=== PATIENT | male | born 2000 | race Caucasian/White ===

== ENCOUNTER 2019-10-27 13:05 | Outpatient (RCR) | payer BC | END 2019-11-08 14:13 | disposition home or self-care (01) | PROVIDERS: ATTEND Psychiatry & Neurology Neurology | DX: M54.2 Cervicalgia (principal); R29.898 Other symptoms and signs involving the musculoskeletal system ==

== ENCOUNTER → 2019-12-05 | Outpatient (CLI) | payer BC ==
[~2019-12-05] MED LIST: GADOBUTROL 7.5 MMOL/7.5 ML (GADAVIST) VIAL IV ONE
--- NOTE | 2019-12-05 11:05 | Diagnostic Imaging Report ---
PROCEDURE: MRI lumbar spine. TECHNIQUE: Multiplanar, multisequence MRI of the lumbar spine was performed without contrast. INDICATION: Back pain. FINDINGS: The alignment of the lumbar spine is normal. The vertebral body heights are well maintained. There is no spondylolysis or spondylolisthesis. No fractures are identified. Conus medullaris is seen at L1 and is normal in appearance. All of the lumbar discs are normal in height, signal intensity, and morphology. There is no focal disc extrusion or high-grade spinal stenosis. Aorta is nonaneurysmal. Kidneys are normal in appearance. IMPRESSION: Unremarkable MRI of the lumbar spine. Dictated by: Dictated on workstation # [id number]
--- NOTE | 2019-12-05 11:21 | Diagnostic Imaging Report ---
PROCEDURE: MR imaging cervical spine with and without contrast. TECHNIQUE: Multiplanar and multisequence MRI of the cervical spine was performed with and without contrast. INDICATION: Neck and back pain. FINDINGS: There is a well-circumscribed mass at the level of T1. This is predominantly cystic, however does demonstrate some heterogeneous contrast enhancement. It measures 2.2 cm craniocaudal x approximately 1.3 cm transverse and 1.1 cm AP. 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 Additionally, there is a 1 cm component extending into the right neuroforamina. There is marked mass effect on the cord, although no significant abnormal signal is seen within the cord itself. The alignment of the cervical spine is otherwise normal. The vertebral body heights are well maintained. There is no other focal disc extrusion or spinal stenosis. Prevertebral soft tissues are within normal limits. Posterior fossa is unremarkable. There are no other abnormal areas of contrast enhancement. IMPRESSION: Well-circumscribed predominantly cystic mass demonstrating heterogeneous contrast enhancement at the level of T1. An additional component of this mass appears to extend into the right neuroforamina at this level. 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 Additional considerations would include meningioma, neurofibroma, or less likely drop metastasis. These findings were conveyed directly to Dr. Shilo Antoine on December 05, 2019, at approximately 11:15 a.m. Dictated by: Dictated on workstation # [id number]
== END ==
LOC: RAD 09:36
PROVIDERS: ATTEND Orthopaedic Surgery
DX: G54.3 Thoracic root disorders, not elsewhere classified (principal); M54.2 Cervicalgia; M54.5 Low back pain
CPT/HCPCS: 72148; 72156

== ENCOUNTER 2020-02-28 11:15 | Outpatient (RCR) | payer BC | END 2020-05-10 14:59 | disposition home or self-care (01) | PROVIDERS: ATTEND Neurological Surgery | DX: D36.10 Benign neoplasm of peripheral nerves and autonomic nervous system, unspecified (principal); Z98.890 Other specified postprocedural states ==

== ENCOUNTER 2020-03-24 02:23 | Emergency (ER) | payer BC ==
[~2020-03-24] VITALS: Ht 170 cm; Wt 59.0 kg
[~2020-03-24 02:23] MED LIST changes: -GADOBUTROL 7.5 MMOL/7.5 ML (GADAVIST) VIAL IV ONE; +LACTATED RINGERS 1,000 ML IV ONE
[2020-03-24] MEDS ORDERED: PANTOPRAZOLE 40 MG (PROTONIX) VIAL ONE (02:26)
--- OUTSIDE RECORDS SUMMARY | 2020-03-24 02:30 | XMS REPORT | Clinical Summary ---
Author Author Ovidio, Yves Jackson Organization [facility] Address Unknown Phone Unavailable Allergies, Adverse Reactions, Alerts Allergy Name Reaction Description Start Date Severity Status Pr ovider NKDA Critical Active Vaughn POPE Conditions or Problems Problem Name Problem Code Onset Date Status Entry Date Provider Comment Standard Description Annotate CERVICAL LYMPHADENOPATHY, LEFT 785.6 Resolved 03/23 Todd Rodriguez MD Enlargement of lymph nodes OTITIS EXTERNA 380.10 Resolved Todd Rodriguez MD Infective otitis externa, unspecified LONG-TERM (CURRENT) USE OF OTHER MEDICATIONS V58.69 2 Resolved Gaston Ewing MD Long-term (current) use of ot her medications HEALTH SCREENING V70.0 Active Vaughn Robbins A Routine general medical examination at a health care facility Pharyngitis, acute 074.0 Inactive Todd duval MD Herpangina Acute pharyngitis 462 Resolved Todd Rodriguez MD Acute pharyngitis Malaise and fatigue 780.79 Resolved Gaston abrams MD Other malaise and fatigue Pharyngitis 462 Resolved Gaston Ewing MD Acute pharyngitis Sebaceous cyst, infected 706.2 Active Kylah Ewing MD Sebaceous cyst AFTERCARE FOLLOW SURGERY SKIN&SUBCUT TISSUE NEC V58.77 05/30 Active Ricardo Wilson MD Aftercare following surgery of the skin and subcutaneous tissue, NEC Sports physical V70.3 Active Evens ARITA RN Other general medical examination for administrative purposes URI 465.9 Inactive Alon Doyle DO Ac cristal upper respiratory infections of unspecified site Pharyngitis 462 Active Jillina Frazell FLIGHT ENGINEER INSPECTOR Acute pharyngitis Cough 786.2 Active Jillina Yasirzell FLIGHT ENGINEER INSPECTOR Cough Febrile illness 780.60 Active Marelyrosa Botello ribe Fever, unspecified URI 465.9 Active Arsalan Carmichael MD Acute upper respiratory infections of unspecified site BMI 22-22.9 Active Arsalan Carmichael MD Body Mass Index between 19-24, adult Neck pain, chronic 723.1 Active Arsalan garcias MD Cervicalgia 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 Logan malcolm Carmichael MD Lesion of ulnar nerve Bloody stools 578.1 Active Marcos Tomas QUIROZN Blood in stool Hemorrhoids, internal, with bleeding 455.2 Active Marcos Marin APRN Internal hemorrhoids with other complica tion CERVICAL LYMPHADENOPATHY, LEFT ICD-785.6 Inact bennett Todd Rodriguez MD OTITIS EXTERNA ICD-380.10 Inactive Todd Cotto MD LONG-TERM (CURRENT) USE OF OTHER MEDICATIONS ICD-V58.69 2 Inactive Gaston Ewing MD Acute pharyngitis ICD-462 Inactive Todd ferreira MD Malaise and fatigue ICD-780.79 Inactive Chelsey Ewing MD Pharyngitis ICD-462 Inactive Gaston Ewing MD URI ICD-465.9 Inactive Alon Blu Vivek LUCIO Medication List Medication Instructions Start Date Stop Date Generic Name NDC Status Provider Patient Instruction GABAPENTIN 300 MG ORAL CAPSULE Take 1 capsule by mouth in the morning, 1 by mouth at noon, and 2 at bedtime. GABAPENTIN [id number] Jose Ambrosio Active EFFEXOR XR 75 MG ORAL CAPSULE EXTENDED RELEASE 24 HOUR Take one by mouth daily VENLAFAXINE HCL 02044489996 Active Marcos Marin FLIGHT ENGINEER INSPECTOR Active PREDNISONE 20 MG ORAL TABLET two tabs by mouth today, then one tab by mouth days two and three PREDNISONE 59155045812 No Longer Active Arsalan Carmichael MD Active AZITHROMYCIN 250 MG ORAL TABLET 2 po qd x 1 day, then 1 po q d x 4 days AZITHROMYCIN 97906593775 No Longer Active Jillina Yasir arcadio FLIGHT ENGINEER INSPECTOR Active HYDROCODONE-ACETAMINOPHEN 5-325 MG ORAL TABLET 1 TAB PO Q 6 HRS PRN HYDROCODONE-ACETAMINOPHEN 50276379521 No Longer Active Jilli na Sharonl FLIGHT ENGINEER INSPECTOR Active TYLENOL COLD/FLU SEVERE 5-22-163-325 MG ORAL TABLET 2 tabs daily prn [id number] 87644432834 No Longer Active Jillin a Andrea FLIGHT ENGINEER INSPECTOR Active BACTRIM DS 800-160 MG ORAL TABLET 1 tab by mouth twice daily 201 01/30/22 TRIMETHOPRIM-SULFAMETHOXAZOLE 41055507451 No Longer Active Manuel Mendez FLIGHT ENGINEER INSPECTOR Active BACTRIM DS 800-160 MG ORAL TABLET 1 po BID x 10 days 2 SULFAMETHOXAZOLE-TRIMETHOPRIM 60154049655 No Longer Active Gaston Ewing MD Active AMOXICILLIN 500 MG ORAL CAPSULE 1 cap by mouth three times a day AMOXICILLIN 56862522696 No Longer Active Todd Rodriguez MD Active EQ IBUPROFEN 200 MG ORAL TABLET 2 tabs every 4 to 6 hours prn 03/23 IBUPROFEN 42876108808 Active Todd Rodriguez MD Active ANTIPYRINE-BENZOCAINE 5.4-1.4 % OTIC SOLUTION 1-2 drop s in affected ear q 3 hours prn ear pain. BENZOCAINE-ANTIPYRINE 85527567991 No Longer Active Vaughn POPE Active CORTISPORIN 3.5-59781-8 OTIC SOLUTION 4gtts in affected ear QID x 7 days [id number] 18251853858 No Longer Active lexi POPE Active AMOXICILLIN 500 MG ORAL TABLET 2 tabs PO bid x 14 days AMOXICILLIN 48468746226 No Longer Active Vaughn POPE Activ e CORTISPORIN 3.5-41672-8 OTIC SOLUTION 4gtts in affected ear QID x 7 days CORTISPORIN 3.5-96715-4 OTIC SOLUTION [id number] Inactive ANTIPYRINE-BENZOCAINE 5.4-1.4 % OTIC SOLUTION 1-2 drop s in affected ear q 3 hours prn ear pain. ANTIPYRINE-BENZOCAIN E 5.4-1.4 % OTIC SOLUTION BENZOCAINE-ANTIPYRINE Inactive TYLENOL COLD/FLU SEVERE 5-08-005-325 MG ORAL TABLET 2 tabs daily prn TYLENOL COLD/FLU SEVERE 7-65-850-325 MG ORAL TABLET [id number] Inactive HYDROCODONE-ACETAMINOPHEN 5-325 MG ORAL TABLET 1 TAB PO Q 6 HRS PRN HYDROCODONE-ACETAMINOPHEN 5-325 MG ORAL TABLET 165567 HYDROCODONE-ACETAMINOPHEN Inactive PREDNISONE 20 MG ORAL TABLET two tabs by mouth today, then one tab by mouth days two and three PREDNISONE 20 MG ORAL TABLET 674402 PREDNISONE Inactive AMOXICILLIN 500 MG ORAL TABLET 2 tabs PO bid x 14 days AMOXICILLIN 500 MG ORAL TABLET 992637 AMOXICILLIN Inactive AMOXICILLIN 500 MG ORAL CAPSULE 1 cap by mouth three times a day AMOXICILLIN 500 MG ORAL CAPSULE 953032 AMOXICILLIN Inactive BACTRIM DS 800-160 MG ORAL TABLET 1 po BID x 10 days 2 BACTRIM DS 800-160 MG ORAL TABLET 19821228 SULFAMETHOXAZOLE-TRIMETHOP RIM Inactive BACTRIM DS 800-160 MG ORAL TABLET 1 tab by mouth twice daily 201 01/30/22 BACTRIM DS 800-160 MG ORAL TABLET 19821228 TRIMETHOPRIM-SULFAMETHOXAZOLE Inactive AZITHROMYCIN 250 MG ORAL TABLET 2 po qd x 1 day, then 1 po q d x 4 days AZITHROMYCIN 250 MG ORAL TABLET 363385 AZITHROMY PORSHA Inactive Immunizations Vaccine Administration Date Value Standard Kristopher cription influenza immunization (Flu Vax) has been administered 08/17 Flulaval Quadrivalent (Flu) 10Pk Syringe IM influenza virus vaccine, unspecified formulation Vital Signs Date Name Value Unit Range Description blood pressure, diastolic, repeated by physician 73 BP matos blood pressure, diastolic 73 mm[Hg] BP matos blood pressure, systolic, repeated by physician 104 BP sys blood pressure, systolic 104 mm[Hg] BP sys pulse rate E&M 86 /min Heart rate temperature E&M 98.5 [degF] Body temp erature weight E&M 146 [lb_av] Weight Measure d blood pressure, diastolic, repeated by physician 80 BP matos blood pressure, diastolic 80 mm[Hg] BP matos blood pressure, systolic, repeated by physician 122 BP sys blood pressure, systolic 122 mm[Hg] BP sys height E&M 68 [in_us] Bdy height pulse rate E&M 79 /min Heart rate temperature E&M 98.1 [degF] Body temp erature weight E&M 148 [lb_av] Weight Measure d Diagnostic Results Date Name Value Unit Range Description Lab Report: CBC W/DIFF - Hematology leukocyte count, blood 5.7 10^3/MM^3 10*3/mm3 4.6-10.2 neutrophils as percent of blood leukocytes 46.8 % 42.2-75.2 monocytes as percent of blood leukocytes 8.7 % 1.7-9.3 lymphocytes as percent of blood leukocytes 40.6 % 20.5-51.1 erythrocyte (RBC) count 5.16 10^6/MM^3 10*6/mm3 4.50-6.5 0 hemoglobin, blood 14.2 g/dL 14.0-18.0 hematocrit, blood 43.7 % 40.0-54.0 mean corpuscular volume, RBC 85 fL 80-97 mean corpuscular hemoglobin, RBC 27.4 pg 27. 0-31.2 mean corpuscular hemoglobin concentration, RBC 32.4 G/DL % 31.8-35.4 red blood cell distribution width 11.3 % 13 .0-18.0 platelet count 244 10^3/MM^3 10*3/mm3 142-424 Lab Report: Comp. Metabolic Panel - Chem istry sodium, serum 140 mmol/L 470-284 2494/02/28 carbon dioxide, venous blood 30.5 mmol/L 21.0-32 .0 potassium, serum 4.3 mmol/L 3.5-5.2 chloride, serum 102 mmol/L 98-107 blood glucose 96 mg/dL 65-95 urea nitrogen, blood 18 mg/dL 7-18 creatinine, serum 0.92 mg/dL 0.60-1.30 Estimated Glomerular Filtration Rate (calc) 109 (?) mL/min/1.73m2 = OR > 60 mL/min alanine aminotransferase (SGPT), serum 15 U/L 12-78 aspartate aminotransferase (SGOT), serum 26 U/L 19-43 calcium, serum 9.2 mg/dL 8.5-10.1 bilirubin, serum, total 0.70 mg/dL 0.00-1.00 Lab Report: Comp. Metabolic Panel - Lab Alkaline phosphatase 65 50-136 Office Visit: Back/ Arm pain - Basic LDL target level 160 mg/dL Office Visit: Back/ Arm pain - Chemistry HDL cholesterol, serum, target level 40 mg/dL cholesterol, target level 200 mg/dL triglyceride, target level 150 mg/dL Encounters Code Encounter Date Provider Facility CPT-61829 Level 3 Est. Patient 18:54:53 BUDGET AND POLICY ANALYST Marcos vega [facility] CPT-92401 Level 3 Est. Patient 18:52:23 BUDGET AND POLICY ANALYST Marcos vega [facility] CPT-93856 Level 4 Est. Patient 15:27:54 CDT Arsalan gustafson MD [facility] CPT-30641 Level 3 Est. Patient 15:04:20 BUDGET AND POLICY ANALYST Arsalan gustafson MD [facility] CPT-42421 Level 3 Est. Patient 15:11:28 BUDGET AND POLICY ANALYST Alon doherty [facility] CPT-92379 Level 3 Est. Patient 14:21:45 CDT Evens majano [facility] CPT-95717 Level 3 Est. Patient 14:17:31 CDT Evens majano [facility] CPT-19573 Level 3 Est. Patient 16:26:47 BUDGET AND POLICY ANALYST lAon doherty [facility] CPT-61492 Level 3 Est. Patient 11:42:21 CDT Gaston Ewing MD [facility] CPT-87214 Level 3 Est. Patient 13:52:22 CDT Todd Rodriguez MD [facility] CPT-90262 Level 3 Est. Patient 12:06:02 BUDGET AND POLICY ANALYST Arsalan gustafson MD [facility] CPT-79785 Level 3 Est. Patient 12:39:55 BUDGET AND POLICY ANALYST Todd Rodriguez MD [facility] CPT-67173 Level 3 Est. Patient 14:18:20 CDT Vaughn Parker [facility] CPT-98794 Level 3 Est. Patient 17:31:27 BUDGET AND POLICY ANALYST Arsalan gustafson MD [facility] CPT-22222 Level 3 Est. Patient 14:37:36 CDT Vaughn Parker [facility] Procedures Code Procedure Name Date Entry Date Standard Desc ription CPT-14732 Venipuncture Draw Fee 14:46:33 BUDGET AND POLICY ANALYST CPT-[id number] (4274F) Influenza immunization administe red or previously received 18:07:10 BUDGET AND POLICY ANALYST CPT-78678 38251 - Immun Admin 1 vac 16:44:36 CDT 2018 CPT-81258 Flulaval Quadrivalent (Flu) 10Pk Syringe IM 2018 16:44:36 CDT CPT-69572 T spine AP/ Lat - XRAY USE ONLY 15:36:46 CD T CPT-27551 Cervical Min 4V - XRAY USE ONLY 15:36:46 CD T CPT-08947 Chest 2V Frontal and Lat - XRAY USE ONLY 14:37:29 CDT CPT-70465 Postop F/U Visit 13:38:44 CDT CPT-OV Office Visit 14:33:00 CDT CPT-21565 Venipuncture Draw Fee 16:03:08 BUDGET AND POLICY ANALYST CPT-12015 Venipuncture Draw Fee 14:25:48 BUDGET AND POLICY ANALYST CPT-23199 Venipuncture Draw Fee 09:58:28 CDT CPT-90450 Venipuncture Draw Fee 13:38:25 CDT CPT-29461 Venipuncture Draw Fee 14:30:31 CDT CPT-89569 Venipuncture Draw Fee 16:51:54 CDT [facility]-93841 Venipuncture Draw Fee 15:30:43 CDT
--- OUTSIDE RECORDS SUMMARY | 2020-03-24 02:30 | XMS REPORT | Clinical Summary ---
Author Author Admin, vYes Jackson Organization [facility] Address Unknown Phone Unavailable Allergies, Adverse Reactions, [...] of unspecified site Pharyngitis 462 Active Jillina Sharonl AZURE ARCHITECT Acute pharyngitis Cough 786.2 Active Jillina Yasirzell AZURE ARCHITECT Cough Febrile illness 780.60 Active Marely Botello ribe Fever, unspecified URI 465.9 Active [...] Gaston Ewing MD URI ICD-465.9 Inactive Alon Doyle DO Medication List Medication Instructions Start Date Stop Date Generic Name NDC Status Provider Patient Instruction EFFEXOR XR 75 MG ORAL CAPSULE EXTENDED RELEASE 24 HOUR Take one by mouth daily VENLAFAXINE HCL 61780725486 Active Marcos Marin AZURE ARCHITECT Active PREDNISONE 20 MG ORAL TABLET two tabs by mouth today, then one tab by mouth days two and three PREDNISONE 42895098214 No Longer Active Arsalan Carmichael MD Active AZITHROMYCIN 250 MG ORAL TABLET 2 po qd x 1 day, then 1 po q d x 4 days AZITHROMYCIN 69552181216 No Longer Active Jillina Yasir arcadio AZURE ARCHITECT Active HYDROCODONE-ACETAMINOPHEN 5-325 MG ORAL TABLET 1 TAB PO Q 6 HRS PRN HYDROCODONE-ACETAMINOPHEN 69204434457 No Longer Active Jielly Herreral AZURE ARCHITECT Active TYLENOL COLD/FLU SEVERE 0-47-139-325 MG ORAL TABLET 2 tabs daily prn [id number] 65238847215 No Longer Active Genesisin conrad Herreral AZURE ARCHITECT Active BACTRIM DS 800-160 MG ORAL TABLET 1 tab by mouth twice daily 201 01/30/22 TRIMETHOPRIM-SULFAMETHOXAZOLE 32913942021 No Longer Active Manuel Mendez AZURE ARCHITECT Active BACTRIM DS 800-160 MG ORAL TABLET 1 po BID x 10 days 2 SULFAMETHOXAZOLE-TRIMETHOPRIM 55843532950 No Longer Active Gaston Ewing MD Active AMOXICILLIN 500 MG ORAL CAPSULE 1 cap by mouth three times a day AMOXICILLIN 59322583300 No Longer Active Todd Rodriguez MD Active EQ IBUPROFEN 200 MG ORAL TABLET 2 tabs every 4 to 6 hours prn 03/23 IBUPROFEN 09924487690 Active Todd Rodriguez MD Active ANTIPYRINE-BENZOCAINE 5.4-1.4 % OTIC SOLUTION 1-2 drop s in affected ear q 3 hours prn ear pain. BENZOCAINE-ANTIPYRINE 62684235367 No Longer Active Vaughn POPE Active CORTISPORIN 3.5-76637-3 OTIC SOLUTION 4gtts in affected ear QID x 7 days [id number] 04424836426 No Longer Active lexi POPE Active AMOXICILLIN 500 MG ORAL TABLET 2 tabs PO bid x 14 days AMOXICILLIN 37921863897 No Longer Active Vaughn POPE Activ e CORTISPORIN 3.5-64691-4 OTIC SOLUTION 4gtts in affected ear QID x 7 days CORTISPORIN 3.5-21437-3 OTIC SOLUTION [id number] Inactive ANTIPYRINE-BENZOCAINE 5.4-1.4 % OTIC SOLUTION 1-2 drop s in affected ear q 3 hours prn ear pain. ANTIPYRINE-BENZOCAIN E 5.4-1.4 % OTIC SOLUTION BENZOCAINE-ANTIPYRINE Inactive TYLENOL COLD/FLU SEVERE 3-90-508-325 MG ORAL TABLET 2 tabs daily prn TYLENOL COLD/FLU SEVERE 9-23-740-325 MG ORAL TABLET [id number]-WJ-[id number]-APAP Inactive HYDROCODONE-ACETAMINOPHEN 5-325 MG ORAL TABLET 1 TAB PO Q 6 HRS PRN HYDROCODONE-ACETAMINOPHEN 5-325 MG ORAL TABLET 645509 HYDROCODONE-ACETAMINOPHEN Inactive PREDNISONE 20 MG ORAL TABLET two tabs by mouth today, then one tab by mouth days two and three PREDNISONE 20 MG ORAL TABLET 157869 PREDNISONE Inactive AMOXICILLIN 500 MG ORAL TABLET 2 tabs PO bid x 14 days AMOXICILLIN 500 MG ORAL TABLET 705852 AMOXICILLIN Inactive AMOXICILLIN 500 MG ORAL CAPSULE 1 cap by mouth three times a day AMOXICILLIN 500 MG ORAL CAPSULE 053672 AMOXICILLIN Inactive BACTRIM DS 800-160 MG ORAL TABLET 1 po BID x 10 days 2 BACTRIM DS 800-160 MG ORAL TABLET 434020 SULFAMETHOXAZOLE-TRIMETHOP RIM Inactive BACTRIM DS 800-160 MG ORAL TABLET 1 tab by mouth twice daily 201 01/30/22 BACTRIM DS 800-160 MG ORAL TABLET 945603 TRIMETHOPRIM-SULFAMETHOXAZOLE Inactive AZITHROMYCIN 250 MG ORAL TABLET 2 po qd x 1 day, then 1 po q d x 4 days AZITHROMYCIN 250 MG ORAL TABLET 330866 AZITHROMY PORSHA Inactive Immunizations Vaccine Administration Date [...] - Chem istry sodium, serum 140 mmol/L 379-393 2327/02/28 carbon dioxide, venous blood 30.5 mmol/L 21.0-32 [...] mg/dL Encounters Code Encounter Date Provider Facility CPT-17422 Level 3 Est. Patient 18:54:53 DRILL RUNNER Marcos vega [facility] CPT-26844 Level 3 Est. Patient 18:52:23 DRILL RUNNER Marcos vega [facility] CPT-24907 Level 4 Est. Patient 15:27:54 CDT Arsalan gustafson MD [facility] CPT-45747 Level 3 Est. Patient 15:04:20 DRILL RUNNER Arsalan gustafson MD [facility] CPT-20212 Level 3 Est. Patient 15:11:28 DRILL RUNNER Alon doherty [facility] CPT-64767 Level 3 Est. Patient 14:21:45 CDT Evens majano [facility] CPT-72960 Level 3 Est. Patient 14:17:31 CDT Evens majano [facility] CPT-25052 Level 3 Est. Patient 16:26:47 DRILL RUNNER Alon doherty [facility] CPT-82732 Level 3 Est. Patient 11:42:21 CDT Gaston Ewing MD [facility] CPT-14804 Level 3 Est. Patient 13:52:22 CDT Todd Rodriguez MD [facility] CPT-23533 Level 3 Est. Patient 12:06:02 DRILL RUNNER Arsalan gustafson MD [facility] CPT-15405 Level 3 Est. Patient 12:39:55 DRILL RUNNER Todd Rodriguez MD [facility] CPT-01815 Level 3 Est. Patient 14:18:20 CDT Vaughn POPE [facility] CPT-64409 Level 3 Est. Patient 17:31:27 DRILL RUNNER Arsalan gustafson MD [facility] CPT-40724 Level 3 Est. Patient 14:37:36 CDT Vaughn POPE [facility] Procedures Code Procedure Name Date Entry Date Standard Desc ription CPT-33993 Venipuncture Draw Fee 14:46:33 DRILL RUNNER CPT-[id number] (4274F) Influenza immunization administe red or previously received 18:07:10 DRILL RUNNER CPT-84163 70791 - Immun Admin 1 vac 16:44:36 CDT 2018 CPT-05786 Flulaval Quadrivalent (Flu) 10Pk Syringe IM 2018 16:44:36 CDT CPT-04200 T spine AP/ Lat - XRAY USE ONLY 15:36:46 CD T CPT-31558 Cervical Min 4V - XRAY USE ONLY 15:36:46 CD T CPT-29162 Chest 2V Frontal and Lat - XRAY USE ONLY 14:37:29 CDT CPT-25924 Postop F/U Visit 13:38:44 CDT CPT-OV Office Visit 14:33:00 CDT CPT-93023 Venipuncture Draw Fee 16:03:08 DRILL RUNNER CPT-07712 Venipuncture Draw Fee 14:25:48 DRILL RUNNER CPT-10442 Venipuncture Draw Fee 09:58:28 CDT CPT-57611 Venipuncture Draw Fee 13:38:25 CDT CPT-88047 Venipuncture Draw Fee 14:30:31 CDT CPT-60599 Venipuncture Draw Fee 16:51:54 CDT CPT-65913 Venipuncture Draw Fee 15:30:43 CDT
--- OUTSIDE RECORDS SUMMARY | 2020-03-24 02:30 | XMS REPORT | Clinical Summary ---
Author Author Ovidio, Yves Jackson Organization [facility] Address Unknown Phone Unavailable Allergies, Adverse [...] unspecified site Pharyngitis 462 Active Jillina Frazell AGRICULTURAL EQUIPMENT MECHANIC Acute pharyngitis Cough 786.2 Active Jillina Yasirzell AGRICULTURAL EQUIPMENT MECHANIC Cough Febrile illness 780.60 Active Marelyrosa Botello [...] at noon, and 2 at bedtime. GABAPENTIN [id number] Jose Ambrosio Active EFFEXOR XR 75 MG ORAL CAPSULE EXTENDED RELEASE 24 HOUR Take one by mouth daily VENLAFAXINE HCL 42632004090 Active Marcos Marin AGRICULTURAL EQUIPMENT MECHANIC Active PREDNISONE 20 MG ORAL TABLET two tabs by mouth today, then one tab by mouth days two and three PREDNISONE 88397710196 No Longer Active Arsalan Carmichael MD Active AZITHROMYCIN 250 MG ORAL TABLET 2 po qd x 1 day, then 1 po q d x 4 days AZITHROMYCIN 63361985791 No Longer Active Jillina Yasir arcadio AGRICULTURAL EQUIPMENT MECHANIC Active HYDROCODONE-ACETAMINOPHEN 5-325 MG ORAL TABLET 1 TAB PO Q 6 HRS PRN HYDROCODONE-ACETAMINOPHEN 57869308407 No Longer Active Jilli na Sharonl AGRICULTURAL EQUIPMENT MECHANIC Active TYLENOL COLD/FLU SEVERE 1-21-468-325 MG ORAL TABLET 2 tabs daily prn UCKVSISBONMQY-GG-ZM-APAP 67013360989 No Longer Active Jillin a Andrea AGRICULTURAL EQUIPMENT MECHANIC Active BACTRIM DS 800-160 MG ORAL TABLET 1 tab by mouth twice daily 201 01/30/22 TRIMETHOPRIM-SULFAMETHOXAZOLE 81165073708 No Longer Active Manuel Mendez AGRICULTURAL EQUIPMENT MECHANIC Active BACTRIM DS 800-160 MG ORAL TABLET 1 po BID x 10 days 2 SULFAMETHOXAZOLE-TRIMETHOPRIM 99056950484 No Longer Active Gaston Ewing MD Active AMOXICILLIN 500 MG ORAL CAPSULE 1 cap by mouth three times a day AMOXICILLIN 84379092404 No Longer Active Todd Rodriguez MD Active EQ IBUPROFEN 200 MG ORAL TABLET 2 tabs every 4 to 6 hours prn 03/23 IBUPROFEN 99612127631 Active Todd Rodriguez MD Active ANTIPYRINE-BENZOCAINE 5.4-1.4 % OTIC SOLUTION 1-2 drop s in affected ear q 3 hours prn ear pain. BENZOCAINE-ANTIPYRINE 02085335445 No Longer Active Vaughn POPE Active CORTISPORIN 3.5-03812-4 OTIC SOLUTION 4gtts in affected ear QID x 7 days [id number]-[id number]-PM 09868349455 No Longer Active lexi POPE Active AMOXICILLIN 500 MG ORAL TABLET 2 tabs PO bid x 14 days AMOXICILLIN 25008624430 No Longer Active Vaughn POPE Activ e CORTISPORIN 3.5-32570-3 OTIC SOLUTION 4gtts in affected ear QID x 7 days CORTISPORIN 3.5-37565-4 OTIC SOLUTION [id number]-YP Inactive ANTIPYRINE-BENZOCAINE 5.4-1.4 % OTIC SOLUTION 1-2 drop s in affected ear q 3 hours prn ear pain. ANTIPYRINE-BENZOCAIN E 5.4-1.4 % OTIC SOLUTION BENZOCAINE-ANTIPYRINE Inactive TYLENOL COLD/FLU SEVERE 2-71-576-325 MG ORAL TABLET 2 tabs daily prn TYLENOL COLD/FLU SEVERE 9-01-631-325 MG ORAL TABLET [id number]-GR-APAP Inactive HYDROCODONE-ACETAMINOPHEN 5-325 MG ORAL TABLET 1 TAB PO Q 6 HRS PRN HYDROCODONE-ACETAMINOPHEN 5-325 MG ORAL TABLET 188834 HYDROCODONE-ACETAMINOPHEN Inactive PREDNISONE 20 MG ORAL TABLET two tabs by mouth today, then one tab by mouth days two and three PREDNISONE 20 MG ORAL TABLET 758432 PREDNISONE Inactive AMOXICILLIN 500 MG ORAL TABLET 2 tabs PO bid x 14 days AMOXICILLIN 500 MG ORAL TABLET 299801 AMOXICILLIN Inactive AMOXICILLIN 500 MG ORAL CAPSULE 1 cap by mouth three times a day AMOXICILLIN 500 MG ORAL CAPSULE 194464 AMOXICILLIN Inactive BACTRIM DS 800-160 MG ORAL [...] 4 days AZITHROMYCIN 250 MG ORAL TABLET 631979 AZITHROMY PORSHA Inactive Immunizations Vaccine Administration Date [...] systolic 104 mm[Hg] BP sys pulse rate 86 /min Heart rate temperature E&M 98.5 [degF] Body temp erature weight E&M 146 [lb_av] Weight Measure d blood pressure, diastolic, repeated by physician 80 BP matos blood pressure, diastolic 80 mm[Hg] BP matos blood pressure, systolic, repeated by physician 122 BP sys blood pressure, systolic 122 mm[Hg] BP sys height E&M 68 [in_us] Bdy height pulse rate 79 /min Heart rate temperature E&M 98.1 [...] - Chem istry sodium, serum 140 mmol/L 427-818 2296/02/28 carbon dioxide, venous blood 30.5 mmol/L 21.0-32 [...] mg/dL Encounters Code Encounter Date Provider Facility CPT-05594 Level 3 Est. Patient 18:54:53 DRIVER MATERIAL HANDLER Marcos vega [facility] CPT-91512 Level 3 Est. Patient 18:52:23 DRIVER MATERIAL HANDLER Marcos vega [facility] CPT-11711 Level 4 Est. Patient 15:27:54 CDT Arsalan gustafson MD [facility]-67674 Level 3 Est. Patient 15:04:20 DRIVER MATERIAL HANDLER Arsalan gustafson MD [facility] CPT-87985 Level 3 Est. Patient 15:11:28 DRIVER MATERIAL HANDLER Alon doherty [facility] CPT-33893 Level 3 Est. Patient 14:21:45 CDT Evens majano [facility] CPT-26433 Level 3 Est. Patient 14:17:31 CDT Evens majano [facility] CPT-94993 Level 3 Est. Patient 16:26:47 DRIVER MATERIAL HANDLER Alon doherty [facility] CPT-63079 Level 3 Est. Patient 11:42:21 CDT Gaston Ewing MD [facility] CPT-23008 Level 3 Est. Patient 13:52:22 CDT Todd Rodriguez MD [facility] CPT-36226 Level 3 Est. Patient 12:06:02 DRIVER MATERIAL HANDLER Arsalan gustafson MD [facility] CPT-18887 Level 3 Est. Patient 12:39:55 DRIVER MATERIAL HANDLER Todd Rodriguez MD [facility] CPT-68545 Level 3 Est. Patient 14:18:20 CDT Vaughn W Cloven [facility] CPT-04230 Level 3 Est. Patient 17:31:27 DRIVER MATERIAL HANDLER Arsalan gustafson MD [facility] CPT-26337 Level 3 Est. Patient 14:37:36 CDT Vaughn Parker [facility] Procedures Code Procedure Name Date Entry Date Standard Desc ription CPT-32047 Venipuncture Draw Fee 14:46:33 DRIVER MATERIAL HANDLER CPT-VA2646I (4274F) Influenza immunization administe red or previously received 18:07:10 DRIVER MATERIAL HANDLER CPT-73543 75501 - Immun Admin 1 vac 16:44:36 CDT 2018 CPT-46022 Flulaval Quadrivalent (Flu) 10Pk Syringe IM 2018 16:44:36 CDT CPT-72264 T spine AP/ Lat - XRAY USE ONLY 15:36:46 CD T CPT-93005 Cervical Min 4V - XRAY USE ONLY 15:36:46 CD T CPT-89604 Chest 2V Frontal and Lat - XRAY USE ONLY 14:37:29 CDT CPT-17161 Postop F/U Visit 13:38:44 CDT CPT-OV Office Visit 14:33:00 CDT CPT-42176 Venipuncture Draw Fee 16:03:08 DRIVER MATERIAL HANDLER CPT-35452 Venipuncture Draw Fee 14:25:48 DRIVER MATERIAL HANDLER CPT-12277 Venipuncture Draw Fee 09:58:28 CDT CPT-93970 Venipuncture Draw Fee 13:38:25 CDT CPT-97616 Venipuncture Draw Fee 14:30:31 CDT CPT-04359 Venipuncture Draw Fee 16:51:54 CDT CPT-42524 Venipuncture Draw Fee 15:30:43 CDT
[2020-03-24] MEDS ORDERED: LACTATED RINGERS 1,000 ML IV ONE (02:31)
--- OUTSIDE RECORDS SUMMARY | 2020-03-24 02:31 | XMS REPORT | Clinical Summary ---
Author Author Ovidio, Yves Jackson Organization [facility] Address Unknown Phone Unavailable Allergies, Adverse Reactions, [...] unspecified site Pharyngitis 462 Active Jillina Frazell GRAIN ELEVATOR AGENT Acute pharyngitis Cough 786.2 Active Jillina Yasirzell GRAIN ELEVATOR AGENT Cough Febrile illness 780.60 Active Marelyrosa Botello [...] Instructions Start Date Stop Date Generic Name ND Status Provider Patient Instruction EFFEXOR XR 75 MG ORAL CAPSULE EXTENDED RELEASE 24 HOUR Take one by mouth daily VENLAFAXINE HCL 51455992504 Active Marcos Marin GRAIN ELEVATOR AGENT Active PREDNISONE 20 MG ORAL TABLET two tabs by mouth today, then one tab by mouth days two and three PREDNISONE 95492067262 No Longer Active Arsalan Carmichael MD Active AZITHROMYCIN 250 MG ORAL TABLET 2 po qd x 1 day, then 1 po q d x 4 days AZITHROMYCIN 76589307099 No Longer Active Jillina Yasir arcadio GRAIN ELEVATOR AGENT Active HYDROCODONE-ACETAMINOPHEN 5-325 MG ORAL TABLET 1 TAB PO Q 6 HRS PRN HYDROCODONE-ACETAMINOPHEN 00605415526 No Longer Active Jijoshi na Sharonl GRAIN ELEVATOR AGENT Active TYLENOL COLD/FLU SEVERE 6-76-042-325 MG ORAL TABLET 2 tabs daily prn [id number]-[id number]-APAP 09127289107 No Longer Active Genesisin a Sharonl GRAIN ELEVATOR AGENT Active BACTRIM DS 800-160 MG ORAL TABLET 1 tab by mouth twice daily 201 01/30/22 TRIMETHOPRIM-SULFAMETHOXAZOLE 06390515477 No Longer Active Manuel Mendez GRAIN ELEVATOR AGENT Active BACTRIM DS 800-160 MG ORAL TABLET 1 po BID x 10 days 2 SULFAMETHOXAZOLE-TRIMETHOPRIM 11278230723 No Longer Active Gaston Ewing MD Active AMOXICILLIN 500 MG ORAL CAPSULE 1 cap by mouth three times a day AMOXICILLIN 44674078381 No Longer Active Todd Rodriguez MD Active EQ IBUPROFEN 200 MG ORAL TABLET 2 tabs every 4 to 6 hours prn 03/23 IBUPROFEN 36530973919 Active Todd Rodriguez MD Active ANTIPYRINE-BENZOCAINE 5.4-1.4 % OTIC SOLUTION 1-2 drop s in affected ear q 3 hours prn ear pain. BENZOCAINE-ANTIPYRINE 04146088876 No Longer Active Vaughn POPE Active CORTISPORIN 3.5-38982-9 OTIC SOLUTION 4gtts in affected ear QID x 7 days [id number]-OKOBSDZRR-CW 06959909482 No Longer Active lexi POPE Active AMOXICILLIN 500 MG ORAL TABLET 2 tabs PO bid x 14 days AMOXICILLIN 02492757412 No Longer Active Vaughn POPE Activ e CORTISPORIN 3.5-86985-9 OTIC SOLUTION 4gtts in affected ear QID x 7 days CORTISPORIN 3.5-69536-7 OTIC SOLUTION [id number]-XQ Inactive ANTIPYRINE-BENZOCAINE 5.4-1.4 % OTIC SOLUTION 1-2 drop s in affected ear q 3 hours prn ear pain. ANTIPYRINE-BENZOCAIN E 5.4-1.4 % OTIC SOLUTION BENZOCAINE-ANTIPYRINE Inactive TYLENOL COLD/FLU SEVERE 6-41-242-325 MG ORAL TABLET 2 tabs daily prn TYLENOL COLD/FLU SEVERE 0-83-864-325 MG ORAL TABLET [id number]-[id number]-APAP Inactive HYDROCODONE-ACETAMINOPHEN 5-325 MG ORAL TABLET 1 TAB PO Q 6 HRS PRN HYDROCODONE-ACETAMINOPHEN 5-325 MG ORAL TABLET 006490 HYDROCODONE-ACETAMINOPHEN Inactive PREDNISONE 20 MG ORAL TABLET two tabs by mouth today, then one tab by mouth days two and three PREDNISONE 20 MG ORAL TABLET 273173 PREDNISONE Inactive AMOXICILLIN 500 MG ORAL TABLET 2 tabs PO bid x 14 days AMOXICILLIN 500 MG ORAL TABLET 912743 AMOXICILLIN Inactive AMOXICILLIN 500 MG ORAL CAPSULE 1 cap by mouth three times a day AMOXICILLIN 500 MG ORAL CAPSULE 339121 AMOXICILLIN Inactive BACTRIM DS 800-160 MG ORAL TABLET 1 po BID x 10 days 2 BACTRIM DS 800-160 MG ORAL TABLET 082781 SULFAMETHOXAZOLE-TRIMETHOP RIM Inactive BACTRIM DS 800-160 MG ORAL TABLET 1 tab by mouth twice daily 201 01/30/22 BACTRIM DS 800-160 MG ORAL TABLET 436496 TRIMETHOPRIM-SULFAMETHOXAZOLE Inactive AZITHROMYCIN 250 MG ORAL TABLET 2 po qd x 1 day, then 1 po q d x 4 days AZITHROMYCIN 250 MG ORAL TABLET 265361 AZITHROMY PORSHA Inactive Immunizations Vaccine Administration Date [...] Results Date Name Value Unit Range Description Office Visit: Back/ Arm pain - Basic LDL target level 160 mg/dL Office Visit: Back/ Arm pain - Chemistry HDL cholesterol, serum, target level 40 mg/dL cholesterol, target level 200 mg/dL triglyceride, target level 150 mg/dL Encounters Code Encounter Date Provider Facility CPT-81367 Level 3 Est. Patient 18:54:53 TRIM SETTER HELPER Marcos Tin dle [facility] CPT-88634 Level 3 Est. Patient 18:52:23 TRIM SETTER HELPER Marcos vega [facility] CPT-12938 Level 4 Est. Patient 15:27:54 CDT Arsalan gustafson MD [facility] [place]-99432 Level 3 Est. Patient 15:04:20 TRIM SETTER HELPER Arsalan gustafson MD [facility] CPT-48562 Level 3 Est. Patient 15:11:28 TRIM SETTER HELPER Alon doherty [facility] CPT-12496 Level 3 Est. Patient 14:21:45 CDT Evens majano [facility] CPT-97990 Level 3 Est. Patient 14:17:31 CDT Evens majano [facility] CPT-51004 Level 3 Est. Patient 16:26:47 TRIM SETTER HELPER Alon doherty [facility] CPT-97702 Level 3 Est. Patient 11:42:21 CDT Gaston Ewing MD [facility] CPT-60474 Level 3 Est. Patient 13:52:22 CDT Todd Rodriguez MD [facility] CPT-25935 Level 3 Est. Patient 12:06:02 TRIM SETTER HELPER Arsalan gustafson MD [facility] CPT-47894 Level 3 Est. Patient 12:39:55 TRIM SETTER HELPER Todd Rodriguez MD [facility] CPT-73561 Level 3 Est. Patient 14:18:20 CDT Vaughn Parker [facility] CPT-01370 Level 3 Est. Patient 17:31:27 TRIM SETTER HELPER Arsalan gustafson MD [facility] CPT-05308 Level 3 Est. Patient 14:37:36 CDT Vaughn Parker [facility] Procedures Code Procedure Name Date Entry Date Standard Desc ription CPT-60962 Venipuncture Draw Fee 14:46:33 TRIM SETTER HELPER CPT-EL8651J (4274F) Influenza immunization administe red or previously received 18:07:10 TRIM SETTER HELPER CPT-10817 84934 - Immun Admin 1 vac 16:44:36 CDT 2018 CPT-05478 Flulaval Quadrivalent (Flu) 10Pk Syringe IM 2018 16:44:36 CDT CPT-59837 T spine AP/ Lat - XRAY USE ONLY 15:36:46 CD T CPT-40204 Cervical Min 4V - XRAY USE ONLY 15:36:46 CD T CPT-72866 Chest 2V Frontal and Lat - XRAY USE ONLY 14:37:29 CDT CPT-65865 Postop F/U Visit 13:38:44 CDT CPT-OV Office Visit 14:33:00 CDT CPT-93128 Venipuncture Draw Fee 16:03:08 TRIM SETTER HELPER CPT-19666 Venipuncture Draw Fee 14:25:48 TRIM SETTER HELPER CPT-45388 Venipuncture Draw Fee 09:58:28 CDT CPT-74474 Venipuncture Draw Fee 13:38:25 CDT CPT-91089 Venipuncture Draw Fee 14:30:31 CDT CPT-97110 Venipuncture Draw Fee 16:51:54 CDT CPT-23394 Venipuncture Draw Fee 15:30:43 CDT
--- OUTSIDE RECORDS SUMMARY | 2020-03-24 02:31 | XMS REPORT | Clinical Summary ---
Author Author Admin, Yves Jackson Organization [facility] Address Unknown Phone Unavailable Allergies, Adverse Reactions, [...] URI 465.9 Inactive Alon Doyle DO [place] upper respiratory infections of unspecified site Pharyngitis 462 Active Jillina Sharonl ARTISTIC ASSOCIATE Acute pharyngitis Cough 786.2 Active Docllina Sharonl ARTISTIC ASSOCIATE Cough Febrile illness 780.60 Active Marelyrosa Botello ribe Fever, unspecified URI 465.9 Active Arsalan Carmichael MD Acute upper respiratory infections of unspecified site BMI 22-22.9 Active Arsalan Carmichael MD Body Mass Index between 19-24, adult Neck pain, chronic 723.1 Active Arsalan garcias MD Cervicalgia 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 Logan malcolm Carmichael MD Lesion of ulnar nerve CERVICAL LYMPHADENOPATHY, LEFT ICD-785.6 Inact bennett Todd [...] Take one by mouth daily VENLAFAXINE HCL 78450333535 Active Arsalan Carmichael MD Active PREDNISONE 20 MG ORAL TABLET two tabs by mouth today, then one tab by mouth days two and three PREDNISONE 09077987828 No Longer Active Arsalan Carmichael MD Active AZITHROMYCIN 250 MG ORAL TABLET 2 po qd x 1 day, then 1 po q d x 4 days AZITHROMYCIN 20355296261 No Longer Active Jillina Fra arcadio ARTISTIC ASSOCIATE Active HYDROCODONE-ACETAMINOPHEN 5-325 MG ORAL TABLET 1 TAB PO Q 6 HRS PRN HYDROCODONE-ACETAMINOPHEN 36794889605 No Longer Active Jilli na Frazell ARTISTIC ASSOCIATE Active TYLENOL COLD/FLU SEVERE 6-86-058-325 MG ORAL TABLET 2 tabs daily prn SYGCGFLOWXUVC-IQ-JW-APAP 81249673585 No Longer Active Jillin a Sharonl ARTISTIC ASSOCIATE Active BACTRIM DS 800-160 MG ORAL TABLET 1 tab by mouth twice daily 201 01/30/22 TRIMETHOPRIM-SULFAMETHOXAZOLE 47832772169 No Longer Active Manuel Mendez ARTISTIC ASSOCIATE Active BACTRIM DS 800-160 MG ORAL TABLET 1 po BID x 10 days 2 SULFAMETHOXAZOLE-TRIMETHOPRIM 68231956479 No Longer Active Gaston Ewing MD Active AMOXICILLIN 500 MG ORAL CAPSULE 1 cap by mouth three times a day AMOXICILLIN 81555083112 No Longer Active Todd Rodriguez MD Active EQ IBUPROFEN 200 MG ORAL TABLET 2 tabs every 4 to 6 hours prn 03/23 IBUPROFEN 77056986832 Active Todd Rodriguez MD Active ANTIPYRINE-BENZOCAINE 5.4-1.4 % OTIC SOLUTION 1-2 drop s in affected ear q 3 hours prn ear pain. BENZOCAINE-ANTIPYRINE 17314098828 No Longer Active Vaughn POPE Active CORTISPORIN 3.5-51131-6 OTIC SOLUTION 4gtts in affected ear QID x 7 days [id number]-HF 42367884783 No Longer Active Waldemar POPE Active AMOXICILLIN 500 MG ORAL TABLET 2 tabs PO bid x 14 days AMOXICILLIN 29660779435 No Longer Active Vaughn POPE Activ e CORTISPORIN 3.5-26931-1 OTIC SOLUTION 4gtts in affected ear QID x 7 days CORTISPORIN 3.5-68971-8 OTIC SOLUTION [id number]-[id number]-LW Inactive ANTIPYRINE-BENZOCAINE 5.4-1.4 % OTIC SOLUTION 1-2 drop s in affected ear q 3 hours prn ear pain. ANTIPYRINE-BENZOCAIN E 5.4-1.4 % OTIC SOLUTION BENZOCAINE-ANTIPYRINE Inactive TYLENOL COLD/FLU SEVERE 9-31-904-325 MG ORAL TABLET 2 tabs daily prn TYLENOL COLD/FLU SEVERE 0-09-756-325 MG ORAL TABLET [id number]-FG-APAP Inactive HYDROCODONE-ACETAMINOPHEN 5-325 MG ORAL TABLET 1 TAB PO Q 6 HRS PRN HYDROCODONE-ACETAMINOPHEN 5-325 MG ORAL TABLET 800947 HYDROCODONE-ACETAMINOPHEN Inactive PREDNISONE 20 MG ORAL TABLET two tabs by mouth today, then one tab by mouth days two and three PREDNISONE 20 MG ORAL TABLET 562235 PREDNISONE Inactive AMOXICILLIN 500 MG ORAL TABLET 2 tabs PO bid x 14 days AMOXICILLIN 500 MG ORAL TABLET 926120 AMOXICILLIN Inactive AMOXICILLIN 500 MG ORAL CAPSULE 1 cap by mouth three times a day AMOXICILLIN 500 MG ORAL CAPSULE 967472 AMOXICILLIN Inactive BACTRIM DS 800-160 MG ORAL TABLET 1 po BID x 10 days 2 BACTRIM DS 800-160 MG ORAL TABLET 528461 SULFAMETHOXAZOLE-TRIMETHOP RIM Inactive BACTRIM DS 800-160 MG ORAL TABLET 1 tab by mouth twice daily 201 01/30/22 BACTRIM DS 800-160 MG ORAL TABLET 591052 TRIMETHOPRIM-SULFAMETHOXAZOLE Inactive AZITHROMYCIN 250 MG ORAL TABLET 2 po qd x 1 day, then 1 po q d x 4 days AZITHROMYCIN 250 MG ORAL TABLET 353701 AZITHROMY PORSHA Inactive Immunizations Vaccine Administration Date Value Standard Kristopher cription influenza immunization (Flu Vax) has been administered 08/17 Flulaval Quadrivalent (Flu) 10Pk Syringe IM influenza virus vaccine, unspecified formulation Vital Signs Date Name Value Unit Range Description blood pressure, diastolic, repeated by physician 80 [...] mg/dL Encounters Code Encounter Date Provider Facility CPT-06098 Level 4 Est. Patient 15:27:54 CDT Arsalan gustafson MD [facility] CPT-74827 Level 3 Est. Patient 15:04:20 VOTING MACHINE MECHANIC Arsalan gustafson MD [facility] CPT-69310 Level 3 Est. Patient 15:11:28 VOTING MACHINE MECHANIC Alon doherty [facility] CPT-20567 Level 3 Est. Patient 14:21:45 CDT Evens majano [facility] CPT-94630 Level 3 Est. Patient 14:17:31 CDT Evens majano [facility] CPT-02856 Level 3 Est. Patient 16:26:47 VOTING MACHINE MECHANIC Alon doherty [facility] CPT-87019 Level 3 Est. Patient 11:42:21 CDT Gaston Ewing MD [facility] CPT-69056 Level 3 Est. Patient 13:52:22 CDT Todd Rodriguez MD [facility] CPT-64153 Level 3 Est. Patient 12:06:02 VOTING MACHINE MECHANIC Arsalan gustafson MD [facility] CPT-62589 Level 3 Est. Patient 12:39:55 VOTING MACHINE MECHANIC Todd Rodriguez MD [facility] CPT-28408 Level 3 Est. Patient 14:18:20 CDT Vaughn Parker [facility] CPT-91776 Level 3 Est. Patient 17:31:27 VOTING MACHINE MECHANIC Arsalan gustafson MD [facility] CPT-01188 Level 3 Est. Patient 14:37:36 CDT Vaughn Parker [facility] Procedures Code Procedure Name Date Entry Date Standard Desc ription CPT-90152 16989 - Immun Admin 1 vac 16:44:36 CDT 2018 CPT-65971 Flulaval Quadrivalent (Flu) 10Pk Syringe IM 2018 16:44:36 CDT CPT-74749 T spine AP/ Lat - XRAY USE ONLY 15:36:46 CD T CPT-28248 Cervical Min 4V - XRAY USE ONLY 15:36:46 CD T CPT-32119 Chest 2V Frontal and Lat - XRAY USE ONLY 14:37:29 CDT CPT-67720 Postop F/U Visit 13:38:44 CDT CPT-OV Office Visit 14:33:00 CDT CPT-31826 Venipuncture Draw Fee 16:03:08 VOTING MACHINE MECHANIC CPT-80194 Venipuncture Draw Fee 14:25:48 VOTING MACHINE MECHANIC CPT-87387 Venipuncture Draw Fee 09:58:28 CDT CPT-36270 Venipuncture Draw Fee 13:38:25 CDT CPT-11840 Venipuncture Draw Fee 14:30:31 CDT CPT-90952 Venipuncture Draw Fee 16:51:54 CDT CPT-47672 Venipuncture Draw Fee 15:30:43 CDT
--- OUTSIDE RECORDS SUMMARY | 2020-03-24 02:31 | XMS REPORT | Clinical Summary ---
Author Author Ovidio, Yves Jackson Organization [facility] Address Unknown Phone Unavailable Allergies, Adverse Reactions, [...] unspecified site Pharyngitis 462 Active Jillina Frazell TICKET CHOPPER ASSEMBLER Acute pharyngitis Cough 786.2 Active Jillina Yasirzell TICKET CHOPPER ASSEMBLER Cough Febrile illness 780.60 Active Marelyrosa Botello [...] Take one by mouth daily VENLAFAXINE HCL 16056719667 Active Marcos Marin TICKET CHOPPER ASSEMBLER Active PREDNISONE 20 MG ORAL TABLET two tabs by mouth today, then one tab by mouth days two and three PREDNISONE 31578598480 No Longer Active Arsalan Carmichael MD Active AZITHROMYCIN 250 MG ORAL TABLET 2 po qd x 1 day, then 1 po q d x 4 days AZITHROMYCIN 27540203530 No Longer Active Jillina Yasir arcadio TICKET CHOPPER ASSEMBLER Active HYDROCODONE-ACETAMINOPHEN 5-325 MG ORAL TABLET 1 TAB PO Q 6 HRS PRN HYDROCODONE-ACETAMINOPHEN 52417236751 No Longer Active Jijoshi na Sharonl TICKET CHOPPER ASSEMBLER Active TYLENOL COLD/FLU SEVERE 7-79-174-325 MG ORAL TABLET 2 tabs daily prn ABQUISZTIBJLB-XT-QR-APAP 35048986928 No Longer Active Genesisin a Sharonl TICKET CHOPPER ASSEMBLER Active BACTRIM DS 800-160 MG ORAL TABLET 1 tab by mouth twice daily 201 01/30/22 TRIMETHOPRIM-SULFAMETHOXAZOLE 88846796021 No Longer Active Manuel Mendez TICKET CHOPPER ASSEMBLER Active BACTRIM DS 800-160 MG ORAL TABLET 1 po BID x 10 days 2 SULFAMETHOXAZOLE-TRIMETHOPRIM 61021401409 No Longer Active Gaston Ewing MD Active AMOXICILLIN 500 MG ORAL CAPSULE 1 cap by mouth three times a day AMOXICILLIN 09642603972 No Longer Active Todd Rodriguez MD Active EQ IBUPROFEN 200 MG ORAL TABLET 2 tabs every 4 to 6 hours prn 03/23 IBUPROFEN 61417546818 Active Todd Rodriguez MD Active ANTIPYRINE-BENZOCAINE 5.4-1.4 % OTIC SOLUTION 1-2 drop s in affected ear q 3 hours prn ear pain. BENZOCAINE-ANTIPYRINE 20275613632 No Longer Active Vaughn POPE Active CORTISPORIN 3.5-08325-1 OTIC SOLUTION 4gtts in affected ear QID x 7 days DLYFAQFQ-OJXTLPIJJ-QR 80132014482 No Longer Active lexi POPE Active AMOXICILLIN 500 MG ORAL TABLET 2 tabs PO bid x 14 days AMOXICILLIN 15538566956 No Longer Active Vaughn POPE Activ e CORTISPORIN 3.5-06582-8 OTIC SOLUTION 4gtts in affected ear QID x 7 days CORTISPORIN 3.5-13174-3 OTIC SOLUTION [id number]-YLTUZQXCC-SR Inactive ANTIPYRINE-BENZOCAINE 5.4-1.4 % OTIC SOLUTION 1-2 drop s in affected ear q 3 hours prn ear pain. ANTIPYRINE-BENZOCAIN E 5.4-1.4 % OTIC SOLUTION BENZOCAINE-ANTIPYRINE Inactive TYLENOL COLD/FLU SEVERE 3-59-286-325 MG ORAL TABLET 2 tabs daily prn TYLENOL COLD/FLU SEVERE 3-27-802-325 MG ORAL TABLET MIEIDXDEWLKEC-XV-YX-APAP Inactive HYDROCODONE-ACETAMINOPHEN 5-325 MG ORAL TABLET 1 TAB PO Q 6 HRS PRN HYDROCODONE-ACETAMINOPHEN 5-325 MG ORAL TABLET 388777 HYDROCODONE-ACETAMINOPHEN Inactive PREDNISONE 20 MG ORAL TABLET two tabs by mouth today, then one tab by mouth days two and three PREDNISONE 20 MG ORAL TABLET 772457 PREDNISONE Inactive AMOXICILLIN 500 MG ORAL TABLET 2 tabs PO bid x 14 days AMOXICILLIN 500 MG ORAL TABLET 019839 AMOXICILLIN Inactive AMOXICILLIN 500 MG ORAL CAPSULE 1 cap by mouth three times a day AMOXICILLIN 500 MG ORAL CAPSULE 427208 AMOXICILLIN Inactive BACTRIM DS 800-160 MG ORAL TABLET 1 po BID x 10 days 2 BACTRIM DS 800-160 MG ORAL TABLET 304913 SULFAMETHOXAZOLE-TRIMETHOP RIM Inactive BACTRIM DS 800-160 MG ORAL TABLET 1 tab by mouth twice daily 201 01/30/22 BACTRIM DS 800-160 MG ORAL TABLET 035689 TRIMETHOPRIM-SULFAMETHOXAZOLE Inactive AZITHROMYCIN 250 MG ORAL TABLET 2 po qd x 1 day, then 1 po q d x 4 days AZITHROMYCIN 250 MG ORAL TABLET 741372 AZITHROMY PORSHA Inactive Immunizations Vaccine Administration Date [...] mg/dL Encounters Code Encounter Date Provider Facility CPT-22676 Level 3 Est. Patient 18:54:53 INSULATION AND FLOORING ASSEMBLER Marcos Tin dle [facility] CPT-60449 Level 3 Est. Patient 18:52:23 INSULATION AND FLOORING ASSEMBLER Marcos vega [facility] CPT-68194 Level 4 Est. Patient 15:27:54 CDT Arsalan gustafson MD [facility] CPT-78781 Level 3 Est. Patient 15:04:20 INSULATION AND FLOORING ASSEMBLER Arsalan gustafson MD [facility] CPT-34729 Level 3 Est. Patient 15:11:28 INSULATION AND FLOORING ASSEMBLER Alon doherty [facility] CPT-69484 Level 3 Est. Patient 14:21:45 CDT Evens majano [facility] CPT-30277 Level 3 Est. Patient 14:17:31 CDT Evens majano [facility] CPT-49664 Level 3 Est. Patient 16:26:47 INSULATION AND FLOORING ASSEMBLER Alon doherty [facility] CPT-77689 Level 3 Est. Patient 11:42:21 CDT Gaston Ewing MD [facility] CPT-46730 Level 3 Est. Patient 13:52:22 CDT Todd Rodriguez MD [facility] CPT-76506 Level 3 Est. Patient 12:06:02 INSULATION AND FLOORING ASSEMBLER Arsalan gustafson MD [facility] CPT-70147 Level 3 Est. Patient 12:39:55 INSULATION AND FLOORING ASSEMBLER Todd Rodriguez MD [facility] CPT-90274 Level 3 Est. Patient 14:18:20 CDT Vaughn Parker [facility] CPT-28616 Level 3 Est. Patient 17:31:27 INSULATION AND FLOORING ASSEMBLER Arsalan gustafson MD [facility] CPT-68896 Level 3 Est. Patient 14:37:36 CDT Vaughn Parker [facility] Procedures Code Procedure Name Date Entry Date Standard Desc ription CPT-UM4687S (4274F) Influenza immunization administe red or previously received 18:07:10 INSULATION AND FLOORING ASSEMBLER CPT-69980 97199 - Immun Admin 1 vac 16:44:36 CDT 2018 CPT-69960 Flulaval Quadrivalent (Flu) 10Pk Syringe IM 2018 16:44:36 CDT CPT-79270 T spine AP/ Lat - XRAY USE ONLY 15:36:46 CD T CPT-87356 Cervical Min 4V - XRAY USE ONLY 15:36:46 CD T CPT-55748 Chest 2V Frontal and Lat - XRAY USE ONLY 14:37:29 CDT CPT-53617 Postop F/U Visit 13:38:44 CDT CPT-OV Office Visit 14:33:00 CDT CPT-75446 Venipuncture Draw Fee 16:03:08 INSULATION AND FLOORING ASSEMBLER CPT-93657 Venipuncture Draw Fee 14:25:48 INSULATION AND FLOORING ASSEMBLER CPT-20748 Venipuncture Draw Fee 09:58:28 CDT CPT-46907 Venipuncture Draw Fee 13:38:25 CDT CPT-44226 Venipuncture Draw Fee 14:30:31 CDT CPT-74070 Venipuncture Draw Fee 16:51:54 CDT CPT-32030 Venipuncture Draw Fee 15:30:43 CDT
--- OUTSIDE RECORDS SUMMARY | 2020-03-24 02:31 | XMS REPORT | Clinical Summary ---
Author Author Ovidio, Yves Jackson Organization [facility] Address Unknown Phone Unavailable Allergies, Adverse Reactions, [...] unspecified site Pharyngitis 462 Active Jillina Frazell FISH EGG PACKER Acute pharyngitis Cough 786.2 Active Jillina Yasirzell FISH EGG PACKER Cough Febrile illness 780.60 Active Marelyrosa Botello [...] Ewing MD Acute pharyngitis ICD-462 Inactive Todd frereira MD Malaise and fatigue ICD-780.79 Inactive Chelsey Ewing MD Pharyngitis ICD-462 Inactive Gaston Ewing MD URI ICD-465.9 Inactive Alon Doyle DO Medication List Medication Instructions Start Date Stop Date Generic Name ND Status Provider Patient Instruction EFFEXOR XR 75 MG ORAL CAPSULE EXTENDED RELEASE 24 HOUR Take one by mouth daily VENLAFAXINE HCL 61029759094 Active Marcos Marin FISH EGG PACKER Active PREDNISONE 20 MG ORAL TABLET two tabs by mouth today, then one tab by mouth days two and three PREDNISONE 01790522852 No Longer Active Arsalan Carmichael MD Active AZITHROMYCIN 250 MG ORAL TABLET 2 po qd x 1 day, then 1 po q d x 4 days AZITHROMYCIN 84543182757 No Longer Active Jillina Yasir arcadio FISH EGG PACKER Active HYDROCODONE-ACETAMINOPHEN 5-325 MG ORAL TABLET 1 TAB PO Q 6 HRS PRN HYDROCODONE-ACETAMINOPHEN 81378144580 No Longer Active Jijoshi na Sharonl FISH EGG PACKER Active TYLENOL COLD/FLU SEVERE 7-75-441-325 MG ORAL TABLET 2 tabs daily prn KEXLABBNBAWHT-HY-PO-APAP 59637623632 No Longer Active Genesisin a Sharonl FISH EGG PACKER Active BACTRIM DS 800-160 MG ORAL TABLET 1 tab by mouth twice daily 201 01/30/22 TRIMETHOPRIM-SULFAMETHOXAZOLE 47174007928 No Longer Active Manuel Mendez FISH EGG PACKER Active BACTRIM DS 800-160 MG ORAL TABLET 1 po BID x 10 days 2 SULFAMETHOXAZOLE-TRIMETHOPRIM 96198340975 No Longer Active Gaston Ewing MD Active AMOXICILLIN 500 MG ORAL CAPSULE 1 cap by mouth three times a day AMOXICILLIN 62295901018 No Longer Active Todd Rodriugez MD Active EQ IBUPROFEN 200 MG ORAL TABLET 2 tabs every 4 to 6 hours prn 03/23 IBUPROFEN 69231702574 Active Todd Rodriguez MD Active ANTIPYRINE-BENZOCAINE 5.4-1.4 % OTIC SOLUTION 1-2 drop s in affected ear q 3 hours prn ear pain. BENZOCAINE-ANTIPYRINE 10402022566 No Longer Active Vaughn POPE Active CORTISPORIN 3.5-94017-9 OTIC SOLUTION 4gtts in affected ear QID x 7 days AGBZIRJL-BOWYFDUJB-KK 08640628770 No Longer Active lexi POPE Active AMOXICILLIN 500 MG ORAL TABLET 2 tabs PO bid x 14 days AMOXICILLIN 01408927267 No Longer Active Vaughn POPE Activ e CORTISPORIN 3.5-79738-8 OTIC SOLUTION 4gtts in affected ear QID x 7 days CORTISPORIN 3.5-88505-2 OTIC SOLUTION OERALMQN-APLXRCOPX-XM Inactive ANTIPYRINE-BENZOCAINE 5.4-1.4 % OTIC SOLUTION 1-2 drop s in affected ear q 3 hours prn ear pain. ANTIPYRINE-BENZOCAIN E 5.4-1.4 % OTIC SOLUTION BENZOCAINE-ANTIPYRINE Inactive TYLENOL COLD/FLU SEVERE 6-18-285-325 MG ORAL TABLET 2 tabs daily prn TYLENOL COLD/FLU SEVERE 8-11-694-325 MG ORAL TABLET GITGBBNLVVWZT-FD-HH-APAP Inactive HYDROCODONE-ACETAMINOPHEN 5-325 MG ORAL TABLET 1 TAB PO Q 6 HRS PRN HYDROCODONE-ACETAMINOPHEN 5-325 MG ORAL TABLET 190156 HYDROCODONE-ACETAMINOPHEN Inactive PREDNISONE 20 MG ORAL TABLET two tabs by mouth today, then one tab by mouth days two and three PREDNISONE 20 MG ORAL TABLET 036630 PREDNISONE Inactive AMOXICILLIN 500 MG ORAL TABLET 2 tabs PO bid x 14 days AMOXICILLIN 500 MG ORAL TABLET 264084 AMOXICILLIN Inactive AMOXICILLIN 500 MG ORAL CAPSULE 1 cap by mouth three times a day AMOXICILLIN 500 MG ORAL CAPSULE 466990 AMOXICILLIN Inactive BACTRIM DS 800-160 MG ORAL TABLET 1 po BID x 10 days 2 BACTRIM DS 800-160 MG ORAL TABLET 729736 SULFAMETHOXAZOLE-TRIMETHOP RIM Inactive BACTRIM DS 800-160 MG ORAL TABLET 1 tab by mouth twice daily 201 01/30/22 BACTRIM DS 800-160 MG ORAL TABLET 736521 TRIMETHOPRIM-SULFAMETHOXAZOLE Inactive AZITHROMYCIN 250 MG ORAL TABLET 2 po qd x 1 day, then 1 po q d x 4 days AZITHROMYCIN 250 MG ORAL TABLET 715651 AZITHROMY PORSHA Inactive Immunizations Vaccine Administration Date [...] - Chem istry sodium, serum 140 mmol/L 772-936 9973/02/28 carbon dioxide, venous blood 30.5 mmol/L 21.0-32 [...] mg/dL Encounters Code Encounter Date Provider Facility CPT-24994 Level 3 Est. Patient 18:54:53 FILTERING MACHINE TENDER HELPER Marcos vega [facility] CPT-37119 Level 3 Est. Patient 18:52:23 FILTERING MACHINE TENDER HELPER Marcos vega [facility] CPT-20582 Level 4 Est. Patient 15:27:54 CDT Arsalan gustafson MD [facility] CPT-43770 Level 3 Est. Patient 15:04:20 FILTERING MACHINE TENDER HELPER Arsalan gustafson MD [facility] CPT-54312 Level 3 Est. Patient 15:11:28 FILTERING MACHINE TENDER HELPER Alon doherty [facility] CPT-75481 Level 3 Est. Patient 14:21:45 CDT Evens majano [facility] CPT-74223 Level 3 Est. Patient 14:17:31 CDT Evens majano [facility] CPT-11232 Level 3 Est. Patient 16:26:47 FILTERING MACHINE TENDER HELPER Alon doherty [facility] CPT-36082 Level 3 Est. Patient 11:42:21 CDT Gaston Ewing MD [facility] CPT-48237 Level 3 Est. Patient 13:52:22 CDT Todd Rodriguez MD [facility] CPT-63720 Level 3 Est. Patient 12:06:02 FILTERING MACHINE TENDER HELPER Araslan gustafson MD [facility] CPT-67621 Level 3 Est. Patient 12:39:55 FILTERING MACHINE TENDER HELPER Todd Rodriguez MD [facility] CPT-28763 Level 3 Est. Patient 14:18:20 CDT Vaughn POPE [facility] CPT-17670 Level 3 Est. Patient 17:31:27 FILTERING MACHINE TENDER HELPER Arsalan gustafson MD [facility] CPT-32041 Level 3 Est. Patient 14:37:36 CDT Vaughn POPE [facility] Procedures Code Procedure Name Date Entry Date Standard Desc ription CPT-34749 Venipuncture Draw Fee 14:46:33 FILTERING MACHINE TENDER HELPER CPT-YD6533C (4274F) Influenza immunization administe red or previously received 18:07:10 FILTERING MACHINE TENDER HELPER CPT-88589 99724 - Immun Admin 1 vac 16:44:36 CDT 2018 CPT-38987 Flulaval Quadrivalent (Flu) 10Pk Syringe IM 2018 16:44:36 CDT CPT-19926 T spine AP/ Lat - XRAY USE ONLY 15:36:46 CD T CPT-67689 Cervical Min 4V - XRAY USE ONLY 15:36:46 CD T CPT-28216 Chest 2V Frontal and Lat - XRAY USE ONLY 14:37:29 CDT CPT-56761 Postop F/U Visit 13:38:44 CDT CPT-OV Office Visit 14:33:00 CDT CPT-86101 Venipuncture Draw Fee 16:03:08 FILTERING MACHINE TENDER HELPER CPT-59876 Venipuncture Draw Fee 14:25:48 FILTERING MACHINE TENDER HELPER CPT-71310 Venipuncture Draw Fee 09:58:28 CDT CPT-36330 Venipuncture Draw Fee 13:38:25 CDT CPT-13634 Venipuncture Draw Fee 14:30:31 CDT CPT-85961 Venipuncture Draw Fee 16:51:54 CDT CPT-68808 Venipuncture Draw Fee 15:30:43 CDT
--- OUTSIDE RECORDS SUMMARY | 2020-03-24 02:31 | XMS REPORT | Clinical Summary ---
Author Author Ovidio, Yves Jackson Organization [facility] Address Unknown Phone Unavailable Allergies, Adverse [...] unspecified site Pharyngitis 462 Active Jillina Frazell SECURITY SOLUTIONS ENGINEER Acute pharyngitis Cough 786.2 Active Jillina Yasirzell SECURITY SOLUTIONS ENGINEER Cough Febrile illness 780.60 Active Marelyrosa Botello [...] Take one by mouth daily VENLAFAXINE HCL 94637784882 Active Marcos Marin SECURITY SOLUTIONS ENGINEER Active PREDNISONE 20 MG ORAL TABLET two tabs by mouth today, then one tab by mouth days two and three PREDNISONE 17355884905 No Longer Active Arsalan Carmichael MD Active AZITHROMYCIN 250 MG ORAL TABLET 2 po qd x 1 day, then 1 po q d x 4 days AZITHROMYCIN 81615329056 No Longer Active Jillina Yasir arcadio SECURITY SOLUTIONS ENGINEER Active HYDROCODONE-ACETAMINOPHEN 5-325 MG ORAL TABLET 1 TAB PO Q 6 HRS PRN HYDROCODONE-ACETAMINOPHEN 50126642712 No Longer Active Jijoshi na Sharonl SECURITY SOLUTIONS ENGINEER Active TYLENOL COLD/FLU SEVERE 7-85-965-325 MG ORAL TABLET 2 tabs daily prn IGTPPCUOZIGDF-EO-SN-APAP 07231925855 No Longer Active Genesisin a Sharonl SECURITY SOLUTIONS ENGINEER Active BACTRIM DS 800-160 MG ORAL TABLET 1 tab by mouth twice daily 201 01/30/22 TRIMETHOPRIM-SULFAMETHOXAZOLE 85290968850 No Longer Active Manuel Mendez SECURITY SOLUTIONS ENGINEER Active BACTRIM DS 800-160 MG ORAL TABLET 1 po BID x 10 days 2 SULFAMETHOXAZOLE-TRIMETHOPRIM 67498290852 No Longer Active Gaston Ewing MD Active AMOXICILLIN 500 MG ORAL CAPSULE 1 cap by mouth three times a day AMOXICILLIN 25885615551 No Longer Active Todd Rodriguez MD Active EQ IBUPROFEN 200 MG ORAL TABLET 2 tabs every 4 to 6 hours prn 03/23 IBUPROFEN 74899937511 Active Todd Rodriguez MD Active ANTIPYRINE-BENZOCAINE 5.4-1.4 % OTIC SOLUTION 1-2 drop s in affected ear q 3 hours prn ear pain. BENZOCAINE-ANTIPYRINE 91977039408 No Longer Active Vaughn POPE Active CORTISPORIN 3.5-59947-3 OTIC SOLUTION 4gtts in affected ear QID x 7 days ZIZXCNFI-MGUJGAJEX-SJ 86194226832 No Longer Active lexi POPE Active AMOXICILLIN 500 MG ORAL TABLET 2 tabs PO bid x 14 days AMOXICILLIN 77312375209 No Longer Active Vaughn POPE Activ e CORTISPORIN 3.5-53328-4 OTIC SOLUTION 4gtts in affected ear QID x 7 days CORTISPORIN 3.5-74948-2 OTIC SOLUTION PRWCAUPW-IHFQSRBEJ-XS Inactive ANTIPYRINE-BENZOCAINE 5.4-1.4 % OTIC SOLUTION 1-2 drop s in affected ear q 3 hours prn ear pain. ANTIPYRINE-BENZOCAIN E 5.4-1.4 % OTIC SOLUTION BENZOCAINE-ANTIPYRINE Inactive TYLENOL COLD/FLU SEVERE 0-53-839-325 MG ORAL TABLET 2 tabs daily prn TYLENOL COLD/FLU SEVERE 8-47-897-325 MG ORAL TABLET ZOGGIJPPIXIBH-AD-RQ-APAP Inactive HYDROCODONE-ACETAMINOPHEN 5-325 MG ORAL TABLET 1 TAB PO Q 6 HRS PRN HYDROCODONE-ACETAMINOPHEN 5-325 MG ORAL TABLET 685789 HYDROCODONE-ACETAMINOPHEN Inactive PREDNISONE 20 MG ORAL TABLET two tabs by mouth today, then one tab by mouth days two and three PREDNISONE 20 MG ORAL TABLET 596261 PREDNISONE Inactive AMOXICILLIN 500 MG ORAL TABLET 2 tabs PO bid x 14 days AMOXICILLIN 500 MG ORAL TABLET 538220 AMOXICILLIN Inactive AMOXICILLIN 500 MG ORAL CAPSULE 1 cap by mouth three times a day AMOXICILLIN 500 MG ORAL CAPSULE 169710 AMOXICILLIN Inactive BACTRIM DS 800-160 MG ORAL TABLET 1 po BID x 10 days 2 BACTRIM DS 800-160 MG ORAL TABLET 823192 SULFAMETHOXAZOLE-TRIMETHOP RIM Inactive BACTRIM DS 800-160 MG ORAL TABLET 1 tab by mouth twice daily 201 01/30/22 BACTRIM DS 800-160 MG ORAL TABLET 636766 TRIMETHOPRIM-SULFAMETHOXAZOLE Inactive AZITHROMYCIN 250 MG ORAL TABLET 2 po qd x 1 day, then 1 po q d x 4 days AZITHROMYCIN 250 MG ORAL TABLET 141035 AZITHROMY PORSHA Inactive Immunizations Vaccine Administration Date [...] - Chem istry sodium, serum 140 mmol/L 610-091 1820/02/28 carbon dioxide, venous blood 30.5 mmol/L 21.0-32 [...] mg/dL Encounters Code Encounter Date Provider Facility CPT-82245 Level 3 Est. Patient 18:54:53 [employer] Marcos vega [facility] CPT-73533 Level 3 Est. Patient 18:52:23 [employer] Marcos vega [facility] CPT-47331 Level 4 Est. Patient 15:27:54 CDT Arsalan gustafson MD [facility] CPT-34620 Level 3 Est. Patient 15:04:20 [employer] Arsalan gustafson MD [facility] CPT-13828 Level 3 Est. Patient 15:11:28 [employer] Alon doherty [facility] CPT-91371 Level 3 Est. Patient 14:21:45 CDT Evens majano [facility] CPT-55637 Level 3 Est. Patient 14:17:31 CDT Evens majano [facility] CPT-81616 Level 3 Est. Patient 16:26:47 [employer] Alon doherty [facility] CPT-65001 Level 3 Est. Patient 11:42:21 CDT Gaston Ewing MD [facility] CPT-57562 Level 3 Est. Patient 13:52:22 CDT Todd Rodriguez MD [facility] CPT-55777 Level 3 Est. Patient 12:06:02 [employer] Arsalan gustafson MD [facility] CPT-60118 Level 3 Est. Patient 12:39:55 [employer] Todd Rodriguez MD [facility] CPT-81435 Level 3 Est. Patient 14:18:20 CDT Vaughn POPE [facility] CPT-07742 Level 3 Est. Patient 17:31:27 [employer] Arsalan gustafson MD [facility] CPT-25295 Level 3 Est. Patient 14:37:[address] [facility] Procedures Code Procedure Name Date Entry Date Standard Desc ription CPT-46888 Venipuncture Draw Fee 14:46:33 [employer] CPT-KL7203W (4274F) Influenza immunization administe red or previously received 18:07:10 [employer] CPT-85971 69033 - Immun Admin 1 vac 16:44:36 CDT 2018 CPT-43128 Flulaval Quadrivalent (Flu) 10Pk Syringe IM 2018 16:44:36 CDT CPT-19726 T spine AP/ Lat - XRAY USE ONLY 15:36:46 CD T CPT-61114 Cervical Min 4V - XRAY USE ONLY 15:36:46 CD T CPT-41364 Chest 2V Frontal and Lat - XRAY USE ONLY 14:37:29 CDT CPT-00002 Postop F/U Visit 13:38:44 CDT CPT-OV Office Visit 14:33:00 CDT CPT-95315 Venipuncture Draw Fee 16:03:08 [employer] CPT-43592 Venipuncture Draw Fee 14:25:48 [employer] CPT-48617 Venipuncture Draw Fee 09:58:28 CDT CPT-64006 Venipuncture Draw Fee 13:38:25 CDT CPT-14966 Venipuncture Draw Fee 14:30:31 CDT CPT-47051 Venipuncture Draw Fee 16:51:54 CDT CPT-24735 Venipuncture Draw Fee 15:30:43 CDT
--- OUTSIDE RECORDS SUMMARY | 2020-03-24 02:31 | XMS REPORT | Clinical Summary ---
Author Author Admin, Yves Jackson Organization [facility] Address Unknown Phone Unavailable Allergies, Adverse [...] unspecified site Pharyngitis 462 Active Jillina Sharonl METAL SMELTER Acute pharyngitis Cough 786.2 Active Jillina Yasirzell METAL SMELTER Cough Febrile illness 780.60 Active Marely Botello ribe Fever, unspecified URI 465.9 Active Arsalan Carmichael MD Acute upper respiratory infections of unspecified site BMI 22-22.9 Active Arsalan Carmichael MD Body Mass Index between 19-24, adult Neck pain, chronic 723.1 Active Arsalan garcias MD Cervicalgia 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 Olgan malcolm Carmichael MD Lesion of ulnar nerve [...] Take one by mouth daily VENLAFAXINE HCL 95306169805 Active Marcos Marin METAL SMELTER Active PREDNISONE 20 MG ORAL TABLET two tabs by mouth today, then one tab by mouth days two and three PREDNISONE 62587337339 No Longer Active Arsalan Carmichael MD Active AZITHROMYCIN 250 MG ORAL TABLET 2 po qd x 1 day, then 1 po q d x 4 days AZITHROMYCIN 12079682213 No Longer Active Jillina Yasir arcadio METAL SMELTER Active HYDROCODONE-ACETAMINOPHEN 5-325 MG ORAL TABLET 1 TAB PO Q 6 HRS PRN HYDROCODONE-ACETAMINOPHEN 95878758438 No Longer Active Jielly Herreral METAL SMELTER Active TYLENOL COLD/FLU SEVERE 7-85-388-325 MG ORAL TABLET 2 tabs daily prn [id number]-DO-TV-APAP 91247831181 No Longer Active Genesisin conrad Herreral METAL SMELTER Active BACTRIM DS 800-160 MG ORAL TABLET 1 tab by mouth twice daily 201 01/30/22 TRIMETHOPRIM-SULFAMETHOXAZOLE 64290975797 No Longer Active Manuel Mendez METAL SMELTER Active BACTRIM DS 800-160 MG ORAL TABLET 1 po BID x 10 days 2 SULFAMETHOXAZOLE-TRIMETHOPRIM 48811790128 No Longer Active Gaston Ewing MD Active AMOXICILLIN 500 MG ORAL CAPSULE 1 cap by mouth three times a day AMOXICILLIN 87799700727 No Longer Active Todd Rodriguez MD Active EQ IBUPROFEN 200 MG ORAL TABLET 2 tabs every 4 to 6 hours prn 03/23 IBUPROFEN 98050706499 Active Todd Rodriguez MD Active ANTIPYRINE-BENZOCAINE 5.4-1.4 % OTIC SOLUTION 1-2 drop s in affected ear q 3 hours prn ear pain. BENZOCAINE-ANTIPYRINE 37066987978 No Longer Active Vaughn POPE Active CORTISPORIN 3.5-11570-6 OTIC SOLUTION 4gtts in affected ear QID x 7 days [id number]-JE 57326180925 No Longer Active lexi POPE Active AMOXICILLIN 500 MG ORAL TABLET 2 tabs PO bid x 14 days AMOXICILLIN 93259376180 No Longer Active Vaughn POPE Activ e CORTISPORIN 3.5-81055-3 OTIC SOLUTION 4gtts in affected ear QID x 7 days CORTISPORIN 3.5-56606-0 OTIC SOLUTION [id number]-[id number]-LP Inactive ANTIPYRINE-BENZOCAINE 5.4-1.4 % OTIC SOLUTION 1-2 drop s in affected ear q 3 hours prn ear pain. ANTIPYRINE-BENZOCAIN E 5.4-1.4 % OTIC SOLUTION BENZOCAINE-ANTIPYRINE Inactive TYLENOL COLD/FLU SEVERE 6-46-797-325 MG ORAL TABLET 2 tabs daily prn TYLENOL COLD/FLU SEVERE 0-53-583-325 MG ORAL TABLET EIDTHUBSVUDXG-[id number]-OG-APAP Inactive HYDROCODONE-ACETAMINOPHEN 5-325 MG ORAL TABLET 1 TAB PO Q 6 HRS PRN HYDROCODONE-ACETAMINOPHEN 5-325 MG ORAL TABLET 332744 HYDROCODONE-ACETAMINOPHEN Inactive PREDNISONE 20 MG ORAL TABLET two tabs by mouth today, then one tab by mouth days two and three PREDNISONE 20 MG ORAL TABLET 988968 PREDNISONE Inactive AMOXICILLIN 500 MG ORAL TABLET 2 tabs PO bid x 14 days AMOXICILLIN 500 MG ORAL TABLET 818915 AMOXICILLIN Inactive AMOXICILLIN 500 MG ORAL CAPSULE 1 cap by mouth three times a day AMOXICILLIN 500 MG ORAL CAPSULE 675353 AMOXICILLIN Inactive BACTRIM DS 800-160 MG ORAL TABLET 1 po BID x 10 days 2 BACTRIM DS 800-160 MG ORAL TABLET 292094 SULFAMETHOXAZOLE-TRIMETHOP RIM Inactive BACTRIM DS 800-160 MG ORAL TABLET 1 tab by mouth twice daily 201 01/30/22 BACTRIM DS 800-160 MG ORAL TABLET 777377 TRIMETHOPRIM-SULFAMETHOXAZOLE Inactive AZITHROMYCIN 250 MG ORAL TABLET 2 po qd x 1 day, then 1 po q d x 4 days AZITHROMYCIN 250 MG ORAL TABLET 087849 AZITHROMY PORSHA Inactive Immunizations Vaccine Administration Date [...] mg/dL Encounters Code Encounter Date Provider Facility CPT-21919 Level 3 Est. Patient 18:54:53 CHILD HEALTH ASSOCIATE Marcos vega [facility] CPT-20124 Level 3 Est. Patient 18:52:23 CHILD HEALTH ASSOCIATE Marcos vega [facility] CPT-09851 Level 4 Est. Patient 15:27:54 CDT Arsalan gustafson MD [facility] CPT-21860 Level 3 Est. Patient 15:04:20 CHILD HEALTH ASSOCIATE Arsalan gustafson MD [facility] CPT-01890 Level 3 Est. Patient 15:11:28 CHILD HEALTH ASSOCIATE Alon doherty [facility] CPT-03196 Level 3 Est. Patient 14:21:45 CDT Evens majano [facility] CPT-50615 Level 3 Est. Patient 14:17:31 CDT Evens majano [facility] CPT-34737 Level 3 Est. Patient 16:26:47 CHILD HEALTH ASSOCIATE Alon doherty [facility] CPT-18047 Level 3 Est. Patient 11:42:21 CDT Gaston Ewing MD [facility] CPT-48926 Level 3 Est. Patient 13:52:22 CDT Todd Rodriguez MD [facility] CPT-74389 Level 3 Est. Patient 12:06:02 CHILD HEALTH ASSOCIATE Arsalan gustafson MD [facility] CPT-88490 Level 3 Est. Patient 12:39:55 CHILD HEALTH ASSOCIATE Todd Rodriguez MD [facility] CPT-07515 Level 3 Est. Patient 14:18:20 CDT Vaughn Parker [facility] CPT-71841 Level 3 Est. Patient 17:31:27 CHILD HEALTH ASSOCIATE Arsalan gustafson MD [facility] CPT-22411 Level 3 Est. Patient 14:37:36 CDT Vaughn Parker [facility] Procedures Code Procedure Name Date Entry Date Standard Desc ription CPT-IB0467S (4274F) Influenza immunization administe red or previously received 18:07:10 CHILD HEALTH ASSOCIATE CPT-66028 76470 - Immun Admin 1 vac 16:44:36 CDT 2018 CPT-18008 Flulaval Quadrivalent (Flu) 10Pk Syringe IM 2018 16:44:36 CDT CPT-57684 T spine AP/ Lat - XRAY USE ONLY 15:36:46 CD T CPT-83449 Cervical Min 4V - XRAY USE ONLY 15:36:46 CD T CPT-71146 Chest 2V Frontal and Lat - XRAY USE ONLY 14:37:29 CDT CPT-01265 Postop F/U Visit 13:38:44 CDT CPT-OV Office Visit 14:33:00 CDT CPT-38806 Venipuncture Draw Fee 16:03:08 CHILD HEALTH ASSOCIATE CPT-67551 Venipuncture Draw Fee 14:25:48 CHILD HEALTH ASSOCIATE CPT-52040 Venipuncture Draw Fee 09:58:28 CDT CPT-23673 Venipuncture Draw Fee 13:38:25 CDT CPT-62205 Venipuncture Draw Fee 14:30:31 CDT CPT-85322 Venipuncture Draw Fee 16:51:54 CDT CPT-22130 Venipuncture Draw Fee 15:30:43 CDT
--- OUTSIDE RECORDS SUMMARY | 2020-03-24 02:31 | XMS REPORT | Clinical Summary ---
Author Author Ovidio, Yves Jackson Organization [facility] Address Unknown Phone Unavailable Allergies, Adverse [...] unspecified site Pharyngitis 462 Active Jillina Frazell ROSTER CLERK Acute pharyngitis Cough 786.2 Active Jillina Yasirzell ROSTER CLERK Cough Febrile illness 780.60 Active Marelyrosa Botello [...] Take one by mouth daily VENLAFAXINE HCL 80725791585 Active Marcos Marin ROSTER CLERK Active PREDNISONE 20 MG ORAL TABLET two tabs by mouth today, then one tab by mouth days two and three PREDNISONE 66532819201 No Longer Active Arsalan Carmichael MD Active AZITHROMYCIN 250 MG ORAL TABLET 2 po qd x 1 day, then 1 po q d x 4 days AZITHROMYCIN 51032227261 No Longer Active Jillina Yasir arcadio ROSTER CLERK Active HYDROCODONE-ACETAMINOPHEN 5-325 MG ORAL TABLET 1 TAB PO Q 6 HRS PRN HYDROCODONE-ACETAMINOPHEN 59148612095 No Longer Active Jijoshi na Sharonl ROSTER CLERK Active TYLENOL COLD/FLU SEVERE 4-27-004-325 MG ORAL TABLET 2 tabs daily prn YDBAXFFMLKPPC-OV-AO-APAP 49367388493 No Longer Active Genesisin a Sharonl ROSTER CLERK Active BACTRIM DS 800-160 MG ORAL TABLET 1 tab by mouth twice daily 201 01/30/22 TRIMETHOPRIM-SULFAMETHOXAZOLE 06234871601 No Longer Active Manuel Mendez ROSTER CLERK Active BACTRIM DS 800-160 MG ORAL TABLET 1 po BID x 10 days 2 SULFAMETHOXAZOLE-TRIMETHOPRIM 50108326127 No Longer Active Gaston Ewing MD Active AMOXICILLIN 500 MG ORAL CAPSULE 1 cap by mouth three times a day AMOXICILLIN 19234809924 No Longer Active Todd Rodriguez MD Active EQ IBUPROFEN 200 MG ORAL TABLET 2 tabs every 4 to 6 hours prn 03/23 IBUPROFEN 06550619547 Active Todd Rodriguez MD Active ANTIPYRINE-BENZOCAINE 5.4-1.4 % OTIC SOLUTION 1-2 drop s in affected ear q 3 hours prn ear pain. BENZOCAINE-ANTIPYRINE 52109589528 No Longer Active Vaughn POPE Active CORTISPORIN 3.5-85863-9 OTIC SOLUTION 4gtts in affected ear QID x 7 days [id number]-ZZXYVGYYQ-IA 58008493322 No Longer Active lexi POPE Active AMOXICILLIN 500 MG ORAL TABLET 2 tabs PO bid x 14 days AMOXICILLIN 73278920463 No Longer Active Vaughn POPE Activ e CORTISPORIN 3.5-57358-6 OTIC SOLUTION 4gtts in affected ear QID x 7 days CORTISPORIN 3.5-64178-1 OTIC SOLUTION SZORWHLE-EITHYXLQJ-SD Inactive ANTIPYRINE-BENZOCAINE 5.4-1.4 % OTIC SOLUTION 1-2 drop s in affected ear q 3 hours prn ear pain. ANTIPYRINE-BENZOCAIN E 5.4-1.4 % OTIC SOLUTION BENZOCAINE-ANTIPYRINE Inactive TYLENOL COLD/FLU SEVERE 6-45-337-325 MG ORAL TABLET 2 tabs daily prn TYLENOL COLD/FLU SEVERE 8-67-095-325 MG ORAL TABLET IDIOQGMHMYMLB-NT-LI-APAP Inactive HYDROCODONE-ACETAMINOPHEN 5-325 MG ORAL TABLET 1 TAB PO Q 6 HRS PRN HYDROCODONE-ACETAMINOPHEN 5-325 MG ORAL TABLET 103342 HYDROCODONE-ACETAMINOPHEN Inactive PREDNISONE 20 MG ORAL TABLET two tabs by mouth today, then one tab by mouth days two and three PREDNISONE 20 MG ORAL TABLET 447009 PREDNISONE Inactive AMOXICILLIN 500 MG ORAL TABLET 2 tabs PO bid x 14 days AMOXICILLIN 500 MG ORAL TABLET 894225 AMOXICILLIN Inactive AMOXICILLIN 500 MG ORAL CAPSULE 1 cap by mouth three times a day AMOXICILLIN 500 MG ORAL CAPSULE 666944 AMOXICILLIN Inactive BACTRIM DS 800-160 MG ORAL TABLET 1 po BID x 10 days 2 BACTRIM DS 800-160 MG ORAL TABLET 793709 SULFAMETHOXAZOLE-TRIMETHOP RIM Inactive BACTRIM DS 800-160 MG ORAL TABLET 1 tab by mouth twice daily 201 01/30/22 BACTRIM DS 800-160 MG ORAL TABLET 234189 TRIMETHOPRIM-SULFAMETHOXAZOLE Inactive AZITHROMYCIN 250 MG ORAL TABLET 2 po qd x 1 day, then 1 po q d x 4 days AZITHROMYCIN 250 MG ORAL TABLET 170645 AZITHROMY PORSHA Inactive Immunizations Vaccine Administration Date [...] - Chem istry sodium, serum 140 mmol/L 593-618 2233/02/28 carbon dioxide, venous blood 30.5 mmol/L 21.0-32 [...] mg/dL Encounters Code Encounter Date Provider Facility CPT-32364 Level 3 Est. Patient 18:54:53 FIELD SUPERVISOR SEED PRODUCTION Marcos vega [facility] CPT-74125 Level 3 Est. Patient 18:52:23 FIELD SUPERVISOR SEED PRODUCTION Marcos vega [facility] CPT-71781 Level 4 Est. Patient 15:27:54 CDT Arsalan gustafson MD [facility] CPT-88930 Level 3 Est. Patient 15:04:20 FIELD SUPERVISOR SEED PRODUCTION Arsalan gustafson MD [facility] CPT-27730 Level 3 Est. Patient 15:11:28 FIELD SUPERVISOR SEED PRODUCTION Alon doherty [facility] CPT-50962 Level 3 Est. Patient 14:21:45 CDT Evens majano [facility] CPT-89047 Level 3 Est. Patient 14:17:31 CDT Eevns majano [facility] CPT-96663 Level 3 Est. Patient 16:26:47 FIELD SUPERVISOR SEED PRODUCTION Alon doherty [facility] CPT-80985 Level 3 Est. Patient 11:42:21 CDT Gaston Ewing MD [facility] CPT-88788 Level 3 Est. Patient 13:52:22 CDT Todd Rodriguez MD [facility] CPT-12502 Level 3 Est. Patient 12:06:02 FIELD SUPERVISOR SEED PRODUCTION Arsalan gustafson MD [facility] CPT-68531 Level 3 Est. Patient 12:39:55 FIELD SUPERVISOR SEED PRODUCTION Todd Rodriguez MD [facility] CPT-69176 Level 3 Est. Patient 14:18:20 CDT Vaughn POPE [facility] CPT-67032 Level 3 Est. Patient 17:31:27 FIELD SUPERVISOR SEED PRODUCTION Arsalan gustafson MD [facility] CPT-49625 Level 3 Est. Patient 14:37:36 CDT Vaughn POPE [facility] Procedures Code Procedure Name Date Entry Date Standard Desc ription CPT-10670 Venipuncture Draw Fee 14:46:33 FIELD SUPERVISOR SEED PRODUCTION CPT-GO8740W (4274F) Influenza immunization administe red or previously received 18:07:10 FIELD SUPERVISOR SEED PRODUCTION CPT-06954 79160 - Immun Admin 1 vac 16:44:36 CDT 2018 CPT-15960 Flulaval Quadrivalent (Flu) 10Pk Syringe IM 2018 16:44:36 CDT CPT-14867 T spine AP/ Lat - XRAY USE ONLY 15:36:46 CD T CPT-11783 Cervical Min 4V - XRAY USE ONLY 15:36:46 CD T CPT-37166 Chest 2V Frontal and Lat - XRAY USE ONLY 14:37:29 CDT CPT-75340 Postop F/U Visit 13:38:44 CDT CPT-OV Office Visit 14:33:00 CDT CPT-27736 Venipuncture Draw Fee 16:03:08 FIELD SUPERVISOR SEED PRODUCTION CPT-99451 Venipuncture Draw Fee 14:25:48 FIELD SUPERVISOR SEED PRODUCTION CPT-92755 Venipuncture Draw Fee 09:58:28 CDT CPT-27509 Venipuncture Draw Fee 13:38:25 CDT CPT-32127 Venipuncture Draw Fee 14:30:31 CDT CPT-29803 Venipuncture Draw Fee 16:51:54 CDT CPT-28149 Venipuncture Draw Fee 15:30:43 CDT
--- OUTSIDE RECORDS SUMMARY | 2020-03-24 02:32 | XMS REPORT | Clinical Summary ---
Author Author Admin, Yves Jackson Organization [facility] Address Unknown Phone Unavailable Allergies, Adverse Reactions, [...] URI 465.9 Inactive Alon Doyle DO [place] upper respiratory infections of unspecified site Pharyngitis 462 Active Jillina Sharonl WEATHERCASTER Acute pharyngitis Cough 786.2 Active Docllina Sharonl WEATHERCASTER Cough Febrile illness 780.60 Active Marelyrosa Botello [...] Chelsey Ewing MD Pharyngitis ICD-462 Inactive Gaston Ewign MD URI ICD-465.9 Inactive Alon Doyle DO Medication List Medication Instructions Start Date Stop Date Generic Name NDC Status Provider Patient Instruction EFFEXOR XR 75 MG ORAL CAPSULE EXTENDED RELEASE 24 HOUR Take one by mouth daily VENLAFAXINE HCL 90705160688 Active Arsalan Carmichael MD Active PREDNISONE 20 MG ORAL TABLET two tabs by mouth today, then one tab by mouth days two and three PREDNISONE 86432434172 No Longer Active Arsalan Carmichael MD Active AZITHROMYCIN 250 MG ORAL TABLET 2 po qd x 1 day, then 1 po q d x 4 days AZITHROMYCIN 46602275011 No Longer Active Jillina Fra arcadio WEATHERCASTER Active HYDROCODONE-ACETAMINOPHEN 5-325 MG ORAL TABLET 1 TAB PO Q 6 HRS PRN HYDROCODONE-ACETAMINOPHEN 20249775879 No Longer Active Jilli na Frazell WEATHERCASTER Active TYLENOL COLD/FLU SEVERE 1-02-247-325 MG ORAL TABLET 2 tabs daily prn TIHSNHZKJVSJX-MO-IF-APAP 38991613187 No Longer Active Jillin a Sharonl WEATHERCASTER Active BACTRIM DS 800-160 MG ORAL TABLET 1 tab by mouth twice daily 201 01/30/22 TRIMETHOPRIM-SULFAMETHOXAZOLE 56305594456 No Longer Active Manuel Mendez WEATHERCASTER Active BACTRIM DS 800-160 MG ORAL TABLET 1 po BID x 10 days 2 SULFAMETHOXAZOLE-TRIMETHOPRIM 93955255263 No Longer Active Gaston Ewing MD Active AMOXICILLIN 500 MG ORAL CAPSULE 1 cap by mouth three times a day AMOXICILLIN 37564056951 No Longer Active Todd Rodriguez MD Active EQ IBUPROFEN 200 MG ORAL TABLET 2 tabs every 4 to 6 hours prn 03/23 IBUPROFEN 21911191081 Active Todd Rodriguez MD Active ANTIPYRINE-BENZOCAINE 5.4-1.4 % OTIC SOLUTION 1-2 drop s in affected ear q 3 hours prn ear pain. BENZOCAINE-ANTIPYRINE 97222878603 No Longer Active Vaughn POPE Active CORTISPORIN 3.5-29017-3 OTIC SOLUTION 4gtts in affected ear QID x 7 days MEUSGKLY-AQTIYATZR-MH 91036688027 No Longer Active Waldemar POPE Active AMOXICILLIN 500 MG ORAL TABLET 2 tabs PO bid x 14 days AMOXICILLIN 33691637531 No Longer Active Vaughn POPE Activ e CORTISPORIN 3.5-96238-0 OTIC SOLUTION 4gtts in affected ear QID x 7 days CORTISPORIN 3.5-56590-2 OTIC SOLUTION [id number]-UE Inactive ANTIPYRINE-BENZOCAINE 5.4-1.4 % OTIC SOLUTION 1-2 drop s in affected ear q 3 hours prn ear pain. ANTIPYRINE-BENZOCAIN E 5.4-1.4 % OTIC SOLUTION BENZOCAINE-ANTIPYRINE Inactive TYLENOL COLD/FLU SEVERE 4-11-960-325 MG ORAL TABLET 2 tabs daily prn TYLENOL COLD/FLU SEVERE 2-89-411-325 MG ORAL TABLET JYIGELRDYBHLN-WG-DP-APAP Inactive HYDROCODONE-ACETAMINOPHEN 5-325 MG ORAL TABLET 1 TAB PO Q 6 HRS PRN HYDROCODONE-ACETAMINOPHEN 5-325 MG ORAL TABLET 088659 HYDROCODONE-ACETAMINOPHEN Inactive PREDNISONE 20 MG ORAL TABLET two tabs by mouth today, then one tab by mouth days two and three PREDNISONE 20 MG ORAL TABLET 804428 PREDNISONE Inactive AMOXICILLIN 500 MG ORAL TABLET 2 tabs PO bid x 14 days AMOXICILLIN 500 MG ORAL TABLET 298366 AMOXICILLIN Inactive AMOXICILLIN 500 MG ORAL CAPSULE 1 cap by mouth three times a day AMOXICILLIN 500 MG ORAL CAPSULE 492219 AMOXICILLIN Inactive BACTRIM DS 800-160 MG ORAL TABLET 1 po BID x 10 days 2 BACTRIM DS 800-160 MG ORAL TABLET 250393 SULFAMETHOXAZOLE-TRIMETHOP RIM Inactive BACTRIM DS 800-160 MG ORAL TABLET 1 tab by mouth twice daily 201 01/30/22 BACTRIM DS 800-160 MG ORAL TABLET 797904 TRIMETHOPRIM-SULFAMETHOXAZOLE Inactive AZITHROMYCIN 250 MG ORAL TABLET 2 po qd x 1 day, then 1 po q d x 4 days AZITHROMYCIN 250 MG ORAL TABLET 027900 AZITHROMY PORSHA Inactive Immunizations Vaccine Administration Date [...] mg/dL Encounters Code Encounter Date Provider Facility CPT-57312 Level 4 Est. Patient 15:27:54 CDT Arsalan gustafson MD [facility] CPT-09705 Level 3 Est. Patient 15:04:20 CLOUD SYSTEMS ADMINISTRATOR Arsalan gustafson MD [facility] CPT-52247 Level 3 Est. Patient 15:11:28 CLOUD SYSTEMS ADMINISTRATOR Alon doherty [facility] CPT-92058 Level 3 Est. Patient 14:21:45 CDT Evens majano [facility] CPT-70889 Level 3 Est. Patient 14:17:31 CDT Evens majano [facility] CPT-62105 Level 3 Est. Patient 16:26:47 CLOUD SYSTEMS ADMINISTRATOR Alon doherty [facility] CPT-22759 Level 3 Est. Patient 11:42:21 CDT Gaston Ewing MD [facility] CPT-41694 Level 3 Est. Patient 13:52:22 CDT Todd Rodriguez MD [facility] CPT-69483 Level 3 Est. Patient 12:06:02 CLOUD SYSTEMS ADMINISTRATOR Arsalan gustafson MD [facility] CPT-50223 Level 3 Est. Patient 12:39:55 CLOUD SYSTEMS ADMINISTRATOR Todd Rodriguez MD [facility] CPT-55562 Level 3 Est. Patient 14:18:20 CDT Vaughn Parker [facility] CPT-98847 Level 3 Est. Patient 17:31:27 CLOUD SYSTEMS ADMINISTRATOR Arsalan gustafson MD [facility] CPT-96174 Level 3 Est. Patient 14:37:36 CDT Vaughn Parker [facility] Procedures Code Procedure Name Date Entry Date Standard Desc ription CPT-72592 31978 - Immun Admin 1 vac 16:44:36 CDT 2018 CPT-48012 Flulaval Quadrivalent (Flu) 10Pk Syringe IM 2018 16:44:36 CDT CPT-46531 T spine AP/ Lat - XRAY USE ONLY 15:36:46 CD T CPT-37709 Cervical Min 4V - XRAY USE ONLY 15:36:46 CD T CPT-80650 Chest 2V Frontal and Lat - XRAY USE ONLY 14:37:29 CDT CPT-73413 Postop F/U Visit 13:38:44 CDT CPT-OV Office Visit 14:33:00 CDT CPT-24953 Venipuncture Draw Fee 16:03:08 CLOUD SYSTEMS ADMINISTRATOR CPT-02108 Venipuncture Draw Fee 14:25:48 CLOUD SYSTEMS ADMINISTRATOR CPT-16572 Venipuncture Draw Fee 09:58:28 CDT CPT-55643 Venipuncture Draw Fee 13:38:25 CDT CPT-43810 Venipuncture Draw Fee 14:30:31 CDT CPT-72741 Venipuncture Draw Fee 16:51:54 CDT CPT-48778 Venipuncture Draw Fee 15:30:43 CDT
--- OUTSIDE RECORDS SUMMARY | 2020-03-24 02:32 | XMS REPORT | Clinical Summary ---
Author Author Admin, Yves Jackson Organization [facility] Address Unknown Phone Unavailable Allergies, Adverse Reactions, [...] URI 465.9 Inactive Alon Doyle DO Ac [place] upper respiratory infections of unspecified site Pharyngitis 462 Active Jillina Sharonl HEARING AIDE TECHNICIAN Acute pharyngitis Cough 786.2 Active Docllina Sharonl HEARING AIDE TECHNICIAN Cough Febrile illness 780.60 Active Marelyrosa Botello [...] Take one by mouth daily VENLAFAXINE HCL 41805511318 Active Arsalan Carmichael MD Active PREDNISONE 20 MG ORAL TABLET two tabs by mouth today, then one tab by mouth days two and three PREDNISONE 13804288711 No Longer Active Arsalan Carmichael MD Active AZITHROMYCIN 250 MG ORAL TABLET 2 po qd x 1 day, then 1 po q d x 4 days AZITHROMYCIN 05876167887 No Longer Active Jillina Fra arcadio HEARING AIDE TECHNICIAN Active HYDROCODONE-ACETAMINOPHEN 5-325 MG ORAL TABLET 1 TAB PO Q 6 HRS PRN HYDROCODONE-ACETAMINOPHEN 01916847133 No Longer Active Jilli na Frazell HEARING AIDE TECHNICIAN Active TYLENOL COLD/FLU SEVERE 5-36-190-325 MG ORAL TABLET 2 tabs daily prn PBAPGGILASGAC-LO-NE-APAP 94872471879 No Longer Active Jillin a Sharonl HEARING AIDE TECHNICIAN Active BACTRIM DS 800-160 MG ORAL TABLET 1 tab by mouth twice daily 201 01/30/22 TRIMETHOPRIM-SULFAMETHOXAZOLE 32377963590 No Longer Active Manuel Mendez HEARING AIDE TECHNICIAN Active BACTRIM DS 800-160 MG ORAL TABLET 1 po BID x 10 days 2 SULFAMETHOXAZOLE-TRIMETHOPRIM 91775859511 No Longer Active Gaston Ewing MD Active AMOXICILLIN 500 MG ORAL CAPSULE 1 cap by mouth three times a day AMOXICILLIN 29425682804 No Longer Active Todd Rodriguez MD Active EQ IBUPROFEN 200 MG ORAL TABLET 2 tabs every 4 to 6 hours prn 03/23 IBUPROFEN 44756105007 Active Todd Rodriguez MD Active ANTIPYRINE-BENZOCAINE 5.4-1.4 % OTIC SOLUTION 1-2 drop s in affected ear q 3 hours prn ear pain. BENZOCAINE-ANTIPYRINE 33413083547 No Longer Active Vaughn POPE Active CORTISPORIN 3.5-06955-2 OTIC SOLUTION 4gtts in affected ear QID x 7 days [id number]-FMZWNTIEC-NN 02044630201 No Longer Active Waldemar POPE Active AMOXICILLIN 500 MG ORAL TABLET 2 tabs PO bid x 14 days AMOXICILLIN 89013082183 No Longer Active Vaughn POPE Activ e CORTISPORIN 3.5-96509-5 OTIC SOLUTION 4gtts in affected ear QID x 7 days CORTISPORIN 3.5-46940-1 OTIC SOLUTION [id number]-RUNVGPSUC-XM Inactive ANTIPYRINE-BENZOCAINE 5.4-1.4 % OTIC SOLUTION 1-2 drop s in affected ear q 3 hours prn ear pain. ANTIPYRINE-BENZOCAIN E 5.4-1.4 % OTIC SOLUTION BENZOCAINE-ANTIPYRINE Inactive TYLENOL COLD/FLU SEVERE 2-44-496-325 MG ORAL TABLET 2 tabs daily prn TYLENOL COLD/FLU SEVERE 0-88-516-325 MG ORAL TABLET TDSPHZHYNESFV-VP-NX-APAP Inactive HYDROCODONE-ACETAMINOPHEN 5-325 MG ORAL TABLET 1 TAB PO Q 6 HRS PRN HYDROCODONE-ACETAMINOPHEN 5-325 MG ORAL TABLET 689525 HYDROCODONE-ACETAMINOPHEN Inactive PREDNISONE 20 MG ORAL TABLET two tabs by mouth today, then one tab by mouth days two and three PREDNISONE 20 MG ORAL TABLET 045940 PREDNISONE Inactive AMOXICILLIN 500 MG ORAL TABLET 2 tabs PO bid x 14 days AMOXICILLIN 500 MG ORAL TABLET 603126 AMOXICILLIN Inactive AMOXICILLIN 500 MG ORAL CAPSULE 1 cap by mouth three times a day AMOXICILLIN 500 MG ORAL CAPSULE 542856 AMOXICILLIN Inactive BACTRIM DS 800-160 MG ORAL TABLET 1 po BID x 10 days 2 BACTRIM DS 800-160 MG ORAL TABLET 388981 SULFAMETHOXAZOLE-TRIMETHOP RIM Inactive BACTRIM DS 800-160 MG ORAL TABLET 1 tab by mouth twice daily 201 01/30/22 BACTRIM DS 800-160 MG ORAL TABLET 687689 TRIMETHOPRIM-SULFAMETHOXAZOLE Inactive AZITHROMYCIN 250 MG ORAL TABLET 2 po qd x 1 day, then 1 po q d x 4 days AZITHROMYCIN 250 MG ORAL TABLET 031670 AZITHROMY PORSHA Inactive Immunizations Vaccine Administration Date [...] mg/dL Encounters Code Encounter Date Provider Facility CPT-17746 Level 4 Est. Patient 15:27:54 CDT Arsalan gustafson MD [facility] CPT-64264 Level 3 Est. Patient 15:04:20 CRANE HOIST OR LIFT OPERATOR Arsalan gustafson MD [facility] CPT-54044 Level 3 Est. Patient 15:11:28 CRANE HOIST OR LIFT OPERATOR Alon doherty [facility] CPT-47402 Level 3 Est. Patient 14:21:45 CDT Evens majano [facility] CPT-87135 Level 3 Est. Patient 14:17:31 CDT Evens majano [facility] CPT-08773 Level 3 Est. Patient 16:26:47 CRANE HOIST OR LIFT OPERATOR Alon doherty [facility] CPT-01034 Level 3 Est. Patient 11:42:21 CDT Gaston Ewing MD [facility] CPT-18834 Level 3 Est. Patient 13:52:22 CDT Todd Rodriguez MD [facility] CPT-16191 Level 3 Est. Patient 12:06:02 CRANE HOIST OR LIFT OPERATOR Arsalan gustafson MD [facility] CPT-14073 Level 3 Est. Patient 12:39:55 CRANE HOIST OR LIFT OPERATOR Todd Rodriguez MD [facility] CPT-23689 Level 3 Est. Patient 14:18:20 CDT Vaughn Parker [facility] CPT-26259 Level 3 Est. 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 CPT-82474 Level 3 Est. Patient 14:37:36 CDT Vaughn Parker [facility] Procedures Code Procedure Name Date Entry Date Standard Desc ription CPT-03962 50358 - Immun Admin 1 vac 16:44:36 CDT 2018 CPT-53552 Flulaval Quadrivalent (Flu) 10Pk Syringe IM 2018 16:44:36 CDT CPT-08545 T spine AP/ Lat - XRAY USE ONLY 15:36:46 CD T CPT-38577 Cervical Min 4V - XRAY USE ONLY 15:36:46 CD T CPT-31819 Chest 2V Frontal and Lat - XRAY USE ONLY 14:37:29 CDT CPT-87478 Postop F/U Visit 13:38:44 CDT CPT-OV Office Visit 14:33:00 CDT CPT-98058 Venipuncture Draw Fee 16:03:08 CRANE HOIST OR LIFT OPERATOR CPT-70797 Venipuncture Draw Fee 14:25:48 CRANE HOIST OR LIFT OPERATOR CPT-29716 Venipuncture Draw Fee 09:58:28 CDT CPT-05754 Venipuncture Draw Fee 13:38:25 CDT CPT-55990 Venipuncture Draw Fee 14:30:31 CDT CPT-72866 Venipuncture Draw Fee 16:51:54 CDT CPT-25965 Venipuncture Draw Fee 15:30:43 CDT
--- OUTSIDE RECORDS SUMMARY | 2020-03-24 02:32 | XMS REPORT | Clinical Summary ---
Author Author Admin, Yves Jackson Organization [facility] Address Unknown Phone Unavailable Allergies, Adverse Reactions, Alerts Allergy Name Reaction Description Start Date Severity Status Pr ovider No Known Allergies Rosa Kim DENSITY CONTROL PUNCHER NKDA Critical Active Vaughn POPE Conditions or [...] URI 465.9 Inactive Alon Doyle DO Ac [place] upper respiratory infections of unspecified site Pharyngitis 462 Active Evens Mendez CAR USHER Acute pharyngitis Cough 786.2 Active Evens Mendez CAR USHER Cough Febrile illness 780.60 Active Marely Botello [...] Take one by mouth daily VENLAFAXINE HCL 64438922249 Active Arsalan Carmichael MD Active PREDNISONE 20 MG ORAL TABLET two tabs by mouth today, then one tab by mouth days two and three PREDNISONE 62738140432 No Longer Active Arsalan Carmichael MD Active AZITHROMYCIN 250 MG ORAL TABLET 2 po qd x 1 day, then 1 po q d x 4 days AZITHROMYCIN 36550774242 No Longer Active Evesn ervin CAR USHER Active HYDROCODONE-ACETAMINOPHEN 5-325 MG ORAL TABLET 1 TAB PO Q 6 HRS PRN HYDROCODONE-ACETAMINOPHEN 48655734851 No Longer Active Alonso Mendez CAR USHER Active TYLENOL COLD/FLU SEVERE 0-58-233-325 MG ORAL TABLET 2 tabs daily prn TKKKJETGSDKKB-AS-HY-APAP 33835175341 No Longer Active Genesisin a Andrea CAR USHER Active BACTRIM DS 800-160 MG ORAL TABLET 1 tab by mouth twice daily 201 01/30/22 TRIMETHOPRIM-SULFAMETHOXAZOLE 45743047949 No Longer Active J valente Mendez CAR USHER Active BACTRIM DS 800-160 MG ORAL TABLET 1 po BID x 10 days 2 SULFAMETHOXAZOLE-TRIMETHOPRIM 95588636285 No Longer Active Gaston Ewing MD Active AMOXICILLIN 500 MG ORAL CAPSULE 1 cap by mouth three times a day AMOXICILLIN 71720366724 No Longer Active Todd Rodriguez MD Active EQ IBUPROFEN 200 MG ORAL TABLET 2 tabs every 4 to 6 hours prn 03/23 IBUPROFEN 32542115943 Active Todd Rodriguez MD Active ANTIPYRINE-BENZOCAINE 5.4-1.4 % OTIC SOLUTION 1-2 drop s in affected ear q 3 hours prn ear pain. BENZOCAINE-ANTIPYRINE 18575890550 No Longer Active Vaughn POPE Active CORTISPORIN 3.5-71717-8 OTIC SOLUTION 4gtts in affected ear QID x 7 days CDKNRUWI-BFFNQAUNF-PR 08308933390 No Longer Active lexi POPE Active AMOXICILLIN 500 MG ORAL TABLET 2 tabs PO bid x 14 days AMOXICILLIN 77601943095 No Longer Active Vaughn POPE Activ e CORTISPORIN 3.5-95192-1 OTIC SOLUTION 4gtts in affected ear QID x 7 days CORTISPORIN 3.5-18310-3 OTIC SOLUTION [id number]-XOYLJXMOM-AH Inactive ANTIPYRINE-BENZOCAINE 5.4-1.4 % OTIC SOLUTION 1-2 drop s in affected ear q 3 hours prn ear pain. ANTIPYRINE-BENZOCAIN E 5.4-1.4 % OTIC SOLUTION BENZOCAINE-ANTIPYRINE Inactive TYLENOL COLD/FLU SEVERE 8-89-766-325 MG ORAL TABLET 2 tabs daily prn TYLENOL COLD/FLU SEVERE 0-99-972-325 MG ORAL TABLET AWGYCPOIWVTTD-RB-DC-APAP Inactive HYDROCODONE-ACETAMINOPHEN 5-325 MG ORAL TABLET 1 TAB PO Q 6 HRS PRN HYDROCODONE-ACETAMINOPHEN 5-325 MG ORAL TABLET 107861 HYDROCODONE-ACETAMINOPHEN Inactive PREDNISONE 20 MG ORAL TABLET two tabs by mouth today, then one tab by mouth days two and three PREDNISONE 20 MG ORAL TABLET 056094 PREDNISONE Inactive AMOXICILLIN 500 MG ORAL TABLET 2 tabs PO bid x 14 days AMOXICILLIN 500 MG ORAL TABLET 903184 AMOXICILLIN Inactive AMOXICILLIN 500 MG ORAL CAPSULE 1 cap by mouth three times a day AMOXICILLIN 500 MG ORAL CAPSULE 260952 AMOXICILLIN Inactive BACTRIM DS 800-160 MG ORAL [...] 4 days AZITHROMYCIN 250 MG ORAL TABLET 359078 AZITHROMY PORSHA Inactive Immunizations Vaccine Administration Date Value Standard Kristopher cription influenza immunization (Flu Vax) has been administered 08/17 Flulaval Quadrivalent (Flu) 10Pk Syringe IM influenza virus vaccine, unspecified formulation Encounters Code Encounter Date Provider Facility [facility]-60227 Level 4 Est. Patient 15:27:54 CDT Arsalan gustafson MD [facility]16155 Level 3 Est. Patient 15:04:20 MANAGER ANALYTICAL Arsalan gustafson MD [facility]-86344 Level 3 Est. Patient 15:11:28 MANAGER ANALYTICAL Alon doherty [facility]-54817 Level 3 Est. Patient 14:21:45 CDT Evens majano [facility]-67606 Level 3 Est. Patient 14:17:31 CDT Evens majano [facility]-32385 Level 3 Est. Patient 16:26:47 MANAGER ANALYTICAL Alon doherty [facility]-14157 Level 3 Est. Patient 11:42:21 CDT Gaston Ewing MD [facility]-36418 Level 3 Est. Patient 13:52:22 CDT Todd Rodriguez MD [facility]-85093 Level 3 Est. Patient 12:06:02 MANAGER ANALYTICAL Arsalan gustafson MD [facility]-39073 Level 3 Est. Patient 12:39:55 MANAGER ANALYTICAL Todd Rodriguez MD [facility]-69811 Level 3 Est. Patient 14:18:20 CDT Vaughn POPE [facility]-16978 Level 3 Est. Patient 17:31:27 MANAGER ANALYTICAL Arsalan gustafson MD [facility]-99141 Level 3 Est. Patient 14:37:36 CDT Vaughn W Cloven [facility] Procedures Code Procedure Name Date Entry Date Standard Desc ription CPT-63278 35467 - Immun Admin 1 vac 16:44:36 CDT 2018 CPT-41865 Flulaval Quadrivalent (Flu) 10Pk Syringe IM 2018 16:44:36 CDT CPT-89721 T spine AP/ Lat - XRAY USE ONLY 15:36:46 CD T CPT-58840 Cervical Min 4V - XRAY USE ONLY 15:36:46 CD T CPT-96800 Chest 2V Frontal and Lat - XRAY USE ONLY 14:37:29 CDT CPT-04140 Postop F/U Visit 13:38:44 CDT CPT-OV Office Visit 14:33:00 CDT CPT-73944 Venipuncture Draw Fee 16:03:08 MANAGER ANALYTICAL CPT-62567 Venipuncture Draw Fee 14:25:48 MANAGER ANALYTICAL CPT-20691 Venipuncture Draw Fee 09:58:28 CDT CPT-80819 Venipuncture Draw Fee 13:38:25 CDT CPT-58281 Venipuncture Draw Fee 14:30:31 CDT CPT-48218 Venipuncture Draw Fee 16:51:54 CDT CPT-12546 Venipuncture Draw Fee 15:30:43 CDT
--- OUTSIDE RECORDS SUMMARY | 2020-03-24 02:32 | XMS REPORT | Clinical Summary ---
Author Author Admin, Yves Jackson Organization [facility] Address Unknown Phone Unavailable Allergies, Adverse Reactions, [...] URI 465.9 Inactive Alon Doyle DO Ac [place] upper respiratory infections of unspecified site Pharyngitis 462 Active Jillina Sharonl TESTER WASTE DISPOSAL LEAKAGE Acute pharyngitis Cough 786.2 Active Docllina Sharonl TESTER WASTE DISPOSAL LEAKAGE Cough Febrile illness 780.60 Active Marelyrosa Botello [...] Take one by mouth daily VENLAFAXINE HCL 27110096329 Active Araslan Carmichael MD Active PREDNISONE 20 MG ORAL TABLET two tabs by mouth today, then one tab by mouth days two and three PREDNISONE 11759007675 No Longer Active Arsalan Carmichael MD Active AZITHROMYCIN 250 MG ORAL TABLET 2 po qd x 1 day, then 1 po q d x 4 days AZITHROMYCIN 99218145091 No Longer Active Jillina Fra arcadio TESTER WASTE DISPOSAL LEAKAGE Active HYDROCODONE-ACETAMINOPHEN 5-325 MG ORAL TABLET 1 TAB PO Q 6 HRS PRN HYDROCODONE-ACETAMINOPHEN 32911404794 No Longer Active Jilli na Frazell TESTER WASTE DISPOSAL LEAKAGE Active TYLENOL COLD/FLU SEVERE 6-77-654-325 MG ORAL TABLET 2 tabs daily prn EQVXFHSIHPXZY-XI-DF-APAP 45357182022 No Longer Active Jillin a Sharonl TESTER WASTE DISPOSAL LEAKAGE Active BACTRIM DS 800-160 MG ORAL TABLET 1 tab by mouth twice daily 201 01/30/22 TRIMETHOPRIM-SULFAMETHOXAZOLE 64117304011 No Longer Active Manuel Mendez TESTER WASTE DISPOSAL LEAKAGE Active BACTRIM DS 800-160 MG ORAL TABLET 1 po BID x 10 days 2 SULFAMETHOXAZOLE-TRIMETHOPRIM 75212404173 No Longer Active Gaston Ewing MD Active AMOXICILLIN 500 MG ORAL CAPSULE 1 cap by mouth three times a day AMOXICILLIN 09382683337 No Longer Active Todd Rodriguez MD Active EQ IBUPROFEN 200 MG ORAL TABLET 2 tabs every 4 to 6 hours prn 03/23 IBUPROFEN 95801338791 Active Todd Rodriguez MD Active ANTIPYRINE-BENZOCAINE 5.4-1.4 % OTIC SOLUTION 1-2 drop s in affected ear q 3 hours prn ear pain. BENZOCAINE-ANTIPYRINE 08879756893 No Longer Active Vaughn POPE Active CORTISPORIN 3.5-72999-7 OTIC SOLUTION 4gtts in affected ear QID x 7 days [id number]-MVMYHWVMR-JE 81005812067 No Longer Active Waldemar POPE Active AMOXICILLIN 500 MG ORAL TABLET 2 tabs PO bid x 14 days AMOXICILLIN 48828096273 No Longer Active Vaughn POPE Activ e CORTISPORIN 3.5-49524-7 OTIC SOLUTION 4gtts in affected ear QID x 7 days CORTISPORIN 3.5-42938-5 OTIC SOLUTION [id number]-[id number]-BT Inactive ANTIPYRINE-BENZOCAINE 5.4-1.4 % OTIC SOLUTION 1-2 drop s in affected ear q 3 hours prn ear pain. ANTIPYRINE-BENZOCAIN E 5.4-1.4 % OTIC SOLUTION BENZOCAINE-ANTIPYRINE Inactive TYLENOL COLD/FLU SEVERE 9-15-914-325 MG ORAL TABLET 2 tabs daily prn TYLENOL COLD/FLU SEVERE 2-34-756-325 MG ORAL TABLET ZFCASNKIOANXK-UP-HB-APAP Inactive HYDROCODONE-ACETAMINOPHEN 5-325 MG ORAL TABLET 1 TAB PO Q 6 HRS PRN HYDROCODONE-ACETAMINOPHEN 5-325 MG ORAL TABLET 008794 HYDROCODONE-ACETAMINOPHEN Inactive PREDNISONE 20 MG ORAL TABLET two tabs by mouth today, then one tab by mouth days two and three PREDNISONE 20 MG ORAL TABLET 005420 PREDNISONE Inactive AMOXICILLIN 500 MG ORAL TABLET 2 tabs PO bid x 14 days AMOXICILLIN 500 MG ORAL TABLET 810701 AMOXICILLIN Inactive AMOXICILLIN 500 MG ORAL CAPSULE 1 cap by mouth three times a day AMOXICILLIN 500 MG ORAL CAPSULE 624813 AMOXICILLIN Inactive BACTRIM DS 800-160 MG ORAL TABLET 1 po BID x 10 days 2 BACTRIM DS 800-160 MG ORAL TABLET 060548 SULFAMETHOXAZOLE-TRIMETHOP RIM Inactive BACTRIM DS 800-160 MG ORAL TABLET 1 tab by mouth twice daily 201 01/30/22 BACTRIM DS 800-160 MG ORAL TABLET 925636 TRIMETHOPRIM-SULFAMETHOXAZOLE Inactive AZITHROMYCIN 250 MG ORAL TABLET 2 po qd x 1 day, then 1 po q d x 4 days AZITHROMYCIN 250 MG ORAL TABLET 605891 AZITHROMY PORSHA Inactive Immunizations Vaccine Administration Date [...] mg/dL Encounters Code Encounter Date Provider Facility CPT-17605 Level 4 Est. Patient 15:27:54 CDT Arsalan gustafson MD [facility] CPT-79086 Level 3 Est. Patient 15:04:20 FIBER WORKER Arsalan gustafson MD [facility] CPT-70315 Level 3 Est. Patient 15:11:28 FIBER WORKER Alon doherty [facility] CPT-19250 Level 3 Est. Patient 14:21:45 CDT Evens majano [facility] CPT-02053 Level 3 Est. Patient 14:17:31 CDT Evens majano [facility] CPT-42622 Level 3 Est. Patient 16:26:47 FIBER WORKER Alon doherty [facility] CPT-07976 Level 3 Est. Patient 11:42:21 CDT Gaston Ewing MD [facility] CPT-91099 Level 3 Est. Patient 13:52:22 CDT Todd Rodriguez MD [facility] CPT-18625 Level 3 Est. Patient 12:06:02 FIBER WORKER Arsalan gustafson MD [facility] CPT-76017 Level 3 Est. Patient 12:39:55 FIBER WORKER Todd Rodriguez MD [facility] CPT-93472 Level 3 Est. Patient 14:18:20 CDT Vaughn Parker [facility] CPT-81200 Level 3 Est. Patient 17:31:27 FIBER WORKER Arsalan gustafson MD [facility] CPT-75279 Level 3 Est. Patient 14:37:36 CDT Vaughn Parker [facility] Procedures Code Procedure Name Date Entry Date Standard Desc ription CPT-98262 54719 - Immun Admin 1 vac 16:44:36 CDT 2018 CPT-12557 Flulaval Quadrivalent (Flu) 10Pk Syringe IM 2018 16:44:36 CDT CPT-84351 T spine AP/ Lat - XRAY USE ONLY 15:36:46 CD T CPT-32153 Cervical Min 4V - XRAY USE ONLY 15:36:46 CD T CPT-06664 Chest 2V Frontal and Lat - XRAY USE ONLY 14:37:29 CDT CPT-26962 Postop F/U Visit 13:38:44 CDT CPT-OV Office Visit 14:33:00 CDT CPT-53006 Venipuncture Draw Fee 16:03:08 FIBER WORKER CPT-48835 Venipuncture Draw Fee 14:25:48 FIBER WORKER CPT-80379 Venipuncture Draw Fee 09:58:28 CDT CPT-66193 Venipuncture Draw Fee 13:38:25 CDT CPT-37076 Venipuncture Draw Fee 14:30:31 CDT CPT-32181 Venipuncture Draw Fee 16:51:54 CDT CPT-25988 Venipuncture Draw Fee 15:30:43 CDT
--- OUTSIDE RECORDS SUMMARY | 2020-03-24 02:32 | XMS REPORT | Clinical Summary ---
Author Author Ovidio, Yves Jackson Organization [facility] Address Unknown Phone Unavailable Allergies, Adverse [...] unspecified site Pharyngitis 462 Active Jillina Sharonl SOCIAL WELFARE CLERK Acute pharyngitis Cough 786.2 Active Docllina Sharonl SOCIAL WELFARE CLERK Cough Febrile illness 780.60 Active Marelyrosa [...] Take one by mouth daily VENLAFAXINE HCL 98638721299 Active Arsalan Carmichael MD Active PREDNISONE 20 MG ORAL TABLET two tabs by mouth today, then one tab by mouth days two and three PREDNISONE 01950851012 No Longer Active Arsalan Carmichael MD Active AZITHROMYCIN 250 MG ORAL TABLET 2 po qd x 1 day, then 1 po q d x 4 days AZITHROMYCIN 11709838037 No Longer Active Jillina Fra arcadio SOCIAL WELFARE CLERK Active HYDROCODONE-ACETAMINOPHEN 5-325 MG ORAL TABLET 1 TAB PO Q 6 HRS PRN HYDROCODONE-ACETAMINOPHEN 82282443347 No Longer Active Jilli na Frazell SOCIAL WELFARE CLERK Active TYLENOL COLD/FLU SEVERE 6-87-664-325 MG ORAL TABLET 2 tabs daily prn DLGOBKZGMZJQN-SO-CW-APAP 64178318556 No Longer Active Jillin a Sharonl SOCIAL WELFARE CLERK Active BACTRIM DS 800-160 MG ORAL TABLET 1 tab by mouth twice daily 201 01/30/22 TRIMETHOPRIM-SULFAMETHOXAZOLE 69691841018 No Longer Active Manuel Mendez SOCIAL WELFARE CLERK Active BACTRIM DS 800-160 MG ORAL TABLET 1 po BID x 10 days 2 SULFAMETHOXAZOLE-TRIMETHOPRIM 22236084959 No Longer Active Gaston Ewing MD Active AMOXICILLIN 500 MG ORAL CAPSULE 1 cap by mouth three times a day AMOXICILLIN 15833219012 No Longer Active Todd Rodriguez MD Active EQ IBUPROFEN 200 MG ORAL TABLET 2 tabs every 4 to 6 hours prn 03/23 IBUPROFEN 95245750714 Active Todd Rodriguez MD Active ANTIPYRINE-BENZOCAINE 5.4-1.4 % OTIC SOLUTION 1-2 drop s in affected ear q 3 hours prn ear pain. BENZOCAINE-ANTIPYRINE 62463904628 No Longer Active Vaughn POPE Active CORTISPORIN 3.5-43555-4 OTIC SOLUTION 4gtts in affected ear QID x 7 days JUPWKHUF-HQREJWTYV-VY 59065450442 No Longer Active Waldemar POPE Active AMOXICILLIN 500 MG ORAL TABLET 2 tabs PO bid x 14 days AMOXICILLIN 26162810569 No Longer Active Vaughn POPE Activ e CORTISPORIN 3.5-35130-3 OTIC SOLUTION 4gtts in affected ear QID x 7 days CORTISPORIN 3.5-02858-9 OTIC SOLUTION CZKGVSGJ-[id number]-YW Inactive ANTIPYRINE-BENZOCAINE 5.4-1.4 % OTIC SOLUTION 1-2 drop s in affected ear q 3 hours prn ear pain. ANTIPYRINE-BENZOCAIN E 5.4-1.4 % OTIC SOLUTION BENZOCAINE-ANTIPYRINE Inactive TYLENOL COLD/FLU SEVERE 2-10-240-325 MG ORAL TABLET 2 tabs daily prn TYLENOL COLD/FLU SEVERE 6-96-858-325 MG ORAL TABLET ABUCYJONWZXTN-AS-UU-APAP Inactive HYDROCODONE-ACETAMINOPHEN 5-325 MG ORAL TABLET 1 TAB PO Q 6 HRS PRN HYDROCODONE-ACETAMINOPHEN 5-325 MG ORAL TABLET 253945 HYDROCODONE-ACETAMINOPHEN Inactive PREDNISONE 20 MG ORAL TABLET two tabs by mouth today, then one tab by mouth days two and three PREDNISONE 20 MG ORAL TABLET 104908 PREDNISONE Inactive AMOXICILLIN 500 MG ORAL TABLET 2 tabs PO bid x 14 days AMOXICILLIN 500 MG ORAL TABLET 983567 AMOXICILLIN Inactive AMOXICILLIN 500 MG ORAL CAPSULE 1 cap by mouth three times a day AMOXICILLIN 500 MG ORAL CAPSULE 688734 AMOXICILLIN Inactive BACTRIM DS 800-160 MG ORAL TABLET 1 po BID x 10 days 2 BACTRIM DS 800-160 MG ORAL TABLET 323294 SULFAMETHOXAZOLE-TRIMETHOP RIM Inactive BACTRIM DS 800-160 MG ORAL TABLET 1 tab by mouth twice daily 201 01/30/22 BACTRIM DS 800-160 MG ORAL TABLET 702780 TRIMETHOPRIM-SULFAMETHOXAZOLE Inactive AZITHROMYCIN 250 MG ORAL TABLET 2 po qd x 1 day, then 1 po q d x 4 days AZITHROMYCIN 250 MG ORAL TABLET 827118 AZITHROMY PORSHA Inactive Immunizations Vaccine Administration Date [...] mg/dL Encounters Code Encounter Date Provider Facility CPT-53849 Level 4 Est. Patient 15:27:54 CDT Arsalan gustafson MD [facility] CPT-89469 Level 3 Est. Patient 15:04:20 LOOPING MACHINE OPERATOR Arsalan gustafson MD [facility] CPT-41179 Level 3 Est. Patient 15:11:28 LOOPING MACHINE OPERATOR Alon doherty [facility] CPT-71677 Level 3 Est. Patient 14:21:[address] [facility] CPT-41837 Level 3 Est. Patient 14:17:[address] [facility] CPT-81589 Level 3 Est. Patient 16:26:47 LOOPING MACHINE OPERATOR Alon doherty [facility] CPT-04659 Level 3 Est. Patient 11:42:21 CDT Gaston Ewing MD [facility] CPT-73738 Level 3 Est. Patient 13:52:22 CDT Todd Rodriguez MD [facility] CPT-95521 Level 3 Est. Patient 12:06:02 LOOPING MACHINE OPERATOR Arsalan gustafson MD [facility] CPT-98905 Level 3 Est. Patient 12:39:55 LOOPING MACHINE OPERATOR Todd Rodriguez MD [facility] CPT-77782 Level 3 Est. Patient 14:18:20 CDT Vaughn Parker [facility] CPT-83908 Level 3 Est. Patient 17:31:27 LOOPING MACHINE OPERATOR Arsalan gustafson MD [facility] CPT-99717 Level 3 Est. Patient 14:37:36 CDT Vaughn Parker [facility] Procedures Code Procedure Name Date Entry Date Standard Desc ription CPT-78278 35614 - Immun Admin 1 vac 16:44:36 CDT 2018 CPT-34703 Flulaval Quadrivalent (Flu) 10Pk Syringe IM 2018 16:44:36 CDT CPT-24772 T spine AP/ Lat - XRAY USE ONLY 15:36:46 CD T CPT-66447 Cervical Min 4V - XRAY USE ONLY 15:36:46 CD T CPT-90937 Chest 2V Frontal and Lat - XRAY USE ONLY 14:37:29 CDT CPT-38730 Postop F/U Visit 13:38:44 CDT CPT-OV Office Visit 14:33:00 CDT CPT-20086 Venipuncture Draw Fee 16:03:08 LOOPING MACHINE OPERATOR CPT-47780 Venipuncture Draw Fee 14:25:48 LOOPING MACHINE OPERATOR CPT-10284 Venipuncture Draw Fee 09:58:28 CDT CPT-78503 Venipuncture Draw Fee 13:38:25 CDT CPT-16195 Venipuncture Draw Fee 14:30:31 CDT CPT-53705 Venipuncture Draw Fee 16:51:54 CDT CPT-25136 Venipuncture Draw Fee 15:30:43 CDT
--- OUTSIDE RECORDS SUMMARY | 2020-03-24 02:32 | XMS REPORT | Clinical Summary ---
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 NKDA Critical Active Vaughn POPE Conditions or [...] URI 465.9 Inactive Alon Doyle DO Ac [place] upper respiratory infections of unspecified site Pharyngitis 462 Active Evens Mendez CONCRETE PAVING SUPERVISOR Acute pharyngitis Cough 786.2 Active Evens Mendez CONCRETE PAVING SUPERVISOR Cough Febrile illness 780.60 Active Marely Botello [...] Take one by mouth daily VENLAFAXINE HCL 00970532853 Active Arsalan Carmichael MD Active PREDNISONE 20 MG ORAL TABLET two tabs by mouth today, then one tab by mouth days two and three PREDNISONE 23862499456 No Longer Active Arsalan Carmichael MD Active AZITHROMYCIN 250 MG ORAL TABLET 2 po qd x 1 day, then 1 po q d x 4 days AZITHROMYCIN 86308078740 No Longer Active Evens ervin CONCRETE PAVING SUPERVISOR Active HYDROCODONE-ACETAMINOPHEN 5-325 MG ORAL TABLET 1 TAB PO Q 6 HRS PRN HYDROCODONE-ACETAMINOPHEN 18477468763 No Longer Active Alonso Mendez CONCRETE PAVING SUPERVISOR Active TYLENOL COLD/FLU SEVERE 7-77-893-325 MG ORAL TABLET 2 tabs daily prn CNVZGAPXYTFAC-ET-UX-APAP 84602052267 No Longer Active Genesisin a Andrea CONCRETE PAVING SUPERVISOR Active BACTRIM DS 800-160 MG ORAL TABLET 1 tab by mouth twice daily 201 01/30/22 TRIMETHOPRIM-SULFAMETHOXAZOLE 59500395929 No Longer Active J valente Mendez CONCRETE PAVING SUPERVISOR Active BACTRIM DS 800-160 MG ORAL TABLET 1 po BID x 10 days 2 SULFAMETHOXAZOLE-TRIMETHOPRIM 92758365805 No Longer Active Gaston Ewing MD Active AMOXICILLIN 500 MG ORAL CAPSULE 1 cap by mouth three times a day AMOXICILLIN 03856076874 No Longer Active Todd Rodriguez MD Active EQ IBUPROFEN 200 MG ORAL TABLET 2 tabs every 4 to 6 hours prn 03/23 IBUPROFEN 25682003403 Active Todd Rodriguez MD Active ANTIPYRINE-BENZOCAINE 5.4-1.4 % OTIC SOLUTION 1-2 drop s in affected ear q 3 hours prn ear pain. BENZOCAINE-ANTIPYRINE 50940703202 No Longer Active Vaughn POPE Active CORTISPORIN 3.5-40706-2 OTIC SOLUTION 4gtts in affected ear QID x 7 days [id number]-IYHFNLYZF-XU 06654632592 No Longer Active lexi POPE Active AMOXICILLIN 500 MG ORAL TABLET 2 tabs PO bid x 14 days AMOXICILLIN 11240686484 No Longer Active Vaughn POPE Activ e CORTISPORIN 3.5-40105-0 OTIC SOLUTION 4gtts in affected ear QID x 7 days CORTISPORIN 3.5-98531-5 OTIC SOLUTION [id number] Inactive ANTIPYRINE-BENZOCAINE 5.4-1.4 % OTIC SOLUTION 1-2 drop s in affected ear q 3 hours prn ear pain. ANTIPYRINE-BENZOCAIN E 5.4-1.4 % OTIC SOLUTION BENZOCAINE-ANTIPYRINE Inactive TYLENOL COLD/FLU SEVERE 7-25-954-325 MG ORAL TABLET 2 tabs daily prn TYLENOL COLD/FLU SEVERE 7-55-497-325 MG ORAL TABLET [id number] Inactive HYDROCODONE-ACETAMINOPHEN 5-325 MG ORAL TABLET 1 TAB PO Q 6 HRS PRN HYDROCODONE-ACETAMINOPHEN 5-325 MG ORAL TABLET 302377 HYDROCODONE-ACETAMINOPHEN Inactive PREDNISONE 20 MG ORAL TABLET two tabs by mouth today, then one tab by mouth days two and three PREDNISONE 20 MG ORAL TABLET 768138 PREDNISONE Inactive AMOXICILLIN 500 MG ORAL TABLET 2 tabs PO bid x 14 days AMOXICILLIN 500 MG ORAL TABLET 148867 AMOXICILLIN Inactive AMOXICILLIN 500 MG ORAL CAPSULE 1 cap by mouth three times a day AMOXICILLIN 500 MG ORAL CAPSULE 650032 AMOXICILLIN Inactive BACTRIM DS 800-160 MG ORAL [...] 4 days AZITHROMYCIN 250 MG ORAL TABLET 849724 AZITHROMY PORSHA Inactive Immunizations Vaccine Administration Date Value Standard Kristpoher cription influenza immunization (Flu Vax) has been administered 08/17 Flulaval Quadrivalent (Flu) 10Pk Syringe IM influenza virus vaccine, unspecified formulation Encounters Code Encounter Date Provider Facility [facility]-85066 Level 4 Est. Patient 15:27:54 CDT Arsalan gustafson MD [facility] [place] Level 3 Est. Patient 15:04:20 DIAGNOSTICS TECH Arsalan gustafson MD [facility]-32017 Level 3 Est. Patient 15:11:28 DIAGNOSTICS TECH Alon doherty [facility]-17188 Level 3 Est. Patient 14:21:45 CDT Evens majano [facility]-16543 Level 3 Est. Patient 14:17:31 CDT Evens majano [facility]-77554 Level 3 Est. Patient 16:26:47 DIAGNOSTICS TECH Alon doherty [facility]-64211 Level 3 Est. Patient 11:42:21 CDT Gaston Ewing MD [facility]-98451 Level 3 Est. Patient 13:52:22 CDT Todd Rodriguez MD [facility]-80405 Level 3 Est. Patient 12:06:02 DIAGNOSTICS TECH Arsalan gustafson MD [facility]-79037 Level 3 Est. Patient 12:39:55 DIAGNOSTICS TECH Todd Rodriguez MD [facility]-91868 Level 3 Est. Patient 14:18:20 CDT Vaughn POPE [facility]-55759 Level 3 Est. Patient 17:31:27 DIAGNOSTICS TECH Arsalan gustafson MD [facility]-36264 Level 3 Est. Patient 14:37:36 CDT Vaughn W Cloven [facility] Procedures Code Procedure Name Date Entry Date Standard Desc ription CPT-37562 26655 - Immun Admin 1 vac 16:44:36 CDT 2018 CPT-27917 Flulaval Quadrivalent (Flu) 10Pk Syringe IM 2018 16:44:36 CDT CPT-26301 T spine AP/ Lat - XRAY USE ONLY 15:36:46 CD T CPT-19317 Cervical Min 4V - XRAY USE ONLY 15:36:46 CD T CPT-97589 Chest 2V Frontal and Lat - XRAY USE ONLY 14:37:29 CDT CPT-62754 Postop F/U Visit 13:38:44 CDT CPT-OV Office Visit 14:33:00 CDT CPT-47890 Venipuncture Draw Fee 16:03:08 DIAGNOSTICS TECH CPT-98809 Venipuncture Draw Fee 14:25:48 DIAGNOSTICS TECH CPT-05373 Venipuncture Draw Fee 09:58:28 CDT CPT-88315 Venipuncture Draw Fee 13:38:25 CDT CPT-36977 Venipuncture Draw Fee 14:30:31 CDT CPT-53372 Venipuncture Draw Fee 16:51:54 CDT CPT-54127 Venipuncture Draw Fee 15:30:43 CDT
--- OUTSIDE RECORDS SUMMARY | 2020-03-24 02:32 | XMS REPORT | Clinical Summary ---
Author Author Admin, Yves Jackson Organization [facility] Address Unknown Phone Unavailable Allergies, Adverse Reactions, Alerts Allergy Name Reaction Description Start Date Severity Status Pr ovider No Known Allergies Rosa Kim VARNISH MAKER HELPER NKDA Critical Active Vaughn POPE Conditions or [...] URI 465.9 Inactive Alon Doyle DO Ac [place] upper respiratory infections of unspecified site Pharyngitis 462 Active Evens Mendez CENTERLESS GRINDER OPERATOR Acute pharyngitis Cough 786.2 Active Evens Mendez CENTERLESS GRINDER OPERATOR Cough Febrile illness 780.60 Active Marely Botello [...] Take one by mouth daily VENLAFAXINE HCL 10334837865 Active Arsalan Carmichael MD Active PREDNISONE 20 MG ORAL TABLET two tabs by mouth today, then one tab by mouth days two and three PREDNISONE 09092425029 No Longer Active Arsalan Carmichael MD Active AZITHROMYCIN 250 MG ORAL TABLET 2 po qd x 1 day, then 1 po q d x 4 days AZITHROMYCIN 13680775116 No Longer Active Evens ervin CENTERLESS GRINDER OPERATOR Active HYDROCODONE-ACETAMINOPHEN 5-325 MG ORAL TABLET 1 TAB PO Q 6 HRS PRN HYDROCODONE-ACETAMINOPHEN 74428460314 No Longer Active Alonso Mendez CENTERLESS GRINDER OPERATOR Active TYLENOL COLD/FLU SEVERE 5-31-944-325 MG ORAL TABLET 2 tabs daily prn [id number]-[id number]-APAP 98881625534 No Longer Active Genesisin a Andrea CENTERLESS GRINDER OPERATOR Active BACTRIM DS 800-160 MG ORAL TABLET 1 tab by mouth twice daily 201 01/30/22 TRIMETHOPRIM-SULFAMETHOXAZOLE 43635587256 No Longer Active J valente Mendez CENTERLESS GRINDER OPERATOR Active BACTRIM DS 800-160 MG ORAL TABLET 1 po BID x 10 days 2 SULFAMETHOXAZOLE-TRIMETHOPRIM 01061933803 No Longer Active Gaston Ewing MD Active AMOXICILLIN 500 MG ORAL CAPSULE 1 cap by mouth three times a day AMOXICILLIN 65184627051 No Longer Active Todd Rodriguez MD Active EQ IBUPROFEN 200 MG ORAL TABLET 2 tabs every 4 to 6 hours prn 03/23 IBUPROFEN 04092391780 Active Todd Rodriguez MD Active ANTIPYRINE-BENZOCAINE 5.4-1.4 % OTIC SOLUTION 1-2 drop s in affected ear q 3 hours prn ear pain. BENZOCAINE-ANTIPYRINE 34409972689 No Longer Active Vaughn POPE Active CORTISPORIN 3.5-00947-9 OTIC SOLUTION 4gtts in affected ear QID x 7 days PLKMFCBR-OGUWEHMDZ-SH 88660251897 No Longer Active lexi POPE Active AMOXICILLIN 500 MG ORAL TABLET 2 tabs PO bid x 14 days AMOXICILLIN 32413764441 No Longer Active Vaughn POPE Activ e CORTISPORIN 3.5-71362-8 OTIC SOLUTION 4gtts in affected ear QID x 7 days CORTISPORIN 3.5-11629-0 OTIC SOLUTION [id number]-[id number]-PK Inactive ANTIPYRINE-BENZOCAINE 5.4-1.4 % OTIC SOLUTION 1-2 drop s in affected ear q 3 hours prn ear pain. ANTIPYRINE-BENZOCAIN E 5.4-1.4 % OTIC SOLUTION BENZOCAINE-ANTIPYRINE Inactive TYLENOL COLD/FLU SEVERE 9-19-380-325 MG ORAL TABLET 2 tabs daily prn TYLENOL COLD/FLU SEVERE 1-64-478-325 MG ORAL TABLET [id number]-VR-ZC-APAP Inactive HYDROCODONE-ACETAMINOPHEN 5-325 MG ORAL TABLET 1 TAB PO Q 6 HRS PRN HYDROCODONE-ACETAMINOPHEN 5-325 MG ORAL TABLET 697994 HYDROCODONE-ACETAMINOPHEN Inactive PREDNISONE 20 MG ORAL TABLET two tabs by mouth today, then one tab by mouth days two and three PREDNISONE 20 MG ORAL TABLET 348663 PREDNISONE Inactive AMOXICILLIN 500 MG ORAL TABLET 2 tabs PO bid x 14 days AMOXICILLIN 500 MG ORAL TABLET 789816 AMOXICILLIN Inactive AMOXICILLIN 500 MG ORAL CAPSULE 1 cap by mouth three times a day AMOXICILLIN 500 MG ORAL CAPSULE 467986 AMOXICILLIN Inactive BACTRIM DS 800-160 MG ORAL [...] 4 days AZITHROMYCIN 250 MG ORAL TABLET 979643 AZITHROMY PORSHA Inactive Immunizations Vaccine Administration Date Value Standard Kristopher cription influenza immunization (Flu Vax) has been administered 08/17 Flulaval Quadrivalent (Flu) 10Pk Syringe IM influenza virus vaccine, unspecified formulation Encounters Code Encounter Date Provider Facility [facility]-75576 Level 4 Est. Patient 15:27:54 CDT Arsalan gustafson MD [facility]56791 Level 3 Est. Patient 15:04:20 COMPUTER SYSTEMS ADMINISTRATOR Arsalan gustafson MD [facility]-85019 Level 3 Est. Patient 15:11:28 COMPUTER SYSTEMS ADMINISTRATOR Alon doherty [facility]-04263 Level 3 Est. Patient 14:21:45 CDT Evens majano [facility]-40236 Level 3 Est. Patient 14:17:31 CDT Evens majano [facility]-12376 Level 3 Est. Patient 16:26:47 COMPUTER SYSTEMS ADMINISTRATOR Alon doherty [facility]-36668 Level 3 Est. Patient 11:42:21 CDT Gaston Ewing MD [facility] [place]-21372 Level 3 Est. Patient 13:52:22 CDT Todd Rodriguez MD [facility] [place]-21918 Level 3 Est. Patient 12:06:02 COMPUTER SYSTEMS ADMINISTRATOR Arsalan gustafson MD [facility] [place]-44613 Level 3 Est. Patient 12:39:55 COMPUTER SYSTEMS ADMINISTRATOR Todd Rodriguez MD [facility] [place]-51579 Level 3 Est. Patient 14:18:20 CDT Vaughn POPE [facility] [place]-03105 Level 3 Est. Patient 17:31:27 COMPUTER SYSTEMS ADMINISTRATOR Arsalan gustafson MD [facility] [place]-82537 Level 3 Est. Patient 14:37:36 CDT Vaughn W Cloven [facility] Procedures Code Procedure Name Date Entry Date Standard Desc ription CPT-33766 36223 - Immun Admin 1 vac 16:44:36 CDT 2018 CPT-36080 Flulaval Quadrivalent (Flu) 10Pk Syringe IM 2018 16:44:36 CDT CPT-15956 T spine AP/ Lat - XRAY USE ONLY 15:36:46 CD T CPT-45345 Cervical Min 4V - XRAY USE ONLY 15:36:46 CD T CPT-05670 Chest 2V Frontal and Lat - XRAY USE ONLY 14:37:29 CDT CPT-62966 Postop F/U Visit 13:38:44 CDT CPT-OV Office Visit 14:33:00 CDT CPT-41161 Venipuncture Draw Fee 16:03:08 COMPUTER SYSTEMS ADMINISTRATOR CPT-96799 Venipuncture Draw Fee 14:25:48 COMPUTER SYSTEMS ADMINISTRATOR CPT-62256 Venipuncture Draw Fee 09:58:28 CDT CPT-48750 Venipuncture Draw Fee 13:38:25 CDT CPT-82625 Venipuncture Draw Fee 14:30:31 CDT CPT-01549 Venipuncture Draw Fee 16:51:54 CDT CPT-40261 Venipuncture Draw Fee 15:30:43 CDT
--- OUTSIDE RECORDS SUMMARY | 2020-03-24 02:33 | XMS REPORT | Clinical Summary ---
Author Author Admin, Yves Jackson Organization [facility] Address Unknown Phone Unavailable Allergies, Adverse Reactions, Alerts Allergy Name Reaction Description Start Date Severity Status Pr ovider No Known Allergies Rosa Pinedaughan RMA NKDA Critical Active Vaughn POPE Conditions or [...] URI 465.9 Inactive Alon Doyle DO Ac [place] upper respiratory infections of unspecified site Pharyngitis 462 Active Jillina Yasirzell OCEAN EXPORT COORDINATOR Acute pharyngitis Cough 786.2 Active Jillina Yasirzell OCEAN EXPORT COORDINATOR Cough CERVICAL LYMPHADENOPATHY, LEFT ICD-785.6 Inact bennett Todd [...] Generic Name NDC Status Provider Patient Instruction HYDROCODONE-ACETAMINOPHEN 5-325 MG TABS 1 TAB PO Q 6 HRS PRN 201 02/02/10 HYDROCODONE-ACETAMINOPHEN 31399131462 No Longer Active Jilli na Frazell OCEAN EXPORT COORDINATOR Active TYLENOL COLD/FLU SEVERE 2-38-087-325 MG TABS 2 tabs daily prn 20 08/03/29 ROHOEUJTKTBHH-DP-QA-APAP 17400608140 No Longer Active Jillin a Frazell OCEAN EXPORT COORDINATOR Active BACTRIM DS 800-160 MG TAB 1 tab by mouth twice daily 2 TRIMETHOPRIM-SULFAMETHOXAZOLE 52271307674 No Longer Active Jillina Frazell A PRN Active BACTRIM DS 800-160 MG TABS 1 po BID x 10 days SULFAMETHOXAZOLE-TRIMETHOPRIM 77176355656 No Longer Active Gaston Ewing MD Active AMOXICILLIN 500 MG CAPS 1 cap by mouth three times a day AMOXICILLIN 46528947142 No Longer Active Todd Rodriguez MD Activ e EQ IBUPROFEN 200 MG TABS 2 tabs every 4 to 6 hours prn IBUPROFEN 50675261451 Active Todd Rodriguez MD Active ANTIPYRINE-BENZOCAINE 5.4-1.4 % SOLN 1-2 drops in affe cted ear q 3 hours prn ear pain. BENZOCAINE-ANTIPYRINE 19492711022 No Longer Act bennett POPE Active CORTISPORIN 3.5-59321-9 SOLN 4gtts in affected ear QID x 7 days [id number]-[id number]-BB 35384346634 No Longer Active Vaughn POPE Active AMOXICILLIN 500 MG TABS 2 tabs PO bid x 14 days 05/21 AMOXICILLIN 89821257056 No Longer Active Vaughn POPE Activ e CORTISPORIN 3.5-48736-1 SOLN 4gtts in affected ear QID x 7 days CORTISPORIN 3.5-35922-8 SOLN 790047 NEOMYCIN-POLYMYXIN- HC Inactive ANTIPYRINE-BENZOCAINE 5.4-1.4 % SOLN 1-2 drops in affe cted ear q 3 hours prn ear pain. ANTIPYRINE-BENZOCAINE 5.4-1.4 % SOLN BENZOCAINE-ANTIPYRINE Inactive TYLENOL COLD/FLU SEVERE 8-31-314-325 MG TABS 2 tabs daily prn 20 08/03/29 TYLENOL COLD/FLU SEVERE 3-70-132-325 MG TABS ILPIPCDKUJTHZ-HO-KH-APAP Inactive HYDROCODONE-ACETAMINOPHEN 5-325 MG TABS 1 TAB PO Q 6 HRS PRN 201 02/02/10 HYDROCODONE-ACETAMINOPHEN 5-325 MG TABS 971483 HYDROCODONE-ACETAMINOPHEN Inactive AMOXICILLIN 500 MG TABS 2 tabs PO bid x 14 days 05/21 AMOXICILLIN 500 MG TABS 716236 AMOXICILLIN Inactive AMOXICILLIN 500 MG CAPS 1 cap by mouth three times a day AMOXICILLIN 500 MG CAPS 711844 AMOXICILLIN Inactive BACTRIM DS 800-160 MG TABS 1 po BID x 10 days BACTRIM DS 800-160 MG TABS 172837 SULFAMETHOXAZOLE-TRIMETHOPRIM Inactive BACTRIM DS 800-160 MG TAB 1 tab by mouth twice daily 2 BACTRIM DS 800-160 MG TAB 19821228 TRIMETHOPRIM-SULFAMETHOXAZOLE Inac tive Vital Signs Date Name Value Unit Range Description blood pressure, diastolic - 8462-4 65 mm[Hg] BP matos blood pressure, systolic - 8480-6 125 mm[Hg] BP sys height E&M - 8302-2 68 [in_us] Bdy h eight pulse rate E&M - 8867-4 60 /min H eart rate temperature E&M 98.2 [degF] Body temp erature weight E&M - 3141-9 149.5 [lb_av] Weigh t Measured Encounters Code Encounter Date Provider Facility CPT-92898 Level 3 Est. Patient 14:21:45 CDT Evens majano [facility] CPT-75432 Level 3 Est. Patient 14:17:31 CDT Evens majano [facility] CPT-11809 Level 3 Est. Patient 16:26:47 WIND FIELD SERVICE MANAGER Alon doherty DO [facility] CPT-63896 Level 3 Est. Patient 11:42:21 CDT Gaston Ewing MD [facility] CPT-68284 Level 3 Est. Patient 13:52:22 CDT Todd Rodriguez MD [facility] CPT-46090 Level 3 Est. Patient 12:06:02 WIND FIELD SERVICE MANAGER Arsalan gustafson MD [facility] CPT-69177 Level 3 Est. Patient 12:39:55 WIND FIELD SERVICE MANAGER Todd Rodriguez MD [facility] CPT-98603 Level 3 Est. Patient 14:18:20 CDT Vaughn Parker [facility] CPT-91181 Level 3 Est. Patient 17:31:27 WIND FIELD SERVICE MANAGER Arsalan gustafson MD [facility] CPT-92827 Level 3 Est. Patient 14:37:36 CDT Vaughn Parker [facility] Procedures Code Procedure Name Date Entry Date Standard Desc ription CPT-70790 Chest 2V Frontal and Lat - XRAY USE ONLY 14:37:29 CDT CPT-99191 Postop F/U Visit 13:38:44 CDT CPT-OV Office Visit 14:33:00 CDT CPT-32850 Venipuncture Draw Fee 16:03:08 WIND FIELD SERVICE MANAGER CPT-31656 Venipuncture Draw Fee 14:25:48 WIND FIELD SERVICE MANAGER CPT-08474 Venipuncture Draw Fee 09:58:28 CDT CPT-64902 Venipuncture Draw Fee 13:38:25 CDT CPT-19671 Venipuncture Draw Fee 14:30:31 CDT CPT-27058 Venipuncture Draw Fee 16:51:54 CDT CPT-63447 Venipuncture Draw Fee 15:30:43 CDT
--- OUTSIDE RECORDS SUMMARY | 2020-03-24 02:33 | XMS REPORT | Clinical Summary ---
Author Author Admin, Yves Jackson Organization [facility] Address Unknown Phone Unavailable Allergies, Adverse Reactions, [...] URI 465.9 Inactive Alon Doyle DO [place] upper respiratory infections of unspecified site Pharyngitis 462 Active Evens Mendez APRN Acute pharyngitis Cough 786.2 Active Evens Mendez APRN Cough Febrile illness 780.60 Active Marely Botello ribe Fever, unspecified URI 465.9 Active Arsalan Carmichael MD Acute upper respiratory infections of unspecified site CERVICAL LYMPHADENOPATHY, LEFT ICD-785.6 Inact bennett Todd [...] Generic Name NDC Status Provider Patient Instruction PREDNISONE 20 MG ORAL TABLET two tabs by mouth today, then one tab by mouth days two and three PREDNISONE 87088268113 No Longer Active Arsalan Carmichael MD Active AZITHROMYCIN 250 MG ORAL TABLET 2 po qd x 1 day, then 1 po q d x 4 days AZITHROMYCIN 18563896360 No Longer Active Evens ervin APRN Active HYDROCODONE-ACETAMINOPHEN 5-325 MG ORAL TABLET 1 TAB PO Q 6 HRS PRN HYDROCODONE-ACETAMINOPHEN 96604632239 No Longer Active Alonso Mendez PRINT AND PATTERN DESIGNER Active TYLENOL COLD/FLU SEVERE 2-48-490-325 MG ORAL TABLET 2 tabs daily prn QRWHFRUEUKYHU-DF-CJ-APAP 73809330102 No Longer Active Genesisin a Sharonl PRINT AND PATTERN DESIGNER Active BACTRIM DS 800-160 MG ORAL TABLET 1 tab by mouth twice daily 201 01/30/22 TRIMETHOPRIM-SULFAMETHOXAZOLE 56808708384 No Longer Active Manuel Cooleyzell PRINT AND PATTERN DESIGNER Active BACTRIM DS 800-160 MG ORAL TABLET 1 po BID x 10 days 2 SULFAMETHOXAZOLE-TRIMETHOPRIM 53278754463 No Longer Active Gaston Ewing MD Active AMOXICILLIN 500 MG ORAL CAPSULE 1 cap by mouth three times a day AMOXICILLIN 87752529666 No Longer Active Todd Rodriguez MD Active EQ IBUPROFEN 200 MG ORAL TABLET 2 tabs every 4 to 6 hours prn 03/23 IBUPROFEN 09006286543 Active Todd Rodriguez MD Active ANTIPYRINE-BENZOCAINE 5.4-1.4 % OTIC SOLUTION 1-2 drop s in affected ear q 3 hours prn ear pain. BENZOCAINE-ANTIPYRINE 31190187264 No Longer Active Vaughn POPE Active CORTISPORIN 3.5-15115-3 OTIC SOLUTION 4gtts in affected ear QID x 7 days [id number]-OJOWLHEBM-UH 17553291701 No Longer Active lexi POPE Active AMOXICILLIN 500 MG ORAL TABLET 2 tabs PO bid x 14 days AMOXICILLIN 87741396424 No Longer Active Vaughn POPE Activ e CORTISPORIN 3.5-31632-6 OTIC SOLUTION 4gtts in affected ear QID x 7 days CORTISPORIN 3.5-50991-1 OTIC SOLUTION 284025 NZWRISLG-SVYNBSORK-AB Inactive ANTIPYRINE-BENZOCAINE 5.4-1.4 % OTIC SOLUTION 1-2 drop s in affected ear q 3 hours prn ear pain. ANTIPYRINE-BENZOCAIN E 5.4-1.4 % OTIC SOLUTION 957341 BENZOCAINE-ANTIPYRINE Inactive TYLENOL COLD/FLU SEVERE 1-77-847-325 MG ORAL TABLET 2 tabs daily prn TYLENOL COLD/FLU SEVERE 1-71-409-325 MG ORAL TABLET [id number]-AL-ZL-APAP Inactive HYDROCODONE-ACETAMINOPHEN 5-325 MG ORAL TABLET 1 TAB PO Q 6 HRS PRN HYDROCODONE-ACETAMINOPHEN 5-325 MG ORAL TABLET 412255 HYDROCODONE-ACETAMINOPHEN Inactive PREDNISONE 20 MG ORAL TABLET two tabs by mouth today, then one tab by mouth days two and three PREDNISONE 20 MG ORAL TABLET 654261 PREDNISONE Inactive AMOXICILLIN 500 MG ORAL TABLET 2 tabs PO bid x 14 days AMOXICILLIN 500 MG ORAL TABLET 435695 AMOXICILLIN Inactive AMOXICILLIN 500 MG ORAL CAPSULE 1 cap by mouth three times a day AMOXICILLIN 500 MG ORAL CAPSULE 771523 AMOXICILLIN Inactive BACTRIM DS 800-160 MG ORAL TABLET 1 po BID x 10 days 2 BACTRIM DS 800-160 MG ORAL TABLET 557825 SULFAMETHOXAZOLE-TRIMETHOP RIM Inactive BACTRIM DS 800-160 MG ORAL TABLET 1 tab by mouth twice daily 201 01/30/22 BACTRIM DS 800-160 MG ORAL TABLET 801090 TRIMETHOPRIM-SULFAMETHOXAZOLE Inactive AZITHROMYCIN 250 MG ORAL TABLET 2 po qd x 1 day, then 1 po q d x 4 days AZITHROMYCIN 250 MG ORAL TABLET 251733 AZITHROMY PORSHA Inactive Vital Signs Date Name Value Unit Range Description blood pressure, diastolic 86 mm[Hg] BP matos blood pressure, systolic 132 mm[Hg] BP sys pulse rate E&M 89 /min Heart rate temperature E&M 97.5 [degF] Body temp erature weight E&M 138 [lb_av] Weight Measure d blood pressure, diastolic 78 mm[Hg] BP matos blood pressure, systolic 128 mm[Hg] BP sys height E&M 68 [in_us] Bdy height pulse rate E&M 106 /min Heart rate temperature E&M 99.9 [degF] Body temp erature weight E&M 144 [lb_av] Weight Measure d blood pressure, diastolic 65 mm[Hg] BP matos blood pressure, systolic 125 mm[Hg] BP sys height E&M 68 [in_us] Bdy height pulse rate E&M 60 /min Heart rate temperature E&M 98.2 [degF] Body temp erature weight E&M 149.5 [lb_av] Weight Measure d Diagnostic Results Date Name Value Unit Range Description Chart Maintenance: Outside labs entered on flowsheet - Chemistry sodium, serum 142 mmol/L potassium, serum 3.7 mmol/L blood glucose 104 mg/dL creatinine, serum 1.00 mg/dL aspartate aminotransferase (SGOT), serum 17 U/L alanine aminotransferase (SGPT), serum 26 U/L alkaline phosphatase, serum 92 U/L Chart Maintenance: Outside labs entered on [facility] - Hematology leukocyte count, blood 6.7 10*3/mm3 hemoglobin, blood 13.5 g/dL platelet count 248 10*3/mm3 Lab Report: Rapid Strep - Lab Microbial identification kit, rapid strep method Negative Negative Encounters Code Encounter Date Provider Facility CPT-28850 Level 3 Est. Patient 15:04:20 SUPERVISOR PUBLICATIONS PRODUCTION Arsalan gustafson MD [facility] CPT-88347 Level 3 Est. Patient 15:11:28 SUPERVISOR PUBLICATIONS PRODUCTION Alon doherty DO [facility] CPT-04061 Level 3 Est. Patient 14:21:45 CDT Jillina F razell [facility] CPT-23674 Level 3 Est. Patient 14:17:31 CDT Evens majano [facility] CPT-50935 Level 3 Est. Patient 16:26:47 SUPERVISOR PUBLICATIONS PRODUCTION Alon doherty DO [facility] CPT-63027 Level 3 Est. Patient 11:42:21 CDT Gaston Ewing MD [facility] CPT-13485 Level 3 Est. Patient 13:52:22 CDT Todd Rodriguez MD [facility] CPT-43522 Level 3 Est. Patient 12:06:02 SUPERVISOR PUBLICATIONS PRODUCTION Arsalan gustafson MD [facility] CPT-84702 Level 3 Est. Patient 12:39:55 SUPERVISOR PUBLICATIONS PRODUCTION Todd Rodriguez MD [facility] CPT-21846 Level 3 Est. Patient 14:18:20 CDT Vaughn Parker [facility] CPT-36362 Level 3 Est. Patient 17:31:27 SUPERVISOR PUBLICATIONS PRODUCTION Arsalan gustafson MD [facility] CPT-73713 Level 3 Est. Patient 14:37:36 CDT Vaughn Parker [facility] Procedures Code Procedure Name Date Entry Date Standard Desc ription CPT-55872 Chest 2V Frontal and Lat - XRAY USE ONLY 14:37:29 CDT CPT-87191 Postop F/U Visit 13:38:44 CDT CPT-OV Office Visit 14:33:00 CDT CPT-94154 Venipuncture Draw Fee 16:03:08 SUPERVISOR PUBLICATIONS PRODUCTION CPT-94589 Venipuncture Draw Fee 14:25:48 SUPERVISOR PUBLICATIONS PRODUCTION CPT-01194 Venipuncture Draw Fee 09:58:28 CDT CPT-24131 Venipuncture Draw Fee 13:38:25 CDT CPT-16597 Venipuncture Draw Fee 14:30:31 CDT CPT-60908 Venipuncture Draw Fee 16:51:54 CDT CPT-08691 Venipuncture Draw Fee 15:30:43 CDT
--- OUTSIDE RECORDS SUMMARY | 2020-03-24 02:33 | XMS REPORT | Clinical Summary ---
Author Author Admin, Yves Jackson Organization [facility] Address Unknown Phone Unavailable Allergies, Adverse Reactions, Alerts Allergy Name Reaction Description Start Date Severity Status Pr ovider No Known Allergies Rosa Kim CHEESE SPECIALIST NKDA Critical Active Vaughn POPE Conditions or [...] unspecified site Pharyngitis 462 Active Evens Mendez BISCUIT PACKER Acute pharyngitis Cough 786.2 Active Evens Mendez BISCUIT PACKER Cough Febrile illness 780.60 Active Marely Botello [...] Take one by mouth daily VENLAFAXINE HCL 09445451552 Active Arsalan Carmichael MD Active PREDNISONE 20 MG ORAL TABLET two tabs by mouth today, then one tab by mouth days two and three PREDNISONE 39617159294 No Longer Active Arsalan Carmichael MD Active AZITHROMYCIN 250 MG ORAL TABLET 2 po qd x 1 day, then 1 po q d x 4 days AZITHROMYCIN 35500589342 No Longer Active Evens ervin BISCUIT PACKER Active HYDROCODONE-ACETAMINOPHEN 5-325 MG ORAL TABLET 1 TAB PO Q 6 HRS PRN HYDROCODONE-ACETAMINOPHEN 50757542344 No Longer Active Alonso Mendez BISCUIT PACKER Active TYLENOL COLD/FLU SEVERE 6-51-736-325 MG ORAL TABLET 2 tabs daily prn IRVLEQEVQSDGY-UG-BP-APAP 81871740005 No Longer Active Genesisin a Andrea BISCUIT PACKER Active BACTRIM DS 800-160 MG ORAL TABLET 1 tab by mouth twice daily 201 01/30/22 TRIMETHOPRIM-SULFAMETHOXAZOLE 08187149695 No Longer Active J valente Mendez BISCUIT PACKER Active BACTRIM DS 800-160 MG ORAL TABLET 1 po BID x 10 days 2 SULFAMETHOXAZOLE-TRIMETHOPRIM 29676139214 No Longer Active Gaston Ewing MD Active AMOXICILLIN 500 MG ORAL CAPSULE 1 cap by mouth three times a day AMOXICILLIN 58472230735 No Longer Active Todd Rodriguez MD Active EQ IBUPROFEN 200 MG ORAL TABLET 2 tabs every 4 to 6 hours prn 03/23 IBUPROFEN 79879465258 Active Todd Rodriguez MD Active ANTIPYRINE-BENZOCAINE 5.4-1.4 % OTIC SOLUTION 1-2 drop s in affected ear q 3 hours prn ear pain. BENZOCAINE-ANTIPYRINE 05073260001 No Longer Active Vaughn POPE Active CORTISPORIN 3.5-34443-6 OTIC SOLUTION 4gtts in affected ear QID x 7 days [id number]-[id number]-[id number] 12593327013 No Longer Active lexi POPE Active AMOXICILLIN 500 MG ORAL TABLET 2 tabs PO bid x 14 days AMOXICILLIN 28487340751 No Longer Active Vaughn POPE Activ e CORTISPORIN 3.5-93995-6 OTIC SOLUTION 4gtts in affected ear QID x 7 days CORTISPORIN 3.5-10656-9 OTIC SOLUTION ESSIECAZ-BZHDLNQET-NH Inactive ANTIPYRINE-BENZOCAINE 5.4-1.4 % OTIC SOLUTION 1-2 drop s in affected ear q 3 hours prn ear pain. ANTIPYRINE-BENZOCAIN E 5.4-1.4 % OTIC SOLUTION BENZOCAINE-ANTIPYRINE Inactive TYLENOL COLD/FLU SEVERE 6-90-283-325 MG ORAL TABLET 2 tabs daily prn TYLENOL COLD/FLU SEVERE 1-31-493-325 MG ORAL TABLET FZVZGCSODDCSX-MZ-UN-APAP Inactive HYDROCODONE-ACETAMINOPHEN 5-325 MG ORAL TABLET 1 TAB PO Q 6 HRS PRN HYDROCODONE-ACETAMINOPHEN 5-325 MG ORAL TABLET 353780 HYDROCODONE-ACETAMINOPHEN Inactive PREDNISONE 20 MG ORAL TABLET two tabs by mouth today, then one tab by mouth days two and three PREDNISONE 20 MG ORAL TABLET 555151 PREDNISONE Inactive AMOXICILLIN 500 MG ORAL TABLET 2 tabs PO bid x 14 days AMOXICILLIN 500 MG ORAL TABLET 381209 AMOXICILLIN Inactive AMOXICILLIN 500 MG ORAL CAPSULE 1 cap by mouth three times a day AMOXICILLIN 500 MG ORAL CAPSULE 973758 AMOXICILLIN Inactive BACTRIM DS 800-160 MG ORAL [...] 4 days AZITHROMYCIN 250 MG ORAL TABLET 245252 AZITHROMY PORSHA Inactive Immunizations Vaccine Administration Date Value Standard Kristopher cription influenza immunization (Flu Vax) has been administered 08/17 Flulaval Quadrivalent (Flu) 10Pk Syringe IM influenza virus vaccine, unspecified formulation Encounters Code Encounter Date Provider Facility [facility]-68492 Level 4 Est. Patient 15:27:54 CDT Arsalan gustafson MD [facility]49645 Level 3 Est. Patient 15:04:20 BAND BOOKER Arsalan gustafson MD [facility]-14660 Level 3 Est. Patient 15:11:28 BAND BOOKER Alon doherty [facility]-73929 Level 3 Est. Patient 14:21:45 CDT Evens majano [facility][note 2]-37081 Level 3 Est. Patient 14:17:31 CDT Evens majano [facility][note 2]-95040 Level 3 Est. Patient 16:26:47 BAND BOOKER Alon doherty [facility]-99097 Level 3 Est. Patient 11:42:21 CDT Gaston Ewing MD [facility]-66089 Level 3 Est. Patient 13:52:22 CDT Todd Rodriguez MD [facility]-79725 Level 3 Est. Patient 12:06:02 BAND BOOKER Arsalan gustafson MD [facility]-45048 Level 3 Est. Patient 12:39:55 BAND BOOKER Todd Rodriguez MD [facility]-00103 Level 3 Est. Patient 14:18:20 CDT Vaughn POPE [facility]-61914 Level 3 Est. Patient 17:31:27 BAND BOOKER Arsalan gustafson MD [facility]-28230 Level 3 Est. Patient 14:37:36 CDT Vaughn W Cloven [facility] Procedures Code Procedure Name Date Entry Date Standard Desc ription CPT-51104 24472 - Immun Admin 1 vac 16:44:36 CDT 2018 CPT-39970 Flulaval Quadrivalent (Flu) 10Pk Syringe IM 2018 16:44:36 CDT CPT-75762 T spine AP/ Lat - XRAY USE ONLY 15:36:46 CD T CPT-41833 Cervical Min 4V - XRAY USE ONLY 15:36:46 CD T CPT-27742 Chest 2V Frontal and Lat - XRAY USE ONLY 14:37:29 CDT CPT-10482 Postop F/U Visit 13:38:44 CDT CPT-OV Office Visit 14:33:00 CDT CPT-61963 Venipuncture Draw Fee 16:03:08 BAND BOOKER CPT-74954 Venipuncture Draw Fee 14:25:48 BAND BOOKER CPT-44990 Venipuncture Draw Fee 09:58:28 CDT CPT-93260 Venipuncture Draw Fee 13:38:25 CDT CPT-99567 Venipuncture Draw Fee 14:30:31 CDT CPT-43142 Venipuncture Draw Fee 16:51:54 CDT CPT-61670 Venipuncture Draw Fee 15:30:43 CDT
--- OUTSIDE RECORDS SUMMARY | 2020-03-24 02:33 | XMS REPORT | Clinical Summary ---
Author Author Admin, Yves Jackson Organization [facility] Address Unknown Phone Unavailable Allergies, Adverse Reactions, Alerts Allergy Name Reaction Description Start Date Severity Status Pr ovider No Known Allergies Rosa Kim ELECTRICIAN SUPERVISOR NKDA Critical Active Vaughn POPE Conditions or [...] URI 465.9 Inactive Alon Doyle DO Ac [place] upper respiratory infections of unspecified site Pharyngitis 462 Active Evens Mendez TRAVELING INVENTORY ASSOCIATE Acute pharyngitis Cough 786.2 Active Evens Mendez TRAVELING INVENTORY ASSOCIATE Cough Febrile illness 780.60 Active Marely Botello [...] Take one by mouth daily VENLAFAXINE HCL 85473966945 Active Arsalan Carmichael MD Active PREDNISONE 20 MG ORAL TABLET two tabs by mouth today, then one tab by mouth days two and three PREDNISONE 80708010511 No Longer Active Arsalan Carmichael MD Active AZITHROMYCIN 250 MG ORAL TABLET 2 po qd x 1 day, then 1 po q d x 4 days AZITHROMYCIN 86085643163 No Longer Active Evens ervin TRAVELING INVENTORY ASSOCIATE Active HYDROCODONE-ACETAMINOPHEN 5-325 MG ORAL TABLET 1 TAB PO Q 6 HRS PRN HYDROCODONE-ACETAMINOPHEN 63936264910 No Longer Active Alonso Mendez TRAVELING INVENTORY ASSOCIATE Active TYLENOL COLD/FLU SEVERE 6-01-507-325 MG ORAL TABLET 2 tabs daily prn [id number]-PE-UW-APAP 58112293301 No Longer Active Genesisin a Andrea TRAVELING INVENTORY ASSOCIATE Active BACTRIM DS 800-160 MG ORAL TABLET 1 tab by mouth twice daily 201 01/30/22 TRIMETHOPRIM-SULFAMETHOXAZOLE 92965769129 No Longer Active J valente Mendez TRAVELING INVENTORY ASSOCIATE Active BACTRIM DS 800-160 MG ORAL TABLET 1 po BID x 10 days 2 SULFAMETHOXAZOLE-TRIMETHOPRIM 50210046146 No Longer Active Gaston Ewing MD Active AMOXICILLIN 500 MG ORAL CAPSULE 1 cap by mouth three times a day AMOXICILLIN 40299850583 No Longer Active Todd Rodriguez MD Active EQ IBUPROFEN 200 MG ORAL TABLET 2 tabs every 4 to 6 hours prn 03/23 IBUPROFEN 40058406235 Active Todd Rodriguez MD Active ANTIPYRINE-BENZOCAINE 5.4-1.4 % OTIC SOLUTION 1-2 drop s in affected ear q 3 hours prn ear pain. BENZOCAINE-ANTIPYRINE 36646498548 No Longer Active Vaughn POPE Active CORTISPORIN 3.5-33216-4 OTIC SOLUTION 4gtts in affected ear QID x 7 days OOTWCWXB-UIIJVUGBU-II 53800775808 No Longer Active lexi POPE Active AMOXICILLIN 500 MG ORAL TABLET 2 tabs PO bid x 14 days AMOXICILLIN 74988734734 No Longer Active Vaughn POPE Activ e CORTISPORIN 3.5-31575-1 OTIC SOLUTION 4gtts in affected ear QID x 7 days CORTISPORIN 3.5-66600-9 OTIC SOLUTION QKLIWYWL-IGXTCIUGG-GY Inactive ANTIPYRINE-BENZOCAINE 5.4-1.4 % OTIC SOLUTION 1-2 drop s in affected ear q 3 hours prn ear pain. ANTIPYRINE-BENZOCAIN E 5.4-1.4 % OTIC SOLUTION BENZOCAINE-ANTIPYRINE Inactive TYLENOL COLD/FLU SEVERE 8-33-797-325 MG ORAL TABLET 2 tabs daily prn TYLENOL COLD/FLU SEVERE 1-34-931-325 MG ORAL TABLET GNMEDMCKOBQPB-ZC-KP-APAP Inactive HYDROCODONE-ACETAMINOPHEN 5-325 MG ORAL TABLET 1 TAB PO Q 6 HRS PRN HYDROCODONE-ACETAMINOPHEN 5-325 MG ORAL TABLET 885463 HYDROCODONE-ACETAMINOPHEN Inactive PREDNISONE 20 MG ORAL TABLET two tabs by mouth today, then one tab by mouth days two and three PREDNISONE 20 MG ORAL TABLET 945279 PREDNISONE Inactive AMOXICILLIN 500 MG ORAL TABLET 2 tabs PO bid x 14 days AMOXICILLIN 500 MG ORAL TABLET 996102 AMOXICILLIN Inactive AMOXICILLIN 500 MG ORAL CAPSULE 1 cap by mouth three times a day AMOXICILLIN 500 MG ORAL CAPSULE 785364 AMOXICILLIN Inactive BACTRIM DS 800-160 MG ORAL [...] 4 days AZITHROMYCIN 250 MG ORAL TABLET 698111 AZITHROMY PORSHA Inactive Encounters Code Encounter Date Provider Facility CPT-17714 Level 4 Est. Patient 15:27:54 CDT Arsalan gustafson MD [facility] CPT-57956 Level 3 Est. Patient 15:04:20 PROGRAM DIRECTOR SCOUTING Arsalan gustafson MD [facility] CPT-55157 Level 3 Est. Patient 15:11:28 PROGRAM DIRECTOR SCOUTING Alon doherty [facility] CPT-54731 Level 3 Est. Patient 14:21:45 CDT Evens majano [facility] CPT-45202 Level 3 Est. Patient 14:17:31 CDT Evens majano [facility] CPT-57459 Level 3 Est. Patient 16:26:47 PROGRAM DIRECTOR SCOUTING Alon doherty [facility] CPT-04784 Level 3 Est. Patient 11:42:21 CDT Gaston Ewing MD [facility] CPT-17887 Level 3 Est. Patient 13:52:22 CDT Todd Rodriguez MD [facility] CPT-50392 Level 3 Est. Patient 12:06:02 PROGRAM DIRECTOR SCOUTING Arsalan gustafson MD [facility] CPT-62834 Level 3 Est. Patient 12:39:55 PROGRAM DIRECTOR SCOUTING Todd Rodriguez MD [facility] CPT-74635 Level 3 Est. Patient 14:18:20 CDT Vaughn Parker [facility] CPT-37528 Level 3 Est. Patient 17:31:27 PROGRAM DIRECTOR SCOUTING Arsalan gustafson MD [facility] CPT-23147 Level 3 Est. Patient 14:37:36 CDT Vaughn Parker [facility] Procedures Code Procedure Name Date Entry Date Standard Desc ription CPT-95769 T spine AP/ Lat - XRAY USE ONLY 15:36:46 CD T CPT-68707 Cervical Min 4V - XRAY USE ONLY 15:36:46 CD T CPT-25076 Chest 2V Frontal and Lat - XRAY USE ONLY 14:37:29 CDT CPT-53119 Postop F/U Visit 13:38:44 CDT CPT-OV Office Visit 14:33:00 CDT CPT-00363 Venipuncture Draw Fee 16:03:08 PROGRAM DIRECTOR SCOUTING CPT-27204 Venipuncture Draw Fee 14:25:48 PROGRAM DIRECTOR SCOUTING CPT-73173 Venipuncture Draw Fee 09:58:28 CDT CPT-60785 Venipuncture Draw Fee 13:38:25 CDT CPT-10354 Venipuncture Draw Fee 14:30:31 CDT CPT-34846 Venipuncture Draw Fee 16:51:54 CDT CPT-22055 Venipuncture Draw Fee 15:30:43 CDT
--- OUTSIDE RECORDS SUMMARY | 2020-03-24 02:33 | XMS REPORT | Clinical Summary ---
Author Author Admin, Yves Jackson Organization [facility] Address Unknown Phone Unavailable Allergies, Adverse [...] URI 465.9 Inactive Alon Doyle DO Ac [place] upper respiratory infections of unspecified site Pharyngitis 462 Active Jillina Yasirzell HUMAN RESOURCES COMMUNICATIONS MANAGER Acute pharyngitis Cough 786.2 Active Jillina Frazell HUMAN RESOURCES COMMUNICATIONS MANAGER Cough CERVICAL LYMPHADENOPATHY, LEFT ICD-785.6 Inact bennett [...] Q 6 HRS PRN 201 02/02/10 HYDROCODONE-ACETAMINOPHEN 97514077735 No Longer Active Jilli na Frazell HUMAN RESOURCES COMMUNICATIONS MANAGER Active TYLENOL COLD/FLU SEVERE 7-99-640-325 MG TABS 2 tabs daily prn 20 08/03/29 HRCWGOREHKIZA-DU-OF-APAP 26665349940 No Longer Active Jillin a Frazell HUMAN RESOURCES COMMUNICATIONS MANAGER Active BACTRIM DS 800-160 MG TAB 1 tab by mouth twice daily 2 TRIMETHOPRIM-SULFAMETHOXAZOLE 33523824055 No Longer Active Jillina Frazell A PRN Active BACTRIM DS 800-160 MG TABS 1 po BID x 10 days SULFAMETHOXAZOLE-TRIMETHOPRIM 02845519223 No Longer Active Gaston Ewing MD Active AMOXICILLIN 500 MG CAPS 1 cap by mouth three times a day AMOXICILLIN 00178886907 No Longer Active Todd Rodriguez MD Activ e EQ IBUPROFEN 200 MG TABS 2 tabs every 4 to 6 hours prn IBUPROFEN 25917987135 Active Todd Rodriguez MD Active ANTIPYRINE-BENZOCAINE 5.4-1.4 % SOLN 1-2 drops in affe cted ear q 3 hours prn ear pain. BENZOCAINE-ANTIPYRINE 95840773322 No Longer Act bennett POPE Active CORTISPORIN 3.5-91805-2 SOLN 4gtts in affected ear QID x 7 days HASKBDBD-KRBEEDGBD-DQ 21771904822 No Longer Active Vaughn POPE Active AMOXICILLIN 500 MG TABS 2 tabs PO bid x 14 days 05/21 AMOXICILLIN 84630544082 No Longer Active Vaughn POPE Activ e CORTISPORIN 3.5-71462-1 SOLN 4gtts in affected ear QID x 7 days CORTISPORIN 3.5-32336-1 SOLN 879006 NEOMYCIN-POLYMYXIN- HC Inactive ANTIPYRINE-BENZOCAINE 5.4-1.4 % SOLN 1-2 drops in affe cted ear q 3 hours prn ear pain. ANTIPYRINE-BENZOCAINE 5.4-1.4 % SOLN BENZOCAINE-ANTIPYRINE Inactive TYLENOL COLD/FLU SEVERE 8-00-280-325 MG TABS 2 tabs daily prn 20 08/03/29 TYLENOL COLD/FLU SEVERE 3-01-747-325 MG TABS XQTJZPLMNBAQE-FG-CE-APAP Inactive HYDROCODONE-ACETAMINOPHEN 5-325 MG TABS 1 TAB PO Q 6 HRS PRN 201 02/02/10 HYDROCODONE-ACETAMINOPHEN 5-325 MG TABS 167056 HYDROCODONE-ACETAMINOPHEN Inactive AMOXICILLIN 500 MG TABS 2 tabs PO bid x 14 days 05/21 AMOXICILLIN 500 MG TABS 003268 AMOXICILLIN Inactive AMOXICILLIN 500 MG CAPS 1 cap by mouth three times a day AMOXICILLIN 500 MG CAPS 279412 AMOXICILLIN Inactive BACTRIM DS 800-160 MG TABS 1 po BID x 10 days BACTRIM DS 800-160 MG TABS 615329 SULFAMETHOXAZOLE-TRIMETHOPRIM Inactive BACTRIM DS 800-160 MG TAB [...] Measured Encounters Code Encounter Date Provider Facility CPT-65133 Level 3 Est. Patient 14:21:45 CDT Evens majano [facility] CPT-19701 Level 3 Est. Patient 14:17:31 CDT Evens majano [facility] CPT-28337 Level 3 Est. Patient 16:26:47 TEST ENGINEERING MANAGER Alon doherty DO [facility] CPT-48285 Level 3 Est. Patient 11:42:21 CDT Gaston Ewing MD [facility] CPT-78900 Level 3 Est. Patient 13:52:22 CDT Todd Rodriguez MD [facility] CPT-77433 Level 3 Est. Patient 12:06:02 TEST ENGINEERING MANAGER Arsalan gustafson MD [facility] CPT-65387 Level 3 Est. Patient 12:39:55 TEST ENGINEERING MANAGER Todd Rodriguez MD [facility] CPT-92079 Level 3 Est. Patient 14:18:20 CDT Vaughn POPE [facility] CPT-16217 Level 3 Est. Patient 17:31:27 TEST ENGINEERING MANAGER Arsalan gustafson MD [facility] CPT-01205 Level 3 Est. Patient 14:37:36 CDT Vaughn Parker [facility] Procedures Code Procedure Name Date Entry Date Standard Desc ription CPT-22211 Postop F/U Visit 13:38:44 CDT CPT-OV Office Visit 14:33:00 CDT CPT-97590 Venipuncture Draw Fee 16:03:08 TEST ENGINEERING MANAGER CPT-42895 Venipuncture Draw Fee 14:25:48 TEST ENGINEERING MANAGER CPT-15864 Venipuncture Draw Fee 09:58:28 CDT CPT-67490 Venipuncture Draw Fee 13:38:25 CDT CPT-31132 Venipuncture Draw Fee 14:30:31 CDT CPT-03007 Venipuncture Draw Fee 16:51:54 CDT CPT-24268 Venipuncture Draw Fee 15:30:43 CDT
--- OUTSIDE RECORDS SUMMARY | 2020-03-24 02:33 | XMS REPORT | Clinical Summary ---
Author Author Admin, Yves Jackson Organization [facility] Address Unknown Phone Unavailable Allergies, Adverse Reactions, [...] URI 465.9 Inactive Alon Doyle DO Ac [place] upper respiratory infections of unspecified site Pharyngitis 462 Active Evens Mendez APRN Acute pharyngitis Cough 786.2 Active Evesn Mendez APRN Cough Febrile illness 780.60 Active Marely Botello ribe Fever, unspecified OTITIS EXTERNA ICD-380.10 Inactive Todd Cotto MD CERVICAL LYMPHADENOPATHY, LEFT ICD-785.6 Inact bennett Todd Rodriguez MD Acute pharyngitis ICD-462 Inactive Todd ferreira MD Pharyngitis ICD-462 Inactive Gaston Ewing MD URI ICD-465.9 Inactive Alon Doyle DO LONG-TERM (CURRENT) USE OF OTHER MEDICATIONS ICD-V58.69 2 Inactive Gaston Ewing MD Malaise and fatigue ICD-780.79 Inactive Chelsey Ewing MD Medication List Medication Instructions Start Date Stop Date Generic Name NDC Status Provider Patient Instruction PREDNISONE 20 MG ORAL TABLET two tabs by mouth today, then one tab by mouth days two and three PREDNISONE 93686252033 Active Alon Doyle DO Active AZITHROMYCIN 250 MG ORAL TABLET 2 po qd x 1 day, then 1 po q d x 4 days AZITHROMYCIN 47595371336 No Longer Active Evens ervin APRN Active HYDROCODONE-ACETAMINOPHEN 5-325 MG ORAL TABLET 1 TAB PO Q 6 HRS PRN HYDROCODONE-ACETAMINOPHEN 55097080293 No Longer Active Jilli na Frazell CIRCUIT CLERK Active TYLENOL COLD/FLU SEVERE 8-76-550-325 MG ORAL TABLET 2 tabs daily prn GRXNRLBFZSIXS-RO-WP-APAP 62816471440 No Longer Active Mario Herreral CIRCUIT CLERK Active BACTRIM DS 800-160 MG ORAL TABLET 1 tab by mouth twice daily 201 01/30/22 TRIMETHOPRIM-SULFAMETHOXAZOLE 24632801488 No Longer Active Manuel Cooleyzell CIRCUIT CLERK Active BACTRIM DS 800-160 MG ORAL TABLET 1 po BID x 10 days 2 SULFAMETHOXAZOLE-TRIMETHOPRIM 70275616063 No Longer Active Gaston Ewing MD Active AMOXICILLIN 500 MG ORAL CAPSULE 1 cap by mouth three times a day AMOXICILLIN 25712979091 No Longer Active Todd Rodriguez MD Active EQ IBUPROFEN 200 MG ORAL TABLET 2 tabs every 4 to 6 hours prn 03/23 IBUPROFEN 49494117589 Active Todd Rodriguez MD Active ANTIPYRINE-BENZOCAINE 5.4-1.4 % OTIC SOLUTION 1-2 drop s in affected ear q 3 hours prn ear pain. BENZOCAINE-ANTIPYRINE 20263120298 No Longer Active Vaughn POPE Active CORTISPORIN 3.5-34473-2 OTIC SOLUTION 4gtts in affected ear QID x 7 days EENENPKW-UIEAZXQAN-AB 66634092952 No Longer Active lexi POPE Active AMOXICILLIN 500 MG ORAL TABLET 2 tabs PO bid x 14 days AMOXICILLIN 33982269935 No Longer Active Vaughn POPE Activ e CORTISPORIN 3.5-93684-3 OTIC SOLUTION 4gtts in affected ear QID x 7 days CORTISPORIN 3.5-99764-7 OTIC SOLUTION 897313 TULOMGWK-IAEGUFIUK-WR Inactive ANTIPYRINE-BENZOCAINE 5.4-1.4 % OTIC SOLUTION 1-2 drop s in affected ear q 3 hours prn ear pain. ANTIPYRINE-BENZOCAIN E 5.4-1.4 % OTIC SOLUTION 890802 BENZOCAINE-ANTIPYRINE Inactive TYLENOL COLD/FLU SEVERE 5-57-367-325 MG ORAL TABLET 2 tabs daily prn TYLENOL COLD/FLU SEVERE 6-03-569-325 MG ORAL TABLET LVQKNRUOCQEID-LV-ZE-APAP Inactive HYDROCODONE-ACETAMINOPHEN 5-325 MG ORAL TABLET 1 TAB PO Q 6 HRS PRN HYDROCODONE-ACETAMINOPHEN 5-325 MG ORAL TABLET 543598 HYDROCODONE-ACETAMINOPHEN Inactive AMOXICILLIN 500 MG ORAL TABLET 2 tabs PO bid x 14 days AMOXICILLIN 500 MG ORAL TABLET 672589 AMOXICILLIN Inactive AMOXICILLIN 500 MG ORAL CAPSULE 1 cap by mouth three times a day AMOXICILLIN 500 MG ORAL CAPSULE 838818 AMOXICILLIN Inactive BACTRIM DS 800-160 MG ORAL TABLET 1 po BID x 10 days 2 BACTRIM DS 800-160 MG ORAL TABLET 623650 SULFAMETHOXAZOLE-TRIMETHOP RIM Inactive BACTRIM DS 800-160 MG ORAL TABLET 1 tab by mouth twice daily 201 01/30/22 BACTRIM DS 800-160 MG ORAL TABLET 318807 TRIMETHOPRIM-SULFAMETHOXAZOLE Inactive AZITHROMYCIN 250 MG ORAL TABLET 2 po qd x 1 day, then 1 po q d x 4 days AZITHROMYCIN 250 MG ORAL TABLET 295876 AZITHROMY PORSHA Inactive Vital Signs Date Name Value Unit Range Description blood pressure, diastolic 78 mm[Hg] BP matos [...] Outside labs entered on flowsheet - Chemistry blood glucose 104 mg/dL creatinine, serum 1.00 mg/dL aspartate aminotransferase (SGOT), serum 17 U/L alanine aminotransferase (SGPT), serum 26 U/L alkaline phosphatase, serum 92 U/L potassium, serum 3.7 mmol/L sodium, serum 142 mmol/L Chart Maintenance: Outside labs entered on flowsheet - Hematology platelet count 248 10*3/mm3 hemoglobin, blood 13.5 g/dL leukocyte count, blood 6.7 10*3/mm3 Lab Report: Rapid Strep - Lab Microbial identification kit, rapid strep method Negative Negative Encounters Code Encounter Date Provider Facility CPT-50966 Level 3 Est. Patient 15:11:28 HOUSEKEEPER HOME Alon doherty [facility] CPT-40218 Level 3 Est. Patient 14:21:45 CDT Evens majano [facility] CPT-24580 Level 3 Est. Patient 14:17:31 CDT Evens majano [facility]-83163 Level 3 Est. Patient 16:26:47 HOUSEKEEPER HOME Alon doherty [facility] CPT-25417 Level 3 Est. Patient 11:42:21 CDT Gaston Ewing MD [facility] CPT-87320 Level 3 Est. Patient 13:52:22 CDT Todd Rodriguez MD [facility] CPT-88628 Level 3 Est. Patient 12:06:02 HOUSEKEEPER HOME Arsalan gustafson MD [facility] CPT-36777 Level 3 Est. Patient 12:39:55 HOUSEKEEPER HOME Todd Rodriguez MD [facility] CPT-48487 Level 3 Est. Patient 14:18:20 CDT Vaughn POPE [facility] CPT-87281 Level 3 Est. Patient 17:31:27 HOUSEKEEPER HOME Arsalan gustafson MD [facility] CPT-48764 Level 3 Est. Patient 14:37:36 CDT Vaughn Parker [facility] Procedures Code Procedure Name Date Entry Date Standard Desc ription CPT-01139 Chest 2V Frontal and Lat - XRAY USE ONLY 14:37:29 CDT CPT-95200 Postop F/U Visit 13:38:44 CDT CPT-OV Office Visit 14:33:00 CDT CPT-17047 Venipuncture Draw Fee 16:03:08 HOUSEKEEPER HOME CPT-84732 Venipuncture Draw Fee 14:25:48 HOUSEKEEPER HOME CPT-65279 Venipuncture Draw Fee 09:58:28 CDT CPT-90477 Venipuncture Draw Fee 13:38:25 CDT CPT-32564 Venipuncture Draw Fee 14:30:31 CDT CPT-93971 Venipuncture Draw Fee 16:51:54 CDT CPT-70927 Venipuncture Draw Fee 15:30:43 CDT
--- OUTSIDE RECORDS SUMMARY | 2020-03-24 02:33 | XMS REPORT | Clinical Summary ---
Author Author Admin, Yves Jackson Organization [facility] Address Unknown Phone Unavailable Allergies, Adverse Reactions, Alerts Allergy Name Reaction Description Start Date Severity Status Pr ovider No Known Allergies Rosa LOVINGA NKDA Critical Active Vaughn POPE Conditions or [...] infections of unspecified site Pharyngitis 462 Active Docllina Sharonl UNDERLINER Acute pharyngitis Cough 786.2 Active Docllina Yasirzell UNDERLINER Cough CERVICAL LYMPHADENOPATHY, LEFT ICD-785.6 Inact bennett [...] Generic Name NDC Status Provider Patient Instruction AZITHROMYCIN 250 MG TABS 2 po qd x 1 day, then 1 po qd x 4 days AZITHROMYCIN 93142738815 Active Jillina Frazell UNDERLINER A ctive HYDROCODONE-ACETAMINOPHEN 5-325 MG TABS 1 TAB PO Q 6 HRS PRN 201 02/02/10 HYDROCODONE-ACETAMINOPHEN 69642323795 No Longer Active Jilli na Frazell UNDERLINER Active TYLENOL COLD/FLU SEVERE 9-83-742-325 MG TABS 2 tabs daily prn 20 08/03/29 JGIAQNXEOWZWS-XT-IA-APAP 02135953671 No Longer Active Jillin a Frazell UNDERLINER Active BACTRIM DS 800-160 MG TAB 1 tab by mouth twice daily 2 TRIMETHOPRIM-SULFAMETHOXAZOLE 35332817102 No Longer Active Evens Mendez A PRN Active BACTRIM DS 800-160 MG TABS 1 po BID x 10 days SULFAMETHOXAZOLE-TRIMETHOPRIM 57401856346 No Longer Active Gaston Ewing MD Active AMOXICILLIN 500 MG CAPS 1 cap by mouth three times a day AMOXICILLIN 38544445087 No Longer Active Todd Rodriguez MD Activ e EQ IBUPROFEN 200 MG TABS 2 tabs every 4 to 6 hours prn IBUPROFEN 81793030065 Active Todd Rodriguez MD Active ANTIPYRINE-BENZOCAINE 5.4-1.4 % SOLN 1-2 drops in affe cted ear q 3 hours prn ear pain. BENZOCAINE-ANTIPYRINE 91116997827 No Longer Act bennett Vaughn POPE Active CORTISPORIN 3.5-83644-2 SOLN 4gtts in affected ear QID x 7 days ENTJVVBZ-EYKPSTRQM-SE 46035559911 No Longer Active Vaughn POPE Active AMOXICILLIN 500 MG TABS 2 tabs PO bid x 14 days 05/21 AMOXICILLIN 50177057813 No Longer Active Vaughn POPE Activ e CORTISPORIN 3.5-93138-0 SOLN 4gtts in affected ear QID x 7 days CORTISPORIN 3.5-05741-1 SOLN 124353 NEOMYCIN-POLYMYXIN- HC Inactive ANTIPYRINE-BENZOCAINE 5.4-1.4 % SOLN 1-2 drops in affe cted ear q 3 hours prn ear pain. ANTIPYRINE-BENZOCAINE 5.4-1.4 % SOLN BENZOCAINE-ANTIPYRINE Inactive TYLENOL COLD/FLU SEVERE 0-61-778-325 MG TABS 2 tabs daily prn 20 08/03/29 TYLENOL COLD/FLU SEVERE 3-43-177-325 MG TABS [id number]-GM-QH-APAP Inactive HYDROCODONE-ACETAMINOPHEN 5-325 MG TABS 1 TAB PO Q 6 HRS PRN 201 02/02/10 HYDROCODONE-ACETAMINOPHEN 5-325 MG TABS 195573 HYDROCODONE-ACETAMINOPHEN Inactive AMOXICILLIN 500 MG TABS 2 tabs PO bid x 14 days 05/21 AMOXICILLIN 500 MG TABS 783062 AMOXICILLIN Inactive AMOXICILLIN 500 MG CAPS 1 cap by mouth three times a day AMOXICILLIN 500 MG CAPS 948090 AMOXICILLIN Inactive BACTRIM DS 800-160 MG TABS 1 po BID x 10 days BACTRIM DS 800-160 MG TABS 489116 SULFAMETHOXAZOLE-TRIMETHOPRIM Inactive BACTRIM DS 800-160 MG TAB [...] Measured Encounters Code Encounter Date Provider Facility CPT-65577 Level 3 Est. Patient 14:21:45 CDT Evens majano [facility] CPT-88575 Level 3 Est. Patient 14:17:31 CDT Evens majano [facility] CPT-32358 Level 3 Est. Patient 16:26:47 FUEL MANAGER Alon doherty DO [facility] CPT-03900 Level 3 Est. Patient 11:42:21 CDT Gaston Ewing MD [facility] CPT-19942 Level 3 Est. Patient 13:52:22 CDT Todd Rodriguez MD [facility] CPT-95684 Level 3 Est. Patient 12:06:02 FUEL MANAGER Arsalan gustafson MD [facility] CPT-36143 Level 3 Est. Patient 12:39:55 FUEL MANAGER Todd Rodriguez MD [facility] CPT-74749 Level 3 Est. Patient 14:18:20 CDT Vaughn Parker [facility] CPT-19622 Level 3 Est. Patient 17:31:27 FUEL MANAGER Arsalan gustafson MD [facility] CPT-37089 Level 3 Est. Patient 14:37:36 CDT Vaughn Parker [facility] Procedures Code Procedure Name Date Entry Date Standard Desc ription CPT-25930 Chest 2V Frontal and Lat - XRAY USE ONLY 14:37:29 CDT CPT-11687 Postop F/U Visit 13:38:44 CDT CPT-OV Office Visit 14:33:00 CDT CPT-06829 Venipuncture Draw Fee 16:03:08 FUEL MANAGER CPT-44487 Venipuncture Draw Fee 14:25:48 FUEL MANAGER CPT-74917 Venipuncture Draw Fee 09:58:28 CDT CPT-79090 Venipuncture Draw Fee 13:38:25 CDT CPT-62325 Venipuncture Draw Fee 14:30:31 CDT CPT-17134 Venipuncture Draw Fee 16:51:54 CDT CPT-85163 Venipuncture Draw Fee 15:30:43 CDT
[2020-03-24] MEDS: ONDANSETRON 4 MG/2 ML (SDV) Z0FRAN ONE ×2 (02:34→02:43)
--- OUTSIDE RECORDS SUMMARY | 2020-03-24 02:34 | XMS REPORT | Clinical Summary ---
Author Author Admin, Yves Jackson Organization [facility] [...] URI 465.9 Inactive Alon Doyle DO [place] upper respiratory infections of unspecified site Pharyngitis 462 Active Jillina Yasirzell CONSTRUCTION SKILLS TEACHER Acute pharyngitis Cough 786.2 Active Jillina Yasirzell CONSTRUCTION SKILLS TEACHER Cough CERVICAL LYMPHADENOPATHY, LEFT ICD-785.6 Inact ebnnett Todd Rodriguez MD OTITIS EXTERNA ICD-380.10 Inactive [...] 1 po qd x 4 days AZITHROMYCIN 94399389615 Active Jillina Frazell CONSTRUCTION SKILLS TEACHER A ctive HYDROCODONE-ACETAMINOPHEN 5-325 MG TABS 1 TAB PO Q 6 HRS PRN 201 02/02/10 HYDROCODONE-ACETAMINOPHEN 03297735449 No Longer Active Jilli na Frazell CONSTRUCTION SKILLS TEACHER Active TYLENOL COLD/FLU SEVERE 6-27-714-325 MG TABS 2 tabs daily prn 20 08/03/29 SQTROEBBKXCIC-TP-MG-APAP 83061036441 No Longer Active Jillin a Frazell CONSTRUCTION SKILLS TEACHER Active BACTRIM DS 800-160 MG TAB 1 tab by mouth twice daily 2 TRIMETHOPRIM-SULFAMETHOXAZOLE 29679173170 No Longer Active Jishira Herreral A PRN Active BACTRIM DS 800-160 MG TABS 1 po BID x 10 days SULFAMETHOXAZOLE-TRIMETHOPRIM 52991147003 No Longer Active Gaston Ewing MD Active AMOXICILLIN 500 MG CAPS 1 cap by mouth three times a day AMOXICILLIN 54521897398 No Longer Active Todd Rodriguez MD Activ e EQ IBUPROFEN 200 MG TABS 2 tabs every 4 to 6 hours prn IBUPROFEN 19721113063 Active Todd Rodriguez MD Active ANTIPYRINE-BENZOCAINE 5.4-1.4 % SOLN 1-2 drops in affe cted ear q 3 hours prn ear pain. BENZOCAINE-ANTIPYRINE 43649718264 No Longer Act bennett Vaughn POPE Active CORTISPORIN 3.5-37237-5 SOLN 4gtts in affected ear QID x 7 days MVANTEOG-WZWEARCNN-DS 55961625220 No Longer Active aVughn POPE Active AMOXICILLIN 500 MG TABS 2 tabs PO bid x 14 days 05/21 AMOXICILLIN 27614784419 No Longer Active Vaughn POPE Activ e CORTISPORIN 3.5-92346-1 SOLN 4gtts in affected ear QID x 7 days CORTISPORIN 3.5-35942-8 SOLN 357733 NEOMYCIN-POLYMYXIN- HC Inactive ANTIPYRINE-BENZOCAINE 5.4-1.4 % SOLN 1-2 drops in affe cted ear q 3 hours prn ear pain. ANTIPYRINE-BENZOCAINE 5.4-1.4 % SOLN BENZOCAINE-ANTIPYRINE Inactive TYLENOL COLD/FLU SEVERE 5-40-873-325 MG TABS 2 tabs daily prn 20 08/03/29 TYLENOL COLD/FLU SEVERE 2-33-527-325 MG TABS GBSEXLMINBPTC-OY-XL-APAP Inactive HYDROCODONE-ACETAMINOPHEN 5-325 MG TABS 1 TAB PO Q 6 HRS PRN 201 02/02/10 HYDROCODONE-ACETAMINOPHEN 5-325 MG TABS 243480 HYDROCODONE-ACETAMINOPHEN Inactive AMOXICILLIN 500 MG TABS 2 tabs PO bid x 14 days 05/21 AMOXICILLIN 500 MG TABS 333167 AMOXICILLIN Inactive AMOXICILLIN 500 MG CAPS 1 cap by mouth three times a day AMOXICILLIN 500 MG CAPS 862436 AMOXICILLIN Inactive BACTRIM DS 800-160 MG TABS 1 po BID x 10 days BACTRIM DS 800-160 MG TABS 374067 SULFAMETHOXAZOLE-TRIMETHOPRIM Inactive BACTRIM DS 800-160 MG TAB 1 tab by mouth twice daily 2 BACTRIM DS 800-160 MG TAB 589476 TRIMETHOPRIM-SULFAMETHOXAZOLE Inac tive Vital Signs Date Name [...] Measured Encounters Code Encounter Date Provider Facility CPT-67255 Level 3 Est. Patient 14:21:45 CDT Evens majano [facility] CPT-84243 Level 3 Est. Patient 14:17:31 CDT Evens majano [facility] CPT-98011 Level 3 Est. Patient 16:26:47 CABLE ASSEMBLER AND SWAGER Alon doherty DO [facility] CPT-26621 Level 3 Est. Patient 11:42:21 CDT Gaston Ewing MD [facility] CPT-91931 Level 3 Est. Patient 13:52:22 CDT Todd Rodriguez MD [facility] CPT-54541 Level 3 Est. Patient 12:06:02 CABLE ASSEMBLER AND SWAGER Arsalan gustafson MD [facility] CPT-84893 Level 3 Est. Patient 12:39:55 CABLE ASSEMBLER AND SWAGER Todd Rodriguez MD [facility] CPT-31535 Level 3 Est. Patient 14:18:20 CDT Vaughn Parker [facility] CPT-21961 Level 3 Est. Patient 17:31:27 CABLE ASSEMBLER AND SWAGER Arsalan gustafson MD [facility] CPT-31272 Level 3 Est. Patient 14:37:36 CDT Vaughn Hurt [facility] Procedures Code Procedure Name Date Entry Date Standard Desc ription CPT-52611 Chest 2V Frontal and Lat - XRAY USE ONLY 14:37:29 CDT CPT-73528 Postop F/U Visit 13:38:44 CDT CPT-OV Office Visit 14:33:00 CDT CPT-74350 Venipuncture Draw Fee 16:03:08 CABLE ASSEMBLER AND SWAGER CPT-17422 Venipuncture Draw Fee 14:25:48 CABLE ASSEMBLER AND SWAGER CPT-38974 Venipuncture Draw Fee 09:58:28 CDT CPT-30479 Venipuncture Draw Fee 13:38:25 CDT CPT-91375 Venipuncture Draw Fee 14:30:31 CDT CPT-55034 Venipuncture Draw Fee 16:51:54 CDT CPT-59613 Venipuncture Draw Fee 15:30:43 CDT
--- OUTSIDE RECORDS SUMMARY | 2020-03-24 02:34 | XMS REPORT | Clinical Summary ---
Author Author Admin, Yves Jackson Organization [facility] Address Unknown Phone Unavailable Allergies, [...] of the skin and subcutaneous tissue, NEC OTITIS EXTERNA ICD-380.10 Inactive Todd Cotto MD LONG-TERM (CURRENT) USE OF OTHER MEDICATIONS ICD-V58.69 2 Inactive Gaston Ewing MD Acute pharyngitis ICD-462 Inactive Todd ferreira MD Malaise and fatigue ICD-780.79 Inactive Chelsey Ewing MD Pharyngitis ICD-462 Inactive Gaston Ewing MD CERVICAL LYMPHADENOPATHY, LEFT ICD-785.6 Inact bennett Todd Rodriguez MD Medication List Medication Instructions Start Date Stop Date Generic Name NDC Status Provider Patient Instruction HYDROCODONE-ACETAMINOPHEN 5-325 MG TABS 1 TAB PO Q 6 HRS PRN HYDROCODONE-ACETAMINOPHEN 29122840439 Active Arsalan Carmichael MD Active BACTRIM DS 800-160 MG TAB 1 tab by mouth twice daily 2 TRIMETHOPRIM-SULFAMETHOXAZOLE 06268791910 No Longer Active Evens Walters PRN Active BACTRIM DS 800-160 MG TABS 1 po BID x 10 days SULFAMETHOXAZOLE-TRIMETHOPRIM 58130148723 No Longer Active Gaston Ewing MD Active AMOXICILLIN 500 MG CAPS 1 cap by mouth three times a day AMOXICILLIN 86676902337 No Longer Active Todd Rodriguez MD Activ e EQ IBUPROFEN 200 MG TABS 2 tabs every 4 to 6 hours prn IBUPROFEN 40104741390 Active Todd Rodriguez MD Active TYLENOL COLD/FLU SEVERE 4-32-862-325 MG TABS 2 tabs daily prn 03/23 XSKVUATEQXFPZ-JI-VB-APAP 67060284843 Active Todd Rodriguez MD Active ANTIPYRINE-BENZOCAINE 5.4-1.4 % SOLN 1-2 drops in affe cted ear q 3 hours prn ear pain. BENZOCAINE-ANTIPYRINE 99790792397 No Longer Act bennett Vaughn POPE Active CORTISPORIN 3.5-70206-4 SOLN 4gtts in affected ear QID x 7 days MEWURFXM-KZCKHBFXT-EQ 22608210934 No Longer Active Vaughn POPE Active AMOXICILLIN 500 MG TABS 2 tabs PO bid x 14 days 05/21 AMOXICILLIN 57935176335 No Longer Active Vaughn POPE Activ e CORTISPORIN 3.5-48622-3 SOLN 4gtts in affected ear QID x 7 days CORTISPORIN 3.5-90257-2 SOLN 351540 NEOMYCIN-POLYMYXIN- HC Inactive ANTIPYRINE-BENZOCAINE 5.4-1.4 % SOLN 1-2 drops in affe cted ear q 3 hours prn ear pain. ANTIPYRINE-BENZOCAINE 5.4-1.4 % SOLN 2443 09 BENZOCAINE-ANTIPYRINE Inactive AMOXICILLIN 500 MG TABS 2 tabs PO bid x 14 days 05/21 AMOXICILLIN 500 MG TABS 273211 AMOXICILLIN Inactive AMOXICILLIN 500 MG CAPS 1 cap by mouth three times a day AMOXICILLIN 500 MG CAPS 640803 AMOXICILLIN Inactive BACTRIM DS 800-160 MG TABS 1 po BID x 10 days BACTRIM DS 800-160 MG TABS SULFAMETHOXAZOLE-TRIMETHOPRIM Inactive BACTRIM DS 800-160 MG TAB 1 tab by mouth twice daily 2 BACTRIM DS 800-160 MG TAB TRIMETHOPRIM-SULFAMETHOXAZOLE Inac tive Encounters Code Encounter Date Provider Facility CPT-29812 Level 3 Est. Patient 11:42:21 CDT Gsaton Ewing MD [facility] CPT-39869 Level 3 Est. Patient 13:52:22 CDT Todd Rodriguez MD [facility] CPT-10704 Level 3 Est. Patient 12:06:02 COPY ROOM TECHNICIAN Arsalan gustafson MD [facility] CPT-58887 Level 3 Est. Patient 12:39:55 COPY ROOM TECHNICIAN Todd Rodriguez MD [facility] CPT-57557 Level 3 Est. Patient 14:18:20 CDT Vaughn [facility] CPT-07536 Level 3 Est. Patient 17:31:27 COPY ROOM TECHNICIAN Arsalan gustafson MD [facility] CPT-04047 Level 3 Est. Patient 14:37:36 CDT Vaughn [facility] Procedures Code Procedure Name Date Entry Date Standard Desc ription CPT-54135 Postop F/U Visit 13:38:44 CDT CPT-OV Office Visit 14:33:00 CDT CPT-42979 Venipuncture Draw Fee 16:03:08 COPY ROOM TECHNICIAN CPT-15450 Venipuncture Draw Fee 14:25:48 COPY ROOM TECHNICIAN CPT-03805 Venipuncture Draw Fee 09:58:28 CDT CPT-17068 Venipuncture Draw Fee 13:38:25 CDT CPT-36809 Venipuncture Draw Fee 14:30:31 CDT CPT-07639 Venipuncture Draw Fee 16:51:54 CDT CPT-08620 Venipuncture Draw Fee 15:30:43 CDT
--- OUTSIDE RECORDS SUMMARY | 2020-03-24 02:34 | XMS REPORT | Clinical Summary ---
Author Author Admin, Yves Jackson Organization [facility] Address Unknown Phone Unavailable Allergies, Adverse [...] URI 465.9 Inactive Alon Doyle DO [place] upper respiratory infections of unspecified site Pharyngitis 462 Active Jillina Yasirzell SQL SSRS SSIS DEVELOPER Acute pharyngitis Cough 786.2 Active Jillina Frazell SQL SSRS SSIS DEVELOPER Cough CERVICAL LYMPHADENOPATHY, LEFT ICD-785.6 Inact bennett [...] Q 6 HRS PRN 201 02/02/10 HYDROCODONE-ACETAMINOPHEN 41290255434 No Longer Active Jilli na Frazell SQL SSRS SSIS DEVELOPER Active TYLENOL COLD/FLU SEVERE 9-82-379-325 MG TABS 2 tabs daily prn 20 08/03/29 UOQYGNUUGKPHI-FM-XE-APAP 37879788666 No Longer Active Jillin a Frazell SQL SSRS SSIS DEVELOPER Active BACTRIM DS 800-160 MG TAB 1 tab by mouth twice daily 2 TRIMETHOPRIM-SULFAMETHOXAZOLE 30967205424 No Longer Active Jillina Frazell A PRN Active BACTRIM DS 800-160 MG TABS 1 po BID x 10 days SULFAMETHOXAZOLE-TRIMETHOPRIM 76476712715 No Longer Active Gaston Ewing MD Active AMOXICILLIN 500 MG CAPS 1 cap by mouth three times a day AMOXICILLIN 81754424163 No Longer Active Todd Rodriguez MD Activ e EQ IBUPROFEN 200 MG TABS 2 tabs every 4 to 6 hours prn IBUPROFEN 83457862094 Active Todd Rodriguez MD Active ANTIPYRINE-BENZOCAINE 5.4-1.4 % SOLN 1-2 drops in affe cted ear q 3 hours prn ear pain. BENZOCAINE-ANTIPYRINE 09885742361 No Longer Act bennett POPE Active CORTISPORIN 3.5-76224-6 SOLN 4gtts in affected ear QID x 7 days XBLJISDP-NJTXBFRKK-FT 53044543449 No Longer Active Vaughn POPE Active AMOXICILLIN 500 MG TABS 2 tabs PO bid x 14 days 05/21 AMOXICILLIN 09025822933 No Longer Active Vaughn POPE Activ e CORTISPORIN 3.5-21839-0 SOLN 4gtts in affected ear QID x 7 days CORTISPORIN 3.5-08540-4 SOLN 431315 NEOMYCIN-POLYMYXIN- HC Inactive ANTIPYRINE-BENZOCAINE 5.4-1.4 % SOLN 1-2 drops in affe cted ear q 3 hours prn ear pain. ANTIPYRINE-BENZOCAINE 5.4-1.4 % SOLN BENZOCAINE-ANTIPYRINE Inactive TYLENOL COLD/FLU SEVERE 8-82-833-325 MG TABS 2 tabs daily prn 20 08/03/29 TYLENOL COLD/FLU SEVERE 8-39-737-325 MG TABS BQZPFPHKXSKZS-AD-UE-APAP Inactive HYDROCODONE-ACETAMINOPHEN 5-325 MG TABS 1 TAB PO Q 6 HRS PRN 201 02/02/10 HYDROCODONE-ACETAMINOPHEN 5-325 MG TABS 892897 HYDROCODONE-ACETAMINOPHEN Inactive AMOXICILLIN 500 MG TABS 2 tabs PO bid x 14 days 05/21 AMOXICILLIN 500 MG TABS 421114 AMOXICILLIN Inactive AMOXICILLIN 500 MG CAPS 1 cap by mouth three times a day AMOXICILLIN 500 MG CAPS 463561 AMOXICILLIN Inactive BACTRIM DS 800-160 MG TABS 1 po BID x 10 days BACTRIM DS 800-160 MG TABS 240370 SULFAMETHOXAZOLE-TRIMETHOPRIM Inactive BACTRIM DS 800-160 MG TAB [...] Measured Encounters Code Encounter Date Provider Facility CPT-60876 Level 3 Est. Patient 14:21:45 CDT Evens majano [facility] CPT-61687 Level 3 Est. Patient 14:17:31 CDT Evens majano [facility] CPT-22368 Level 3 Est. Patient 16:26:47 INTERACTIVE MARKETING STRATEGIST Alon doherty DO [facility] CPT-72985 Level 3 Est. Patient 11:42:21 CDT Gaston Ewing MD [facility] CPT-79964 Level 3 Est. Patient 13:52:22 CDT Todd Rodriguez MD [facility] CPT-08596 Level 3 Est. Patient 12:06:02 INTERACTIVE MARKETING STRATEGIST Arsalan gustafson MD [facility] CPT-30298 Level 3 Est. Patient 12:39:55 INTERACTIVE MARKETING STRATEGIST Todd Rodriguez MD [facility] CPT-51735 Level 3 Est. Patient 14:18:20 CDT Vaughn POPE [facility] CPT-47897 Level 3 Est. Patient 17:31:27 INTERACTIVE MARKETING STRATEGIST Arsalan gustafson MD [facility] CPT-97874 Level 3 Est. Patient 14:37:36 CDT Vaughn Parker [facility] Procedures Code Procedure Name Date Entry Date Standard Desc ription CPT-38615 Chest 2V Frontal and Lat - XRAY USE ONLY 14:37:29 CDT CPT-00960 Postop F/U Visit 13:38:44 CDT CPT-OV Office Visit 14:33:00 CDT CPT-55471 Venipuncture Draw Fee 16:03:08 INTERACTIVE MARKETING STRATEGIST CPT-91317 Venipuncture Draw Fee 14:25:48 INTERACTIVE MARKETING STRATEGIST CPT-51308 Venipuncture Draw Fee 09:58:28 CDT CPT-71837 Venipuncture Draw Fee 13:38:25 CDT CPT-58919 Venipuncture Draw Fee 14:30:31 CDT CPT-79592 Venipuncture Draw Fee 16:51:54 CDT CPT-60797 Venipuncture Draw Fee 15:30:43 CDT
--- OUTSIDE RECORDS SUMMARY | 2020-03-24 02:34 | XMS REPORT | Clinical Summary ---
Author Author Admin, Yves Jackson Organization [facility] Address Unknown Phone Unavailable Allergies, Adverse [...] Acute pharyngitis Sebaceous cyst, infected 706.2 Active Kyalh Ewing MD Sebaceous cyst AFTERCARE FOLLOW SURGERY SKIN&SUBCUT TISSUE NEC V58.77 05/30 Active Ricardo Wilson MD Aftercare following surgery of the skin and subcutaneous tissue, NEC Sports physical V70.3 Active Eevns ARITA RN Other general medical examination for administrative purposes URI 465.9 Inactive Alon Doyle DO Ac [place] upper respiratory infections of unspecified site Pharyngitis 462 Active Jillina Yasirzell BLENDER HELPER Acute pharyngitis Cough 786.2 Active Jillina Yasirzell BLENDER HELPER Cough CERVICAL LYMPHADENOPATHY, LEFT ICD-785.6 Inact bennett [...] 1 po qd x 4 days AZITHROMYCIN 13441969300 Active Jillina Frazell BLENDER HELPER A ctive HYDROCODONE-ACETAMINOPHEN 5-325 MG TABS 1 TAB PO Q 6 HRS PRN 201 02/02/10 HYDROCODONE-ACETAMINOPHEN 70131401951 No Longer Active Jilli na Frazell BLENDER HELPER Active TYLENOL COLD/FLU SEVERE 7-69-433-325 MG TABS 2 tabs daily prn 20 08/03/29 [id number]-[id number]-APAP 10773626692 No Longer Active Jillin a Frazell BLENDER HELPER Active BACTRIM DS 800-160 MG TAB 1 tab by mouth twice daily 2 TRIMETHOPRIM-SULFAMETHOXAZOLE 94844013602 No Longer Active Jishira Herreral A PRN Active BACTRIM DS 800-160 MG TABS 1 po BID x 10 days SULFAMETHOXAZOLE-TRIMETHOPRIM 71882866156 No Longer Active Gaston Ewing MD Active AMOXICILLIN 500 MG CAPS 1 cap by mouth three times a day AMOXICILLIN 35065039756 No Longer Active Todd Rodriguez MD Activ e EQ IBUPROFEN 200 MG TABS 2 tabs every 4 to 6 hours prn IBUPROFEN 34482818024 Active Todd Rodriguez MD Active ANTIPYRINE-BENZOCAINE 5.4-1.4 % SOLN 1-2 drops in affe cted ear q 3 hours prn ear pain. BENZOCAINE-ANTIPYRINE 06207102748 No Longer Act bennett Vaughn POPE Active CORTISPORIN 3.5-12402-1 SOLN 4gtts in affected ear QID x 7 days [id number]-XL 47193720825 No Longer Active Vaughn POPE Active AMOXICILLIN 500 MG TABS 2 tabs PO bid x 14 days 05/21 AMOXICILLIN 15986015354 No Longer Active Vaughn POPE Activ e CORTISPORIN 3.5-71462-9 SOLN 4gtts in affected ear QID x 7 days CORTISPORIN 3.5-60291-9 SOLN 400791 NEOMYCIN-POLYMYXIN- HC Inactive ANTIPYRINE-BENZOCAINE 5.4-1.4 % SOLN 1-2 drops in affe cted ear q 3 hours prn ear pain. ANTIPYRINE-BENZOCAINE 5.4-1.4 % SOLN BENZOCAINE-ANTIPYRINE Inactive TYLENOL COLD/FLU SEVERE 8-71-744-325 MG TABS 2 tabs daily prn 20 08/03/29 TYLENOL COLD/FLU SEVERE 2-29-339-325 MG TABS [id number]-MC-VB-APAP Inactive HYDROCODONE-ACETAMINOPHEN 5-325 MG TABS 1 TAB PO Q 6 HRS PRN 201 02/02/10 HYDROCODONE-ACETAMINOPHEN 5-325 MG TABS 989792 HYDROCODONE-ACETAMINOPHEN Inactive AMOXICILLIN 500 MG TABS 2 tabs PO bid x 14 days 05/21 AMOXICILLIN 500 MG TABS 593632 AMOXICILLIN Inactive AMOXICILLIN 500 MG CAPS 1 cap by mouth three times a day AMOXICILLIN 500 MG CAPS 623836 AMOXICILLIN Inactive BACTRIM DS 800-160 MG TABS 1 po BID x 10 days BACTRIM DS 800-160 MG TABS 359275 SULFAMETHOXAZOLE-TRIMETHOPRIM Inactive BACTRIM DS 800-160 MG TAB 1 tab by mouth twice daily 2 BACTRIM DS 800-160 MG TAB 745684 TRIMETHOPRIM-SULFAMETHOXAZOLE Inac tive Vital Signs Date Name [...] Measured Encounters Code Encounter Date Provider Facility CPT-18444 Level 3 Est. Patient 14:21:45 CDT Evens majano [facility] CPT-82210 Level 3 Est. Patient 14:17:31 CDT Evens amjano [facility] CPT-95952 Level 3 Est. Patient 16:26:47 FITTING ROOM OPERATOR Alon doherty DO [facility] CPT-21128 Level 3 Est. Patient 11:42:21 CDT Gaston Ewing MD [facility] CPT-87303 Level 3 Est. Patient 13:52:22 CDT Todd Rodriguez MD [facility] CPT-33176 Level 3 Est. Patient 12:06:02 FITTING ROOM OPERATOR Arsalan gustafson MD [facility] CPT-85736 Level 3 Est. Patient 12:39:55 FITTING ROOM OPERATOR Todd Rodriguez MD [facility] CPT-48363 Level 3 Est. Patient 14:18:20 CDT Vaughn Parker [facility] CPT-83163 Level 3 Est. Patient 17:31:27 FITTING ROOM OPERATOR Arsalan gustafson MD [facility] CPT-31406 Level 3 Est. Patient 14:37:36 CDT Vaughn Hurt [place] Procedures Code Procedure Name Date Entry Date Standard Desc ription CPT-48625 Chest 2V Frontal and Lat - XRAY USE ONLY 14:37:29 CDT CPT-14085 Postop F/U Visit 13:38:44 CDT CPT-OV Office Visit 14:33:00 CDT CPT-63889 Venipuncture Draw Fee 16:03:08 FITTING ROOM OPERATOR CPT-65704 Venipuncture Draw Fee 14:25:48 FITTING ROOM OPERATOR CPT-45131 Venipuncture Draw Fee 09:58:28 CDT CPT-16129 Venipuncture Draw Fee 13:38:25 CDT CPT-33721 Venipuncture Draw Fee 14:30:31 CDT CPT-23792 Venipuncture Draw Fee 16:51:54 CDT CPT-33854 Venipuncture Draw Fee 15:30:43 CDT
--- OUTSIDE RECORDS SUMMARY | 2020-03-24 02:34 | XMS REPORT | Clinical Summary ---
Author Author Admin, Yves Jackson Organization [facility] Address Unknown Phone Unavailable Allergies, Adverse Reactions, [...] URI 465.9 Inactive Alon Doyle DO Ac [place] upper respiratory infections of unspecified site Pharyngitis 462 Active Evens Mendez APRN Acute pharyngitis Cough 786.2 Active Evens Mendez APRN Cough Febrile illness 780.60 Active Marely Botello ribe Fever, unspecified CERVICAL LYMPHADENOPATHY, LEFT ICD-785.6 Inact bennett Todd [...] Generic Name ND Status Provider Patient Instruction PREDNISONE 20 MG ORAL TABLET two tabs by mouth today, then one tab by mouth days two and three PREDNISONE 16377832737 Active Alon Doyle DO Active AZITHROMYCIN 250 MG ORAL TABLET 2 po qd x 1 day, then 1 po q d x 4 days AZITHROMYCIN 71813351347 No Longer Active Evens ervin APRN Active HYDROCODONE-ACETAMINOPHEN 5-325 MG ORAL TABLET 1 TAB PO Q 6 HRS PRN HYDROCODONE-ACETAMINOPHEN 47144121255 No Longer Active Jilli na Frazell SUPERVISOR LITHARGE Active TYLENOL COLD/FLU SEVERE 8-03-993-325 MG ORAL TABLET 2 tabs daily prn [id number]-VP-OL-APAP 13017974289 No Longer Active Mario Cooleyarcadio SUPERVISOR LITHARGE Active BACTRIM DS 800-160 MG ORAL TABLET 1 tab by mouth twice daily 201 01/30/22 TRIMETHOPRIM-SULFAMETHOXAZOLE 40415881903 No Longer Active Manuel Mendez SUPERVISOR LITHARGE Active BACTRIM DS 800-160 MG ORAL TABLET 1 po BID x 10 days 2 SULFAMETHOXAZOLE-TRIMETHOPRIM 77162005738 No Longer Active Gaston Ewing MD Active AMOXICILLIN 500 MG ORAL CAPSULE 1 cap by mouth three times a day AMOXICILLIN 01102979339 No Longer Active Todd Rodriguez MD Active EQ IBUPROFEN 200 MG ORAL TABLET 2 tabs every 4 to 6 hours prn 03/23 IBUPROFEN 35433692044 Active Todd Rodriguez MD Active ANTIPYRINE-BENZOCAINE 5.4-1.4 % OTIC SOLUTION 1-2 drop s in affected ear q 3 hours prn ear pain. BENZOCAINE-ANTIPYRINE 82576854467 No Longer Active Vaughn POPE Active CORTISPORIN 3.5-63962-2 OTIC SOLUTION 4gtts in affected ear QID x 7 days [id number]-QMMIOAUVI-RA 70393559347 No Longer Active lexi POPE Active AMOXICILLIN 500 MG ORAL TABLET 2 tabs PO bid x 14 days AMOXICILLIN 92943254842 No Longer Active Vaughn POPE Activ e CORTISPORIN 3.5-76484-6 OTIC SOLUTION 4gtts in affected ear QID x 7 days CORTISPORIN 3.5-47247-1 OTIC SOLUTION 627939 [id number]-HUOJUULHW-PN Inactive ANTIPYRINE-BENZOCAINE 5.4-1.4 % OTIC SOLUTION 1-2 drop s in affected ear q 3 hours prn ear pain. ANTIPYRINE-BENZOCAIN E 5.4-1.4 % OTIC SOLUTION 253735 BENZOCAINE-ANTIPYRINE Inactive TYLENOL COLD/FLU SEVERE 9-13-246-325 MG ORAL TABLET 2 tabs daily prn TYLENOL COLD/FLU SEVERE 1-77-218-325 MG ORAL TABLET [id number]-SO-VF-APAP Inactive HYDROCODONE-ACETAMINOPHEN 5-325 MG ORAL TABLET 1 TAB PO Q 6 HRS PRN HYDROCODONE-ACETAMINOPHEN 5-325 MG ORAL TABLET 307282 HYDROCODONE-ACETAMINOPHEN Inactive AMOXICILLIN 500 MG ORAL TABLET 2 tabs PO bid x 14 days AMOXICILLIN 500 MG ORAL TABLET 753141 AMOXICILLIN Inactive AMOXICILLIN 500 MG ORAL CAPSULE 1 cap by mouth three times a day AMOXICILLIN 500 MG ORAL CAPSULE 307064 AMOXICILLIN Inactive BACTRIM DS 800-160 MG ORAL TABLET 1 po BID x 10 days 2 BACTRIM DS 800-160 MG ORAL TABLET 157082 SULFAMETHOXAZOLE-TRIMETHOP RIM Inactive BACTRIM DS 800-160 MG ORAL TABLET 1 tab by mouth twice daily 201 01/30/22 BACTRIM DS 800-160 MG ORAL TABLET 349624 TRIMETHOPRIM-SULFAMETHOXAZOLE Inactive AZITHROMYCIN 250 MG ORAL TABLET 2 po qd x 1 day, then 1 po q d x 4 days AZITHROMYCIN 250 MG ORAL TABLET 477210 AZITHROMY PORSHA Inactive Vital Signs Date Name [...] U/L Chart Maintenance: Outside labs entered on flowsheet - Hematology leukocyte count, blood 6.7 10*3/mm3 hemoglobin, blood 13.5 g/dL platelet count 248 10*3/mm3 Encounters Code Encounter Date Provider Facility CPT-09736 Level 3 Est. Patient 15:11:28 ECHO VASCULAR TECHNOLOGIST Alon doherty [facility] CPT-66579 Level 3 Est. Patient 14:21:45 CDT Evens majano [facility] CPT-47130 Level 3 Est. Patient 14:17:31 CDT Evens majano [facility] CPT-50026 Level 3 Est. Patient 16:26:47 ECHO VASCULAR TECHNOLOGIST Alon doherty [facility] CPT-65385 Level 3 Est. Patient 11:42:21 CDT Gaston Ewing MD [facility] CPT-09932 Level 3 Est. Patient 13:52:22 CDT Todd Rodriguez MD [facility] CPT-95847 Level 3 Est. Patient 12:06:02 ECHO VASCULAR TECHNOLOGIST Arsalan gustafson MD [facility] CPT-26978 Level 3 Est. Patient 12:39:55 ECHO VASCULAR TECHNOLOGIST Todd Rodriguez MD [facility] CPT-06325 Level 3 Est. Patient 14:18:20 CDT Vaughn Parker [facility] CPT-92949 Level 3 Est. Patient 17:31:27 ECHO VASCULAR TECHNOLOGIST Arsalan gustafson MD [facility] CPT-16180 Level 3 Est. Patient 14:37:36 CDT Vaughn Parker [facility] Procedures Code Procedure Name Date Entry Date Standard Desc ription CPT-60038 Chest 2V Frontal and Lat - XRAY USE ONLY 14:37:29 CDT CPT-32856 Postop F/U Visit 13:38:44 CDT CPT-OV Office Visit 14:33:00 CDT CPT-50782 Venipuncture Draw Fee 16:03:08 ECHO VASCULAR TECHNOLOGIST CPT-42921 Venipuncture Draw Fee 14:25:48 ECHO VASCULAR TECHNOLOGIST CPT-70820 Venipuncture Draw Fee 09:58:28 CDT CPT-39442 Venipuncture Draw Fee 13:38:25 CDT CPT-04959 Venipuncture Draw Fee 14:30:31 CDT CPT-38026 Venipuncture Draw Fee 16:51:54 CDT CPT-02270 Venipuncture Draw Fee 15:30:43 CDT
--- OUTSIDE RECORDS SUMMARY | 2020-03-24 02:34 | XMS REPORT | Clinical Summary ---
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 Acute pharyngitis Cough 786.2 Active Jillina Yasirzell HISTORIC SITES REGISTRAR Cough CERVICAL LYMPHADENOPATHY, LEFT ICD-785.6 Inact bennett [...] 1 po qd x 4 days AZITHROMYCIN 10551722868 Active Jillina Frazell HISTORIC SITES REGISTRAR A ctive HYDROCODONE-ACETAMINOPHEN 5-325 MG TABS 1 TAB PO Q 6 HRS PRN 201 02/02/10 HYDROCODONE-ACETAMINOPHEN 46422163507 No Longer Active Jilli na Frazell HISTORIC SITES REGISTRAR Active TYLENOL COLD/FLU SEVERE 7-19-526-325 MG TABS 2 tabs daily prn 20 08/03/29 [id number]-TK-EE-APAP 92524663357 No Longer Active Jillin a Frazell HISTORIC SITES REGISTRAR Active BACTRIM DS 800-160 MG TAB 1 tab by mouth twice daily 2 TRIMETHOPRIM-SULFAMETHOXAZOLE 87796555836 No Longer Active Jishira Herreral A PRN Active BACTRIM DS 800-160 MG TABS 1 po BID x 10 days SULFAMETHOXAZOLE-TRIMETHOPRIM 90052718896 No Longer Active Gaston Ewing MD Active AMOXICILLIN 500 MG CAPS 1 cap by mouth three times a day AMOXICILLIN 93129284851 No Longer Active Todd Rodriguez MD Activ e EQ IBUPROFEN 200 MG TABS 2 tabs every 4 to 6 hours prn IBUPROFEN 78146432773 Active Todd Rodriguez MD Active ANTIPYRINE-BENZOCAINE 5.4-1.4 % SOLN 1-2 drops in affe cted ear q 3 hours prn ear pain. BENZOCAINE-ANTIPYRINE 20156506421 No Longer Act bennett Vaughn POPE Active CORTISPORIN 3.5-71128-1 SOLN 4gtts in affected ear QID x 7 days [id number]-WH 62030337898 No Longer Active Vaughn POPE Active AMOXICILLIN 500 MG TABS 2 tabs PO bid x 14 days 05/21 AMOXICILLIN 95414255974 No Longer Active Vaughn POPE Activ e CORTISPORIN 3.5-72042-8 SOLN 4gtts in affected ear QID x 7 days CORTISPORIN 3.5-11757-7 SOLN 819342 NEOMYCIN-POLYMYXIN- HC Inactive ANTIPYRINE-BENZOCAINE 5.4-1.4 % SOLN 1-2 drops in affe cted ear q 3 hours prn ear pain. ANTIPYRINE-BENZOCAINE 5.4-1.4 % SOLN BENZOCAINE-ANTIPYRINE Inactive TYLENOL COLD/FLU SEVERE 0-50-727-325 MG TABS 2 tabs daily prn 20 08/03/29 TYLENOL COLD/FLU SEVERE 6-87-140-325 MG TABS [id number]-PO-UR-APAP Inactive HYDROCODONE-ACETAMINOPHEN 5-325 MG TABS 1 TAB PO Q 6 HRS PRN 201 02/02/10 HYDROCODONE-ACETAMINOPHEN 5-325 MG TABS 396264 HYDROCODONE-ACETAMINOPHEN Inactive AMOXICILLIN 500 MG TABS 2 tabs PO bid x 14 days 05/21 AMOXICILLIN 500 MG TABS 144105 AMOXICILLIN Inactive AMOXICILLIN 500 MG CAPS 1 cap by mouth three times a day AMOXICILLIN 500 MG CAPS 899505 AMOXICILLIN Inactive BACTRIM DS 800-160 MG TABS 1 po BID x 10 days BACTRIM DS 800-160 MG TABS 483189 SULFAMETHOXAZOLE-TRIMETHOPRIM Inactive BACTRIM DS 800-160 MG TAB [...] - 3141-9 149.5 [lb_av] Weigh t Measured Diagnostic Results Date Name Value Unit Range Description Chart Maintenance: Outside labs entered on flowsheet - Chemistry sodium, serum 142 mmol/L potassium, serum 3.7 mmol/L blood glucose 104 mg/dL creatinine, serum 1.00 mg/dL aspartate aminotransferase (SGOT), serum 17 U/L alanine aminotransferase (SGPT), serum 26 U/L alkaline phosphatase, serum 92 U/L Chart Maintenance: Outside labs entered on [employer] - Hematology leukocyte count, blood 6.7 10*3/mm3 hemoglobin, blood 13.5 g/dL platelet count 248 10*3/mm3 Encounters Code Encounter Date Provider Facility CPT-09484 Level 3 Est. Patient 14:21:45 CDT Docjoshlj majano [facility][note 3] CPT-36751 Level 3 Est. Patient 14:17:31 CDT Docshira Lee glasgowjacqui [facility][note 3] CPT-26531 Level 3 Est. Patient 16:26:47 APPLICATION INTEGRATION ARCHITECT Alon doherty DO [facility] CPT-03846 Level 3 Est. Patient 11:42:21 CDT Gaston Ewing MD [facility] CPT-39490 Level 3 Est. Patient 13:52:22 CDT Todd Rodriguez MD [facility] CPT-98426 Level 3 Est. Patient 12:06:02 APPLICATION INTEGRATION ARCHITECT Arsalan gustafson MD [facility] CPT-79031 Level 3 Est. Patient 12:39:55 APPLICATION INTEGRATION ARCHITECT Todd Rodriguez MD [facility] CPT-11676 Level 3 Est. Patient 14:18:20 CDT Vaughn Parker [facility] CPT-39730 Level 3 Est. Patient 17:31:27 APPLICATION INTEGRATION ARCHITECT Arsalan gustafson MD [facility] CPT-00536 Level 3 Est. Patient 14:37:36 CDT Vaughn Parker [facility] Procedures Code Procedure Name Date Entry Date Standard Desc ription CPT-87458 Chest 2V Frontal and Lat - XRAY USE ONLY 14:37:29 CDT CPT-76314 Postop F/U Visit 13:38:44 CDT CPT-OV Office Visit 14:33:00 CDT CPT-89266 Venipuncture Draw Fee 16:03:08 APPLICATION INTEGRATION ARCHITECT CPT-37144 Venipuncture Draw Fee 14:25:48 APPLICATION INTEGRATION ARCHITECT CPT-22733 Venipuncture Draw Fee 09:58:28 CDT CPT-56687 Venipuncture Draw Fee 13:38:25 CDT CPT-42223 Venipuncture Draw Fee 14:30:31 CDT CPT-79228 Venipuncture Draw Fee 16:51:54 CDT CPT-34703 Venipuncture Draw Fee 15:30:43 CDT
--- OUTSIDE RECORDS SUMMARY | 2020-03-24 02:34 | XMS REPORT | Clinical Summary ---
Author Author Admin, Yves Jackson Organization [facility] Address Unknown Phone Unavailable Allergies, Adverse Reactions, Alerts Allergy Name Reaction Description Start Date Severity Status Pr ovider No Known Allergies Rosa Kimrosangela LOVINGA NKDA Critical Active Vaughn POPE Conditions [...] by mouth days two and three PREDNISONE 03196326020 No Longer Active Arsalan Carmichael MD Active AZITHROMYCIN 250 MG ORAL TABLET 2 po qd x 1 day, then 1 po q d x 4 days AZITHROMYCIN 69193159666 No Longer Active Evens ervin APRN Active HYDROCODONE-ACETAMINOPHEN 5-325 MG ORAL TABLET 1 TAB PO Q 6 HRS PRN HYDROCODONE-ACETAMINOPHEN 10102243923 No Longer Active Alonso bernie Andrea WEIGHT CLERK Active TYLENOL COLD/FLU SEVERE 3-89-943-325 MG ORAL TABLET 2 tabs daily prn XZDHJHFLIHOMC-GP-RP-APAP 02902462575 No Longer Active Mario a Yasirzell WEIGHT CLERK Active BACTRIM DS 800-160 MG ORAL TABLET 1 tab by mouth twice daily 201 01/30/22 TRIMETHOPRIM-SULFAMETHOXAZOLE 30210208538 No Longer Active Manuel Cooleyzell WEIGHT CLERK Active BACTRIM DS 800-160 MG ORAL TABLET 1 po BID x 10 days 2 SULFAMETHOXAZOLE-TRIMETHOPRIM 12702722565 No Longer Active Gaston Ewing MD Active AMOXICILLIN 500 MG ORAL CAPSULE 1 cap by mouth three times a day AMOXICILLIN 42445625751 No Longer Active Todd Rodriguez MD Active EQ IBUPROFEN 200 MG ORAL TABLET 2 tabs every 4 to 6 hours prn 03/23 IBUPROFEN 43547579919 Active Todd Rodriguez MD Active ANTIPYRINE-BENZOCAINE 5.4-1.4 % OTIC SOLUTION 1-2 drop s in affected ear q 3 hours prn ear pain. BENZOCAINE-ANTIPYRINE 58796468292 No Longer Active Vaughn POPE Active CORTISPORIN 3.5-67248-8 OTIC SOLUTION 4gtts in affected ear QID x 7 days PSSWEEKQ-TESNMGHAI-PF 66255212539 No Longer Active lexi POPE Active AMOXICILLIN 500 MG ORAL TABLET 2 tabs PO bid x 14 days AMOXICILLIN 20796037638 No Longer Active Vaughn POPE Activ e CORTISPORIN 3.5-03262-0 OTIC SOLUTION 4gtts in affected ear QID x 7 days CORTISPORIN 3.5-39321-1 OTIC SOLUTION 369816 [id number]-DIQXGZGAY-JY Inactive ANTIPYRINE-BENZOCAINE 5.4-1.4 % OTIC SOLUTION 1-2 drop s in affected ear q 3 hours prn ear pain. ANTIPYRINE-BENZOCAIN E 5.4-1.4 % OTIC SOLUTION 176803 BENZOCAINE-ANTIPYRINE Inactive TYLENOL COLD/FLU SEVERE 5-06-580-325 MG ORAL TABLET 2 tabs daily prn TYLENOL COLD/FLU SEVERE 8-29-718-325 MG ORAL TABLET NRHZMCRXVMKFO-CC-IM-APAP Inactive HYDROCODONE-ACETAMINOPHEN 5-325 MG ORAL TABLET 1 TAB PO Q 6 HRS PRN HYDROCODONE-ACETAMINOPHEN 5-325 MG ORAL TABLET 313119 HYDROCODONE-ACETAMINOPHEN Inactive PREDNISONE 20 MG ORAL TABLET two tabs by mouth today, then one tab by mouth days two and three PREDNISONE 20 MG ORAL TABLET 969354 PREDNISONE Inactive AMOXICILLIN 500 MG ORAL TABLET 2 tabs PO bid x 14 days AMOXICILLIN 500 MG ORAL TABLET 594028 AMOXICILLIN Inactive AMOXICILLIN 500 MG ORAL CAPSULE 1 cap by mouth three times a day AMOXICILLIN 500 MG ORAL CAPSULE 531495 AMOXICILLIN Inactive BACTRIM DS 800-160 MG ORAL TABLET 1 po BID x 10 days 2 BACTRIM DS 800-160 MG ORAL TABLET 499203 SULFAMETHOXAZOLE-TRIMETHOP RIM Inactive BACTRIM DS 800-160 MG ORAL TABLET 1 tab by mouth twice daily 201 01/30/22 BACTRIM DS 800-160 MG ORAL TABLET 992883 TRIMETHOPRIM-SULFAMETHOXAZOLE Inactive AZITHROMYCIN 250 MG ORAL TABLET 2 po qd x 1 day, then 1 po q d x 4 days AZITHROMYCIN 250 MG ORAL TABLET 165086 AZITHROMY PORSHA Inactive Vital Signs Date Name [...] U/L Chart Maintenance: Outside labs entered on [employer] - Hematology leukocyte count, blood 6.7 10*3/mm3 hemoglobin, blood 13.5 g/dL platelet count 248 10*3/mm3 Lab Report: Rapid Strep - Lab Microbial identification kit, rapid strep method Negative Negative Encounters Code Encounter Date Provider Facility CPT-55881 Level 3 Est. Patient 15:04:20 RN RADIATION ONCOLOGY Arsalan gustafson MD [facility] CPT-68970 Level 3 Est. Patient 15:11:28 RN RADIATION ONCOLOGY Alon doherty DO [facility] CPT-53065 Level 3 Est. Patient 14:21:45 CDT Jillina F razell [facility] CPT-64194 Level 3 Est. Patient 14:17:31 CDT Evens majano [facility] CPT-80136 Level 3 Est. Patient 16:26:47 RN RADIATION ONCOLOGY Alon doherty DO [facility] CPT-17211 Level 3 Est. Patient 11:42:21 CDT Gaston Ewing MD [facility] CPT-78260 Level 3 Est. Patient 13:52:22 CDT Todd Rodriguez MD [facility] CPT-41224 Level 3 Est. Patient 12:06:02 RN RADIATION ONCOLOGY Arsalan gustafson MD [facility] CPT-21122 Level 3 Est. Patient 12:39:55 RN RADIATION ONCOLOGY Todd Rodriguez MD [facility] CPT-25506 Level 3 Est. Patient 14:18:20 CDT Vaughn Parker [facility] CPT-67729 Level 3 Est. Patient 17:31:27 RN RADIATION ONCOLOGY Arsalan gustafson MD [facility] CPT-57700 Level 3 Est. Patient 14:37:36 CDT Vaughn Parker [facility] Procedures Code Procedure Name Date Entry Date Standard Desc ription CPT-76681 Chest 2V Frontal and Lat - XRAY USE ONLY 14:37:29 CDT CPT-73098 Postop F/U Visit 13:38:44 CDT CPT-OV Office Visit 14:33:00 CDT CPT-50151 Venipuncture Draw Fee 16:03:08 RN RADIATION ONCOLOGY CPT-33926 Venipuncture Draw Fee 14:25:48 RN RADIATION ONCOLOGY CPT-90735 Venipuncture Draw Fee 09:58:28 CDT CPT-04845 Venipuncture Draw Fee 13:38:25 CDT CPT-50622 Venipuncture Draw Fee 14:30:31 CDT CPT-82112 Venipuncture Draw Fee 16:51:54 CDT CPT-21753 Venipuncture Draw Fee 15:30:43 CDT
--- OUTSIDE RECORDS SUMMARY | 2020-03-24 02:34 | XMS REPORT | Clinical Summary ---
Author Author Admin, Yves Jackson Organization [facility] Address Unknown Phone Unavailable Allergies, [...] Other general medical examination for administrative purposes CERVICAL LYMPHADENOPATHY, LEFT ICD-785.6 Inact bennett Todd Rodriguez MD OTITIS EXTERNA ICD-380.10 Inactive Todd Cotto MD LONG-TERM (CURRENT) USE OF OTHER MEDICATIONS ICD-V58.69 2 Inactive Gaston Ewing MD Acute pharyngitis ICD-462 Inactive Todd ferreira MD Malaise and fatigue ICD-780.79 Inactive Chelsey Ewing MD Pharyngitis ICD-462 Inactive Gaston Ewing MD Medication List Medication Instructions Start Date Stop Date Generic Name NDC Status Provider Patient Instruction HYDROCODONE-ACETAMINOPHEN 5-325 MG TABS 1 TAB PO Q 6 HRS PRN 201 02/02/10 HYDROCODONE-ACETAMINOPHEN 24796772256 No Longer Active Jilli na 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 TYLENOL COLD/FLU SEVERE 5-94-149-325 MG TABS 2 tabs daily prn 20 08/03/29 TLYCIOOIOXGBN-WP-UU-APAP 09745769173 No Longer Active Jillin a Frazell 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 BENZOCAINE-ANTIPYRINE 94821383751 No Longer Act bennett Vaughn POPE Active CORTISPORIN 3.5-82129-3 SOLN 4gtts in affected ear QID x 7 days [id number]-CFGGRDJWW-VD 94646537229 No Longer Active Vaughn POPE Active AMOXICILLIN 500 MG TABS 2 tabs PO bid x 14 days 05/21 AMOXICILLIN 12072199004 No Longer Active Vaughn POPE Activ e CORTISPORIN 3.5-89929-3 SOLN 4gtts in affected ear QID x 7 days CORTISPORIN 3.5-91274-7 SOLN 444465 NEOMYCIN-POLYMYXIN- HC Inactive ANTIPYRINE-BENZOCAINE 5.4-1.4 % SOLN 1-2 drops in affe cted ear q 3 hours prn ear pain. ANTIPYRINE-BENZOCAINE 5.4-1.4 % SOLN 2443 09 BENZOCAINE-ANTIPYRINE Inactive TYLENOL COLD/FLU SEVERE 8-44-037-325 MG TABS 2 tabs daily prn 20 08/03/29 TYLENOL COLD/FLU SEVERE 4-60-274-325 MG TABS [id number]-BC-GH-APAP Inactive HYDROCODONE-ACETAMINOPHEN 5-325 MG TABS 1 TAB PO Q 6 HRS PRN 201 02/02/10 HYDROCODONE-ACETAMINOPHEN 5-325 MG TABS 625759 HYDROCODONE-ACETAMINOPHEN Inactive AMOXICILLIN 500 MG TABS 2 tabs PO bid x 14 days 05/21 AMOXICILLIN 500 MG TABS 185447 AMOXICILLIN Inactive AMOXICILLIN 500 MG CAPS 1 cap by mouth three times a day AMOXICILLIN 500 MG CAPS 806409 AMOXICILLIN Inactive BACTRIM DS 800-160 MG TABS 1 po BID x 10 days BACTRIM DS 800-160 MG TABS SULFAMETHOXAZOLE-TRIMETHOPRIM Inactive BACTRIM DS 800-160 MG TAB 1 tab by mouth twice daily 2 BACTRIM DS 800-160 MG TAB TRIMETHOPRIM-SULFAMETHOXAZOLE Inac tive Vital Signs Date Name Value Unit Range Description blood pressure, diastolic - 8462-4 72 mm[Hg] BP matos blood pressure, systolic - 8480-6 120 mm[Hg] BP sys height E&M - 8302-2 68 [in_us] Bdy h eight pulse rate E&M - 8867-4 67 /min H eart rate temperature E&M 98.6 [degF] Body temp erature weight E&M - 3141-9 132 [lb_av] Weigh t Measured Encounters Code Encounter Date Provider Facility CPT-42895 Level 3 Est. Patient 11:42:21 CDT Gaston Ewing MD [facility] CPT-73975 Level 3 Est. Patient 13:52:22 CDT Todd Rodriguez MD [facility] CPT-92563 Level 3 Est. Patient 12:06:02 WINDING INSPECTOR Arsalan gustafson MD [facility] CPT-57421 Level 3 Est. Patient 12:39:55 WINDING INSPECTOR Todd Rodriguez MD [facility] CPT-02295 Level 3 Est. Patient 14:18:20 CDT Vaughn POPE [facility] CPT-91330 Level 3 Est. Patient 17:31:27 WINDING INSPECTOR Arsalan gustafson MD [facility] CPT-14482 Level 3 Est. Patient 14:37:36 CDT Vaughn POPE [facility] Procedures Code Procedure Name Date Entry Date Standard Desc ription CPT-23975 Postop F/U Visit 13:38:44 CDT CPT-OV Office Visit 14:33:00 CDT CPT-37649 Venipuncture Draw Fee 16:03:08 WINDING INSPECTOR CPT-03334 Venipuncture Draw Fee 14:25:48 WINDING INSPECTOR CPT-78968 Venipuncture Draw Fee 09:58:28 CDT CPT-45857 Venipuncture Draw Fee 13:38:25 CDT CPT-63817 Venipuncture Draw Fee 14:30:31 CDT CPT-33964 Venipuncture Draw Fee 16:51:54 CDT CPT-08523 Venipuncture Draw Fee 15:30:43 CDT
--- OUTSIDE RECORDS SUMMARY | 2020-03-24 02:34 | XMS REPORT | Clinical Summary ---
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 TYLENOL COLD/FLU SEVERE 6-55-666-325 MG TABS 2 tabs daily prn 20 08/03/29 THQDUTVZVYIZK-ZQ-RU-APAP 46377175120 No Longer Active Jillin a Frazell HYDROELECTRIC SYSTEMS TECHNICIAN Active BACTRIM DS 800-160 MG TAB 1 tab by mouth twice daily 2 TRIMETHOPRIM-SULFAMETHOXAZOLE 82098794655 No Longer Active Jillina Frazell A PRN Active BACTRIM DS 800-160 MG TABS 1 po BID x 10 days SULFAMETHOXAZOLE-TRIMETHOPRIM 14526940221 No Longer Active Gaston Ewing MD Active AMOXICILLIN 500 MG CAPS 1 cap by mouth three times a day AMOXICILLIN 50089175732 No Longer Active Todd Rodriguez MD Activ e EQ IBUPROFEN 200 MG TABS 2 tabs every 4 to 6 hours prn IBUPROFEN 20261859620 Active Todd Rodriguez MD Active ANTIPYRINE-BENZOCAINE 5.4-1.4 % SOLN 1-2 drops in affe cted ear q 3 hours prn ear pain. BENZOCAINE-ANTIPYRINE 33334214477 No Longer Act bennett Vaughn POPE Active CORTISPORIN 3.5-73923-3 SOLN 4gtts in affected ear QID x 7 days CJCXVMXR-LYCEQTDXS-BN 64370075895 No Longer Active Vaughn POPE Active AMOXICILLIN 500 MG TABS 2 tabs PO bid x 14 days 05/21 AMOXICILLIN 64535533523 No Longer Active Vaughn POPE Activ e CORTISPORIN 3.5-87333-9 SOLN 4gtts in affected ear QID x 7 days CORTISPORIN 3.5-59026-2 SOLN 092266 NEOMYCIN-POLYMYXIN- HC Inactive ANTIPYRINE-BENZOCAINE 5.4-1.4 % SOLN 1-2 drops in affe cted ear q 3 hours prn ear pain. ANTIPYRINE-BENZOCAINE 5.4-1.4 % SOLN 2443 09 BENZOCAINE-ANTIPYRINE Inactive TYLENOL COLD/FLU SEVERE 6-59-105-325 MG TABS 2 tabs daily prn 20 08/03/29 TYLENOL COLD/FLU SEVERE 9-18-847-325 MG TABS [id number]-GM-NB-APAP Inactive HYDROCODONE-ACETAMINOPHEN 5-325 MG TABS 1 TAB PO Q 6 HRS PRN 201 02/02/10 HYDROCODONE-ACETAMINOPHEN 5-325 MG TABS 705208 HYDROCODONE-ACETAMINOPHEN Inactive AMOXICILLIN 500 MG TABS 2 tabs PO bid x 14 days 05/21 AMOXICILLIN 500 MG TABS 628947 AMOXICILLIN Inactive AMOXICILLIN 500 MG CAPS 1 cap by mouth three times a day AMOXICILLIN 500 MG CAPS 254982 AMOXICILLIN Inactive BACTRIM DS 800-160 MG TABS 1 po BID x 10 days BACTRIM DS 800-160 MG TABS 19821228 SULFAMETHOXAZOLE-TRIMETHOPRIM Inactive BACTRIM DS 800-160 MG TAB 1 tab by mouth twice daily 2 BACTRIM DS 800-160 MG TAB 19821228 TRIMETHOPRIM-SULFAMETHOXAZOLE Inac tive Vital Signs Date Name Value Unit Range Description blood pressure, diastolic - 8462-4 64 mm[Hg] BP matos blood pressure, systolic - 8480-6 118 mm[Hg] BP sys pulse rate E&M - 8867-4 66 /min H eart rate temperature E&M 97.2 [degF] Body temp erature weight E&M - 3141-9 136.5 [lb_av] Weigh t Measured blood pressure, diastolic - 8462-4 72 mm[Hg] BP matos blood pressure, systolic - 8480-6 120 mm[Hg] BP sys height E&M - 8302-2 68 [in_us] Bdy h eight pulse rate E&M - 8867-4 67 /min H eart rate temperature E&M 98.6 [degF] Body temp erature weight E&M - 3141-9 132 [lb_av] Weigh t Measured Encounters Code Encounter Date Provider Facility CPT-88823 Level 3 Est. Patient 16:26:47 RUBBER TURNER Alon doherty DO [facility] CPT-79916 Level 3 Est. Patient 11:42:21 CDT Gaston Ewing MD [facility] CPT-15836 Level 3 Est. Patient 13:52:22 CDT Todd Rodriguez MD [facility] CPT-47831 Level 3 Est. Patient 12:06:02 RUBBER TURNER Arsalan gustafson MD [facility] CPT-54393 Level 3 Est. Patient 12:39:55 RUBBER TURNER Todd Rodriguez MD [facility] CPT-65323 Level 3 Est. Patient 14:18:20 CDT Vaughn Parker [facility] CPT-89342 Level 3 Est. Patient 17:31:27 RUBBER TURNER Arsalan gustafson MD [facility] CPT-84925 Level 3 Est. Patient 14:37:36 CDT Vaughn Parker [facility] Procedures Code Procedure Name Date Entry Date Standard Desc ription CPT-14092 Postop F/U Visit 13:38:44 CDT CPT-OV Office Visit 14:33:00 CDT CPT-38188 Venipuncture Draw Fee 16:03:08 RUBBER TURNER CPT-72483 Venipuncture Draw Fee 14:25:48 RUBBER TURNER CPT-97871 Venipuncture Draw Fee 09:58:28 CDT CPT-93012 Venipuncture Draw Fee 13:38:25 CDT CPT-09828 Venipuncture Draw Fee 14:30:31 CDT CPT-15952 Venipuncture Draw Fee 16:51:54 CDT CPT-15565 Venipuncture Draw Fee 15:30:43 CDT
--- OUTSIDE RECORDS SUMMARY | 2020-03-24 02:35 | XMS REPORT | Clinical Summary ---
Author Author Admin, Yves Jackson Organization [facility] Address Unknown Phone Unavailable Allergies, Adverse [...] URI 465.9 Inactive Alon Doyle DO [place] upper respiratory infections of unspecified site Pharyngitis [...] by mouth days two and three PREDNISONE 48841478681 Active Alon Doyle DO Active AZITHROMYCIN 250 MG ORAL TABLET 2 po qd x 1 day, then 1 po q d x 4 days AZITHROMYCIN 43160666550 No Longer Active Evens ervin APRN Active HYDROCODONE-ACETAMINOPHEN 5-325 MG ORAL TABLET 1 TAB PO Q 6 HRS PRN HYDROCODONE-ACETAMINOPHEN 11370722919 No Longer Active Jilli na Frazell TIRE 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 TYLENOL COLD/FLU SEVERE 0-43-116-325 MG ORAL TABLET 2 tabs daily prn LRIFVKYFQIETY-HP-ZN-APAP 96284488185 No Longer Active Mario Cooleyarcadio TIRE 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 BACTRIM DS 800-160 MG ORAL TABLET 1 tab by mouth twice daily 201 01/30/22 TRIMETHOPRIM-SULFAMETHOXAZOLE 83048616448 No Longer Active Manuel Mendez TIRE 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 BACTRIM DS 800-160 MG ORAL TABLET 1 po BID x 10 days 2 SULFAMETHOXAZOLE-TRIMETHOPRIM 78085611863 No Longer Active Gaston Ewing MD Active AMOXICILLIN 500 MG ORAL CAPSULE 1 cap by mouth three times a day AMOXICILLIN 11007011751 No Longer Active Todd Rodriguez MD Active EQ IBUPROFEN 200 MG ORAL TABLET 2 tabs every 4 to 6 hours prn 03/23 IBUPROFEN 72713088738 Active Todd Rodriguez MD Active ANTIPYRINE-BENZOCAINE 5.4-1.4 % OTIC SOLUTION 1-2 drop s in affected ear q 3 hours prn ear pain. BENZOCAINE-ANTIPYRINE 26272054779 No Longer Active Vaughn POPE Active CORTISPORIN 3.5-44280-3 OTIC SOLUTION 4gtts in affected ear QID x 7 days RYQCHKDL-VPYNOEGZR-EW 63766073784 No Longer Active lexi POPE Active AMOXICILLIN 500 MG ORAL TABLET 2 tabs PO bid x 14 days AMOXICILLIN 79138705702 No Longer Active Vaughn POPE Activ e CORTISPORIN 3.5-90292-0 OTIC SOLUTION 4gtts in affected ear QID x 7 days CORTISPORIN 3.5-73456-0 OTIC SOLUTION 977462 MOHVNUDV-YNACAHMBB-HC Inactive ANTIPYRINE-BENZOCAINE 5.4-1.4 % OTIC SOLUTION 1-2 drop s in affected ear q 3 hours prn ear pain. ANTIPYRINE-BENZOCAIN E 5.4-1.4 % OTIC SOLUTION 934136 BENZOCAINE-ANTIPYRINE Inactive TYLENOL COLD/FLU SEVERE 3-59-336-325 MG ORAL TABLET 2 tabs daily prn TYLENOL COLD/FLU SEVERE 5-66-622-325 MG ORAL TABLET VLHYCVTDGXFRH-AR-PR-APAP Inactive HYDROCODONE-ACETAMINOPHEN 5-325 MG ORAL TABLET 1 TAB PO Q 6 HRS PRN HYDROCODONE-ACETAMINOPHEN 5-325 MG ORAL TABLET 098303 HYDROCODONE-ACETAMINOPHEN Inactive AMOXICILLIN 500 MG ORAL TABLET 2 tabs PO bid x 14 days AMOXICILLIN 500 MG ORAL TABLET 021526 AMOXICILLIN Inactive AMOXICILLIN 500 MG ORAL CAPSULE 1 cap by mouth three times a day AMOXICILLIN 500 MG ORAL CAPSULE 524724 AMOXICILLIN Inactive BACTRIM DS 800-160 MG ORAL TABLET 1 po BID x 10 days 2 BACTRIM DS 800-160 MG ORAL TABLET 439753 SULFAMETHOXAZOLE-TRIMETHOP RIM Inactive BACTRIM DS 800-160 MG ORAL TABLET 1 tab by mouth twice daily 201 01/30/22 BACTRIM DS 800-160 MG ORAL TABLET 279173 TRIMETHOPRIM-SULFAMETHOXAZOLE Inactive AZITHROMYCIN 250 MG ORAL TABLET 2 po qd x 1 day, then 1 po q d x 4 days AZITHROMYCIN 250 MG ORAL TABLET 148455 AZITHROMY PORSHA Inactive Vital Signs Date Name [...] Negative Encounters Code Encounter Date Provider Facility CPT-09844 Level 3 Est. Patient 15:11:28 CHIEF COMPRESSOR STATION ENGINEER Alon doherty [facility] CPT-05325 Level 3 Est. Patient 14:21:45 CDT Evens majano [facility] CPT-76703 Level 3 Est. Patient 14:17:31 CDT Evens majano [facility] CPT-15668 Level 3 Est. Patient 16:26:47 CHIEF COMPRESSOR STATION ENGINEER Alon doherty [facility] CPT-53810 Level 3 Est. Patient 11:42:21 CDT Gaston Ewing MD [facility] CPT-70002 Level 3 Est. Patient 13:52:22 CDT Todd Rodriguez MD [facility] CPT-74184 Level 3 Est. Patient 12:06:02 CHIEF COMPRESSOR STATION ENGINEER Arsalan gustafson MD [facility] CPT-57682 Level 3 Est. Patient 12:39:55 CHIEF COMPRESSOR STATION ENGINEER Todd Rodriguez MD [facility] CPT-96093 Level 3 Est. Patient 14:18:20 CDT Vaughn Parker [facility] CPT-47402 Level 3 Est. Patient 17:31:27 CHIEF COMPRESSOR STATION ENGINEER Arsalan gustafson MD [facility] CPT-66331 Level 3 Est. Patient 14:37:36 CDT Vaughn Parker [facility] Procedures Code Procedure Name Date Entry Date Standard Desc ription CPT-01679 Chest 2V Frontal and Lat - XRAY USE ONLY 14:37:29 CDT CPT-98634 Postop F/U Visit 13:38:44 CDT CPT-OV Office Visit 14:33:00 CDT CPT-44753 Venipuncture Draw Fee 16:03:08 CHIEF COMPRESSOR STATION ENGINEER CPT-58736 Venipuncture Draw Fee 14:25:48 CHIEF COMPRESSOR STATION ENGINEER CPT-76451 Venipuncture Draw Fee 09:58:28 CDT CPT-69341 Venipuncture Draw Fee 13:38:25 CDT CPT-84809 Venipuncture Draw Fee 14:30:31 CDT CPT-67479 Venipuncture Draw Fee 16:51:54 CDT CPT-99238 Venipuncture Draw Fee 15:30:43 CDT
--- OUTSIDE RECORDS SUMMARY | 2020-03-24 02:35 | XMS REPORT | Clinical Summary ---
Author Author Admin, Yves Jackson Organization [facility] Address Unknown Phone Unavailable Allergies, Adverse [...] URI 465.9 Inactive Alon Doyle DO [place] upper respiratory infections of unspecified site Pharyngitis [...] by mouth days two and three PREDNISONE 28980992205 Active Alon Doyle DO Active AZITHROMYCIN 250 MG ORAL TABLET 2 po qd x 1 day, then 1 po q d x 4 days AZITHROMYCIN 14949464511 No Longer Active Evens ervin APRN Active HYDROCODONE-ACETAMINOPHEN 5-325 MG ORAL TABLET 1 TAB PO Q 6 HRS PRN HYDROCODONE-ACETAMINOPHEN 28603730632 No Longer Active Jilli na Frazell LIFE SKILLS COACH Active TYLENOL COLD/FLU SEVERE 7-24-262-325 MG ORAL TABLET 2 tabs daily prn KMSRCNMQIPASR-VV-VB-APAP 64150756175 No Longer Active Mario Cooleyarcadio LIFE SKILLS COACH Active BACTRIM DS 800-160 MG ORAL TABLET 1 tab by mouth twice daily 201 01/30/22 TRIMETHOPRIM-SULFAMETHOXAZOLE 40353140822 No Longer Active Manuel Herrerasandy LIFE SKILLS COACH Active BACTRIM DS 800-160 MG ORAL TABLET 1 po BID x 10 days 2 SULFAMETHOXAZOLE-TRIMETHOPRIM 38699145319 No Longer Active Gaston Ewing MD Active AMOXICILLIN 500 MG ORAL CAPSULE 1 cap by mouth three times a day AMOXICILLIN 25623947988 No Longer Active Todd Rodriguez MD Active EQ IBUPROFEN 200 MG ORAL TABLET 2 tabs every 4 to 6 hours prn 03/23 IBUPROFEN 54790918627 Active Todd Rodriguez MD Active ANTIPYRINE-BENZOCAINE 5.4-1.4 % OTIC SOLUTION 1-2 drop s in affected ear q 3 hours prn ear pain. BENZOCAINE-ANTIPYRINE 04101147171 No Longer Active Vaughn POPE Active CORTISPORIN 3.5-06980-4 OTIC SOLUTION 4gtts in affected ear QID x 7 days UAUHGUWP-MJKBYOECF-NE 96952902226 No Longer Active lexi POPE Active AMOXICILLIN 500 MG ORAL TABLET 2 tabs PO bid x 14 days AMOXICILLIN 25555166319 No Longer Active Vaughn POPE Activ e AMOXICILLIN 500 MG ORAL CAPSULE 1 cap by mouth three times a day AMOXICILLIN 500 MG ORAL CAPSULE 330239 AMOXICILLIN Inactive ANTIPYRINE-BENZOCAINE 5.4-1.4 % OTIC SOLUTION 1-2 drop s in affected ear q 3 hours prn ear pain. ANTIPYRINE-BENZOCAIN E 5.4-1.4 % OTIC SOLUTION 956954 BENZOCAINE-ANTIPYRINE Inactive BACTRIM DS 800-160 MG ORAL TABLET 1 po BID x 10 days 2 BACTRIM DS 800-160 MG ORAL TABLET 19821228 SULFAMETHOXAZOLE-TRIMETHOP RIM Inactive BACTRIM DS 800-160 MG ORAL TABLET 1 tab by mouth twice daily 201 01/30/22 BACTRIM DS 800-160 MG ORAL TABLET 19821228 TRIMETHOPRIM-SULFAMETHOXAZOLE Inactive CORTISPORIN 3.5-50949-8 OTIC SOLUTION 4gtts in affected ear QID x 7 days CORTISPORIN 3.5-23319-2 OTIC SOLUTION 542542 XEEAREZQ-PPLOIPZZU-YK Inactive AMOXICILLIN 500 MG ORAL TABLET 2 tabs PO bid x 14 days AMOXICILLIN 500 MG ORAL TABLET 217019 AMOXICILLIN Inactive AZITHROMYCIN 250 MG ORAL TABLET 2 po qd x 1 day, then 1 po q d x 4 days AZITHROMYCIN 250 MG ORAL TABLET 178962 AZITHROMY PORSHA Inactive HYDROCODONE-ACETAMINOPHEN 5-325 MG ORAL TABLET 1 TAB PO Q 6 HRS PRN HYDROCODONE-ACETAMINOPHEN 5-325 MG ORAL TABLET 642476 HYDROCODONE-ACETAMINOPHEN Inactive TYLENOL COLD/FLU SEVERE 7-43-991-325 MG ORAL TABLET 2 tabs daily prn TYLENOL COLD/FLU SEVERE 7-36-868-325 MG ORAL TABLET ZCDRDFHJPXAKL-VO-UF-APAP Inactive Vital Signs Date Name Value Unit [...] Negative Encounters Code Encounter Date Provider Facility CPT-20349 Level 3 Est. Patient 15:11:28 VICE PRESIDENT COMPLIANCE Alon doherty [facility] CPT-74821 Level 3 Est. Patient 14:21:45 CDT Evens majano [facility] CPT-60307 Level 3 Est. Patient 14:17:31 CDT Evens majano [facility]-52836 Level 3 Est. Patient 16:26:47 VICE PRESIDENT COMPLIANCE Alon doherty [facility] CPT-14229 Level 3 Est. Patient 11:42:21 CDT Gaston Ewing MD [facility] CPT-85942 Level 3 Est. Patient 13:52:22 CDT Todd Rodriguez MD [facility] CPT-86990 Level 3 Est. Patient 12:06:02 VICE PRESIDENT COMPLIANCE Arsalan gustafson MD [facility] CPT-18815 Level 3 Est. Patient 12:39:55 VICE PRESIDENT COMPLIANCE Todd Rodriguez MD [facility] CPT-71533 Level 3 Est. Patient 14:18:20 CDT Vaughn POPE [facility] CPT-09233 Level 3 Est. Patient 17:31:27 VICE PRESIDENT COMPLIANCE Arsalan gustafson MD [facility] CPT-20408 Level 3 Est. Patient 14:37:36 CDT Vaughn Parker [email or web address] Procedures Code Procedure Name Date Entry Date Standard Desc ription CPT-66326 Chest 2V Frontal and Lat - XRAY USE ONLY 14:37:29 CDT CPT-31999 Postop F/U Visit 13:38:44 CDT CPT-OV Office Visit 14:33:00 CDT CPT-93022 Venipuncture Draw Fee 16:03:08 VICE PRESIDENT COMPLIANCE CPT-65152 Venipuncture Draw Fee 14:25:48 VICE PRESIDENT COMPLIANCE CPT-31331 Venipuncture Draw Fee 09:58:28 CDT CPT-35484 Venipuncture Draw Fee 13:38:25 CDT CPT-90556 Venipuncture Draw Fee 14:30:31 CDT CPT-77655 Venipuncture Draw Fee 16:51:54 CDT CPT-46131 Venipuncture Draw Fee 15:30:43 CDT
--- OUTSIDE RECORDS SUMMARY | 2020-03-24 02:35 | XMS REPORT | Clinical Summary ---
Author Author Admin, Yves Jackson Organization [facility] Address Unknown Phone Unavailable Allergies, Adverse Reactions, Alerts Allergy Name Reaction Description Start Date Severity Status Pr ovider No Known Allergies Rosa Kim RMA NKDA Critical Active Vaughn POPE Conditions [...] of the skin and subcutaneous tissue, NEC CERVICAL LYMPHADENOPATHY, LEFT ICD-785.6 Inact bennett Todd [...] TAB PO Q 6 HRS PRN HYDROCODONE-ACETAMINOPHEN 82282108210 Active Arsalan Carmichael MD Active BACTRIM DS 800-160 MG TAB 1 tab by mouth twice daily 2 TRIMETHOPRIM-SULFAMETHOXAZOLE 92616355321 No Longer Active Evens Walters PRN Active BACTRIM DS 800-160 MG TABS 1 po BID x 10 days SULFAMETHOXAZOLE-TRIMETHOPRIM 04290699343 No Longer Active Gaston Ewing MD Active AMOXICILLIN 500 MG CAPS 1 cap by mouth three times a day AMOXICILLIN 42321987633 No Longer Active Todd Rodriguez MD Activ e EQ IBUPROFEN 200 MG TABS 2 tabs every 4 to 6 hours prn IBUPROFEN 04809975309 Active Todd Rodriguez MD Active TYLENOL COLD/FLU SEVERE 3-51-708-325 MG TABS 2 tabs daily prn 03/23 JSYBGYDLRXBQY-FK-VM-APAP 76388494633 Active Todd Rodriguez MD Active ANTIPYRINE-BENZOCAINE 5.4-1.4 % SOLN 1-2 drops in affe cted ear q 3 hours prn ear pain. BENZOCAINE-ANTIPYRINE 59611002906 No Longer Act bennett Vaughn POPE Active CORTISPORIN 3.5-08115-6 SOLN 4gtts in affected ear QID x 7 days HMGOMNSA-DLCYSJWRD-JN 00518045580 No Longer Active Vaughn POPE Active AMOXICILLIN 500 MG TABS 2 tabs PO bid x 14 days 05/21 AMOXICILLIN 18156345740 No Longer Active Vaughn POPE Activ e CORTISPORIN 3.5-34531-8 SOLN 4gtts in affected ear QID x 7 days CORTISPORIN 3.5-56809-8 SOLN 637403 NEOMYCIN-POLYMYXIN- HC Inactive ANTIPYRINE-BENZOCAINE 5.4-1.4 % SOLN 1-2 drops in affe cted ear q 3 hours prn ear pain. ANTIPYRINE-BENZOCAINE 5.4-1.4 % SOLN 2443 09 BENZOCAINE-ANTIPYRINE Inactive AMOXICILLIN 500 MG TABS 2 tabs PO bid x 14 days 05/21 AMOXICILLIN 500 MG TABS 594399 AMOXICILLIN Inactive AMOXICILLIN 500 MG CAPS 1 cap by mouth three times a day AMOXICILLIN 500 MG CAPS 612518 AMOXICILLIN Inactive BACTRIM DS 800-160 MG TABS 1 po BID x 10 days BACTRIM DS 800-160 MG TABS SULFAMETHOXAZOLE-TRIMETHOPRIM Inactive BACTRIM DS 800-160 MG TAB 1 tab by mouth twice daily 2 BACTRIM DS 800-160 MG TAB TRIMETHOPRIM-SULFAMETHOXAZOLE Inac tive Encounters Code Encounter Date Provider Facility CPT-84363 Level 3 Est. Patient 11:42:21 CDT Gaston Ewing MD [facility] CPT-82785 Level 3 Est. Patient 13:52:22 CDT Todd Rodriguez MD [facility] CPT-65116 Level 3 Est. Patient 12:06:02 FOREIGN EXCHANGE POSITION CLERK Arsalan gustafson MD [facility] CPT-28763 Level 3 Est. Patient 12:39:55 FOREIGN EXCHANGE POSITION CLERK Todd Rodriguez MD [facility] CPT-56366 Level 3 Est. Patient 14:18:20 CDT Vaughn Parker [facility] CPT-92787 Level 3 Est. Patient 17:31:27 FOREIGN EXCHANGE POSITION CLERK Arsalan gustafson MD [facility] CPT-42535 Level 3 Est. Patient 14:37:36 CDT Vaughn Parker [facility] Procedures Code Procedure Name Date Entry Date Standard Desc ription CPT-94231 Postop F/U Visit 13:38:44 CDT CPT-OV Office Visit 14:33:00 CDT CPT-76277 Venipuncture Draw Fee 16:03:08 FOREIGN EXCHANGE POSITION CLERK CPT-61773 Venipuncture Draw Fee 14:25:48 FOREIGN EXCHANGE POSITION CLERK CPT-05952 Venipuncture Draw Fee 09:58:28 CDT CPT-21260 Venipuncture Draw Fee 13:38:25 CDT CPT-94182 Venipuncture Draw Fee 14:30:31 CDT CPT-16368 Venipuncture Draw Fee 16:51:54 CDT CPT-46107 Venipuncture Draw Fee 15:30:43 CDT
--- OUTSIDE RECORDS SUMMARY | 2020-03-24 02:35 | XMS REPORT | Clinical Summary ---
Author Author Admin, Yves Jackson Organization [facility] Address Unknown Phone Unavailable Allergies, Adverse [...] subcutaneous tissue, NEC Sports physical V70.3 Active Evnes ARITA RN Other general medical examination for [...] by mouth days two and three PREDNISONE 91231580503 Active Alon Doyle DO Active AZITHROMYCIN 250 MG ORAL TABLET 2 po qd x 1 day, then 1 po q d x 4 days AZITHROMYCIN 20498742219 No Longer Active Evens ervin APRN Active HYDROCODONE-ACETAMINOPHEN 5-325 MG ORAL TABLET 1 TAB PO Q 6 HRS PRN HYDROCODONE-ACETAMINOPHEN 74681578599 No Longer Active Jilli na Frazell DIRT SHOVELER Active TYLENOL COLD/FLU SEVERE 3-76-711-325 MG ORAL TABLET 2 tabs daily prn MLGCAFLDYUVGR-XF-ZQ-APAP 87267959596 No Longer Active Mario Cooleyarcadio DIRT SHOVELER Active BACTRIM DS 800-160 MG ORAL TABLET 1 tab by mouth twice daily 201 01/30/22 TRIMETHOPRIM-SULFAMETHOXAZOLE 50915518138 No Longer Active Manuel Cooleyarcadio DIRT SHOVELER Active BACTRIM DS 800-160 MG ORAL TABLET 1 po BID x 10 days 2 SULFAMETHOXAZOLE-TRIMETHOPRIM 85494505119 No Longer Active Gaston Ewing MD Active AMOXICILLIN 500 MG ORAL CAPSULE 1 cap by mouth three times a day AMOXICILLIN 29641777220 No Longer Active Todd Rodriguez MD Active EQ IBUPROFEN 200 MG ORAL TABLET 2 tabs every 4 to 6 hours prn 03/23 IBUPROFEN 97793548990 Active Todd Rodriguez MD Active ANTIPYRINE-BENZOCAINE 5.4-1.4 % OTIC SOLUTION 1-2 drop s in affected ear q 3 hours prn ear pain. BENZOCAINE-ANTIPYRINE 24127859875 No Longer Active Vaughn POPE Active CORTISPORIN 3.5-79504-4 OTIC SOLUTION 4gtts in affected ear QID x 7 days [id number]-ELAFCCGXH-MJ 02181270706 No Longer Active lexi POPE Active AMOXICILLIN 500 MG ORAL TABLET 2 tabs PO bid x 14 days AMOXICILLIN 73791841423 No Longer Active Vaughn POPE Activ e AMOXICILLIN 500 MG ORAL CAPSULE 1 cap by mouth three times a day AMOXICILLIN 500 MG ORAL CAPSULE 793462 AMOXICILLIN Inactive ANTIPYRINE-BENZOCAINE 5.4-1.4 % OTIC SOLUTION 1-2 drop s in affected ear q 3 hours prn ear pain. ANTIPYRINE-BENZOCAIN E 5.4-1.4 % OTIC SOLUTION 236531 BENZOCAINE-ANTIPYRINE Inactive BACTRIM DS 800-160 MG ORAL TABLET 1 po BID x 10 days 2 BACTRIM DS 800-160 MG ORAL TABLET 19821228 SULFAMETHOXAZOLE-TRIMETHOP RIM Inactive BACTRIM DS 800-160 MG ORAL TABLET 1 tab by mouth twice daily 201 01/30/22 BACTRIM DS 800-160 MG ORAL TABLET 19821228 TRIMETHOPRIM-SULFAMETHOXAZOLE Inactive CORTISPORIN 3.5-55609-8 OTIC SOLUTION 4gtts in affected ear QID x 7 days CORTISPORIN 3.5-37388-2 OTIC SOLUTION 580788 LYMWANGC-OMZGZIWCD-JV Inactive AMOXICILLIN 500 MG ORAL TABLET 2 tabs PO bid x 14 days AMOXICILLIN 500 MG ORAL TABLET 332274 AMOXICILLIN Inactive AZITHROMYCIN 250 MG ORAL TABLET 2 po qd x 1 day, then 1 po q d x 4 days AZITHROMYCIN 250 MG ORAL TABLET 637181 AZITHROMY PORSHA Inactive HYDROCODONE-ACETAMINOPHEN 5-325 MG ORAL TABLET 1 TAB PO Q 6 HRS PRN HYDROCODONE-ACETAMINOPHEN 5-325 MG ORAL TABLET 093026 HYDROCODONE-ACETAMINOPHEN Inactive TYLENOL COLD/FLU SEVERE 5-53-175-325 MG ORAL TABLET 2 tabs daily prn TYLENOL COLD/FLU SEVERE 3-23-355-325 MG ORAL TABLET [id number]-SB-NA-APAP Inactive Vital Signs Date Name Value Unit [...] Negative Encounters Code Encounter Date Provider Facility CPT-58162 Level 3 Est. Patient 15:11:28 LIGHTNING ROD ERECTOR Alon doherty [facility] CPT-34947 Level 3 Est. Patient 14:21:[address] [facility] CPT-99985 Level 3 Est. Patient 14:17:[address] [facility] CPT-78230 Level 3 Est. Patient 16:26:47 LIGHTNING ROD ERECTOR Alon doherty [facility] CPT-45525 Level 3 Est. Patient 11:42:21 CDT Gaston Ewing MD [facility] CPT-05319 Level 3 Est. Patient 13:52:22 CDT Todd Rodriguez MD [facility] CPT-95980 Level 3 Est. Patient 12:06:02 LIGHTNING ROD ERECTOR Arsalan gustafson MD [facility] CPT-08491 Level 3 Est. Patient 12:39:55 LIGHTNING ROD ERECTOR Todd Rodriguez MD [facility] CPT-40716 Level 3 Est. Patient 14:18:20 CDT Vaughn Parker [facility] CPT-17767 Level 3 Est. Patient 17:31:27 LIGHTNING ROD ERECTOR Arsalan gustafson MD [facility] CPT-01663 Level 3 Est. Patient 14:37:36 CDT Vaughn Parker [facility] Procedures Code Procedure Name Date Entry Date Standard Desc ription CPT-56483 Chest 2V Frontal and Lat - XRAY USE ONLY 14:37:29 CDT CPT-40820 Postop F/U Visit 13:38:44 CDT CPT-OV Office Visit 14:33:00 CDT CPT-96957 Venipuncture Draw Fee 16:03:08 LIGHTNING ROD ERECTOR CPT-37030 Venipuncture Draw Fee 14:25:48 LIGHTNING ROD ERECTOR CPT-53189 Venipuncture Draw Fee 09:58:28 CDT CPT-04764 Venipuncture Draw Fee 13:38:25 CDT CPT-72342 Venipuncture Draw Fee 14:30:31 CDT CPT-94909 Venipuncture Draw Fee 16:51:54 CDT CPT-62107 Venipuncture Draw Fee 15:30:43 CDT
--- OUTSIDE RECORDS SUMMARY | 2020-03-24 02:35 | XMS REPORT | Clinical Summary ---
Author Author Admin, Yves Jackson Organization [facility] Address Unknown Phone Unavailable Allergies, [...] URI 465.9 Inactive Alon Doyle DO Ac [place] upper respiratory infections of unspecified site Pharyngitis [...] by mouth days two and three PREDNISONE 16612702109 Active Alon Doyle DO Active AZITHROMYCIN 250 MG ORAL TABLET 2 po qd x 1 day, then 1 po q d x 4 days AZITHROMYCIN 99182408719 No Longer Active Evens ervin APRN Active HYDROCODONE-ACETAMINOPHEN 5-325 MG ORAL TABLET 1 TAB PO Q 6 HRS PRN HYDROCODONE-ACETAMINOPHEN 61488956926 No Longer Active Jilli na Frazell HYDRAULIC DESIGN ENGINEER Active TYLENOL COLD/FLU SEVERE 0-29-782-325 MG ORAL TABLET 2 tabs daily prn AIVPGAYQCJYPW-TA-AB-APAP 17947674078 No Longer Active Mario Cooleyarcadio HYDRAULIC DESIGN ENGINEER Active BACTRIM DS 800-160 MG ORAL TABLET 1 tab by mouth twice daily 201 01/30/22 TRIMETHOPRIM-SULFAMETHOXAZOLE 14333209961 No Longer Active Manuel Cooleyarcadio HYDRAULIC DESIGN ENGINEER Active BACTRIM DS 800-160 MG ORAL TABLET 1 po BID x 10 days 2 SULFAMETHOXAZOLE-TRIMETHOPRIM 99234790434 No Longer Active Gaston Ewing MD Active AMOXICILLIN 500 MG ORAL CAPSULE 1 cap by mouth three times a day AMOXICILLIN 69957176064 No Longer Active Todd Rodriguez MD Active EQ IBUPROFEN 200 MG ORAL TABLET 2 tabs every 4 to 6 hours prn 03/23 IBUPROFEN 94945113518 Active Todd Rodriguez MD Active ANTIPYRINE-BENZOCAINE 5.4-1.4 % OTIC SOLUTION 1-2 drop s in affected ear q 3 hours prn ear pain. BENZOCAINE-ANTIPYRINE 81554038602 No Longer Active Vaughn POPE Active CORTISPORIN 3.5-45300-0 OTIC SOLUTION 4gtts in affected ear QID x 7 days THSYFVXM-ORSZYFVIN-NW 79181078106 No Longer Active lexi POPE Active AMOXICILLIN 500 MG ORAL TABLET 2 tabs PO bid x 14 days AMOXICILLIN 22218259645 No Longer Active Vaughn POPE Activ e AMOXICILLIN 500 MG ORAL CAPSULE 1 cap by mouth three times a day AMOXICILLIN 500 MG ORAL CAPSULE 717615 AMOXICILLIN Inactive ANTIPYRINE-BENZOCAINE 5.4-1.4 % OTIC SOLUTION 1-2 drop s in affected ear q 3 hours prn ear pain. ANTIPYRINE-BENZOCAIN E 5.4-1.4 % OTIC SOLUTION 126997 BENZOCAINE-ANTIPYRINE Inactive BACTRIM DS 800-160 MG ORAL TABLET 1 po BID x 10 days 2 BACTRIM DS 800-160 MG ORAL TABLET 19821228 SULFAMETHOXAZOLE-TRIMETHOP RIM Inactive BACTRIM DS 800-160 MG ORAL TABLET 1 tab by mouth twice daily 201 01/30/22 BACTRIM DS 800-160 MG ORAL TABLET 19821228 TRIMETHOPRIM-SULFAMETHOXAZOLE Inactive CORTISPORIN 3.5-50214-8 OTIC SOLUTION 4gtts in affected ear QID x 7 days CORTISPORIN 3.5-06065-3 OTIC SOLUTION 960651 FQTTZXTM-SMNFPENVD-CP Inactive AMOXICILLIN 500 MG ORAL TABLET 2 tabs PO bid x 14 days AMOXICILLIN 500 MG ORAL TABLET 156431 AMOXICILLIN Inactive AZITHROMYCIN 250 MG ORAL TABLET 2 po qd x 1 day, then 1 po q d x 4 days AZITHROMYCIN 250 MG ORAL TABLET 347849 AZITHROMY PORSHA Inactive HYDROCODONE-ACETAMINOPHEN 5-325 MG ORAL TABLET 1 TAB PO Q 6 HRS PRN HYDROCODONE-ACETAMINOPHEN 5-325 MG ORAL TABLET 388023 HYDROCODONE-ACETAMINOPHEN Inactive TYLENOL COLD/FLU SEVERE 1-11-332-325 MG ORAL TABLET 2 tabs daily prn TYLENOL COLD/FLU SEVERE 5-23-932-325 MG ORAL TABLET [id number]-[id number]-PU-APAP Inactive Vital Signs Date Name Value Unit [...] Negative Encounters Code Encounter Date Provider Facility CPT-49539 Level 3 Est. Patient 15:11:28 HISTORIOGRAPHER Alon doherty [facility] CPT-18333 Level 3 Est. Patient 14:21:45 CDT Evens majano [facility] CPT-70316 Level 3 Est. Patient 14:17:31 CDT Evens majano [facility] CPT-52391 Level 3 Est. Patient 16:26:47 HISTORIOGRAPHER Alon doherty [facility] CPT-15210 Level 3 Est. Patient 11:42:21 CDT Gaston Ewing MD [facility] CPT-18399 Level 3 Est. Patient 13:52:22 CDT Todd Rodriguez MD [facility] CPT-04504 Level 3 Est. Patient 12:06:02 HISTORIOGRAPHER Arsalan gustafson MD [facility] CPT-85435 Level 3 Est. Patient 12:39:55 HISTORIOGRAPHER Todd Rodriguez MD [facility] CPT-08505 Level 3 Est. Patient 14:18:20 CDT Vaughn Parker [facility] CPT-57596 Level 3 Est. Patient 17:31:27 HISTORIOGRAPHER Arsalan gustafson MD [facility] CPT-24096 Level 3 Est. Patient 14:37:36 CDT Vaughn Parker [facility] Procedures Code Procedure Name Date Entry Date Standard Desc ription CPT-55489 Chest 2V Frontal and Lat - XRAY USE ONLY 14:37:29 CDT CPT-06365 Postop F/U Visit 13:38:44 CDT CPT-OV Office Visit 14:33:00 CDT CPT-67201 Venipuncture Draw Fee 16:03:08 HISTORIOGRAPHER CPT-55578 Venipuncture Draw Fee 14:25:48 HISTORIOGRAPHER CPT-91537 Venipuncture Draw Fee 09:58:28 CDT CPT-49330 Venipuncture Draw Fee 13:38:25 CDT CPT-31284 Venipuncture Draw Fee 14:30:31 CDT CPT-88672 Venipuncture Draw Fee 16:51:54 CDT CPT-07136 Venipuncture Draw Fee 15:30:43 CDT
--- OUTSIDE RECORDS SUMMARY | 2020-03-24 02:35 | XMS REPORT | Clinical Summary ---
Author Author Admin, Yves Jackson Organization [facility] Address Unknown Phone Unavailable Allergies, Adverse [...] URI 465.9 Inactive Alon Doyle DO Ac [place] upper respiratory infections of unspecified site Pharyngitis 462 Active Jillina Yasirzell CRITICAL CARE NURSE Acute pharyngitis Cough 786.2 Active Jillina Yasirzell CRITICAL CARE NURSE Cough CERVICAL LYMPHADENOPATHY, LEFT ICD-785.6 Inact bennett [...] 1 po qd x 4 days AZITHROMYCIN 84113187453 No Longer Active Jillina Frazell CRITICAL CARE NURSE Active HYDROCODONE-ACETAMINOPHEN 5-325 MG TABS 1 TAB PO Q 6 HRS PRN 201 02/02/10 HYDROCODONE-ACETAMINOPHEN 11672607152 No Longer Active Jilli na Frazell CRITICAL CARE NURSE Active TYLENOL COLD/FLU SEVERE 7-98-463-325 MG TABS 2 tabs daily prn 20 08/03/29 RKQWBECAAMJOV-EO-YQ-APAP 78035658290 No Longer Active Jillin a Frazell CRITICAL CARE NURSE Active BACTRIM DS 800-160 MG TAB 1 tab by mouth twice daily 2 TRIMETHOPRIM-SULFAMETHOXAZOLE 36480292864 No Longer Active Evens Mendez A PRN Active BACTRIM DS 800-160 MG TABS 1 po BID x 10 days SULFAMETHOXAZOLE-TRIMETHOPRIM 64806141746 No Longer Active Gaston Ewing MD Active AMOXICILLIN 500 MG CAPS 1 cap by mouth three times a day AMOXICILLIN 00376220800 No Longer Active Todd Rodriguez MD Activ e EQ IBUPROFEN 200 MG TABS 2 tabs every 4 to 6 hours prn IBUPROFEN 33317545993 Active Todd Rodriguez MD Active ANTIPYRINE-BENZOCAINE 5.4-1.4 % SOLN 1-2 drops in affe cted ear q 3 hours prn ear pain. BENZOCAINE-ANTIPYRINE 42249352467 No Longer Act bennett Vaughn POPE Active CORTISPORIN 3.5-67392-5 SOLN 4gtts in affected ear QID x 7 days TUDJSQCS-MOWECAHBI-FK 35008056093 No Longer Active Vaughn POPE Active AMOXICILLIN 500 MG TABS 2 tabs PO bid x 14 days 05/21 AMOXICILLIN 65913532142 No Longer Active Vaughn POPE Activ e CORTISPORIN 3.5-10824-9 SOLN 4gtts in affected ear QID x 7 days CORTISPORIN 3.5-48920-5 SOLN 819539 NEOMYCIN-POLYMYXIN- HC Inactive ANTIPYRINE-BENZOCAINE 5.4-1.4 % SOLN 1-2 drops in affe cted ear q 3 hours prn ear pain. ANTIPYRINE-BENZOCAINE 5.4-1.4 % SOLN BENZOCAINE-ANTIPYRINE Inactive TYLENOL COLD/FLU SEVERE 2-41-192-325 MG TABS 2 tabs daily prn 20 08/03/29 TYLENOL COLD/FLU SEVERE 4-81-752-325 MG TABS ZPZBHOJCXJQDY-HI-KY-APAP Inactive HYDROCODONE-ACETAMINOPHEN 5-325 MG TABS 1 TAB PO Q 6 HRS PRN 201 02/02/10 HYDROCODONE-ACETAMINOPHEN 5-325 MG TABS 560100 HYDROCODONE-ACETAMINOPHEN Inactive AMOXICILLIN 500 MG TABS 2 tabs PO bid x 14 days 05/21 AMOXICILLIN 500 MG TABS 263898 AMOXICILLIN Inactive AMOXICILLIN 500 MG CAPS 1 cap by mouth three times a day AMOXICILLIN 500 MG CAPS 647749 AMOXICILLIN Inactive BACTRIM DS 800-160 MG TABS 1 po BID x 10 days BACTRIM DS 800-160 MG TABS 825807 SULFAMETHOXAZOLE-TRIMETHOPRIM Inactive BACTRIM DS 800-160 MG TAB 1 tab by mouth twice daily 2 BACTRIM DS 800-160 MG TAB 550448 TRIMETHOPRIM-SULFAMETHOXAZOLE Inac tive AZITHROMYCIN 250 MG TABS 2 po qd x 1 day, then 1 po qd x 4 days AZITHROMYCIN 250 MG TABS 7260841 AZITHROMYCIN Inactiv e Vital Signs Date Name Value Unit Range [...] 10*3/mm3 Encounters Code Encounter Date Provider Facility CPT-99627 Level 3 Est. Patient 14:21:45 CDT Docshira Lee gl[place]jacqui [facility] CPT-99309 Level 3 Est. Patient 14:17:31 CDT Evens Lee melecio [facility] CPT-03098 Level 3 Est. Patient 16:26:47 PLASTIC MAKER Alon doherty DO [facility] CPT-40919 Level 3 Est. Patient 11:42:21 CDT Gaston Ewing MD [facility] CPT-87617 Level 3 Est. Patient 13:52:22 CDT Todd Rodriguez MD [facility] CPT-00646 Level 3 Est. Patient 12:06:02 PLASTIC MAKER Arsalan gustafson MD [facility] CPT-66392 Level 3 Est. Patient 12:39:55 PLASTIC MAKER Todd Rodriguez MD [facility] CPT-35273 Level 3 Est. Patient 14:18:20 CDT Vaughn Parker [facility] CPT-87193 Level 3 Est. Patient 17:31:27 PLASTIC MAKER Arsalan gustafson MD [facility] CPT-88879 Level 3 Est. Patient 14:37:36 CDT Vaughn Parker [facility] Procedures Code Procedure Name Date Entry Date Standard Desc ription CPT-24439 Chest 2V Frontal and Lat - XRAY USE ONLY 14:37:29 CDT CPT-48393 Postop F/U Visit 13:38:44 CDT CPT-OV Office Visit 14:33:00 CDT CPT-74701 Venipuncture Draw Fee 16:03:08 PLASTIC MAKER CPT-66190 Venipuncture Draw Fee 14:25:48 PLASTIC MAKER CPT-70696 Venipuncture Draw Fee 09:58:28 CDT CPT-04664 Venipuncture Draw Fee 13:38:25 CDT CPT-76711 Venipuncture Draw Fee 14:30:31 CDT CPT-87257 Venipuncture Draw Fee 16:51:54 CDT CPT-94994 Venipuncture Draw Fee 15:30:43 CDT
--- OUTSIDE RECORDS SUMMARY | 2020-03-24 02:35 | XMS REPORT | Clinical Summary ---
[...] URI 465.9 Inactive Alon Doyle DO Ac [place] upper respiratory infections of unspecified site Pharyngitis [...] by mouth days two and three PREDNISONE 80335112741 Active Alon Doyle DO Active AZITHROMYCIN 250 MG ORAL TABLET 2 po qd x 1 day, then 1 po q d x 4 days AZITHROMYCIN 17029912166 No Longer Active Evens ervin APRN Active HYDROCODONE-ACETAMINOPHEN 5-325 MG ORAL TABLET 1 TAB PO Q 6 HRS PRN HYDROCODONE-ACETAMINOPHEN 65377103916 No Longer Active Jilli na Frazell FENCE ERECTOR Active TYLENOL COLD/FLU SEVERE 4-73-059-325 MG ORAL TABLET 2 tabs daily prn KLYOBUERABLGL-BS-MW-APAP 82325122648 No Longer Active Mario Cooleyarcadio FENCE ERECTOR Active BACTRIM DS 800-160 MG ORAL TABLET 1 tab by mouth twice daily 201 01/30/22 TRIMETHOPRIM-SULFAMETHOXAZOLE 30515130600 No Longer Active Manuel Cooleyarcadio FENCE ERECTOR Active BACTRIM DS 800-160 MG ORAL TABLET 1 po BID x 10 days 2 SULFAMETHOXAZOLE-TRIMETHOPRIM 52391880499 No Longer Active Gaston Ewing MD Active AMOXICILLIN 500 MG ORAL CAPSULE 1 cap by mouth three times a day AMOXICILLIN 67729728266 No Longer Active Todd Rodriguez MD Active EQ IBUPROFEN 200 MG ORAL TABLET 2 tabs every 4 to 6 hours prn 03/23 IBUPROFEN 65158383995 Active Todd Rodriguez MD Active ANTIPYRINE-BENZOCAINE 5.4-1.4 % OTIC SOLUTION 1-2 drop s in affected ear q 3 hours prn ear pain. BENZOCAINE-ANTIPYRINE 36768836570 No Longer Active Vaughn POPE Active CORTISPORIN 3.5-54784-3 OTIC SOLUTION 4gtts in affected ear QID x 7 days YDQOQMLG-GXSEDFNUH-EY 66448095331 No Longer Active lexi POPE Active AMOXICILLIN 500 MG ORAL TABLET 2 tabs PO bid x 14 days AMOXICILLIN 00253441606 No Longer Active Vaughn POPE Activ e AMOXICILLIN 500 MG ORAL CAPSULE 1 cap by mouth three times a day AMOXICILLIN 500 MG ORAL CAPSULE 102579 AMOXICILLIN Inactive ANTIPYRINE-BENZOCAINE 5.4-1.4 % OTIC SOLUTION 1-2 drop s in affected ear q 3 hours prn ear pain. ANTIPYRINE-BENZOCAIN E 5.4-1.4 % OTIC SOLUTION 636474 BENZOCAINE-ANTIPYRINE Inactive BACTRIM DS 800-160 MG ORAL TABLET 1 po BID x 10 days 2 BACTRIM DS 800-160 MG ORAL TABLET 19821228 SULFAMETHOXAZOLE-TRIMETHOP RIM Inactive BACTRIM DS 800-160 MG ORAL TABLET 1 tab by mouth twice daily 201 01/30/22 BACTRIM DS 800-160 MG ORAL TABLET 19821228 TRIMETHOPRIM-SULFAMETHOXAZOLE Inactive CORTISPORIN 3.5-97731-7 OTIC SOLUTION 4gtts in affected ear QID x 7 days CORTISPORIN 3.5-34773-9 OTIC SOLUTION 535360 WNSTBOFC-VTLNNXNWI-LL Inactive AMOXICILLIN 500 MG ORAL TABLET 2 tabs PO bid x 14 days AMOXICILLIN 500 MG ORAL TABLET 642995 AMOXICILLIN Inactive AZITHROMYCIN 250 MG ORAL TABLET 2 po qd x 1 day, then 1 po q d x 4 days AZITHROMYCIN 250 MG ORAL TABLET 009376 AZITHROMY PORSHA Inactive HYDROCODONE-ACETAMINOPHEN 5-325 MG ORAL TABLET 1 TAB PO Q 6 HRS PRN HYDROCODONE-ACETAMINOPHEN 5-325 MG ORAL TABLET 882758 HYDROCODONE-ACETAMINOPHEN Inactive TYLENOL COLD/FLU SEVERE 2-88-547-325 MG ORAL TABLET 2 tabs daily prn TYLENOL COLD/FLU SEVERE 3-94-819-325 MG ORAL TABLET GQVNUKOQDXWAQ-KK-SZ-APAP Inactive Vital Signs Date Name Value Unit [...] Negative Encounters Code Encounter Date Provider Facility CPT-94320 Level 3 Est. Patient 15:11:28 AIR CONDITIONING COIL ASSEMBLER Alon doherty [facility] CPT-99340 Level 3 Est. Patient 14:21:[address] [facility] CPT-91255 Level 3 Est. Patient 14:17:[address] [facility] CPT-37489 Level 3 Est. Patient 16:26:47 AIR CONDITIONING COIL ASSEMBLER Alon doherty [facility] CPT-03446 Level 3 Est. Patient 11:42:21 CDT Gaston Ewing MD [facility] CPT-02377 Level 3 Est. Patient 13:52:22 CDT Todd Rodriguez MD [facility] CPT-76738 Level 3 Est. Patient 12:06:02 AIR CONDITIONING COIL ASSEMBLER Arsalan gustafson MD [facility] CPT-04285 Level 3 Est. Patient 12:39:55 AIR CONDITIONING COIL ASSEMBLER Todd Rodriguez MD [facility] CPT-71669 Level 3 Est. Patient 14:18:20 CDT Vaughn Parker [facility] CPT-33814 Level 3 Est. Patient 17:31:27 AIR CONDITIONING COIL ASSEMBLER Arsalan gustafson MD [facility] CPT-29157 Level 3 Est. Patient 14:37:36 CDT Vaughn Parker [facility] Procedures Code Procedure Name Date Entry Date Standard Desc ription CPT-92208 Chest 2V Frontal and Lat - XRAY USE ONLY 14:37:29 CDT CPT-76334 Postop F/U Visit 13:38:44 CDT CPT-OV Office Visit 14:33:00 CDT CPT-29478 Venipuncture Draw Fee 16:03:08 AIR CONDITIONING COIL ASSEMBLER CPT-41064 Venipuncture Draw Fee 14:25:48 AIR CONDITIONING COIL ASSEMBLER CPT-30864 Venipuncture Draw Fee 09:58:28 CDT CPT-79647 Venipuncture Draw Fee 13:38:25 CDT CPT-43754 Venipuncture Draw Fee 14:30:31 CDT CPT-12421 Venipuncture Draw Fee 16:51:54 CDT CPT-99873 Venipuncture Draw Fee 15:30:43 CDT
--- OUTSIDE RECORDS SUMMARY | 2020-03-24 02:35 | XMS REPORT | Clinical Summary ---
Author Author Admin, Yves Jackson Organization [facility] Address Unknown Phone Unavailable Allergies, Adverse Reactions, [...] by mouth days two and three PREDNISONE [id number] No Longer Active Arsalan Carmichael MD Active AZITHROMYCIN 250 MG ORAL TABLET 2 po qd x 1 day, then 1 po q d x 4 days AZITHROMYCIN 80927511335 No Longer Active Evens ervin APRN Active HYDROCODONE-ACETAMINOPHEN 5-325 MG ORAL TABLET 1 TAB PO Q 6 HRS PRN HYDROCODONE-ACETAMINOPHEN 76497601790 No Longer Active Alonso bernie Andrea TELEVISION EQUIPMENT OPERATOR Active TYLENOL COLD/FLU SEVERE 1-55-809-325 MG ORAL TABLET 2 tabs daily prn DKJUCINWATXYJ-LJ-ZA-APAP 01582659125 No Longer Active Mario a Yasirzell TELEVISION EQUIPMENT OPERATOR Active BACTRIM DS 800-160 MG ORAL TABLET 1 tab by mouth twice daily 201 01/30/22 TRIMETHOPRIM-SULFAMETHOXAZOLE 65431635094 No Longer Active Manuel Cooleyzell TELEVISION EQUIPMENT OPERATOR Active BACTRIM DS 800-160 MG ORAL TABLET 1 po BID x 10 days 2 SULFAMETHOXAZOLE-TRIMETHOPRIM 17510170674 No Longer Active Gaston Ewing MD Active AMOXICILLIN 500 MG ORAL CAPSULE 1 cap by mouth three times a day AMOXICILLIN 20685338793 No Longer Active Todd Rodriguez MD Active EQ IBUPROFEN 200 MG ORAL TABLET 2 tabs every 4 to 6 hours prn 03/23 IBUPROFEN 36941707586 Active Todd Rodriguez MD Active ANTIPYRINE-BENZOCAINE 5.4-1.4 % OTIC SOLUTION 1-2 drop s in affected ear q 3 hours prn ear pain. BENZOCAINE-ANTIPYRINE 49017834378 No Longer Active Vaughn POPE Active CORTISPORIN 3.5-74468-2 OTIC SOLUTION 4gtts in affected ear QID x 7 days UBALYWLZ-WLNKQNYME-XA 98729033443 No Longer Active lexi POPE Active AMOXICILLIN 500 MG ORAL TABLET 2 tabs PO bid x 14 days AMOXICILLIN 09988264411 No Longer Active Vaughn POPE Activ e CORTISPORIN 3.5-24004-8 OTIC SOLUTION 4gtts in affected ear QID x 7 days CORTISPORIN 3.5-81133-2 OTIC SOLUTION 688052 TAPWKIVA-SLPTBWCIW-CY Inactive ANTIPYRINE-BENZOCAINE 5.4-1.4 % OTIC SOLUTION 1-2 drop s in affected ear q 3 hours prn ear pain. ANTIPYRINE-BENZOCAIN E 5.4-1.4 % OTIC SOLUTION 455730 BENZOCAINE-ANTIPYRINE Inactive TYLENOL COLD/FLU SEVERE 5-06-994-325 MG ORAL TABLET 2 tabs daily prn TYLENOL COLD/FLU SEVERE 8-35-388-325 MG ORAL TABLET LNHPIKCHYEJYW-YW-RU-APAP Inactive HYDROCODONE-ACETAMINOPHEN 5-325 MG ORAL TABLET 1 TAB PO Q 6 HRS PRN HYDROCODONE-ACETAMINOPHEN 5-325 MG ORAL TABLET 366151 HYDROCODONE-ACETAMINOPHEN Inactive PREDNISONE 20 MG ORAL TABLET two tabs by mouth today, then one tab by mouth days two and three PREDNISONE 20 MG ORAL TABLET 108133 PREDNISONE Inactive AMOXICILLIN 500 MG ORAL TABLET 2 tabs PO bid x 14 days AMOXICILLIN 500 MG ORAL TABLET 855446 AMOXICILLIN Inactive AMOXICILLIN 500 MG ORAL CAPSULE 1 cap by mouth three times a day AMOXICILLIN 500 MG ORAL CAPSULE 149578 AMOXICILLIN Inactive BACTRIM DS 800-160 MG ORAL TABLET 1 po BID x 10 days 2 BACTRIM DS 800-160 MG ORAL TABLET 909226 SULFAMETHOXAZOLE-TRIMETHOP RIM Inactive BACTRIM DS 800-160 MG ORAL TABLET 1 tab by mouth twice daily 201 01/30/22 BACTRIM DS 800-160 MG ORAL TABLET 477534 TRIMETHOPRIM-SULFAMETHOXAZOLE Inactive AZITHROMYCIN 250 MG ORAL TABLET 2 po qd x 1 day, then 1 po q d x 4 days AZITHROMYCIN 250 MG ORAL TABLET 427908 AZITHROMY PORSHA Inactive Vital Signs Date Name [...] U/L Chart Maintenance: Outside labs entered on [employer] - Hematology leukocyte count, blood 6.7 10*3/mm3 hemoglobin, blood 13.5 g/dL platelet count 248 10*3/mm3 Lab Report: Rapid Strep - Lab Microbial identification kit, rapid strep method Negative Negative Encounters Code Encounter Date Provider Facility CPT-38980 Level 3 Est. Patient 15:04:20 INSULATION WORKER Arsalan gustafson MD [facility] CPT-71548 Level 3 Est. Patient 15:11:28 INSULATION WORKER Alon doherty DO [facility] CPT-98052 Level 3 Est. Patient 14:21:45 CDT Jillina F razell [facility] CPT-84682 Level 3 Est. Patient 14:17:31 CDT Evens majano [facility] CPT-88972 Level 3 Est. Patient 16:26:47 INSULATION WORKER Alon doherty DO [facility] CPT-44500 Level 3 Est. Patient 11:42:21 CDT Gaston Ewing MD [facility] CPT-40396 Level 3 Est. Patient 13:52:22 CDT Todd Rodriguez MD [facility] CPT-96714 Level 3 Est. Patient 12:06:02 INSULATION WORKER Arsalan gustafson MD [facility] CPT-87529 Level 3 Est. Patient 12:39:55 INSULATION WORKER Todd Rodriguez MD [facility] CPT-22325 Level 3 Est. Patient 14:18:20 CDT Vaughn Parker [facility] CPT-83918 Level 3 Est. Patient 17:31:27 INSULATION WORKER Arsalan gustafson MD [facility] CPT-09323 Level 3 Est. Patient 14:37:36 CDT Vaughn Parker [facility] Procedures Code Procedure Name Date Entry Date Standard Desc ription CPT-63900 Chest 2V Frontal and Lat - XRAY USE ONLY 14:37:29 CDT CPT-93189 Postop F/U Visit 13:38:44 CDT CPT-OV Office Visit 14:33:00 CDT CPT-59888 Venipuncture Draw Fee 16:03:08 INSULATION WORKER CPT-50047 Venipuncture Draw Fee 14:25:48 INSULATION WORKER CPT-79644 Venipuncture Draw Fee 09:58:28 CDT CPT-50790 Venipuncture Draw Fee 13:38:25 CDT CPT-78707 Venipuncture Draw Fee 14:30:31 CDT CPT-16655 Venipuncture Draw Fee 16:51:54 CDT CPT-63442 Venipuncture Draw Fee 15:30:43 CDT
--- OUTSIDE RECORDS SUMMARY | 2020-03-24 02:36 | XMS REPORT | Clinical Summary ---
Author Author Admin, Yves Jackson Organization [facility] Address Unknown Phone Unavailable Allergies, [...] URI 465.9 Inactive Alon Doyle DO [place] upper respiratory infections of unspecified site Pharyngitis 462 Active Jillina Yasirzell [employer]SULTANTS INTERN Acute pharyngitis Cough 786.2 Active Jillina Frazell [employer] INTER[employer] Cough CERVICAL LYMPHADENOPATHY, LEFT ICD-785.6 Inact bennett [...] Q 6 HRS PRN 201 02/02/10 HYDROCODONE-ACETAMINOPHEN 81804512598 No Longer Active Jilli na Frazell [employer]ULTANT[employer] INTERN Active TYLENOL COLD/FLU SEVERE 7-87-766-325 MG TABS 2 tabs daily prn 20 08/03/29 NUNWPDNPWYPTG-YO-VK-APAP 33128322236 No Longer Active Jillin a Frazell [employer]ULTANT[employer] INTERN Active BACTRIM DS 800-160 MG TAB 1 tab by mouth twice daily 2 TRIMETHOPRIM-SULFAMETHOXAZOLE 27527395472 No Longer Active Jillina Frazell A PRN Active BACTRIM DS 800-160 MG TABS 1 po BID x 10 days SULFAMETHOXAZOLE-TRIMETHOPRIM 91001637504 No Longer Active Gaston Ewing MD Active AMOXICILLIN 500 MG CAPS 1 cap by mouth three times a day AMOXICILLIN 43990716774 No Longer Active Todd Rodriguez MD Activ e EQ IBUPROFEN 200 MG TABS 2 tabs every 4 to 6 hours prn IBUPROFEN 27954371329 Active Todd Rodriguez MD Active ANTIPYRINE-BENZOCAINE 5.4-1.4 % SOLN 1-2 drops in affe cted ear q 3 hours prn ear pain. BENZOCAINE-ANTIPYRINE 00753268182 No Longer Act bennett POPE Active CORTISPORIN 3.5-39614-1 SOLN 4gtts in affected ear QID x 7 days MCDEQWQK-UDMQCAYDZ-XL 36291818002 No Longer Active Vaughn POPE Active AMOXICILLIN 500 MG TABS 2 tabs PO bid x 14 days 05/21 AMOXICILLIN 50078440107 No Longer Active Vaughn POPE Activ e CORTISPORIN 3.5-73752-5 SOLN 4gtts in affected ear QID x 7 days CORTISPORIN 3.5-13732-8 SOLN 450449 NEOMYCIN-POLYMYXIN- HC Inactive ANTIPYRINE-BENZOCAINE 5.4-1.4 % SOLN 1-2 drops in affe cted ear q 3 hours prn ear pain. ANTIPYRINE-BENZOCAINE 5.4-1.4 % SOLN BENZOCAINE-ANTIPYRINE Inactive TYLENOL COLD/FLU SEVERE 3-56-459-325 MG TABS 2 tabs daily prn 20 08/03/29 TYLENOL COLD/FLU SEVERE 6-39-528-325 MG TABS HYBBGYEHDKICK-PT-BK-APAP Inactive HYDROCODONE-ACETAMINOPHEN 5-325 MG TABS 1 TAB PO Q 6 HRS PRN 201 02/02/10 HYDROCODONE-ACETAMINOPHEN 5-325 MG TABS 512395 HYDROCODONE-ACETAMINOPHEN Inactive AMOXICILLIN 500 MG TABS 2 tabs PO bid x 14 days 05/21 AMOXICILLIN 500 MG TABS 504383 AMOXICILLIN Inactive AMOXICILLIN 500 MG CAPS 1 cap by mouth three times a day AMOXICILLIN 500 MG CAPS 904538 AMOXICILLIN Inactive BACTRIM DS 800-160 MG TABS 1 po BID x 10 days BACTRIM DS 800-160 MG TABS 136384 SULFAMETHOXAZOLE-TRIMETHOPRIM Inactive BACTRIM DS 800-160 MG TAB [...] Measured Encounters Code Encounter Date Provider Facility CPT-87486 Level 3 Est. Patient 14:21:45 CDT Evens majano [facility] CPT-13652 Level 3 Est. Patient 14:17:31 CDT Evens majano [facility] CPT-11885 Level 3 Est. Patient 16:26:47 STABBER Alon doherty DO [facility] CPT-40646 Level 3 Est. Patient 11:42:21 CDT Gaston Ewing MD [facility] CPT-90868 Level 3 Est. Patient 13:52:22 CDT Todd Rodriguez MD [facility] CPT-08339 Level 3 Est. Patient 12:06:02 STABBER Arsalan gustafson MD [facility] CPT-71309 Level 3 Est. Patient 12:39:55 STABBER Todd Rodriguez MD [facility] CPT-52069 Level 3 Est. Patient 14:18:20 CDT Vaughn POPE [facility] CPT-86633 Level 3 Est. Patient 17:31:27 STABBER Arsalan gustafson MD [facility] CPT-08702 Level 3 Est. Patient 14:37:36 CDT Vaughn Parker [facility] Procedures Code Procedure Name Date Entry Date Standard Desc ription CPT-41440 Chest 2V Frontal and Lat - XRAY USE ONLY 14:37:29 CDT CPT-79798 Postop F/U Visit 13:38:44 CDT CPT-OV Office Visit 14:33:00 CDT CPT-02230 Venipuncture Draw Fee 16:03:08 STABBER CPT-38329 Venipuncture Draw Fee 14:25:48 STABBER CPT-04965 Venipuncture Draw Fee 09:58:28 CDT CPT-04712 Venipuncture Draw Fee 13:38:25 CDT CPT-32938 Venipuncture Draw Fee 14:30:31 CDT CPT-84415 Venipuncture Draw Fee 16:51:54 CDT CPT-63441 Venipuncture Draw Fee 15:30:43 CDT
--- OUTSIDE RECORDS SUMMARY | 2020-03-24 02:36 | XMS REPORT | Clinical Summary ---
Author Author Admin, Yves Jackson Organization [facility] Address Unknown Phone Unavailable Allergies, Adverse Reactions, [...] URI 465.9 Inactive Alon Doyle DO Ac [place] upper respiratory infections of unspecified site Pharyngitis [...] by mouth days two and three PREDNISONE 72343703228 Active Alon Doyle DO Active AZITHROMYCIN 250 MG ORAL TABLET 2 po qd x 1 day, then 1 po q d x 4 days AZITHROMYCIN 94416374041 No Longer Active Evens ervin APRN Active HYDROCODONE-ACETAMINOPHEN 5-325 MG ORAL TABLET 1 TAB PO Q 6 HRS PRN HYDROCODONE-ACETAMINOPHEN 71601272203 No Longer Active Jilli na Frazell ASSEMBLER RADIO AND ELECTRICAL Active TYLENOL COLD/FLU SEVERE 5-97-977-325 MG ORAL TABLET 2 tabs daily prn XHCXYUFTGEWGF-PN-TF-APAP 69101279254 No Longer Active Mario Cooleyarcadio ASSEMBLER RADIO AND ELECTRICAL Active BACTRIM DS 800-160 MG ORAL TABLET 1 tab by mouth twice daily 201 01/30/22 TRIMETHOPRIM-SULFAMETHOXAZOLE 57689824723 No Longer Active Manuel Mendez ASSEMBLER RADIO AND ELECTRICAL Active BACTRIM DS 800-160 MG ORAL TABLET 1 po BID x 10 days 2 SULFAMETHOXAZOLE-TRIMETHOPRIM 05065741289 No Longer Active Gaston Ewing MD Active AMOXICILLIN 500 MG ORAL CAPSULE 1 cap by mouth three times a day AMOXICILLIN 73060988904 No Longer Active Todd Rodriguez MD Active EQ IBUPROFEN 200 MG ORAL TABLET 2 tabs every 4 to 6 hours prn 03/23 IBUPROFEN 19924672842 Active Todd Rodriguez MD Active ANTIPYRINE-BENZOCAINE 5.4-1.4 % OTIC SOLUTION 1-2 drop s in affected ear q 3 hours prn ear pain. BENZOCAINE-ANTIPYRINE 64775120298 No Longer Active Vaughn POPE Active CORTISPORIN 3.5-73850-7 OTIC SOLUTION 4gtts in affected ear QID x 7 days HHRFYTKE-XNSVHHEPY-FU 74543304676 No Longer Active lexi POPE Active AMOXICILLIN 500 MG ORAL TABLET 2 tabs PO bid x 14 days AMOXICILLIN 12098999027 No Longer Active Vaughn POPE Activ e CORTISPORIN 3.5-27947-6 OTIC SOLUTION 4gtts in affected ear QID x 7 days CORTISPORIN 3.5-61289-0 OTIC SOLUTION 530851 PNLDXSZR-AYAZQUEUY-SU Inactive ANTIPYRINE-BENZOCAINE 5.4-1.4 % OTIC SOLUTION 1-2 drop s in affected ear q 3 hours prn ear pain. ANTIPYRINE-BENZOCAIN E 5.4-1.4 % OTIC SOLUTION 713403 BENZOCAINE-ANTIPYRINE Inactive TYLENOL COLD/FLU SEVERE 9-94-695-325 MG ORAL TABLET 2 tabs daily prn TYLENOL COLD/FLU SEVERE 5-32-339-325 MG ORAL TABLET QWIWGUFPGCAZC-SQ-AR-APAP Inactive HYDROCODONE-ACETAMINOPHEN 5-325 MG ORAL TABLET 1 TAB PO Q 6 HRS PRN HYDROCODONE-ACETAMINOPHEN 5-325 MG ORAL TABLET 491996 HYDROCODONE-ACETAMINOPHEN Inactive AMOXICILLIN 500 MG ORAL TABLET 2 tabs PO bid x 14 days AMOXICILLIN 500 MG ORAL TABLET 668606 AMOXICILLIN Inactive AMOXICILLIN 500 MG ORAL CAPSULE 1 cap by mouth three times a day AMOXICILLIN 500 MG ORAL CAPSULE 964379 AMOXICILLIN Inactive BACTRIM DS 800-160 MG ORAL TABLET 1 po BID x 10 days 2 BACTRIM DS 800-160 MG ORAL TABLET 425502 SULFAMETHOXAZOLE-TRIMETHOP RIM Inactive BACTRIM DS 800-160 MG ORAL TABLET 1 tab by mouth twice daily 201 01/30/22 BACTRIM DS 800-160 MG ORAL TABLET 195398 TRIMETHOPRIM-SULFAMETHOXAZOLE Inactive AZITHROMYCIN 250 MG ORAL TABLET 2 po qd x 1 day, then 1 po q d x 4 days AZITHROMYCIN 250 MG ORAL TABLET 386839 AZITHROMY PORSHA Inactive Vital Signs Date Name [...] Negative Encounters Code Encounter Date Provider Facility CPT-50031 Level 3 Est. Patient 15:11:28 WASTE MANAGEMENT ENGINEER Alon doherty [facility] CPT-25703 Level 3 Est. Patient 14:21:45 CDT Evens majano [facility] CPT-49517 Level 3 Est. Patient 14:17:31 CDT Evens majano [facility] CPT-09577 Level 3 Est. Patient 16:26:47 WASTE MANAGEMENT ENGINEER Alon doherty [facility] CPT-95783 Level 3 Est. Patient 11:42:21 CDT Gaston Ewing MD [facility] CPT-29883 Level 3 Est. Patient 13:52:22 CDT Todd Rodriguez MD [facility] CPT-29179 Level 3 Est. Patient 12:06:02 WASTE MANAGEMENT ENGINEER Arsalan gustafson MD [facility] CPT-89828 Level 3 Est. Patient 12:39:55 WASTE MANAGEMENT ENGINEER Todd Rodriguez MD [facility] CPT-35925 Level 3 Est. Patient 14:18:20 CDT Vaughn Parker [facility] CPT-69855 Level 3 Est. Patient 17:31:27 WASTE MANAGEMENT ENGINEER Arsalan gustafson MD [facility] CPT-92164 Level 3 Est. Patient 14:37:36 CDT Vaughn Parker [facility] Procedures Code Procedure Name Date Entry Date Standard Desc ription CPT-11115 Chest 2V Frontal and Lat - XRAY USE ONLY 14:37:29 CDT CPT-19871 Postop F/U Visit 13:38:44 CDT CPT-OV Office Visit 14:33:00 CDT CPT-79068 Venipuncture Draw Fee 16:03:08 WASTE MANAGEMENT ENGINEER CPT-91804 Venipuncture Draw Fee 14:25:48 WASTE MANAGEMENT ENGINEER CPT-69166 Venipuncture Draw Fee 09:58:28 CDT CPT-44635 Venipuncture Draw Fee 13:38:25 CDT CPT-05596 Venipuncture Draw Fee 14:30:31 CDT CPT-81990 Venipuncture Draw Fee 16:51:54 CDT CPT-63335 Venipuncture Draw Fee 15:30:43 CDT
--- OUTSIDE RECORDS SUMMARY | 2020-03-24 02:36 | XMS REPORT | Clinical Summary ---
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 pharyngitis Cough 786.2 Active Jillina Frazell BLACKSMITH APPRENTICE Cough CERVICAL LYMPHADENOPATHY, LEFT ICD-785.6 Inact bennett [...] Q 6 HRS PRN 201 02/02/10 HYDROCODONE-ACETAMINOPHEN 12176582049 No Longer Active Jilli na Frazell BLACKSMITH APPRENTICE Active TYLENOL COLD/FLU SEVERE 4-93-017-325 MG TABS 2 tabs daily prn 20 08/03/29 MBXFIAASFXWEU-WA-RE-APAP 40853744316 No Longer Active Jillin a Frazell BLACKSMITH APPRENTICE Active BACTRIM DS 800-160 MG TAB 1 tab by mouth twice daily 2 TRIMETHOPRIM-SULFAMETHOXAZOLE 17654632054 No Longer Active Jillina Frazell A PRN Active BACTRIM DS 800-160 MG TABS 1 po BID x 10 days SULFAMETHOXAZOLE-TRIMETHOPRIM 23340733120 No Longer Active Gaston Ewing MD Active AMOXICILLIN 500 MG CAPS 1 cap by mouth three times a day AMOXICILLIN 61502803947 No Longer Active Todd Rodriguez MD Activ e EQ IBUPROFEN 200 MG TABS 2 tabs every 4 to 6 hours prn IBUPROFEN 36849835837 Active Todd Rodriguez MD Active ANTIPYRINE-BENZOCAINE 5.4-1.4 % SOLN 1-2 drops in affe cted ear q 3 hours prn ear pain. BENZOCAINE-ANTIPYRINE 52640046798 No Longer Act bennett POPE Active CORTISPORIN 3.5-00334-1 SOLN 4gtts in affected ear QID x 7 days MTLGKFBJ-BFQNWZXAR-QF 25627325622 No Longer Active Vaughn POPE Active AMOXICILLIN 500 MG TABS 2 tabs PO bid x 14 days 05/21 AMOXICILLIN 63079728943 No Longer Active Vaughn POPE Activ e CORTISPORIN 3.5-27353-6 SOLN 4gtts in affected ear QID x 7 days CORTISPORIN 3.5-78287-9 SOLN 297987 NEOMYCIN-POLYMYXIN- HC Inactive ANTIPYRINE-BENZOCAINE 5.4-1.4 % SOLN 1-2 drops in affe cted ear q 3 hours prn ear pain. ANTIPYRINE-BENZOCAINE 5.4-1.4 % SOLN BENZOCAINE-ANTIPYRINE Inactive TYLENOL COLD/FLU SEVERE 8-26-472-325 MG TABS 2 tabs daily prn 20 08/03/29 TYLENOL COLD/FLU SEVERE 3-05-405-325 MG TABS JLVJPIWYPWVVA-UQ-UI-APAP Inactive HYDROCODONE-ACETAMINOPHEN 5-325 MG TABS 1 TAB PO Q 6 HRS PRN 201 02/02/10 HYDROCODONE-ACETAMINOPHEN 5-325 MG TABS 147980 HYDROCODONE-ACETAMINOPHEN Inactive AMOXICILLIN 500 MG TABS 2 tabs PO bid x 14 days 05/21 AMOXICILLIN 500 MG TABS 961448 AMOXICILLIN Inactive AMOXICILLIN 500 MG CAPS 1 cap by mouth three times a day AMOXICILLIN 500 MG CAPS 266978 AMOXICILLIN Inactive BACTRIM DS 800-160 MG TABS 1 po BID x 10 days BACTRIM DS 800-160 MG TABS 288881 SULFAMETHOXAZOLE-TRIMETHOPRIM Inactive BACTRIM DS 800-160 MG TAB [...] Measured Encounters Code Encounter Date Provider Facility CPT-79715 Level 3 Est. Patient 14:21:45 CDT Evens majano [facility] CPT-66398 Level 3 Est. Patient 14:17:31 CDT Evens majano [facility] CPT-28650 Level 3 Est. Patient 16:26:47 DRIVER LICENSE EXAMINER Alon doherty DO [facility] CPT-25118 Level 3 Est. Patient 11:42:21 CDT Gaston Ewing MD [facility] CPT-38820 Level 3 Est. Patient 13:52:22 CDT Todd Rodriguez MD [facility] CPT-44450 Level 3 Est. Patient 12:06:02 DRIVER LICENSE EXAMINER Arsalan gustafson MD [facility] CPT-60570 Level 3 Est. Patient 12:39:55 DRIVER LICENSE EXAMINER Todd Rodriguez MD [facility] CPT-41244 Level 3 Est. Patient 14:18:20 CDT Vaughn POPE [facility] CPT-29675 Level 3 Est. Patient 17:31:27 DRIVER LICENSE EXAMINER Arsalan gustafson MD [facility] CPT-13709 Level 3 Est. Patient 14:37:36 CDT Vaughn Parker [facility] Procedures Code Procedure Name Date Entry Date Standard Desc ription CPT-64203 Chest 2V Frontal and Lat - XRAY USE ONLY 14:37:29 CDT CPT-46337 Postop F/U Visit 13:38:44 CDT CPT-OV Office Visit 14:33:00 CDT CPT-80869 Venipuncture Draw Fee 16:03:08 DRIVER LICENSE EXAMINER CPT-72841 Venipuncture Draw Fee 14:25:48 DRIVER LICENSE EXAMINER CPT-75011 Venipuncture Draw Fee 09:58:28 CDT CPT-59863 Venipuncture Draw Fee 13:38:25 CDT CPT-83030 Venipuncture Draw Fee 14:30:31 CDT CPT-77814 Venipuncture Draw Fee 16:51:54 CDT CPT-97000 Venipuncture Draw Fee 15:30:43 CDT
--- OUTSIDE RECORDS SUMMARY | 2020-03-24 02:36 | XMS REPORT | Clinical Summary ---
Author Author Admin, Yves Jackson Organization [facility] Address Unknown Phone Unavailable Allergies, Adverse Reactions, [...] URI 465.9 Inactive Alon Doyle DO [place] upper respiratory infections of unspecified site Pharyngitis 462 Active Jillina Yasirzell FEATHERER Acute pharyngitis Cough 786.2 Active Jillina Yasirzell FEATHERER Cough CERVICAL LYMPHADENOPATHY, LEFT ICD-785.6 Inact bennett [...] 1 po qd x 4 days AZITHROMYCIN 33588004122 No Longer Active Jillina Frazell FEATHERER Active HYDROCODONE-ACETAMINOPHEN 5-325 MG TABS 1 TAB PO Q 6 HRS PRN 201 02/02/10 HYDROCODONE-ACETAMINOPHEN 29774607039 No Longer Active Jilli na Frazell FEATHERER Active TYLENOL COLD/FLU SEVERE 8-42-194-325 MG TABS 2 tabs daily prn 20 08/03/29 JCCNBNGEFPEXF-QL-TC-APAP 53907277504 No Longer Active Jillin a Frazell FEATHERER Active BACTRIM DS 800-160 MG TAB 1 tab by mouth twice daily 2 TRIMETHOPRIM-SULFAMETHOXAZOLE 09063712807 No Longer Active Evens Mendez A PRN Active BACTRIM DS 800-160 MG TABS 1 po BID x 10 days SULFAMETHOXAZOLE-TRIMETHOPRIM 06657474661 No Longer Active Gaston Ewing MD Active AMOXICILLIN 500 MG CAPS 1 cap by mouth three times a day AMOXICILLIN 78326657258 No Longer Active Todd Rodriguez MD Activ e EQ IBUPROFEN 200 MG TABS 2 tabs every 4 to 6 hours prn IBUPROFEN 51027119877 Active Todd Rodriguez MD Active ANTIPYRINE-BENZOCAINE 5.4-1.4 % SOLN 1-2 drops in affe cted ear q 3 hours prn ear pain. BENZOCAINE-ANTIPYRINE 54466735316 No Longer Act bennett Vaughn POPE Active CORTISPORIN 3.5-80038-8 SOLN 4gtts in affected ear QID x 7 days BANWTTYJ-LOFAEJEVS-CU 65362807961 No Longer Active Vaughn POPE Active AMOXICILLIN 500 MG TABS 2 tabs PO bid x 14 days 05/21 AMOXICILLIN 35825461563 No Longer Active Vaughn POPE Activ e CORTISPORIN 3.5-15436-6 SOLN 4gtts in affected ear QID x 7 days CORTISPORIN 3.5-10019-0 SOLN 598802 NEOMYCIN-POLYMYXIN- HC Inactive ANTIPYRINE-BENZOCAINE 5.4-1.4 % SOLN 1-2 drops in affe cted ear q 3 hours prn ear pain. ANTIPYRINE-BENZOCAINE 5.4-1.4 % SOLN BENZOCAINE-ANTIPYRINE Inactive TYLENOL COLD/FLU SEVERE 4-47-151-325 MG TABS 2 tabs daily prn 20 08/03/29 TYLENOL COLD/FLU SEVERE 8-35-550-325 MG TABS CKBLJERJSTQXZ-NI-IH-APAP Inactive HYDROCODONE-ACETAMINOPHEN 5-325 MG TABS 1 TAB PO Q 6 HRS PRN 201 02/02/10 HYDROCODONE-ACETAMINOPHEN 5-325 MG TABS 274745 HYDROCODONE-ACETAMINOPHEN Inactive AMOXICILLIN 500 MG TABS 2 tabs PO bid x 14 days 05/21 AMOXICILLIN 500 MG TABS 130980 AMOXICILLIN Inactive AMOXICILLIN 500 MG CAPS 1 cap by mouth three times a day AMOXICILLIN 500 MG CAPS 457713 AMOXICILLIN Inactive BACTRIM DS 800-160 MG TABS 1 po BID x 10 days BACTRIM DS 800-160 MG TABS 492217 SULFAMETHOXAZOLE-TRIMETHOPRIM Inactive BACTRIM DS 800-160 MG TAB 1 tab by mouth twice daily 2 BACTRIM DS 800-160 MG TAB 012357 TRIMETHOPRIM-SULFAMETHOXAZOLE Inac tive AZITHROMYCIN 250 MG TABS 2 po qd x 1 day, then 1 po qd x 4 days AZITHROMYCIN 250 MG TABS 7506921 AZITHROMYCIN Inactiv e Vital Signs Date Name [...] 10*3/mm3 Encounters Code Encounter Date Provider Facility CPT-07371 Level 3 Est. Patient 14:21:45 CDT Docshira Lee glasgowjacqui [facility] CPT-72333 Level 3 Est. Patient 14:17:31 CDT Evens Lee melecio [facility] CPT-31681 Level 3 Est. Patient 16:26:47 INDUSTRIAL EDITOR Alon doherty DO [facility] CPT-64019 Level 3 Est. Patient 11:42:21 CDT Gaston Ewing MD [facility] CPT-26013 Level 3 Est. Patient 13:52:22 CDT Todd Rodriguez MD [facility] CPT-47410 Level 3 Est. Patient 12:06:02 INDUSTRIAL EDITOR Arsalan gustafson MD [facility] CPT-19706 Level 3 Est. Patient 12:39:55 INDUSTRIAL EDITOR Todd Rodriguez MD [facility] CPT-13043 Level 3 Est. Patient 14:18:20 CDT Vaughn Parker [facility] CPT-52194 Level 3 Est. Patient 17:31:27 INDUSTRIAL EDITOR Arsalan gustafson MD [facility] CPT-57192 Level 3 Est. Patient 14:37:36 CDT Vaughn Parker [facility] Procedures Code Procedure Name Date Entry Date Standard Desc ription CPT-60385 Chest 2V Frontal and Lat - XRAY USE ONLY 14:37:29 CDT CPT-38558 Postop F/U Visit 13:38:44 CDT CPT-OV Office Visit 14:33:00 CDT CPT-09390 Venipuncture Draw Fee 16:03:08 INDUSTRIAL EDITOR CPT-80311 Venipuncture Draw Fee 14:25:48 INDUSTRIAL EDITOR CPT-67352 Venipuncture Draw Fee 09:58:28 CDT CPT-25830 Venipuncture Draw Fee 13:38:25 CDT CPT-45312 Venipuncture Draw Fee 14:30:31 CDT CPT-03906 Venipuncture Draw Fee 16:51:54 CDT CPT-50884 Venipuncture Draw Fee 15:30:43 CDT
--- OUTSIDE RECORDS SUMMARY | 2020-03-24 02:36 | XMS REPORT | Clinical Summary ---
Author Author Admin, Yves Jackson Organization [facility] Address Unknown Phone Unavailable Allergies, Adverse Reactions, [...] for administrative purposes URI 465.9 Active Alon Doyle DO Acu te upper respiratory infections of unspecified site OTITIS EXTERNA ICD-380.10 Inactive Todd Cotto MD CERVICAL LYMPHADENOPATHY, LEFT ICD-785.6 Inact bennett Todd Rodriguez MD Acute pharyngitis ICD-462 Inactive Todd ferreira MD Pharyngitis ICD-462 Inactive Gaston Ewing MD LONG-TERM (CURRENT) USE OF OTHER MEDICATIONS ICD-V58.69 2 Inactive Gaston Ewnig MD Malaise and fatigue ICD-780.79 Inactive Chelsey Ewing MD Medication List Medication Instructions Start Date Stop Date Generic Name NDC Status Provider Patient Instruction HYDROCODONE-ACETAMINOPHEN 5-325 MG TABS 1 TAB PO Q 6 HRS PRN 201 02/02/10 HYDROCODONE-ACETAMINOPHEN [id number] No Longer Active Jilli na Frazell COOKER CASING Active TYLENOL COLD/FLU SEVERE 3-55-241-325 MG TABS 2 tabs daily prn 20 08/03/29 [id number]-CY-CR-APAP 59667415359 No Longer Active Jillin a Frazell COOKER CASING Active BACTRIM DS 800-160 MG TAB 1 tab by mouth twice daily 2 TRIMETHOPRIM-SULFAMETHOXAZOLE 00113029958 No Longer Active Jillina Frazell A PRN Active BACTRIM DS 800-160 MG TABS 1 po BID x 10 days SULFAMETHOXAZOLE-TRIMETHOPRIM 17393444196 No Longer Active Gaston Ewing MD Active AMOXICILLIN 500 MG CAPS 1 cap by mouth three times a day AMOXICILLIN 36221383488 No Longer Active Todd Rodriguez MD Activ e EQ IBUPROFEN 200 MG TABS 2 tabs every 4 to 6 hours prn IBUPROFEN 83288850850 Active Todd Rodriguez MD Active ANTIPYRINE-BENZOCAINE 5.4-1.4 % SOLN 1-2 drops in affe cted ear q 3 hours prn ear pain. BENZOCAINE-ANTIPYRINE 78759097672 No Longer Act bennett Vaughn POPE Active CORTISPORIN 3.5-31571-1 SOLN 4gtts in affected ear QID x 7 days [id number]-YZ 27152141542 No Longer Active Vaughn POPE Active AMOXICILLIN 500 MG TABS 2 tabs PO bid x 14 days 05/21 AMOXICILLIN 38268293123 No Longer Active Vaughn POPE Activ e CORTISPORIN 3.5-80081-1 SOLN 4gtts in affected ear QID x 7 days CORTISPORIN 3.5-14559-7 SOLN 925914 NEOMYCIN-POLYMYXIN- HC Inactive ANTIPYRINE-BENZOCAINE 5.4-1.4 % SOLN 1-2 drops in affe cted ear q 3 hours prn ear pain. ANTIPYRINE-BENZOCAINE 5.4-1.4 % SOLN 2443 09 BENZOCAINE-ANTIPYRINE Inactive TYLENOL COLD/FLU SEVERE 4-96-770-325 MG TABS 2 tabs daily prn 20 08/03/29 TYLENOL COLD/FLU SEVERE 7-38-851-325 MG TABS [id number]-APAP Inactive HYDROCODONE-ACETAMINOPHEN 5-325 MG TABS 1 TAB PO Q 6 HRS PRN 201 02/02/10 HYDROCODONE-ACETAMINOPHEN 5-325 MG TABS 029136 HYDROCODONE-ACETAMINOPHEN Inactive AMOXICILLIN 500 MG TABS 2 tabs PO bid x 14 days 05/21 AMOXICILLIN 500 MG TABS 279779 AMOXICILLIN Inactive AMOXICILLIN 500 MG CAPS 1 cap by mouth three times a day AMOXICILLIN 500 MG CAPS 599274 AMOXICILLIN Inactive BACTRIM DS 800-160 MG TABS [...] Measured Encounters Code Encounter Date Provider Facility CPT-78330 Level 3 Est. Patient 16:26:47 BRAND DIRECTOR Alon doherty DO [facility] CPT-89683 Level 3 Est. Patient 11:42:21 CDT Gaston Ewing MD [facility] CPT-77057 Level 3 Est. Patient 13:52:22 CDT Todd Rodriguez MD [facility] CPT-40896 Level 3 Est. Patient 12:06:02 BRAND DIRECTOR Arsalan gustafson MD [facility] CPT-01799 Level 3 Est. Patient 12:39:55 BRAND DIRECTOR Todd Rodriguez MD [facility] CPT-24740 Level 3 Est. Patient 14:18:20 CDT Vaughn Parker [facility] CPT-90713 Level 3 Est. Patient 17:31:27 BRAND DIRECTOR Arsalan gustafson MD [facility] CPT-21083 Level 3 Est. Patient 14:37:36 CDT Vaughn Parker [facility] Procedures Code Procedure Name Date Entry Date Standard Desc ription CPT-78873 Postop F/U Visit 13:38:44 CDT CPT-OV Office Visit 14:33:00 CDT CPT-73214 Venipuncture Draw Fee 16:03:08 BRAND DIRECTOR CPT-73798 Venipuncture Draw Fee 14:25:48 BRAND DIRECTOR CPT-94850 Venipuncture Draw Fee 09:58:28 CDT CPT-16946 Venipuncture Draw Fee 13:38:25 CDT CPT-52780 Venipuncture Draw Fee 14:30:31 CDT CPT-23526 Venipuncture Draw Fee 16:51:54 CDT CPT-59228 Venipuncture Draw Fee 15:30:43 CDT
--- OUTSIDE RECORDS SUMMARY | 2020-03-24 02:36 | XMS REPORT | Clinical Summary ---
Author Author Admin, Yves Jackson Organization [facility] Address Unknown Phone Unavailable Allergies, Adverse [...] unspecified site Pharyngitis 462 Active Jillina Yasirzell UNLEAVENED DOUGH MIXER Acute pharyngitis Cough 786.2 Active Jillina Frazell UNLEAVENED DOUGH MIXER Cough OTITIS EXTERNA ICD-380.10 Inactive Todd Cotto MD LONG-TERM (CURRENT) USE OF OTHER MEDICATIONS ICD-V58.69 2 Inactive Gaston Ewing MD Acute pharyngitis ICD-462 Inactive Todd ferreira MD Malaise and fatigue ICD-780.79 Inactive Chelsey Ewing MD Pharyngitis ICD-462 Inactive Gaston Ewing MD URI ICD-465.9 Inactive Alon Doyle DO CERVICAL LYMPHADENOPATHY, LEFT ICD-785.6 Inact bennett Todd Rodriguez MD Medication List Medication Instructions Start Date Stop Date Generic Name NDC Status Provider Patient Instruction AZITHROMYCIN 250 MG TABS 2 po qd x 1 day, then 1 po qd x 4 days AZITHROMYCIN 44870537209 No Longer Active Jillina Frazell UNLEAVENED DOUGH MIXER Active HYDROCODONE-ACETAMINOPHEN 5-325 MG TABS 1 TAB PO Q 6 HRS PRN 201 02/02/10 HYDROCODONE-ACETAMINOPHEN 65045970399 No Longer Active Jilli na Frazell UNLEAVENED DOUGH MIXER Active TYLENOL COLD/FLU SEVERE 2-57-069-325 MG TABS 2 tabs daily prn 20 08/03/29 [id number]-APAP 79100840982 No Longer Active Jillin a Frazell UNLEAVENED DOUGH MIXER Active BACTRIM DS 800-160 MG TAB 1 tab by mouth twice daily 2 TRIMETHOPRIM-SULFAMETHOXAZOLE 28313038152 No Longer Active Evens Mendez A PRN Active BACTRIM DS 800-160 MG TABS 1 po BID x 10 days SULFAMETHOXAZOLE-TRIMETHOPRIM 66144941843 No Longer Active Gaston Ewing MD Active AMOXICILLIN 500 MG CAPS 1 cap by mouth three times a day AMOXICILLIN 64444093082 No Longer Active Todd Rodriguez MD Activ e EQ IBUPROFEN 200 MG TABS 2 tabs every 4 to 6 hours prn IBUPROFEN 75777805639 Active Todd Rodriguez MD Active ANTIPYRINE-BENZOCAINE 5.4-1.4 % SOLN 1-2 drops in affe cted ear q 3 hours prn ear pain. BENZOCAINE-ANTIPYRINE 31192077729 No Longer Act bennett Vaughn POPE Active CORTISPORIN 3.5-69166-2 SOLN 4gtts in affected ear QID x 7 days [id number]-XYOBLAUJD-BV 60322060639 No Longer Active Vaughn POPE Active AMOXICILLIN 500 MG TABS 2 tabs PO bid x 14 days 05/21 AMOXICILLIN 38390237228 No Longer Active Vaughn POPE Activ e CORTISPORIN 3.5-94893-2 SOLN 4gtts in affected ear QID x 7 days CORTISPORIN 3.5-87434-7 SOLN 449696 NEOMYCIN-POLYMYXIN- HC Inactive ANTIPYRINE-BENZOCAINE 5.4-1.4 % SOLN 1-2 drops in affe cted ear q 3 hours prn ear pain. ANTIPYRINE-BENZOCAINE 5.4-1.4 % SOLN BENZOCAINE-ANTIPYRINE Inactive TYLENOL COLD/FLU SEVERE 0-71-104-325 MG TABS 2 tabs daily prn 20 08/03/29 TYLENOL COLD/FLU SEVERE 5-42-391-325 MG TABS [id number]-APAP Inactive HYDROCODONE-ACETAMINOPHEN 5-325 MG TABS 1 TAB PO Q 6 HRS PRN 201 02/02/10 HYDROCODONE-ACETAMINOPHEN 5-325 MG TABS 515288 HYDROCODONE-ACETAMINOPHEN Inactive AMOXICILLIN 500 MG TABS 2 tabs PO bid x 14 days 05/21 AMOXICILLIN 500 MG TABS 375411 AMOXICILLIN Inactive AMOXICILLIN 500 MG CAPS 1 cap by mouth three times a day AMOXICILLIN 500 MG CAPS 298739 AMOXICILLIN Inactive BACTRIM DS 800-160 MG TABS 1 po BID x 10 days BACTRIM DS 800-160 MG TABS 454025 SULFAMETHOXAZOLE-TRIMETHOPRIM Inactive BACTRIM DS 800-160 MG TAB 1 tab by mouth twice daily 2 BACTRIM DS 800-160 MG TAB 829896 TRIMETHOPRIM-SULFAMETHOXAZOLE Inac tive AZITHROMYCIN 250 MG TABS 2 po qd x 1 day, then 1 po qd x 4 days AZITHROMYCIN 250 MG TABS 1754182 AZITHROMYCIN Inactiv e Vital Signs Date Name [...] 10*3/mm3 Encounters Code Encounter Date Provider Facility CPT-99753 Level 3 Est. Patient 14:21:45 CDT Docshira Lee glasgowjacqui [facility] CPT-97383 Level 3 Est. Patient 14:17:31 CDT Evens Lee melecio [facility] CPT-88761 Level 3 Est. Patient 16:26:47 RECYCLE DRIVER Alon doherty DO [facility] CPT-22821 Level 3 Est. Patient 11:42:21 CDT Gaston Ewing MD [facility] CPT-02787 Level 3 Est. Patient 13:52:22 CDT Todd Rodriguez MD [facility] CPT-13532 Level 3 Est. Patient 12:06:02 RECYCLE DRIVER Arsalan gustafson MD [facility] CPT-30251 Level 3 Est. Patient 12:39:55 RECYCLE DRIVER Todd Rodriguez MD [facility] CPT-53688 Level 3 Est. Patient 14:18:20 CDT Vaughn Parker [facility] CPT-11186 Level 3 Est. Patient 17:31:27 RECYCLE DRIVER Arsalan gustafson MD [facility] CPT-31478 Level 3 Est. Patient 14:37:36 CDT Vaughn Parker [facility] Procedures Code Procedure Name Date Entry Date Standard Desc ription CPT-08664 Chest 2V Frontal and Lat - XRAY USE ONLY 14:37:29 CDT CPT-21482 Postop F/U Visit 13:38:44 CDT CPT-OV Office Visit 14:33:00 CDT CPT-61382 Venipuncture Draw Fee 16:03:08 RECYCLE DRIVER CPT-82520 Venipuncture Draw Fee 14:25:48 RECYCLE DRIVER CPT-87256 Venipuncture Draw Fee 09:58:28 CDT CPT-43164 Venipuncture Draw Fee 13:38:25 CDT CPT-83539 Venipuncture Draw Fee 14:30:31 CDT CPT-38690 Venipuncture Draw Fee 16:51:54 CDT CPT-78395 Venipuncture Draw Fee 15:30:43 CDT
--- OUTSIDE RECORDS SUMMARY | 2020-03-24 02:36 | XMS REPORT | Clinical Summary ---
Author Author Admin, Yves Jackson Organization [facility] Address Unknown Phone Unavailable Allergies, Adverse Reactions, Alerts Allergy Name Reaction Description Start Date Severity Status Pr ovider No Known Allergies oRsa Pinedaughan RMA NKDA Critical Active Vaughn POPE [...] URI 465.9 Inactive Alon Doyle DO Ac [place] upper respiratory infections of unspecified site Pharyngitis [...] by mouth days two and three PREDNISONE 70841123365 No Longer Active Arsalan Carmichael MD Active AZITHROMYCIN 250 MG ORAL TABLET 2 po qd x 1 day, then 1 po q d x 4 days AZITHROMYCIN 45789271193 No Longer Active Evens ervin APRN Active HYDROCODONE-ACETAMINOPHEN 5-325 MG ORAL TABLET 1 TAB PO Q 6 HRS PRN HYDROCODONE-ACETAMINOPHEN 76012180625 No Longer Active Alonso Mendez CARBON SETTER Active TYLENOL COLD/FLU SEVERE 0-50-753-325 MG ORAL TABLET 2 tabs daily prn UKRSECNDRZTGS-YW-GW-APAP 79415514698 No Longer Active Genesisin a Sharonl CARBON SETTER Active BACTRIM DS 800-160 MG ORAL TABLET 1 tab by mouth twice daily 201 01/30/22 TRIMETHOPRIM-SULFAMETHOXAZOLE 28891357609 No Longer Active Manuel Cooleyzell CARBON SETTER Active BACTRIM DS 800-160 MG ORAL TABLET 1 po BID x 10 days 2 SULFAMETHOXAZOLE-TRIMETHOPRIM 72346908425 No Longer Active Gaston Ewing MD Active AMOXICILLIN 500 MG ORAL CAPSULE 1 cap by mouth three times a day AMOXICILLIN 59168248165 No Longer Active Todd Rodriguez MD Active EQ IBUPROFEN 200 MG ORAL TABLET 2 tabs every 4 to 6 hours prn 03/23 IBUPROFEN 48626683498 Active Todd Rodriguez MD Active ANTIPYRINE-BENZOCAINE 5.4-1.4 % OTIC SOLUTION 1-2 drop s in affected ear q 3 hours prn ear pain. BENZOCAINE-ANTIPYRINE 68849228550 No Longer Active Vaughn POPE Active CORTISPORIN 3.5-51798-8 OTIC SOLUTION 4gtts in affected ear QID x 7 days [id number]-HIUZREUVS-EU 55296828005 No Longer Active lexi POPE Active AMOXICILLIN 500 MG ORAL TABLET 2 tabs PO bid x 14 days AMOXICILLIN 21289522546 No Longer Active Vaughn POPE Activ e CORTISPORIN 3.5-87970-0 OTIC SOLUTION 4gtts in affected ear QID x 7 days CORTISPORIN 3.5-69882-0 OTIC SOLUTION 405938 [id number]-BAWIDULQQ-OM Inactive ANTIPYRINE-BENZOCAINE 5.4-1.4 % OTIC SOLUTION 1-2 drop s in affected ear q 3 hours prn ear pain. ANTIPYRINE-BENZOCAIN E 5.4-1.4 % OTIC SOLUTION 170643 BENZOCAINE-ANTIPYRINE Inactive TYLENOL COLD/FLU SEVERE 5-13-478-325 MG ORAL TABLET 2 tabs daily prn TYLENOL COLD/FLU SEVERE 5-02-975-325 MG ORAL TABLET [id number]-XL-TP-APAP Inactive HYDROCODONE-ACETAMINOPHEN 5-325 MG ORAL TABLET 1 TAB PO Q 6 HRS PRN HYDROCODONE-ACETAMINOPHEN 5-325 MG ORAL TABLET 049130 HYDROCODONE-ACETAMINOPHEN Inactive PREDNISONE 20 MG ORAL TABLET two tabs by mouth today, then one tab by mouth days two and three PREDNISONE 20 MG ORAL TABLET 690891 PREDNISONE Inactive AMOXICILLIN 500 MG ORAL TABLET 2 tabs PO bid x 14 days AMOXICILLIN 500 MG ORAL TABLET 254858 AMOXICILLIN Inactive AMOXICILLIN 500 MG ORAL CAPSULE 1 cap by mouth three times a day AMOXICILLIN 500 MG ORAL CAPSULE 672876 AMOXICILLIN Inactive BACTRIM DS 800-160 MG ORAL TABLET 1 po BID x 10 days 2 BACTRIM DS 800-160 MG ORAL TABLET 300076 SULFAMETHOXAZOLE-TRIMETHOP RIM Inactive BACTRIM DS 800-160 MG ORAL TABLET 1 tab by mouth twice daily 201 01/30/22 BACTRIM DS 800-160 MG ORAL TABLET 471323 TRIMETHOPRIM-SULFAMETHOXAZOLE Inactive AZITHROMYCIN 250 MG ORAL TABLET 2 po qd x 1 day, then 1 po q d x 4 days AZITHROMYCIN 250 MG ORAL TABLET 958312 AZITHROMY PORSHA Inactive Vital Signs Date Name [...] U/L Chart Maintenance: Outside labs entered on [employer] - Hematology leukocyte count, blood 6.7 10*3/mm3 hemoglobin, blood 13.5 g/dL platelet count 248 10*3/mm3 Lab Report: Rapid Strep - Lab Microbial identification kit, rapid strep method Negative Negative Encounters Code Encounter Date Provider Facility CPT-77289 Level 3 Est. Patient 15:04:20 CHANGE AGENT Arsalan gustafson MD [facility] CPT-69077 Level 3 Est. Patient 15:11:28 CHANGE AGENT Alon doherty DO [facility] CPT-05078 Level 3 Est. Patient 14:21:45 CDT Jillina F razell [facility] CPT-48203 Level 3 Est. Patient 14:17:31 CDT Evens majano [facility] CPT-14938 Level 3 Est. Patient 16:26:47 CHANGE AGENT Alon doherty DO [facility] CPT-13354 Level 3 Est. Patient 11:42:21 CDT Gaston Ewing MD [facility] CPT-98566 Level 3 Est. Patient 13:52:22 CDT Todd Rodriguez MD [facility] CPT-82190 Level 3 Est. Patient 12:06:02 CHANGE AGENT Arsalan gustafson MD [facility] CPT-51672 Level 3 Est. Patient 12:39:55 CHANGE AGENT Todd Rodriguez MD [facility] CPT-92524 Level 3 Est. Patient 14:18:20 CDT Vaughn Parker [facility] CPT-63770 Level 3 Est. Patient 17:31:27 CHANGE AGENT Arsalan gustafson MD [facility] CPT-58803 Level 3 Est. Patient 14:37:[address] [facility] Procedures Code Procedure Name Date Entry Date Standard Desc ription CPT-35308 Chest 2V Frontal and Lat - XRAY USE ONLY 14:37:29 CDT CPT-65150 Postop F/U Visit 13:38:44 CDT CPT-OV Office Visit 14:33:00 CDT CPT-95488 Venipuncture Draw Fee 16:03:08 CHANGE AGENT CPT-24780 Venipuncture Draw Fee 14:25:48 CHANGE AGENT CPT-87000 Venipuncture Draw Fee 09:58:28 CDT CPT-91579 Venipuncture Draw Fee 13:38:25 CDT CPT-49899 Venipuncture Draw Fee 14:30:31 CDT CPT-96531 Venipuncture Draw Fee 16:51:54 CDT CPT-94310 Venipuncture Draw Fee 15:30:43 CDT
--- OUTSIDE RECORDS SUMMARY | 2020-03-24 02:36 | XMS REPORT | Clinical Summary ---
[...] URI 465.9 Inactive Alon Doyle DO [place] upper respiratory infections of unspecified site Pharyngitis 462 Active Jillina Yasirzell CREW BOSS Acute pharyngitis Cough 786.2 Active Jillina Frazell CREW BOSS Cough CERVICAL LYMPHADENOPATHY, LEFT ICD-785.6 Inact bennett [...] Q 6 HRS PRN 201 02/02/10 HYDROCODONE-ACETAMINOPHEN 96592999324 No Longer Active Jilli na Frazell CREW BOSS Active TYLENOL COLD/FLU SEVERE 8-49-377-325 MG TABS 2 tabs daily prn 20 08/03/29 AWGJRWYJRVJRH-ZL-EP-APAP 37683326001 No Longer Active Jillin a Frazell CREW BOSS Active BACTRIM DS 800-160 MG TAB 1 tab by mouth twice daily 2 TRIMETHOPRIM-SULFAMETHOXAZOLE 08773086130 No Longer Active Jillina Frazell A PRN Active BACTRIM DS 800-160 MG TABS 1 po BID x 10 days SULFAMETHOXAZOLE-TRIMETHOPRIM 74688649121 No Longer Active Gaston Ewing MD Active AMOXICILLIN 500 MG CAPS 1 cap by mouth three times a day AMOXICILLIN 37782611652 No Longer Active Todd Rodriguez MD Activ e EQ IBUPROFEN 200 MG TABS 2 tabs every 4 to 6 hours prn IBUPROFEN 03659343833 Active Todd Rodriguez MD Active ANTIPYRINE-BENZOCAINE 5.4-1.4 % SOLN 1-2 drops in affe cted ear q 3 hours prn ear pain. BENZOCAINE-ANTIPYRINE 52093494259 No Longer Act bennett POPE Active CORTISPORIN 3.5-68493-9 SOLN 4gtts in affected ear QID x 7 days [id number]-TPNRZWTOQ-IY 52536121728 No Longer Active Vaughn POPE Active AMOXICILLIN 500 MG TABS 2 tabs PO bid x 14 days 05/21 AMOXICILLIN 57007892370 No Longer Active Vaughn POPE Activ e CORTISPORIN 3.5-93995-1 SOLN 4gtts in affected ear QID x 7 days CORTISPORIN 3.5-29826-0 SOLN 858314 NEOMYCIN-POLYMYXIN- HC Inactive ANTIPYRINE-BENZOCAINE 5.4-1.4 % SOLN 1-2 drops in affe cted ear q 3 hours prn ear pain. ANTIPYRINE-BENZOCAINE 5.4-1.4 % SOLN BENZOCAINE-ANTIPYRINE Inactive TYLENOL COLD/FLU SEVERE 7-68-738-325 MG TABS 2 tabs daily prn 20 08/03/29 TYLENOL COLD/FLU SEVERE 1-79-356-325 MG TABS [id number]-VC-KR-APAP Inactive HYDROCODONE-ACETAMINOPHEN 5-325 MG TABS 1 TAB PO Q 6 HRS PRN 201 02/02/10 HYDROCODONE-ACETAMINOPHEN 5-325 MG TABS 768537 HYDROCODONE-ACETAMINOPHEN Inactive AMOXICILLIN 500 MG TABS 2 tabs PO bid x 14 days 05/21 AMOXICILLIN 500 MG TABS 861651 AMOXICILLIN Inactive AMOXICILLIN 500 MG CAPS 1 cap by mouth three times a day AMOXICILLIN 500 MG CAPS 878265 AMOXICILLIN Inactive BACTRIM DS 800-160 MG TABS 1 po BID x 10 days BACTRIM DS 800-160 MG TABS 442247 SULFAMETHOXAZOLE-TRIMETHOPRIM Inactive BACTRIM DS 800-160 MG TAB [...] Measured Encounters Code Encounter Date Provider Facility CPT-56954 Level 3 Est. Patient 14:21:45 CDT Evens majano [facility] CPT-49740 Level 3 Est. Patient 14:17:31 CDT Evens majano [facility] CPT-30697 Level 3 Est. Patient 16:26:47 COUNSELING PROGRAM LEADER Alon doherty DO [facility] CPT-78614 Level 3 Est. Patient 11:42:21 CDT Gaston Ewing MD [facility] CPT-33980 Level 3 Est. Patient 13:52:22 CDT Todd Rodriguez MD [facility] CPT-79879 Level 3 Est. Patient 12:06:02 COUNSELING PROGRAM LEADER Arsalan gustafson MD [facility] CPT-54910 Level 3 Est. Patient 12:39:55 COUNSELING PROGRAM LEADER Todd Rodriguez MD [facility] CPT-26345 Level 3 Est. Patient 14:18:20 CDT Vaughn POPE [facility] CPT-78085 Level 3 Est. Patient 17:31:27 COUNSELING PROGRAM LEADER Arsalan gustafson MD [facility] CPT-71159 Level 3 Est. Patient 14:37:36 CDT Vaughn Parker [facility] Procedures Code Procedure Name Date Entry Date Standard Desc ription CPT-49111 Chest 2V Frontal and Lat - XRAY USE ONLY 14:37:29 CDT CPT-66397 Postop F/U Visit 13:38:44 CDT CPT-OV Office Visit 14:33:00 CDT CPT-40992 Venipuncture Draw Fee 16:03:08 COUNSELING PROGRAM LEADER CPT-34501 Venipuncture Draw Fee 14:25:48 COUNSELING PROGRAM LEADER CPT-64654 Venipuncture Draw Fee 09:58:28 CDT CPT-67154 Venipuncture Draw Fee 13:38:25 CDT CPT-00500 Venipuncture Draw Fee 14:30:31 CDT CPT-50870 Venipuncture Draw Fee 16:51:54 CDT CPT-62892 Venipuncture Draw Fee 15:30:43 CDT
--- OUTSIDE RECORDS SUMMARY | 2020-03-24 02:37 | XMS REPORT | Clinical Summary ---
Author Author Admin, Yves Jackson Organization [facility] Address Unknown Phone Unavailable Allergies, [...] Acute pharyngitis Malaise and fatigue 780.79 Resolved Gatson abrams MD Other malaise and fatigue Pharyngitis 462 Resolved Gaston Ewing MD Acute pharyngitis Sebaceous cyst, infected 706.2 Active Kylah Ewing MD Sebaceous cyst CERVICAL LYMPHADENOPATHY, LEFT ICD-785.6 Inact bennett Todd [...] Generic Name NDC Status Provider Patient Instruction BACTRIM DS 800-160 MG TAB 1 tab by mouth twice daily 2 TRIMETHOPRIM-SULFAMETHOXAZOLE 19343925326 No Longer Active Jillina Frazell A PRN Active BACTRIM DS 800-160 MG TABS 1 po BID x 10 days SULFAMETHOXAZOLE-TRIMETHOPRIM 35863993209 No Longer Active Gaston Ewing MD Active AMOXICILLIN 500 MG CAPS 1 cap by mouth three times a day AMOXICILLIN 87563965124 No Longer Active Todd Rodriguez MD Activ e EQ IBUPROFEN 200 MG TABS 2 tabs every 4 to 6 hours prn IBUPROFEN 20688510623 Active Todd Rodriguez MD Active TYLENOL COLD/FLU SEVERE 7-86-914-325 MG TABS 2 tabs daily prn 03/23 [id number] 38046680312 Active Todd Rodriguez MD Active ANTIPYRINE-BENZOCAINE 5.4-1.4 % SOLN 1-2 drops in affe cted ear q 3 hours prn ear pain. BENZOCAINE-ANTIPYRINE 93111764258 No Longer Act bennett Vaughn POPE Active CORTISPORIN 3.5-77099-5 SOLN 4gtts in affected ear QID x 7 days [id number] 44464737024 No Longer Active Vaughn POPE Active AMOXICILLIN 500 MG TABS 2 tabs PO bid x 14 days 05/21 AMOXICILLIN 09617948793 No Longer Active Vaughn Parker PA Activ e CORTISPORIN 3.5-22501-1 SOLN 4gtts in affected ear QID x 7 days CORTISPORIN 3.5-31714-1 SOLN 818173 NEOMYCIN-POLYMYXIN- HC Inactive ANTIPYRINE-BENZOCAINE 5.4-1.4 % SOLN 1-2 drops in affe cted ear q 3 hours prn ear pain. ANTIPYRINE-BENZOCAINE 5.4-1.4 % SOLN 2443 09 BENZOCAINE-ANTIPYRINE Inactive AMOXICILLIN 500 MG TABS 2 tabs PO bid x 14 days 05/21 AMOXICILLIN 500 MG TABS 344626 AMOXICILLIN Inactive AMOXICILLIN 500 MG CAPS 1 cap by mouth three times a day AMOXICILLIN 500 MG CAPS 696911 AMOXICILLIN Inactive BACTRIM DS 800-160 MG TABS 1 po BID x 10 days BACTRIM DS 800-160 MG TABS SULFAMETHOXAZOLE-TRIMETHOPRIM Inactive BACTRIM DS 800-160 MG TAB 1 tab by mouth twice daily 2 BACTRIM DS 800-160 MG TAB TRIMETHOPRIM-SULFAMETHOXAZOLE Inac tive Vital Signs Date Name Value Unit Range Description blood pressure, diastolic - 8462-4 70 mm[Hg] BP matos blood pressure, systolic - 8480-6 106 mm[Hg] BP sys height E&M - 8302-2 67 [in_us] Bdy h eight pulse rate E&M - 8867-4 69 /min H eart rate temperature E&M 98.8 [degF] Body temp erature weight E&M - 3141-9 129 [lb_av] Weigh t Measured blood pressure, diastolic - 8462-4 75 mm[Hg] BP matos blood pressure, systolic - 8480-6 124 mm[Hg] BP sys pulse rate E&M - 8867-4 63 /min H eart rate temperature E&M 97.4 [degF] Body temp erature weight E&M - 3141-9 129 [lb_av] Weigh t Measured blood pressure, diastolic - 8462-4 81 mm[Hg] BP matos blood pressure, systolic - 8480-6 128 mm[Hg] BP sys height E&M - 8302-2 67 [in_us] Bdy h eight pulse rate E&M - 8867-4 87 /min H eart rate temperature E&M 101.1 [degF] Body temp erature weight E&M - 3141-9 129.8 [lb_av] Weigh t Measured blood pressure, diastolic - 8462-4 85 mm[Hg] BP matos blood pressure, systolic - 8480-6 139 mm[Hg] BP sys height E&M - 8302-2 66 [in_us] Bdy h eight pulse rate E&M - 8867-4 80 /min H eart rate temperature E&M 97.5 [degF] Body temp erature weight E&M - 3141-9 123 [lb_av] Weigh t Measured blood pressure, diastolic - 8462-4 76 mm[Hg] BP matos blood pressure, systolic - 8480-6 124 mm[Hg] BP sys height E&M - 8302-2 66 [in_us] Bdy h eight pulse rate E&M - 8867-4 66 /min H eart rate temperature E&M 98.0 [degF] Body temp erature weight E&M - 3141-9 126.19 [lb_av] Weigh t Measured Diagnostic Results Date Name Value Unit Range Description Lab Report: ALT, Alk Phos, AST, CBC W/DI FF, Lipid Panel - Chemistry alanine aminotransferase (SGPT), serum 27 U/L 12-78 alkaline phosphatase, serum 233 U/L 50-136 aspartate aminotransferase (SGOT), serum 20 U/L 15-37 cholesterol, serum 130 mg/dL 389-413 4827/12/02 triglyceride, serum, fasting 43 mg/dL 30-200 HDL cholesterol, serum 70 mg/dL 32-96 LDL cholesterol, serum 51 mg/dL 0-130 Lab Report: ALT, Alk Phos, AST, CBC W/DI FF, Lipid Panel - Hematology leukocyte count, blood 5.8 10^3/MM^3 10*3/mm3 4.6-10.2 neutrophils as percent of blood leukocytes 53.4 % 42.2-75.2 monocytes as percent of blood leukocytes 7.9 % 1.7-9.3 lymphocytes as percent of blood leukocytes 37.1 % 20.5-51.1 erythrocyte (RBC) count 4.96 10^6/MM^3 10*6/mm3 4.69-6.1 3 hemoglobin, blood 13.6 g/dL 12.0-16.0 hematocrit, blood 41.1 % 37.0-49.0 mean corpuscular volume, RBC 83 fL 80-97 mean corpuscular hemoglobin, RBC 27.4 pg 27. 0-31.2 mean corpuscular hemoglobin concentration, RBC 33.0 G/DL % 31.8-35.4 red blood cell distribution width 13.5 % 11 .6-14.8 platelet count 258 10^3/MM^3 10*3/mm3 142-424 Lab Report: CBC W/DIFF, AST, ALT, Alk Ph os, Cholesterol, HDL - Chemistry aspartate aminotransferase (SGOT), serum 21 U/L 15-37 alanine aminotransferase (SGPT), serum 26 U/L 12-78 alkaline phosphatase, serum 302 U/L 50-136 cholesterol, serum 111 mg/dL 136-371 4517/10/16 HDL cholesterol, serum 61 mg/dL 32-96 Lab Report: CBC W/DIFF, AST, ALT, Alk Ph os, Cholesterol, HDL - Hematology leukocyte count, blood 7.0 10^3/MM^3 10*3/mm3 4.6-10.2 neutrophils as percent of blood leukocytes 64.5 % 42.2-75.2 monocytes as percent of blood leukocytes 11.6 % 1.7-9.3 lymphocytes as percent of blood leukocytes 21.8 % 20.5-51.1 erythrocyte (RBC) count 5.03 10^6/MM^3 10*6/mm3 4.69-6.1 3 hemoglobin, blood 13.7 g/dL 12.0-16.0 hematocrit, blood 42.1 % 37.0-49.0 mean corpuscular volume, RBC 84 fL 80-97 mean corpuscular hemoglobin, RBC 27.2 pg 27. 0-31.2 mean corpuscular hemoglobin concentration, RBC 32.5 G/DL % 31.8-35.4 red blood cell distribution width 14.0 % 11 .6-14.8 platelet count 241 10^3/MM^3 10*3/mm3 142-424 Lab Report: CBC W/DIFF, Lipid Panel, AST , ALT, Alk Phos, Manual Diff/Mor ... - Chemistry cholesterol, serum 121 mg/dL 254-324 9202/01/03 triglyceride, serum, fasting 23 mg/dL 30-200 HDL cholesterol, serum 58 mg/dL 32-96 LDL cholesterol, serum 58 mg/dL 0-130 aspartate aminotransferase (SGOT), serum 17 U/L 15-37 alanine aminotransferase (SGPT), serum 21 U/L 12-78 alkaline phosphatase, serum 204 U/L 50-136 Lab Report: CBC W/DIFF, Lipid Panel, AST , ALT, Alk Phos, Manual Diff/Mor ... - Hematology leukocyte count, blood 5.1 10^3/MM^3 10*3/mm3 4.6-10.2 neutrophils as percent of blood leukocytes 38.4 % 42.2-75.2 monocytes as percent of blood leukocytes 10.4 % 1.7-9.3 lymphocytes as percent of blood leukocytes 49.5 % 20.5-51.1 erythrocyte (RBC) count 4.84 10^6/MM^3 10*6/mm3 4.69-6.1 3 hemoglobin, blood 13.5 g/dL 12.0-16.0 hematocrit, blood 40.5 % 37.0-49.0 mean corpuscular volume, RBC 84 fL 80-97 mean corpuscular hemoglobin, RBC 27.9 pg 27. 0-31.2 mean corpuscular hemoglobin concentration, RBC 33.4 G/DL % 31.8-35.4 red blood cell distribution width 14.1 % 11 .6-14.8 platelet count 245 10^3/MM^3 10*3/mm3 142-424 Lab Report: LDL DIRECT, Triglyceride - C hemistry LDL cholesterol, serum 38.00 mg/dL 5.00-130.00 triglyceride, serum, fasting 29 mg/dL 30-200 Lab Report: Lipid Panel, CBC W/DIFF, ALT , AST, Alk Phos - Chemistry alanine aminotransferase (SGPT), serum 23 U/L 12-78 aspartate aminotransferase (SGOT), serum 24 U/L 15-37 alkaline phosphatase, serum 263 U/L 50-136 cholesterol, serum 102 mg/dL 072-137 1664/08/19 triglyceride, serum, fasting 55 mg/dL 30-200 HDL cholesterol, serum 46 mg/dL 32-96 LDL cholesterol, serum 45 mg/dL 0-130 Lab Report: Lipid Panel, CBC W/DIFF, ALT , AST, Alk Phos - Hematology leukocyte count, blood 6.9 10^3/MM^3 10*3/mm3 4.6-10.2 neutrophils as percent of blood leukocytes 58.7 % 42.2-75.2 monocytes as percent of blood leukocytes 7.9 % 1.7-9.3 lymphocytes as percent of blood leukocytes 32.1 % 20.5-51.1 erythrocyte (RBC) count 4.52 10^6/MM^3 10*6/mm3 4.69-6.1 3 hemoglobin, blood 12.3 g/dL 12.0-16.0 hematocrit, blood 37.3 % 37.0-49.0 mean corpuscular volume, RBC 83 fL 80-97 mean corpuscular hemoglobin, RBC 27.1 pg 27. 0-31.2 mean corpuscular hemoglobin concentration, RBC 32.9 G/DL % 31.8-35.4 red blood cell distribution width 13.1 % 11 .6-14.8 platelet count 250 10^3/MM^3 10*3/mm3 142-424 Lab Report: MONO w/Rflx EBV, VILLA INFLU DEMETRIA A/B, CBC W/DIFF - Hematology leukocyte count, blood 8.0 10^3/MM^3 10*3/mm3 4.6-10.2 neutrophils as percent of blood leukocytes 65.1 % 42.2-75.2 monocytes as percent of blood leukocytes 11.7 % 1.7-9.3 lymphocytes as percent of blood leukocytes 21.6 % 20.5-51.1 erythrocyte (RBC) count 5.25 10^6/MM^3 10*6/mm3 4.69-6.1 3 hemoglobin, blood 14.6 g/dL 12.0-16.0 hematocrit, blood 43.8 % 37.0-49.0 mean corpuscular volume, RBC 84 fL 80-97 mean corpuscular hemoglobin, RBC 27.7 pg 27. 0-31.2 mean corpuscular hemoglobin concentration, RBC 33.2 G/DL % 31.8-35.4 red blood cell distribution width 13.5 % 11 .6-14.8 platelet count 224 10^3/MM^3 10*3/mm3 142-424 Lab Report: MONO w/Rflx EBV, VILLA INFLU DEMETRIA A/B, CBC W/DIFF - Toxicology rapid flu test Negative Negative Lab Report: RapidStrep Rflx/Cx - Lab Microbial identification kit, rapid stre p method Negative-Throat Culture to Follow Negative Encounters Code Encounter Date Provider Facility CPT-63187 Level 3 Est. Patient 11:42:21 CDT Gaston Ewing MD [facility] CPT-86641 Level 3 Est. Patient 13:52:22 CDT Todd Rodriguez MD [facility] CPT-12787 Level 3 Est. Patient 12:06:02 DESK CLERKS SUPERVISOR Arsalan gustafson MD [facility] CPT-73033 Level 3 Est. Patient 12:39:55 DESK CLERKS SUPERVISOR Todd Rodriguez MD [facility] CPT-96073 Level 3 Est. Patient 14:18:20 CDT Vaughn Parker [facility] CPT-55098 Level 3 Est. Patient 17:31:27 DESK CLERKS SUPERVISOR Arsalan gustafson MD [facility] CPT-54449 Level 3 Est. Patient 14:37:36 CDT Vaughn Parker [facility] Procedures Code Procedure Name Date Entry Date Standard Desc ription CPT-OV Office Visit 14:33:00 CDT CPT-61028 Venipuncture Draw Fee 16:03:08 DESK CLERKS SUPERVISOR CPT-70876 Venipuncture Draw Fee 14:25:48 DESK CLERKS SUPERVISOR CPT-01490 Venipuncture Draw Fee 09:58:28 CDT CPT-83031 Venipuncture Draw Fee 13:38:25 CDT CPT-70888 Venipuncture Draw Fee 14:30:31 CDT CPT-96118 Venipuncture Draw Fee 16:51:54 CDT CPT-20858 Venipuncture Draw Fee 15:30:43 CDT
--- OUTSIDE RECORDS SUMMARY | 2020-03-24 02:37 | XMS REPORT | Clinical Summary ---
Author Author Admin, Yves Jackson Organization [facility] Address Unknown Phone Allergies, Adverse Reactions, Alerts Allergy Name Reaction [...] (CURRENT) USE OF OTHER MEDICATIONS V58.69 2 Active Dhiraj Steiner Long-term (current) use of other medications HEALTH SCREENING V70.0 Active Vaughn Robbins A Routine general medical examination at a health care facility Pharyngitis, acute 074.0 Inactive Todd duval MD Herpangina Acute pharyngitis 462 Resolved Todd Rodriguez MD Acute pharyngitis Malaise and fatigue 780.79 Active Arsalan haas MD Other malaise and fatigue Pharyngitis 462 Active Todd Rodriguez MD Acute pharyngitis CERVICAL LYMPHADENOPATHY, LEFT ICD-785.6 Inact bennett Todd Rodriguez MD OTITIS EXTERNA ICD-380.10 Inactive Todd Cotto MD Acute pharyngitis ICD-462 Inactive Todd ferreira MD Medication List Medication Instructions Start Date Stop Date Generic Name NDC Status Provider Patient Instruction AMOXICILLIN 500 MG CAPS 1 cap by mouth three times a day AMOXICILLIN 20932835744 Active Todd Rodriguez MD Active EQ IBUPROFEN 200 MG TABS 2 tabs every 4 to 6 hours prn IBUPROFEN 98888408667 Active Todd Rodriguez MD Active TYLENOL COLD/FLU SEVERE 8-95-888-325 MG TABS 2 tabs daily prn 03/23 [id number] 82275014883 Active Todd Rodriguez MD Active ANTIPYRINE-BENZOCAINE 5.4-1.4 % SOLN 1-2 drops in affe cted ear q 3 hours prn ear pain. BENZOCAINE-ANTIPYRINE 29043659641 No Longer Act ebnnett Vaughn POPE Active CORTISPORIN 3.5-23894-5 SOLN 4gtts in affected ear QID x 7 days [id number] 67400792916 No Longer Active Vaughn POPE Active AMOXICILLIN 500 MG TABS 2 tabs PO bid x 14 days 05/21 AMOXICILLIN 85270664910 No Longer Active Vaughn POPE Activ e CORTISPORIN 3.5-67573-1 SOLN 4gtts in affected ear QID x 7 days CORTISPORIN 3.5-59687-9 SOLN 250670 NEOMYCIN-POLYMYXIN- HC Inactive ANTIPYRINE-BENZOCAINE 5.4-1.4 % SOLN 1-2 drops in affe cted ear q 3 hours prn ear pain. ANTIPYRINE-BENZOCAINE 5.4-1.4 % SOLN 2443 09 BENZOCAINE-ANTIPYRINE Inactive AMOXICILLIN 500 MG TABS 2 tabs PO bid x 14 days 05/21 AMOXICILLIN 500 MG TABS 784328 AMOXICILLIN Inactive Vital Signs Date Name Value Unit Range Description blood pressure, diastolic - 8462-4 85 mm[Hg] [...] - 3141-9 126.19 [lb_av] Weigh t Measured blood pressure, diastolic - 8462-4 77 mm[Hg] BP matos blood pressure, systolic - 8480-6 119 mm[Hg] BP sys height E&M - 8302-2 66 [in_us] Bdy h eight pulse rate E&M - 8867-4 83 /min H eart rate temperature E&M 98.6 [degF] Body temp erature weight E&M - 3141-9 125.06 [lb_av] Weigh t Measured Diagnostic Results Date Name Value Unit Range Description Lab Report: ALT, Alk Phos, AST, CBC W/DI FF, Lipid Panel - Chemistry cholesterol, serum 130 mg/dL 698-230 6612/12/02 triglyceride, serum, fasting 43 mg/dL 30-200 HDL cholesterol, serum 70 mg/dL 32-96 LDL cholesterol, serum 51 mg/dL 0-130 alanine aminotransferase (SGPT), serum 27 U/L 12-78 alkaline phosphatase, serum 233 U/L 50-136 aspartate aminotransferase (SGOT), serum 20 U/L 15-37 Lab Report: ALT, Alk Phos, AST, CBC [...] 302 U/L 50-136 cholesterol, serum 111 mg/dL 571-005 6452/10/16 HDL cholesterol, serum 61 mg/dL 32-96 Lab [...] 142-424 Lab Report: CBC W/DIFF, Lipid Panel, ALT , AST, Alk Phos - Chemistry cholesterol, serum 104 mg/dL 038-668 8480/07/16 triglyceride, serum, fasting 29 mg/dL 30-200 HDL cholesterol, serum 49 mg/dL 32-96 LDL cholesterol, serum 49 mg/dL 0-130 alanine aminotransferase (SGPT), serum 30 U/L 12-78 aspartate aminotransferase (SGOT), serum 34 U/L 15-37 alkaline phosphatase, serum 265 U/L 50-136 Lab Report: CBC W/DIFF, Lipid Panel, ALT , AST, Alk Phos - Hematology leukocyte count, blood 5.7 10^3/MM^3 10*3/mm3 4.6-10.2 neutrophils as percent of blood leukocytes 50.8 % 42.2-75.2 monocytes as percent of blood leukocytes 11.5 % 1.7-9.3 lymphocytes as percent of blood leukocytes 36.0 % 20.5-51.1 erythrocyte (RBC) count 5.01 10^6/MM^3 10*6/mm3 4.69-6.1 3 hemoglobin, blood 13.3 g/dL 12.0-16.0 hematocrit, blood 41.0 % 37.0-49.0 mean corpuscular volume, RBC 82 fL 80-97 mean corpuscular hemoglobin, RBC 26.5 pg 27. 0-31.2 mean corpuscular hemoglobin concentration, RBC 32.4 G/DL % 31.8-35.4 red blood cell distribution width 13.3 % 11 .6-14.8 platelet count 282 10^3/MM^3 10*3/mm3 142-424 Lab Report: CBC W/DIFF, Lipid Panel, AST , ALT, Alk Phos, Manual Diff/Mor ... - Chemistry cholesterol, serum 110 mg/dL 162-492 4354/06/12 triglyceride, serum, fasting 114 mg/dL 30-200 HDL cholesterol, serum 50 mg/dL 32-96 LDL cholesterol, serum 37 mg/dL 0-130 aspartate aminotransferase (SGOT), serum 32 U/L 15-37 alanine aminotransferase (SGPT), serum 39 U/L 12-78 alkaline phosphatase, serum 324 U/L 50-136 cholesterol, serum 121 mg/dL 900-847 5509/01/03 triglyceride, serum, fasting 23 mg/dL 30-200 HDL [...] 11 .6-14.8 platelet count 245 10^3/MM^3 10*3/mm3 194-133 5984/06/12 leukocyte count, blood 6.6 UL 10*3/mm3 4.6-10.2 neutrophils as percent of blood leukocytes 40.9 % 42.2-75.2 monocytes as percent of blood leukocytes 8.2 % 1.7-9.3 lymphocytes as percent of blood leukocytes 47.8 % 20.5-51.1 erythrocyte (RBC) count 5.03 UL 10*6/mm3 4.69-6.13 hemoglobin, blood 13.3 g/dL 12.0-16.0 hematocrit, blood 41.3 % 37.0-49.0 mean corpuscular volume, RBC 82 fL 80-97 mean corpuscular hemoglobin, RBC 26.5 pg 27. 0-31.2 mean corpuscular hemoglobin concentration, RBC 32.3 G/DL % 31.8-35.4 red blood cell distribution width 13.6 % 11 .6-14.8 platelet count 263 UL 10*3/mm3 142-424 Lab Report: LDL DIRECT, Triglyceride - C hemistry LDL cholesterol, serum 38.00 mg/dL 5.00-130.00 triglyceride, serum, fasting 29 mg/dL 30-200 Lab Report: Lipid Panel, CBC W/DIFF, ALT , AST, Alk Phos - Chemistry cholesterol, serum 102 mg/dL 886-410 8945/08/19 triglyceride, serum, fasting 55 mg/dL 30-200 HDL cholesterol, serum 46 mg/dL 32-96 LDL cholesterol, serum 45 mg/dL 0-130 alanine aminotransferase (SGPT), serum 23 U/L 12-78 aspartate aminotransferase (SGOT), serum 24 U/L 15-37 alkaline phosphatase, serum 263 U/L 50-136 Lab Report: Lipid Panel, CBC W/DIFF, ALT [...] Negative Encounters Code Encounter Date Provider Facility CPT-52263 Level 3 Est. Patient 13:52:22 CDT Todd Rodriguez MD [facility] CPT-48796 Level 3 Est. Patient 12:06:02 GRAPHICS SOFTWARE ENGINEER Arsalan gustafson MD [facility] CPT-31774 Level 3 Est. Patient 12:39:55 GRAPHICS SOFTWARE ENGINEER Todd Rodriguez MD [facility] CPT-15977 Level 3 Est. Patient 14:18:20 CDT Vaughn Parker [facility] CPT-38549 Level 3 Est. Patient 17:31:27 GRAPHICS SOFTWARE ENGINEER Arsalan gustafson MD [facility] CPT-97619 Level 3 Est. Patient 14:37:36 CDT Vaughn Parker [facility] Procedures Code Procedure Name Date Entry Date Standard Desc ription CPT-36671 Venipuncture Draw Fee 16:03:08 GRAPHICS SOFTWARE ENGINEER CPT-86492 Venipuncture Draw Fee 14:25:48 GRAPHICS SOFTWARE ENGINEER CPT-97007 Venipuncture Draw Fee 09:58:28 CDT CPT-61270 Venipuncture Draw Fee 13:38:25 CDT CPT-31129 Venipuncture Draw Fee 14:30:31 CDT CPT-69117 Venipuncture Draw Fee 16:51:54 CDT CPT-00773 Venipuncture Draw Fee 15:30:43 CDT
--- OUTSIDE RECORDS SUMMARY | 2020-03-24 02:37 | XMS REPORT | Clinical Summary ---
Author Author Admin, Yves Jackson Organization [facility] Address Unknown Phone Unavailable Allergies, [...] by mouth days two and three PREDNISONE [id number] No Longer Active Arsalan Carmichael MD Active AZITHROMYCIN 250 MG ORAL TABLET 2 po qd x 1 day, then 1 po q d x 4 days AZITHROMYCIN 70286992481 No Longer Active Evens ervin APRN Active HYDROCODONE-ACETAMINOPHEN 5-325 MG ORAL TABLET 1 TAB PO Q 6 HRS PRN HYDROCODONE-ACETAMINOPHEN 63111878566 No Longer Active Alonso bernie Andrea LOW VOLTAGE TECHNICIAN Active TYLENOL COLD/FLU SEVERE 3-18-023-325 MG ORAL TABLET 2 tabs daily prn IOSRNNHQZYPAV-[id number]-DL-APAP 58987714065 No Longer Active Mario a Yasirzell LOW VOLTAGE TECHNICIAN Active BACTRIM DS 800-160 MG ORAL TABLET 1 tab by mouth twice daily 201 01/30/22 TRIMETHOPRIM-SULFAMETHOXAZOLE 42529856556 No Longer Active Manuel Cooleyzell LOW VOLTAGE TECHNICIAN Active BACTRIM DS 800-160 MG ORAL TABLET 1 po BID x 10 days 2 SULFAMETHOXAZOLE-TRIMETHOPRIM 00029811426 No Longer Active Gaston Ewing MD Active AMOXICILLIN 500 MG ORAL CAPSULE 1 cap by mouth three times a day AMOXICILLIN 06297746286 No Longer Active Todd Rodriguez MD Active EQ IBUPROFEN 200 MG ORAL TABLET 2 tabs every 4 to 6 hours prn 03/23 IBUPROFEN 22283087418 Active Todd Rodriguez MD Active ANTIPYRINE-BENZOCAINE 5.4-1.4 % OTIC SOLUTION 1-2 drop s in affected ear q 3 hours prn ear pain. BENZOCAINE-ANTIPYRINE 70306401847 No Longer Active Vaughn POPE Active CORTISPORIN 3.5-97642-6 OTIC SOLUTION 4gtts in affected ear QID x 7 days [id number] 91175205608 No Longer Active lexi POPE Active AMOXICILLIN 500 MG ORAL TABLET 2 tabs PO bid x 14 days AMOXICILLIN 32227412552 No Longer Active Vaughn POPE Activ e CORTISPORIN 3.5-38233-2 OTIC SOLUTION 4gtts in affected ear QID x 7 days CORTISPORIN 3.5-72346-7 OTIC SOLUTION 714822 [id number] Inactive ANTIPYRINE-BENZOCAINE 5.4-1.4 % OTIC SOLUTION 1-2 drop s in affected ear q 3 hours prn ear pain. ANTIPYRINE-BENZOCAIN E 5.4-1.4 % OTIC SOLUTION 880021 BENZOCAINE-ANTIPYRINE Inactive TYLENOL COLD/FLU SEVERE 7-83-236-325 MG ORAL TABLET 2 tabs daily prn TYLENOL COLD/FLU SEVERE 0-89-055-325 MG ORAL TABLET [id number] Inactive HYDROCODONE-ACETAMINOPHEN 5-325 MG ORAL TABLET 1 TAB PO Q 6 HRS PRN HYDROCODONE-ACETAMINOPHEN 5-325 MG ORAL TABLET 539438 HYDROCODONE-ACETAMINOPHEN Inactive PREDNISONE 20 MG ORAL TABLET two tabs by mouth today, then one tab by mouth days two and three PREDNISONE 20 MG ORAL TABLET 607754 PREDNISONE Inactive AMOXICILLIN 500 MG ORAL TABLET 2 tabs PO bid x 14 days AMOXICILLIN 500 MG ORAL TABLET 129873 AMOXICILLIN Inactive AMOXICILLIN 500 MG ORAL CAPSULE 1 cap by mouth three times a day AMOXICILLIN 500 MG ORAL CAPSULE 385791 AMOXICILLIN Inactive BACTRIM DS 800-160 MG ORAL TABLET 1 po BID x 10 days 2 BACTRIM DS 800-160 MG ORAL TABLET 988746 SULFAMETHOXAZOLE-TRIMETHOP RIM Inactive BACTRIM DS 800-160 MG ORAL TABLET 1 tab by mouth twice daily 201 01/30/22 BACTRIM DS 800-160 MG ORAL TABLET 377381 TRIMETHOPRIM-SULFAMETHOXAZOLE Inactive AZITHROMYCIN 250 MG ORAL TABLET 2 po qd x 1 day, then 1 po q d x 4 days AZITHROMYCIN 250 MG ORAL TABLET 700726 AZITHROMY PORSHA Inactive Vital Signs Date Name [...] U/L Chart Maintenance: Outside labs entered on [facility] - Hematology leukocyte count, blood 6.7 10*3/mm3 hemoglobin, blood 13.5 g/dL platelet count 248 10*3/mm3 Lab Report: Rapid Strep - Lab Microbial identification kit, rapid strep method Negative Negative Encounters Code Encounter Date Provider Facility CPT-23608 Level 3 Est. Patient 15:04:20 SCHOOL VOCATIONAL EDUCATOR Arsalan gustafson MD [facility] CPT-50312 Level 3 Est. Patient 15:11:28 SCHOOL VOCATIONAL EDUCATOR Alon doherty DO [facility] CPT-03004 Level 3 Est. Patient 14:21:45 CDT Jillina F razell [facility] CPT-76787 Level 3 Est. Patient 14:17:31 CDT Evens majano [facility] CPT-55576 Level 3 Est. Patient 16:26:47 SCHOOL VOCATIONAL EDUCATOR Alon doherty DO [facility] CPT-23386 Level 3 Est. Patient 11:42:21 CDT Gaston Ewing MD [facility] CPT-26126 Level 3 Est. Patient 13:52:22 CDT Todd Rodriguez MD [facility] CPT-88141 Level 3 Est. Patient 12:06:02 SCHOOL VOCATIONAL EDUCATOR Arsalan gustafson MD [facility] CPT-98741 Level 3 Est. Patient 12:39:55 SCHOOL VOCATIONAL EDUCATOR Todd Rodriguez MD [facility] CPT-75989 Level 3 Est. Patient 14:18:20 CDT Vaughn Parker [facility] CPT-74769 Level 3 Est. Patient 17:31:27 SCHOOL VOCATIONAL EDUCATOR Arsalan gustafson MD [facility] CPT-28169 Level 3 Est. Patient 14:37:36 CDT Vaughn Parker [facility] Procedures Code Procedure Name Date Entry Date Standard Desc ription CPT-68206 Chest 2V Frontal and Lat - XRAY USE ONLY 14:37:29 CDT CPT-01955 Postop F/U Visit 13:38:44 CDT CPT-OV Office Visit 14:33:00 CDT CPT-02437 Venipuncture Draw Fee 16:03:08 SCHOOL VOCATIONAL EDUCATOR CPT-23292 Venipuncture Draw Fee 14:25:48 SCHOOL VOCATIONAL EDUCATOR CPT-55149 Venipuncture Draw Fee 09:58:28 CDT CPT-47576 Venipuncture Draw Fee 13:38:25 CDT CPT-45118 Venipuncture Draw Fee 14:30:31 CDT CPT-94584 Venipuncture Draw Fee 16:51:54 CDT CPT-83196 Venipuncture Draw Fee 15:30:43 CDT
--- OUTSIDE RECORDS SUMMARY | 2020-03-24 02:37 | XMS REPORT | Clinical Summary ---
Author Author Admin, Yves Jackson Organization [facility] Address Unknown Phone Allergies, Adverse Reactions, Alerts [...] Provider Patient Instruction BACTRIM DS 800-160 MG TABS 1 po BID x 10 days SULFAMETHOXAZOLE-TRIMETHOPRIM 10105579186 Active Gaston Ewing MD Active AMOXICILLIN 500 MG CAPS 1 cap by mouth three times a day AMOXICILLIN 15799065506 No Longer Active Todd Rodriguez MD Activ e EQ IBUPROFEN 200 MG TABS 2 tabs every 4 to 6 hours prn IBUPROFEN 85223147260 Active Todd Rodriguez MD Active TYLENOL COLD/FLU SEVERE 2-10-499-325 MG TABS 2 tabs daily prn 03/23 FNNXEVJOQJEIU-TK-FP-APAP 91406334440 Active Todd Rodriguez MD Active ANTIPYRINE-BENZOCAINE 5.4-1.4 % SOLN 1-2 drops in affe cted ear q 3 hours prn ear pain. BENZOCAINE-ANTIPYRINE 16211637173 No Longer Act bennett Vaughn POPE Active CORTISPORIN 3.5-29913-8 SOLN 4gtts in affected ear QID x 7 days [id number]-HNVVRBCIP-LS 01632182824 No Longer Active Vaughn POPE Active AMOXICILLIN 500 MG TABS 2 tabs PO bid x 14 days 05/21 AMOXICILLIN 86239296541 No Longer Active Vaughn POPE Activ e CORTISPORIN 3.5-77003-2 SOLN 4gtts in affected ear QID x 7 days CORTISPORIN 3.5-93668-7 SOLN 495151 NEOMYCIN-POLYMYXIN- HC Inactive ANTIPYRINE-BENZOCAINE 5.4-1.4 % SOLN 1-2 drops in affe cted ear q 3 hours prn ear pain. ANTIPYRINE-BENZOCAINE 5.4-1.4 % SOLN 2443 09 BENZOCAINE-ANTIPYRINE Inactive AMOXICILLIN 500 MG TABS 2 tabs PO bid x 14 days 05/21 AMOXICILLIN 500 MG TABS 198331 AMOXICILLIN Inactive AMOXICILLIN 500 MG CAPS 1 cap by mouth three times a day AMOXICILLIN 500 MG CAPS 443237 AMOXICILLIN Inactive Vital Signs Date Name Value Unit Range Description blood pressure, diastolic - 8462-4 75 mm[Hg] [...] Panel - Chemistry cholesterol, serum 130 mg/dL 780-547 3674/12/02 triglyceride, serum, fasting 43 mg/dL 30-200 HDL [...] 302 U/L 50-136 cholesterol, serum 111 mg/dL 289-069 7803/10/16 HDL cholesterol, serum 61 mg/dL 32-96 Lab [...] Phos - Chemistry cholesterol, serum 104 mg/dL 213-764 5229/07/16 triglyceride, serum, fasting 29 mg/dL 30-200 HDL cholesterol, serum 49 mg/dL 32-96 LDL cholesterol, serum 49 mg/dL 0-130 alanine aminotransferase (SGPT), serum 30 U/L 12-78 aspartate aminotransferase (SGOT), serum 34 U/L 15-37 alkaline phosphatase, serum 265 U/L 50-136 Lab Report: CBC W/DIFF, Lipid Panel, ALT , AST, Alk Phos - Hematology hemoglobin, blood 13.3 g/dL 12.0-16.0 hematocrit, blood 41.0 % 37.0-49.0 mean corpuscular volume, RBC 82 fL 80-97 mean corpuscular hemoglobin, RBC 26.5 pg 27. 0-31.2 mean corpuscular hemoglobin concentration, RBC 32.4 G/DL % 31.8-35.4 red blood cell distribution width 13.3 % 11 .6-14.8 platelet count 282 10^3/MM^3 10*3/mm3 150-622 1636/07/16 erythrocyte (RBC) count 5.01 10^6/MM^3 10*6/mm3 4.69-6.1 3 lymphocytes as percent of blood leukocytes 36.0 % 20.5-51.1 monocytes as percent of blood leukocytes 11.5 % 1.7-9.3 neutrophils as percent of blood leukocytes 50.8 % 42.2-75.2 leukocyte count, blood 5.7 10^3/MM^3 10*3/mm3 4.6-10.2 Lab Report: CBC W/DIFF, Lipid Panel, AST , ALT, Alk Phos, Manual Diff/Mor ... - Chemistry cholesterol, serum 121 mg/dL 095-701 9250/01/03 triglyceride, serum, fasting 23 mg/dL 30-200 HDL [...] 263 U/L 50-136 cholesterol, serum 102 mg/dL 306-509 3507/08/19 triglyceride, serum, fasting 55 mg/dL 30-200 HDL [...] Negative Encounters Code Encounter Date Provider Facility CPT-34280 Level 3 Est. Patient 11:42:21 CDT Gaston Ewing MD [facility] CPT-57574 Level 3 Est. Patient 13:52:22 CDT Todd Rodriguez MD [facility] CPT-37210 Level 3 Est. Patient 12:06:02 PLATE GAUGER Arsalan gustafson MD [facility] CPT-32590 Level 3 Est. Patient 12:39:55 PLATE GAUGER Todd Rodriguez MD [facility] CPT-82915 Level 3 Est. Patient 14:18:20 [address] [facility] CPT-43448 Level 3 Est. Patient 17:31:27 PLATE GAUGER Arsalan gustfason MD [facility] CPT-21683 Level 3 Est. Patient 14:37:36 CDT Vaughn Parker [facility] Procedures Code Procedure Name Date Entry Date Standard Desc ription CPT-57766 Venipuncture Draw Fee 16:03:08 PLATE GAUGER CPT-42102 Venipuncture Draw Fee 14:25:48 PLATE GAUGER CPT-09833 Venipuncture Draw Fee 09:58:28 CDT CPT-00270 Venipuncture Draw Fee 13:38:25 CDT CPT-82262 Venipuncture Draw Fee 14:30:31 CDT CPT-47948 Venipuncture Draw Fee 16:51:54 CDT CPT-79789 Venipuncture Draw Fee 15:30:43 CDT
--- OUTSIDE RECORDS SUMMARY | 2020-03-24 02:37 | XMS REPORT ---
Author Author [facility] Medic al Staff, STEFAN Organization [facility] Address [address] [place] [id number] Phone [phone] Care Team Providers Care Industrial Maintenance Manager Name Role Phone EUGENIA WEST MD PP [phone] Summary purpose TRANSITION OF CARE AUTO GENERATION Chief Complaint and Reason for Visit Admit Diagnosis 1 PHYSICAL THERAPY NEC Problem list No authorized problems tracked for continuity of care are available for this vis it. Encounters No authorized problems tracked for encounter diagnoses are available for this vi sit. Medications No home medications recorded for this patient visit Allergies, adverse reactions, alerts Allergen Category Ingredient Status Reaction Severity Onset No known drug allergies No known drug allergies No known drug al lergies Confirmed or Verified Immunizations No immunizations recorded for this patient visit Relevant diagnostic tests and/or laboratory data No authorized results are available for this patient visit History of procedures No procedures recorded for this patient visit. Functional status No functional or cognitive status observations are available for this visit. Vital signs No authorized vital signs are available for this visit. Social history No Social History or smoking status observations were recorded for this visit. ( Unknown if ever smoked.) Treatment Plan No treatment plan text is available for this visit. Hospital discharge instructions No discharge instruction text is available for this visit.
--- OUTSIDE RECORDS SUMMARY | 2020-03-24 02:37 | XMS REPORT | Clinical Summary ---
Author Author Admin, Yves Jackson Organization [facility] Address Unknown Phone Unavailable Allergies, Adverse [...] MEDICATIONS ICD-V58.69 2 Inactive Gaston Ewnig MD Acute pharyngitis ICD-462 Inactive Todd ferreira MD Malaise and fatigue ICD-780.79 Inactive Chelsey Ewing MD Pharyngitis ICD-462 Inactive Gaston Ewing MD Medication List Medication Instructions Start Date Stop Date Generic Name NDC Status Provider Patient Instruction BACTRIM DS 800-160 MG TAB 1 tab by mouth twice daily 2 TRIMETHOPRIM-SULFAMETHOXAZOLE 95654280159 No Longer Active Jillina Frazell A PRN Active BACTRIM DS 800-160 MG TABS 1 po BID x 10 days SULFAMETHOXAZOLE-TRIMETHOPRIM 13237182322 No Longer Active Gaston Ewing MD Active AMOXICILLIN 500 MG CAPS 1 cap by mouth three times a day AMOXICILLIN 09873131272 No Longer Active Todd Rodriguez MD Activ e EQ IBUPROFEN 200 MG TABS 2 tabs every 4 to 6 hours prn IBUPROFEN 79388609853 Active Todd Rodriguez MD Active TYLENOL COLD/FLU SEVERE 2-78-688-325 MG TABS 2 tabs daily prn 03/23 PFYNOGZQKDDRK-ZR-TX-APAP 29003295935 Active Todd Rodriguez MD Active ANTIPYRINE-BENZOCAINE 5.4-1.4 % SOLN 1-2 drops in affe cted ear q 3 hours prn ear pain. BENZOCAINE-ANTIPYRINE 84971584541 No Longer Act bennettLidia POPE Active CORTISPORIN 3.5-70883-0 SOLN 4gtts in affected ear QID x 7 days [id number]-REYRVCCRF-WQ 66460080941 No Longer Active Vaughn POPE Active AMOXICILLIN 500 MG TABS 2 tabs PO bid x 14 days 05/21 AMOXICILLIN 17648760176 No Longer Active Vaughn POPE Activ e CORTISPORIN 3.5-88409-7 SOLN 4gtts in affected ear QID x 7 days CORTISPORIN 3.5-67152-4 SOLN 521980 NEOMYCIN-POLYMYXIN- HC Inactive ANTIPYRINE-BENZOCAINE 5.4-1.4 % SOLN 1-2 drops in affe cted ear q 3 hours prn ear pain. ANTIPYRINE-BENZOCAINE 5.4-1.4 % SOLN 2443 09 BENZOCAINE-ANTIPYRINE Inactive AMOXICILLIN 500 MG TABS 2 tabs PO bid x 14 days 05/21 AMOXICILLIN 500 MG TABS 929163 AMOXICILLIN Inactive AMOXICILLIN 500 MG CAPS 1 cap by mouth three times a day AMOXICILLIN 500 MG CAPS 651185 AMOXICILLIN Inactive BACTRIM DS 800-160 MG TABS 1 po BID x 10 days BACTRIM DS 800-160 MG TABS SULFAMETHOXAZOLE-TRIMETHOPRIM Inactive BACTRIM DS 800-160 MG TAB 1 tab by mouth twice daily 2 /05/26 BACTRIM DS 800-160 MG TAB TRIMETHOPRIM-SULFAMETHOXAZOLE Inac tive Vital Signs Date Name Value Unit Range Description blood pressure, diastolic - 8462-4 65 mm[Hg] BP mtaos blood pressure, systolic - 8480-6 103 mm[Hg] BP sys height E&M - 8302-2 67 [in_us] Bdy h eight pulse rate E&M - 8867-4 71 /min H eart rate temperature E&M 98.3 [degF] Body temp erature weight E&M - 3141-9 129.50 [lb_av] Weigh t Measured blood pressure, diastolic - 8462-4 70 mm[Hg] [...] 20 U/L 15-37 cholesterol, serum 130 mg/dL 930-387 7779/12/02 triglyceride, serum, fasting 43 mg/dL 30-200 HDL [...] 302 U/L 50-136 cholesterol, serum 111 mg/dL 550-640 6952/10/16 HDL cholesterol, serum 61 mg/dL 32-96 Lab [...] ... - Chemistry cholesterol, serum 121 mg/dL 775-178 3424/01/03 triglyceride, serum, fasting 23 mg/dL 30-200 HDL [...] 263 U/L 50-136 cholesterol, serum 102 mg/dL 128-493 3566/08/19 triglyceride, serum, fasting 55 mg/dL 30-200 HDL [...] Negative Encounters Code Encounter Date Provider Facility CPT-53921 Level 3 Est. Patient 11:42:21 CDT Gaston Ewing MD [facility] CPT-23981 Level 3 Est. Patient 13:52:22 CDT Todd Rodriguez MD [facility] CPT-11982 Level 3 Est. Patient 12:06:02 ASPHALT PLANT WORKER Arsalan gustafson MD [facility] CPT-23268 Level 3 Est. Patient 12:39:55 ASPHALT PLANT WORKER Todd Rodriguez MD [facility] CPT-02714 Level 3 Est. Patient 14:18:20 CDT Vaughn Parker [facility] CPT-84963 Level 3 Est. Patient 17:31:27 ASPHALT PLANT WORKER Arsalan gustafson MD [facility] CPT-95610 Level 3 Est. Patient 14:37:36 CDT Vaughn Parker [facility] Procedures Code Procedure Name Date Entry Date Standard Desc ription CPT-14872 Postop F/U Visit 13:38:44 CDT CPT-OV Office Visit 14:33:00 CDT CPT-37045 Venipuncture Draw Fee 16:03:08 ASPHALT PLANT WORKER CPT-80215 Venipuncture Draw Fee 14:25:48 ASPHALT PLANT WORKER CPT-64377 Venipuncture Draw Fee 09:58:28 CDT CPT-50279 Venipuncture Draw Fee 13:38:25 CDT CPT-57851 Venipuncture Draw Fee 14:30:31 CDT CPT-19164 Venipuncture Draw Fee 16:51:54 CDT CPT-00244 Venipuncture Draw Fee 15:30:43 CDT
--- OUTSIDE RECORDS SUMMARY | 2020-03-24 02:37 | XMS REPORT ---
Author Author [facility] Medic al Staff, STEFAN Organization [facility] Address [address] [place] [place] [address] Phone [phone] Care Team Providers Care Director [employer] Name Role Phone EUGENIA WEST MD PP [phone] Summary purpose TRANSITION OF CARE AUTO GENERATION [...]
--- OUTSIDE RECORDS SUMMARY | 2020-03-24 02:37 | XMS REPORT ---
Author Author [facility] Medic al Staff, STEFAN Organization [facility] Address [address] [place] [address] Phone [phone] Care Team Providers Care Wheel Alignment Mechanic Name Role Phone EUGENIA WEST MD PP [phone] Summary purpose TRANSITION OF CARE AUTO GENERATION [...] for this patient visit History of procedures Procedure Code Code Type Description Date Performed Performing Physician 88671 CPT-4 THERAPEUTIC EXERCISES 07-28-2014 NICHOLE FRAZIER 54761 CPT-4 PT EVALUATION 07-28-2014 LANDEN COMBS Lety 93979 CPT-4 THERAPEUTIC EXERCISES 07-31-2014 NICHOLE FRAZIER 49199 CPT-4 THERAPEUTIC EXERCISES 08-02-2014 NICHOLE FRAZIER 67101 CPT-4 THERAPEUTIC EXERCISES 08-09-2014 NICHOLE FRAZIER 13722 CPT-4 THERAPEUTIC EXERCISES 08-10-2014 NICHOLE FRAZIER 10639 CPT-4 THERAPEUTIC EXERCISES 08-11-2014 NICHOLE FRAZIER Functional status No functional or cognitive status [...]
--- OUTSIDE RECORDS SUMMARY | 2020-03-24 02:37 | XMS REPORT | Clinical Summary ---
Author Author Admin, Yves Jackson Organization [facility] Address Unknown Phone Unavailable Allergies, Adverse [...] Q 6 HRS PRN 201 02/02/10 HYDROCODONE-ACETAMINOPHEN 82796938885 No Longer Active Jilli na Frazell ROSS LIFT OPERATOR Active TYLENOL COLD/FLU SEVERE 8-64-349-325 MG TABS 2 tabs daily prn 20 08/03/29 PDJMAHOELFGCB-PL-IE-APAP 39667515497 No Longer Active Jillin a Frazell ROSS LIFT OPERATOR Active BACTRIM DS 800-160 MG TAB 1 tab by mouth twice daily 2 TRIMETHOPRIM-SULFAMETHOXAZOLE 18949963120 No Longer Active Jillina Frazell A PRN Active BACTRIM DS 800-160 MG TABS 1 po BID x 10 days SULFAMETHOXAZOLE-TRIMETHOPRIM 88668259216 No Longer Active Gaston Ewing MD Active AMOXICILLIN 500 MG CAPS 1 cap by mouth three times a day AMOXICILLIN 45285285487 No Longer Active Todd Rodriguez MD Activ e EQ IBUPROFEN 200 MG TABS 2 tabs every 4 to 6 hours prn IBUPROFEN 75365174577 Active Todd Rodriguez MD Active ANTIPYRINE-BENZOCAINE 5.4-1.4 % SOLN 1-2 drops in affe cted ear q 3 hours prn ear pain. BENZOCAINE-ANTIPYRINE 73765950503 No Longer Act bennett Vaughn POPE Active CORTISPORIN 3.5-58752-3 SOLN 4gtts in affected ear QID x 7 days CUGYMLZS-UAIFXYECA-BN 28340146001 No Longer Active Vaughn POPE Active AMOXICILLIN 500 MG TABS 2 tabs PO bid x 14 days 05/21 AMOXICILLIN 86439926918 No Longer Active Vaughn POPE Activ e CORTISPORIN 3.5-28983-2 SOLN 4gtts in affected ear QID x 7 days CORTISPORIN 3.5-55395-6 SOLN 787633 NEOMYCIN-POLYMYXIN- HC Inactive ANTIPYRINE-BENZOCAINE 5.4-1.4 % SOLN 1-2 drops in affe cted ear q 3 hours prn ear pain. ANTIPYRINE-BENZOCAINE 5.4-1.4 % SOLN 2443 09 BENZOCAINE-ANTIPYRINE Inactive TYLENOL COLD/FLU SEVERE 0-78-387-325 MG TABS 2 tabs daily prn 20 08/03/29 TYLENOL COLD/FLU SEVERE 2-96-980-325 MG TABS [id number]-APAP Inactive HYDROCODONE-ACETAMINOPHEN 5-325 MG TABS 1 TAB PO Q 6 HRS PRN 201 02/02/10 HYDROCODONE-ACETAMINOPHEN 5-325 MG TABS 530496 HYDROCODONE-ACETAMINOPHEN Inactive AMOXICILLIN 500 MG TABS 2 tabs PO bid x 14 days 05/21 AMOXICILLIN 500 MG TABS 783065 AMOXICILLIN Inactive AMOXICILLIN 500 MG CAPS 1 cap by mouth three times a day AMOXICILLIN 500 MG CAPS 310261 AMOXICILLIN Inactive BACTRIM DS 800-160 MG TABS [...] Measured Encounters Code Encounter Date Provider Facility CPT-70034 Level 3 Est. Patient 11:42:21 CDT Gaston Ewing MD [facility] CPT-75981 Level 3 Est. Patient 13:52:22 CDT Todd Rodriguez MD [facility] CPT-97036 Level 3 Est. Patient 12:06:02 CAN HANDLER Arsalan gustafson MD [facility] CPT-98536 Level 3 Est. Patient 12:39:55 CAN HANDLER Todd Rodriguez MD [facility] CPT-00140 Level 3 Est. Patient 14:18:20 CDT Vaughn POPE [facility] CPT-12310 Level 3 Est. Patient 17:31:27 CAN HANDLER Arsalan gustafson MD [facility] CPT-58170 Level 3 Est. Patient 14:37:36 CDT Vaughn POPE [facility] Procedures Code Procedure Name Date Entry Date Standard Desc ription CPT-57986 Postop F/U Visit 13:38:44 CDT CPT-OV Office Visit 14:33:00 CDT CPT-98284 Venipuncture Draw Fee 16:03:08 CAN HANDLER CPT-48982 Venipuncture Draw Fee 14:25:48 CAN HANDLER CPT-75931 Venipuncture Draw Fee 09:58:28 CDT CPT-07777 Venipuncture Draw Fee 13:38:25 CDT CPT-61370 Venipuncture Draw Fee 14:30:31 CDT CPT-95320 Venipuncture Draw Fee 16:51:54 CDT CPT-28072 Venipuncture Draw Fee 15:30:43 CDT
--- OUTSIDE RECORDS SUMMARY | 2020-03-24 02:38 | XMS REPORT ---
Author Author [facility] Medic al Staff, STEFAN Organization [facility] Address [address] [place] [id number] Phone [phone] Care Team Providers Care Suspect Artist Supervisor Name Role Phone EUGENIA WEST MD PP [phone] Summary purpose TRANSITION OF CARE AUTO GENERATION [...]
--- OUTSIDE RECORDS SUMMARY | 2020-03-24 02:38 | XMS REPORT | Clinical Summary ---
[...] TAB PO Q 6 HRS PRN HYDROCODONE-ACETAMINOPHEN 66532191602 Active Arsalan Carmichael MD Active BACTRIM DS 800-160 MG TAB 1 tab by mouth twice daily 2 TRIMETHOPRIM-SULFAMETHOXAZOLE 85071448153 No Longer Active Evens Walters PRN Active BACTRIM DS 800-160 MG TABS 1 po BID x 10 days SULFAMETHOXAZOLE-TRIMETHOPRIM 57783772723 No Longer Active Gaston Ewing MD Active AMOXICILLIN 500 MG CAPS 1 cap by mouth three times a day AMOXICILLIN 02673368168 No Longer Active Todd Rodriguez MD Activ e EQ IBUPROFEN 200 MG TABS 2 tabs every 4 to 6 hours prn IBUPROFEN 94088623375 Active Todd Rodriguez MD Active TYLENOL COLD/FLU SEVERE 3-30-771-325 MG TABS 2 tabs daily prn 03/23 IZNIWUJRQEIZK-ED-WO-APAP 50488730927 Active Todd Rodriguez MD Active ANTIPYRINE-BENZOCAINE 5.4-1.4 % SOLN 1-2 drops in affe cted ear q 3 hours prn ear pain. BENZOCAINE-ANTIPYRINE 01235485137 No Longer Act bennett Vaughn POPE Active CORTISPORIN 3.5-63996-5 SOLN 4gtts in affected ear QID x 7 days SWTNWHDS-CFOVBMYYT-AS 29712213245 No Longer Active Vaughn POPE Active AMOXICILLIN 500 MG TABS 2 tabs PO bid x 14 days 05/21 AMOXICILLIN 57963070645 No Longer Active Vaguhn POPE Activ e CORTISPORIN 3.5-81318-1 SOLN 4gtts in affected ear QID x 7 days CORTISPORIN 3.5-54736-8 SOLN 656524 NEOMYCIN-POLYMYXIN- HC Inactive ANTIPYRINE-BENZOCAINE 5.4-1.4 % SOLN 1-2 drops in affe cted ear q 3 hours prn ear pain. ANTIPYRINE-BENZOCAINE 5.4-1.4 % SOLN 2443 09 BENZOCAINE-ANTIPYRINE Inactive AMOXICILLIN 500 MG TABS 2 tabs PO bid x 14 days 05/21 AMOXICILLIN 500 MG TABS 832304 AMOXICILLIN Inactive AMOXICILLIN 500 MG CAPS 1 cap by mouth three times a day AMOXICILLIN 500 MG CAPS 095649 AMOXICILLIN Inactive BACTRIM DS 800-160 MG TABS 1 po BID x 10 days BACTRIM DS 800-160 MG TABS SULFAMETHOXAZOLE-TRIMETHOPRIM Inactive BACTRIM DS 800-160 MG TAB 1 tab by mouth twice daily 2 BACTRIM DS 800-160 MG TAB TRIMETHOPRIM-SULFAMETHOXAZOLE Inac tive Vital Signs Date Name Value Unit Range Description blood pressure, diastolic 65 mm[Hg] BP matos blood pressure, systolic 103 mm[Hg] BP sys height E&M 67 [in_us] Bdy height pulse rate E&M 71 /min Heart rate temperature E&M 98.3 [degF] Body temp erature weight E&M 129.50 [lb_av] Weight Measure d blood pressure, diastolic 70 mm[Hg] BP matos blood pressure, systolic 106 mm[Hg] BP sys height E&M 67 [in_us] Bdy height pulse rate E&M 69 /min Heart rate temperature E&M 98.8 [degF] Body temp erature weight E&M 129 [lb_av] Weight Measure d blood pressure, diastolic 75 mm[Hg] BP matos blood pressure, systolic 124 mm[Hg] BP sys pulse rate E&M 63 /min Heart rate temperature E&M 97.4 [degF] Body temp erature weight E&M 129 [lb_av] Weight Measure d blood pressure, diastolic 81 mm[Hg] BP matos blood pressure, systolic 128 mm[Hg] BP sys height E&M 67 [in_us] Bdy height pulse rate E&M 87 /min Heart rate temperature E&M 101.1 [degF] Body temp erature weight E&M 129.8 [lb_av] Weight Measure d blood pressure, diastolic 85 mm[Hg] BP matos blood pressure, systolic 139 mm[Hg] BP sys height E&M 66 [in_us] Bdy height pulse rate E&M 80 /min Heart rate temperature E&M 97.5 [degF] Body temp erature weight E&M 123 [lb_av] Weight Measure d blood pressure, diastolic 76 mm[Hg] BP matos blood pressure, systolic 124 mm[Hg] BP sys height E&M 66 [in_us] Bdy height pulse rate E&M 66 /min Heart rate temperature E&M 98.0 [degF] Body temp erature weight E&M 126.19 [lb_av] Weight Measure d Diagnostic Results Date Name Value Unit Range Description Lab Report: ALT, Alk Phos, AST, CBC W/DI FF, Lipid Panel - Chemistry alanine aminotransferase (SGPT), serum 27 U/L 12-78 cholesterol, serum 130 mg/dL 968-729 9587/12/02 triglyceride, serum, fasting 43 mg/dL 30-200 HDL cholesterol, serum 70 mg/dL 32-96 LDL cholesterol, serum 51 mg/dL 0-130 alkaline phosphatase, serum 233 U/L 50-136 aspartate [...] 302 U/L 50-136 cholesterol, serum 111 mg/dL 302-024 8780/10/16 HDL cholesterol, serum 61 mg/dL 32-96 Lab Report: CBC W/DIFF, AST, ALT, Alk Ph os, Cholesterol, HDL - Hematology mean corpuscular hemoglobin concentration, RBC 32.5 G/DL % 31.8-35.4 mean corpuscular hemoglobin, RBC 27.2 pg 27. 0-31.2 mean corpuscular volume, RBC 84 fL 80-97 hematocrit, blood 42.1 % 37.0-49.0 hemoglobin, blood 13.7 g/dL 12.0-16.0 erythrocyte (RBC) count 5.03 10^6/MM^3 10*6/mm3 4.69-6.1 3 lymphocytes as percent of blood leukocytes 21.8 % 20.5-51.1 monocytes as percent of blood leukocytes 11.6 % 1.7-9.3 neutrophils as percent of blood leukocytes 64.5 % 42.2-75.2 leukocyte count, blood 7.0 10^3/MM^3 10*3/mm3 4.6-10.2 red blood cell distribution width 14.0 % 11 .6-14.8 platelet count 241 10^3/MM^3 10*3/mm3 142-424 Lab Report: CBC W/DIFF, Lipid Panel, AST , ALT, Alk Phos, Manual Diff/Mor ... - Chemistry cholesterol, serum 121 mg/dL 275-499 7228/01/03 triglyceride, serum, fasting 23 mg/dL 30-200 HDL cholesterol, serum 58 mg/dL 32-96 LDL cholesterol, serum 58 mg/dL 0-130 aspartate aminotransferase (SGOT), serum 17 U/L 15-37 alanine aminotransferase (SGPT), serum 21 U/L 12-78 alkaline phosphatase, serum 204 U/L 50-136 Lab Report: CBC W/DIFF, Lipid Panel, AST , ALT, Alk Phos, Manual Diff/Mor ... - Hematology neutrophils as percent of blood leukocytes 38.4 % 42.2-75.2 monocytes as percent of blood leukocytes 10.4 % 1.7-9.3 lymphocytes as percent of blood leukocytes 49.5 % 20.5-51.1 erythrocyte (RBC) count 4.84 10^6/MM^3 10*6/mm3 4.69-6.1 3 hemoglobin, blood 13.5 g/dL 12.0-16.0 leukocyte count, blood 5.1 10^3/MM^3 10*3/mm3 4.6-10.2 hematocrit, blood 40.5 % 37.0-49.0 mean corpuscular [...] serum, fasting 29 mg/dL 30-200 Lab Report: MONO w/Rflx EBV, VILLA INFLU DEMETRIA A/B, CBC W/DIFF - Hematology hemoglobin, blood 14.6 g/dL 12.0-16.0 hematocrit, blood 43.8 % 37.0-49.0 mean corpuscular volume, RBC 84 fL 80-97 mean corpuscular hemoglobin, RBC 27.7 pg 27. 0-31.2 mean corpuscular hemoglobin concentration, RBC 33.2 G/DL % 31.8-35.4 red blood cell distribution width 13.5 % 11 .6-14.8 platelet count 224 10^3/MM^3 10*3/mm3 963-955 2211/01/22 leukocyte count, blood 8.0 10^3/MM^3 10*3/mm3 4.6-10.2 neutrophils as percent of blood leukocytes 65.1 % 42.2-75.2 monocytes as percent of blood leukocytes 11.7 % 1.7-9.3 lymphocytes as percent of blood leukocytes 21.6 % 20.5-51.1 erythrocyte (RBC) count 5.25 10^6/MM^3 10*6/mm3 4.69-6.1 3 Lab Report: MONO w/Rflx EBV, VILLA INFLU DEMETRIA A/B, CBC W/DIFF - Toxicology rapid flu test Negative Negative Lab Report: RapidStrep Rflx/Cx - Microbi ology Microbial identification kit, rapid stre p method Negative-Throat Culture to Follow Negative Encounters Code Encounter Date Provider Facility CPT-82565 Level 3 Est. Patient 11:42:21 CDT Gaston Ewing MD [facility] CPT-33307 Level 3 Est. Patient 13:52:22 CDT Todd Rodriguez MD [facility] CPT-10420 Level 3 Est. Patient 12:06:02 BALLISTICS EXPERT FORENSIC Arsalan gustafson MD [facility] CPT-94033 Level 3 Est. Patient 12:39:55 BALLISTICS EXPERT FORENSIC Todd Rodriguez MD [facility] CPT-29167 Level 3 Est. Patient 14:18:20 CDT Vaughn POPE [facility] CPT-64430 Level 3 Est. Patient 17:31:27 BALLISTICS EXPERT FORENSIC Arsalan gustafson MD [facility] CPT-12743 Level 3 Est. Patient 14:37:36 CDT Vaughn Parker [facility] Procedures Code Procedure Name Date Entry Date Standard Desc ription CPT-29656 Postop F/U Visit 13:38:44 CDT CPT-OV Office Visit 14:33:00 CDT CPT-78808 Venipuncture Draw Fee 16:03:08 BALLISTICS EXPERT FORENSIC CPT-29702 Venipuncture Draw Fee 14:25:48 BALLISTICS EXPERT FORENSIC CPT-74695 Venipuncture Draw Fee 09:58:28 CDT CPT-31916 Venipuncture Draw Fee 13:38:25 CDT CPT-49133 Venipuncture Draw Fee 14:30:31 CDT CPT-52590 Venipuncture Draw Fee 16:51:54 CDT CPT-24826 Venipuncture Draw Fee 15:30:43 CDT
--- OUTSIDE RECORDS SUMMARY | 2020-03-24 02:38 | XMS REPORT ---
Author Author [facility] Medic al Staff, STEFAN Organization [facility] Address [address] [place] [id number] Phone [phone] Care Team Providers Care Southeast Regional Sales Manager Name Role Phone EUGENIA WEST MD PP [phone] Summary purpose TRANSITION OF CARE AUTO GENERATION [...]
--- OUTSIDE RECORDS SUMMARY | 2020-03-24 02:38 | XMS REPORT | Clinical Summary ---
Author Author Admin, Yves Jackson Organization [facility] Address Unknown Phone Allergies, Adverse Reactions, [...] by mouth three times a day AMOXICILLIN 83309947456 Active Todd Rodriguez MD Active EQ IBUPROFEN 200 MG TABS 2 tabs every 4 to 6 hours prn IBUPROFEN 76745255474 Active Todd Rodriguez MD Active TYLENOL COLD/FLU SEVERE 7-32-382-325 MG TABS 2 tabs daily prn 03/23 HEZWVBVHLJPLR-IJ-LV-APAP 74389014281 Active Todd Rodriguez MD Active ANTIPYRINE-BENZOCAINE 5.4-1.4 % SOLN 1-2 drops in affe cted ear q 3 hours prn ear pain. BENZOCAINE-ANTIPYRINE 92116125848 No Longer Act bennett Vaughn POPE Active CORTISPORIN 3.5-14822-9 SOLN 4gtts in affected ear QID x 7 days WOSPBREA-NDXBHICGL-GQ 92050292142 No Longer Active Vaughn POPE Active AMOXICILLIN 500 MG TABS 2 tabs PO bid x 14 days 05/21 AMOXICILLIN 46518609264 No Longer Active Vaughn POPE Activ e CORTISPORIN 3.5-20383-6 SOLN 4gtts in affected ear QID x 7 days CORTISPORIN 3.5-25062-0 SOLN 218933 NEOMYCIN-POLYMYXIN- HC Inactive ANTIPYRINE-BENZOCAINE 5.4-1.4 % SOLN 1-2 drops in affe cted ear q 3 hours prn ear pain. ANTIPYRINE-BENZOCAINE 5.4-1.4 % SOLN 2443 09 BENZOCAINE-ANTIPYRINE Inactive AMOXICILLIN 500 MG TABS 2 tabs PO bid x 14 days 05/21 AMOXICILLIN 500 MG TABS 265028 AMOXICILLIN Inactive Vital Signs Date Name Value [...] Panel - Chemistry cholesterol, serum 130 mg/dL 794-400 4746/12/02 triglyceride, serum, fasting 43 mg/dL 30-200 HDL [...] 302 U/L 50-136 cholesterol, serum 111 mg/dL 773-728 1864/10/16 HDL cholesterol, serum 61 mg/dL 32-96 Lab [...] Phos - Chemistry cholesterol, serum 104 mg/dL 030-233 6456/07/16 triglyceride, serum, fasting 29 mg/dL 30-200 HDL [...] ... - Chemistry cholesterol, serum 110 mg/dL 852-691 5806/06/12 triglyceride, serum, fasting 114 mg/dL 30-200 HDL cholesterol, serum 50 mg/dL 32-96 LDL cholesterol, serum 37 mg/dL 0-130 aspartate aminotransferase (SGOT), serum 32 U/L 15-37 alanine aminotransferase (SGPT), serum 39 U/L 12-78 alkaline phosphatase, serum 324 U/L 50-136 cholesterol, serum 121 mg/dL 053-822 3809/01/03 triglyceride, serum, fasting 23 mg/dL 30-200 HDL [...] 11 .6-14.8 platelet count 245 10^3/MM^3 10*3/mm3 816-998 2739/06/12 leukocyte count, blood 6.6 UL 10*3/mm3 4.6-10.2 [...] Phos - Chemistry cholesterol, serum 102 mg/dL 568-081 4928/08/19 triglyceride, serum, fasting 55 mg/dL 30-200 HDL [...] Lab Report: MONO w/Rflx EBV, VILLA INFLU EDMETRIA A/B, CBC W/DIFF - Toxicology rapid flu test Negative Negative Lab Report: RapidStrep Rflx/Cx - Lab Microbial identification kit, rapid stre p method Negative-Throat Culture to Follow Negative Encounters Code Encounter Date Provider Facility CPT-10269 Level 3 Est. Patient 13:52:22 CDT Todd Rodriguez MD [facility] CPT-13665 Level 3 Est. Patient 12:06:02 IMPREGNATING MACHINE OPERATOR Arsalan gustafson MD [facility] CPT-14516 Level 3 Est. Patient 12:39:55 IMPREGNATING MACHINE OPERATOR Todd Rodriguez MD [facility] CPT-70095 Level 3 Est. Patient 14:18:20 CDT Vaughn Parker [facility] CPT-41026 Level 3 Est. Patient 17:31:27 IMPREGNATING MACHINE OPERATOR Arsalan gustafson MD [facility] CPT-47684 Level 3 Est. Patient 14:37:36 CDT Vaughn Parker [facility] Procedures Code Procedure Name Date Entry Date Standard Desc ription CPT-37722 Venipuncture Draw Fee 16:03:08 IMPREGNATING MACHINE OPERATOR CPT-46044 Venipuncture Draw Fee 14:25:48 IMPREGNATING MACHINE OPERATOR CPT-12957 Venipuncture Draw Fee 09:58:28 CDT CPT-51755 Venipuncture Draw Fee 13:38:25 CDT CPT-37610 Venipuncture Draw Fee 14:30:31 CDT CPT-42054 Venipuncture Draw Fee 16:51:54 CDT CPT-03382 Venipuncture Draw Fee 15:30:43 CDT
--- OUTSIDE RECORDS SUMMARY | 2020-03-24 02:38 | XMS REPORT | Clinical Summary ---
Author Author Admin, Yves Jackson Organization [facility] Address Unknown Phone Allergies, Adverse Reactions, Alerts [...] Other malaise and fatigue Pharyngitis 462 Active oTdd Rodriguez MD Acute pharyngitis CERVICAL LYMPHADENOPATHY, LEFT ICD-785.6 Inact bennett Todd Rodriguez MD OTITIS EXTERNA ICD-380.10 Inactive Todd Cotto MD Acute pharyngitis ICD-462 Inactive Todd ferreira MD Medication List Medication Instructions Start Date Stop Date Generic Name NDC Status Provider Patient Instruction AMOXICILLIN 500 MG CAPS 1 cap by mouth three times a day AMOXICILLIN 86866790906 Active Todd Rodriguez MD Active EQ IBUPROFEN 200 MG TABS 2 tabs every 4 to 6 hours prn IBUPROFEN 56277754820 Active Todd Rodriguez MD Active TYLENOL COLD/FLU SEVERE 7-15-603-325 MG TABS 2 tabs daily prn 03/23 NCFDITSGNJRYO-WZ-TO-APAP 94677467423 Active Todd Rodriguez MD Active ANTIPYRINE-BENZOCAINE 5.4-1.4 % SOLN 1-2 drops in affe cted ear q 3 hours prn ear pain. BENZOCAINE-ANTIPYRINE 98431368445 No Longer Act bennett Vaughn POPE Active CORTISPORIN 3.5-48405-3 SOLN 4gtts in affected ear QID x 7 days MPQMNCVV-NPTLPTIXE-CZ 68079415135 No Longer Active Vaughn POPE Active AMOXICILLIN 500 MG TABS 2 tabs PO bid x 14 days 05/21 AMOXICILLIN 46486307942 No Longer Active Vaughn POPE Activ e CORTISPORIN 3.5-11299-1 SOLN 4gtts in affected ear QID x 7 days CORTISPORIN 3.5-87773-4 SOLN 922258 NEOMYCIN-POLYMYXIN- HC Inactive ANTIPYRINE-BENZOCAINE 5.4-1.4 % SOLN 1-2 drops in affe cted ear q 3 hours prn ear pain. ANTIPYRINE-BENZOCAINE 5.4-1.4 % SOLN 2443 09 BENZOCAINE-ANTIPYRINE Inactive AMOXICILLIN 500 MG TABS 2 tabs PO bid x 14 days 05/21 AMOXICILLIN 500 MG TABS 421545 AMOXICILLIN Inactive Vital Signs Date Name Value Unit Range Description blood pressure, diastolic - 8462-4 81 mm[Hg] [...] pressure, diastolic - 8462-4 77 mm[Hg] BP maots blood pressure, systolic - 8480-6 119 mm[Hg] [...] 20 U/L 15-37 cholesterol, serum 130 mg/dL 936-288 4355/12/02 triglyceride, serum, fasting 43 mg/dL 30-200 HDL [...] 302 U/L 50-136 cholesterol, serum 111 mg/dL 931-274 3387/10/16 HDL cholesterol, serum 61 mg/dL 32-96 Lab [...] Phos - Chemistry cholesterol, serum 104 mg/dL 386-094 5968/07/16 triglyceride, serum, fasting 29 mg/dL 30-200 HDL [...] ... - Chemistry cholesterol, serum 110 mg/dL 681-711 3031/06/12 triglyceride, serum, fasting 114 mg/dL 30-200 HDL cholesterol, serum 50 mg/dL 32-96 LDL cholesterol, serum 37 mg/dL 0-130 aspartate aminotransferase (SGOT), serum 32 U/L 15-37 alanine aminotransferase (SGPT), serum 39 U/L 12-78 alkaline phosphatase, serum 324 U/L 50-136 cholesterol, serum 121 mg/dL 456-831 5380/01/03 triglyceride, serum, fasting 23 mg/dL 30-200 HDL [...] 11 .6-14.8 platelet count 245 10^3/MM^3 10*3/mm3 744-662 4132/06/12 red blood cell distribution width 13.6 % 11 .6-14.8 platelet count 263 UL 10*3/mm3 602-500 6719/06/12 erythrocyte (RBC) count 5.03 UL 10*6/mm3 4.69-6.13 lymphocytes as percent of blood leukocytes 47.8 % 20.5-51.1 monocytes as percent of blood leukocytes 8.2 % 1.7-9.3 neutrophils as percent of blood leukocytes 40.9 % 42.2-75.2 leukocyte count, blood 6.6 UL 10*3/mm3 4.6-10.2 mean corpuscular hemoglobin concentration, RBC 32.3 G/DL % 31.8-35.4 mean corpuscular hemoglobin, RBC 26.5 pg 27. 0-31.2 mean corpuscular volume, RBC 82 fL 80-97 hematocrit, blood 41.3 % 37.0-49.0 hemoglobin, blood 13.3 g/dL 12.0-16.0 Lab Report: LDL DIRECT, Triglyceride - C hemistry LDL cholesterol, serum 38.00 mg/dL 5.00-130.00 triglyceride, serum, fasting 29 mg/dL 30-200 Lab Report: Lipid Panel, CBC W/DIFF, ALT , AST, Alk Phos - Chemistry cholesterol, serum 102 mg/dL 992-218 7748/08/19 triglyceride, serum, fasting 55 mg/dL 30-200 HDL [...] Negative Encounters Code Encounter Date Provider Facility CPT-45962 Level 3 Est. Patient 13:52:22 CDT Todd Rodriguez MD [facility] CPT-41259 Level 3 Est. Patient 12:06:02 DIRECTOR OF CLINICAL SERVICES Arsalan gustafson MD [facility] CPT-07556 Level 3 Est. Patient 12:39:55 DIRECTOR OF CLINICAL SERVICES Todd Rodriguez MD [facility] CPT-19879 Level 3 Est. Patient 14:18:20 CDT Vaughn Parker [facility] CPT-75944 Level 3 Est. Patient 17:31:27 DIRECTOR OF CLINICAL SERVICES Arsalan gustafson MD [facility] CPT-63303 Level 3 Est. Patient 14:37:36 CDT Vaughn Parker [facility] Procedures Code Procedure Name Date Entry Date Standard Desc ription CPT-45386 Venipuncture Draw Fee 16:03:08 DIRECTOR OF CLINICAL SERVICES CPT-91824 Venipuncture Draw Fee 14:25:48 DIRECTOR OF CLINICAL SERVICES CPT-93256 Venipuncture Draw Fee 09:58:28 CDT CPT-43809 Venipuncture Draw Fee 13:38:25 CDT CPT-42520 Venipuncture Draw Fee 14:30:31 CDT CPT-09863 Venipuncture Draw Fee 16:51:54 CDT CPT-36567 Venipuncture Draw Fee 15:30:43 CDT
--- OUTSIDE RECORDS SUMMARY | 2020-03-24 02:38 | XMS REPORT ---
Author Author [facility] Medic al Staff, STEFAN Organization [facility] Address [address] [place] [address] Phone [phone] Care Team Providers Care Managing Attorney Name Role Phone EUGENIA WEST MD PP [phone] Summary purpose TRANSITION OF CARE AUTO GENERATION [...] Code Type Description Date Performed Performing Physician 87071 CPT-4 THERAPEUTIC EXERCISES 07-28-2014 NICHOLE FRAZIER 13518 CPT-4 PT EVALUATION 07-28-2014 LANDEN COMBS Lety 11713 CPT-4 THERAPEUTIC EXERCISES 07-31-2014 NICHOLE FRAZIER 37945 CPT-4 THERAPEUTIC EXERCISES 08-02-2014 NICHOLE FRAZIER 15616 CPT-4 THERAPEUTIC EXERCISES 08-09-2014 NICHOLE FRAZIER 73342 CPT-4 THERAPEUTIC EXERCISES 08-10-2014 NICHOLE FRAZIER 69112 CPT-4 THERAPEUTIC EXERCISES 08-11-2014 NICHOLE FRAZIER Functional [...]
--- OUTSIDE RECORDS SUMMARY | 2020-03-24 02:38 | XMS REPORT | Clinical Summary ---
[...] tab by mouth twice daily 2 TRIMETHOPRIM-SULFAMETHOXAZOLE 72962163558 No Longer Active Jillina Frazell A PRN Active BACTRIM DS 800-160 MG TABS 1 po BID x 10 days SULFAMETHOXAZOLE-TRIMETHOPRIM 81314754592 No Longer Active Gaston Ewing MD Active AMOXICILLIN 500 MG CAPS 1 cap by mouth three times a day AMOXICILLIN 75536145868 No Longer Active Todd Rodriguez MD Activ e EQ IBUPROFEN 200 MG TABS 2 tabs every 4 to 6 hours prn IBUPROFEN 17415394265 Active Todd Rodriguez MD Active TYLENOL COLD/FLU SEVERE 0-06-485-325 MG TABS 2 tabs daily prn 03/23 ARHZAFGFCVANO-UB-XW-APAP 66084593672 Active Todd Rodriguez MD Active ANTIPYRINE-BENZOCAINE 5.4-1.4 % SOLN 1-2 drops in affe cted ear q 3 hours prn ear pain. BENZOCAINE-ANTIPYRINE 16825483922 No Longer Act bennettLidia POPE Active CORTISPORIN 3.5-43503-3 SOLN 4gtts in affected ear QID x 7 days VAHAHLWY-IKAFICWQC-JC 20833161410 No Longer Active Vaughn POPE Active AMOXICILLIN 500 MG TABS 2 tabs PO bid x 14 days 05/21 AMOXICILLIN 84342453249 No Longer Active Vaughn POPE Activ e CORTISPORIN 3.5-49238-2 SOLN 4gtts in affected ear QID x 7 days CORTISPORIN 3.5-10392-3 SOLN 272633 NEOMYCIN-POLYMYXIN- HC Inactive ANTIPYRINE-BENZOCAINE 5.4-1.4 % SOLN 1-2 drops in affe cted ear q 3 hours prn ear pain. ANTIPYRINE-BENZOCAINE 5.4-1.4 % SOLN 2443 09 BENZOCAINE-ANTIPYRINE Inactive AMOXICILLIN 500 MG TABS 2 tabs PO bid x 14 days 05/21 AMOXICILLIN 500 MG TABS 257286 AMOXICILLIN Inactive AMOXICILLIN 500 MG CAPS 1 cap by mouth three times a day AMOXICILLIN 500 MG CAPS 035489 AMOXICILLIN Inactive BACTRIM DS 800-160 MG TABS 1 po BID x 10 days BACTRIM DS 800-160 MG TABS SULFAMETHOXAZOLE-TRIMETHOPRIM Inactive BACTRIM DS 800-160 MG TAB 1 tab by mouth twice daily 2 /05/26 BACTRIM DS 800-160 MG TAB TRIMETHOPRIM-SULFAMETHOXAZOLE Inac tive Vital Signs Date Name Value Unit Range Description blood pressure, diastolic - 8462-4 65 mm[Hg] BP matos blood pressure, systolic - 8480-6 103 mm[Hg] [...] 20 U/L 15-37 cholesterol, serum 130 mg/dL 770-064 8862/12/02 triglyceride, serum, fasting 43 mg/dL 30-200 HDL [...] 302 U/L 50-136 cholesterol, serum 111 mg/dL 850-586 9769/10/16 HDL cholesterol, serum 61 mg/dL 32-96 Lab [...] ... - Chemistry cholesterol, serum 121 mg/dL 163-345 6937/01/03 triglyceride, serum, fasting 23 mg/dL 30-200 HDL [...] 263 U/L 50-136 cholesterol, serum 102 mg/dL 473-471 6582/08/19 triglyceride, serum, fasting 55 mg/dL 30-200 HDL [...] Negative Encounters Code Encounter Date Provider Facility CPT-90341 Level 3 Est. Patient 11:42:21 CDT Gaston Ewing MD [facility] CPT-65059 Level 3 Est. Patient 13:52:22 CDT Todd Rodriguez MD [facility] CPT-21600 Level 3 Est. Patient 12:06:02 RIB PULLER Arsalan gustafson MD [facility] CPT-55083 Level 3 Est. Patient 12:39:55 RIB PULLER Todd Rodriguez MD [facility] CPT-99163 Level 3 Est. Patient 14:18:20 CDT Vaughn Parker [facility] CPT-04356 Level 3 Est. Patient 17:31:27 RIB PULLER Arsalan gustafson MD [facility] CPT-88954 Level 3 Est. Patient 14:37:36 CDT Vaughn Parker [facility] Procedures Code Procedure Name Date Entry Date Standard Desc ription CPT-10412 Postop F/U Visit 13:38:44 CDT CPT-OV Office Visit 14:33:00 CDT CPT-98013 Venipuncture Draw Fee 16:03:08 RIB PULLER CPT-52218 Venipuncture Draw Fee 14:25:48 RIB PULLER CPT-81763 Venipuncture Draw Fee 09:58:28 CDT CPT-50295 Venipuncture Draw Fee 13:38:25 CDT CPT-49851 Venipuncture Draw Fee 14:30:31 CDT CPT-83448 Venipuncture Draw Fee 16:51:54 CDT CPT-26327 Venipuncture Draw Fee 15:30:43 CDT
--- OUTSIDE RECORDS SUMMARY | 2020-03-24 02:38 | XMS REPORT | Clinical Summary ---
Author Author Admin, Yves Jackson Organization [facility] Address Unknown [...] tab by mouth twice daily 2 TRIMETHOPRIM-SULFAMETHOXAZOLE 74179842747 No Longer Active Jillina Frazell A PRN Active BACTRIM DS 800-160 MG TABS 1 po BID x 10 days SULFAMETHOXAZOLE-TRIMETHOPRIM 44601783770 No Longer Active Gaston Ewing MD Active AMOXICILLIN 500 MG CAPS 1 cap by mouth three times a day AMOXICILLIN 48086543256 No Longer Active Todd Rodriguez MD Activ e EQ IBUPROFEN 200 MG TABS 2 tabs every 4 to 6 hours prn IBUPROFEN 01100593836 Active Todd Rodriguez MD Active TYLENOL COLD/FLU SEVERE 3-92-531-325 MG TABS 2 tabs daily prn 03/23 BVBKJMZEBGQIB-RY-LL-APAP 30797464902 Active Todd Rodriguez MD Active ANTIPYRINE-BENZOCAINE 5.4-1.4 % SOLN 1-2 drops in affe cted ear q 3 hours prn ear pain. BENZOCAINE-ANTIPYRINE 58199228521 No Longer Act bennett Vaughn POPE Active CORTISPORIN 3.5-97648-8 SOLN 4gtts in affected ear QID x 7 days IBAMGNYO-QSZEEQURN-KJ 08833526601 No Longer Active Vaughn POPE Active AMOXICILLIN 500 MG TABS 2 tabs PO bid x 14 days 05/21 AMOXICILLIN 82287501211 No Longer Active Vaughn Parker PA Activ e CORTISPORIN 3.5-59826-3 SOLN 4gtts in affected ear QID x 7 days CORTISPORIN 3.5-75606-4 SOLN 344530 NEOMYCIN-POLYMYXIN- HC Inactive ANTIPYRINE-BENZOCAINE 5.4-1.4 % SOLN 1-2 drops in affe cted ear q 3 hours prn ear pain. ANTIPYRINE-BENZOCAINE 5.4-1.4 % SOLN 2443 09 BENZOCAINE-ANTIPYRINE Inactive AMOXICILLIN 500 MG TABS 2 tabs PO bid x 14 days 05/21 AMOXICILLIN 500 MG TABS 091002 AMOXICILLIN Inactive AMOXICILLIN 500 MG CAPS 1 cap by mouth three times a day AMOXICILLIN 500 MG CAPS 252698 AMOXICILLIN Inactive BACTRIM DS 800-160 MG TABS [...] 20 U/L 15-37 cholesterol, serum 130 mg/dL 308-520 9889/12/02 triglyceride, serum, fasting 43 mg/dL 30-200 HDL [...] 302 U/L 50-136 cholesterol, serum 111 mg/dL 717-373 1454/10/16 HDL cholesterol, serum 61 mg/dL 32-96 Lab [...] ... - Chemistry cholesterol, serum 121 mg/dL 489-790 3305/01/03 triglyceride, serum, fasting 23 mg/dL 30-200 HDL [...] 263 U/L 50-136 cholesterol, serum 102 mg/dL 966-659 6902/08/19 triglyceride, serum, fasting 55 mg/dL 30-200 HDL [...] Negative Encounters Code Encounter Date Provider Facility CPT-69717 Level 3 Est. Patient 11:42:21 CDT Gaston Ewing MD [facility] CPT-31343 Level 3 Est. Patient 13:52:22 CDT Todd Rodriguez MD [facility] CPT-72415 Level 3 Est. Patient 12:06:02 KNOTTING MACHINE OPERATOR PORTABLE Arsalan gustafson MD [facility] CPT-41757 Level 3 Est. Patient 12:39:55 KNOTTING MACHINE OPERATOR PORTABLE Todd Rodriguez MD [facility] CPT-24038 Level 3 Est. Patient 14:18:20 CDT Vaughn Parker [facility] CPT-19380 Level 3 Est. Patient 17:31:27 KNOTTING MACHINE OPERATOR PORTABLE Arsalan gustafson MD [facility] CPT-42824 Level 3 Est. Patient 14:37:36 CDT Vaughn Parker [facility] Procedures Code Procedure Name Date Entry Date Standard Desc ription CPT-OV Office Visit 14:33:00 CDT CPT-44827 Venipuncture Draw Fee 16:03:08 KNOTTING MACHINE OPERATOR PORTABLE CPT-76277 Venipuncture Draw Fee 14:25:48 KNOTTING MACHINE OPERATOR PORTABLE CPT-26978 Venipuncture Draw Fee 09:58:28 CDT CPT-00766 Venipuncture Draw Fee 13:38:25 CDT CPT-66005 Venipuncture Draw Fee 14:30:31 CDT CPT-44506 Venipuncture Draw Fee 16:51:54 CDT CPT-71684 Venipuncture Draw Fee 15:30:43 CDT
--- OUTSIDE RECORDS SUMMARY | 2020-03-24 02:38 | XMS REPORT | Clinical Summary ---
Author Author Admin, Yves Jackson Organization [facility] Address Unknown Phone Allergies, Adverse Reactions, [...] 1 po BID x 10 days SULFAMETHOXAZOLE-TRIMETHOPRIM 42202398088 Active Gaston Ewing MD Active AMOXICILLIN 500 MG CAPS 1 cap by mouth three times a day AMOXICILLIN 10732250630 No Longer Active Todd Rodriguez MD Activ e EQ IBUPROFEN 200 MG TABS 2 tabs every 4 to 6 hours prn IBUPROFEN 14289437268 Active Todd Rodriguez MD Active TYLENOL COLD/FLU SEVERE 7-97-638-325 MG TABS 2 tabs daily prn 03/23 LYFCMJWTEZMDK-QM-RI-APAP 28382651192 Active Todd Rodriguez MD Active ANTIPYRINE-BENZOCAINE 5.4-1.4 % SOLN 1-2 drops in affe cted ear q 3 hours prn ear pain. BENZOCAINE-ANTIPYRINE 28103615283 No Longer Act bennett Vaughn POPE Active CORTISPORIN 3.5-25165-4 SOLN 4gtts in affected ear QID x 7 days OSARBKPE-PNEZMTCLX-KP 46709895296 No Longer Active Vaughn POPE Active AMOXICILLIN 500 MG TABS 2 tabs PO bid x 14 days 05/21 AMOXICILLIN 47366368178 No Longer Active Vaughn POPE Activ e CORTISPORIN 3.5-23700-0 SOLN 4gtts in affected ear QID x 7 days CORTISPORIN 3.5-88987-4 SOLN 957804 NEOMYCIN-POLYMYXIN- HC Inactive ANTIPYRINE-BENZOCAINE 5.4-1.4 % SOLN 1-2 drops in affe cted ear q 3 hours prn ear pain. ANTIPYRINE-BENZOCAINE 5.4-1.4 % SOLN 2443 09 BENZOCAINE-ANTIPYRINE Inactive AMOXICILLIN 500 MG TABS 2 tabs PO bid x 14 days 05/21 AMOXICILLIN 500 MG TABS 618875 AMOXICILLIN Inactive AMOXICILLIN 500 MG CAPS 1 cap by mouth three times a day AMOXICILLIN 500 MG CAPS 732035 AMOXICILLIN Inactive Vital Signs Date Name Value [...] Panel - Chemistry cholesterol, serum 130 mg/dL 044-095 4646/12/02 triglyceride, serum, fasting 43 mg/dL 30-200 HDL [...] 302 U/L 50-136 cholesterol, serum 111 mg/dL 563-063 8860/10/16 HDL cholesterol, serum 61 mg/dL 32-96 Lab [...] Phos - Chemistry cholesterol, serum 104 mg/dL 834-678 9916/07/16 triglyceride, serum, fasting 29 mg/dL 30-200 HDL [...] ... - Chemistry cholesterol, serum 121 mg/dL 276-957 3919/01/03 triglyceride, serum, fasting 23 mg/dL 30-200 HDL [...] 263 U/L 50-136 cholesterol, serum 102 mg/dL 594-705 5181/08/19 triglyceride, serum, fasting 55 mg/dL 30-200 HDL [...] Negative Encounters Code Encounter Date Provider Facility CPT-41850 Level 3 Est. Patient 11:42:21 CDT Gaston Ewing MD [facility] CPT-61388 Level 3 Est. Patient 13:52:22 CDT Todd Rodriguez MD [facility] CPT-60346 Level 3 Est. Patient 12:06:02 RESILIENT TILE INSTALLER Arsalan gustafson MD [facility] CPT-84019 Level 3 Est. Patient 12:39:55 RESILIENT TILE INSTALLER Todd Rodriguez MD [facility] CPT-84804 Level 3 Est. Patient 14:18:20 CDT Vaughn Parker [facility] CPT-62122 Level 3 Est. Patient 17:31:27 RESILIENT TILE INSTALLER Arsalan gustafson MD [facility] CPT-01089 Level 3 Est. Patient 14:37:36 CDT Vaughn Parker [facility] Procedures Code Procedure Name Date Entry Date Standard Desc ription CPT-03216 Venipuncture Draw Fee 16:03:08 RESILIENT TILE INSTALLER CPT-25892 Venipuncture Draw Fee 14:25:48 RESILIENT TILE INSTALLER CPT-55937 Venipuncture Draw Fee 09:58:28 CDT CPT-26857 Venipuncture Draw Fee 13:38:25 CDT CPT-62310 Venipuncture Draw Fee 14:30:31 CDT CPT-18404 Venipuncture Draw Fee 16:51:54 CDT CPT-40698 Venipuncture Draw Fee 15:30:43 CDT
--- OUTSIDE RECORDS SUMMARY | 2020-03-24 02:39 | XMS REPORT ---
Author Author [facility] Medic al Staff, STEFAN Organization [facility] Address [address] [place] [address] Phone [phone] Care Team Providers Care Grain Elevator Superintendent Name Role Phone EUGENIA WEST MD PP [phone] Summary purpose TRANSITION OF CARE AUTO GENERATION [...]
--- OUTSIDE RECORDS SUMMARY | 2020-03-24 02:39 | XMS REPORT ---
Author Author [facility] Medic al Staff, STEFAN Organization [facility] Address [address] [place] [address] Phone [phone] Care Team Providers Care Card Decorator Name Role Phone EUGENIA WEST MD PP [phone] Summary purpose TRANSITION OF CARE AUTO GENERATION [...]
[2020-03-24 02:42] LABS: BASOPHILS % (AUTO) 1 % (0-10); EOSINOPHILS % (AUTO) 0 % (0-10); HEMATOCRIT 40 % (40-54); HEMOGLOBIN 13.5 G/DL (13.3-17.7); LYMPHOCYTES # (AUTO) 2.2 X 10^3 (1.0-4.0); LYMPHOCYTES % (AUTO) 26 % (12-44); MEAN CORPUSCULAR HEMOGLOBIN 28 PG (25-34); MEAN CORPUSCULAR HGB CONC 34 G/DL (32-36); MEAN CORPUSCULAR VOLUME 82 FL (80-99); MEAN PLATELET VOLUME 10.1 FL (7.4-10.4); MONOCYTES # (AUTO) 0.9 X 10^3 (0.0-1.0); MONOCYTES % (AUTO) 11 % (0-12); NEUTROPHILS # (AUTO) 5.3 X 10^3 (1.8-7.8); NEUTROPHILS % (AUTO) 63 % (42-75); PLATELET COUNT 285 10^3/uL (130-400); RED CELL DISTRIBUTION WIDTH 13.1 % (10.0-14.5); WHITE BLOOD COUNT 8.5 10^3/uL (4.3-11.0)
[2020-03-24] MEDS ORDERED: PANTOPRAZOLE 40 MG (PROTONIX) VIAL IV ONE (02:45)
[2020-03-24] MEDS ORDERED: ONDANSETRON 4 MG/2 ML (SDV) Z0FRAN IVP ONE (02:45)
--- NOTE | 2020-03-24 02:45 | ED Psychosocial ---
General Stated Complaint: ETOH Source: patient Exam Limitations: no limitations History of Present Illness Date Seen by Provider: March 24, 2020 Time Seen by Provider: 02:20 Initial Comments Patient has ER by private conveyance with a friend and girlfriend that he been drinking tonight and was unresponsive. He been vomiting. No fevers chills or head injury. The patient reports that this is his second time drinking in life. The patient is alert and answers all questions appropriately. He is somnolent, GCS 14. He is accompanied by a friend as well as his girlfriend Monster Farias, she states no relation. The male friend that he was out partying with ghada took off on foot and did not answer any questions. The girlfriend says she was not with him but she was concerned when he came home and was having difficulty walking and said his eyes looked funny. She decided to bring him to the ER to be checked out. She says he reported drinking a Rum and Coke as well as 3 or 4 shots. He takes Effexor for depression. He has not had any statements of suicidal ideation and as far she knows no history of suicidal attempt. She says he does not use drugs or smoke. She says no history of trauma, fights or falls that she is aware of. She was also concerned because he was unable to spell his brothers middle name. 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 Perhaps a pilonidal cyst. The patient denies suicidal ideation. The history given by the patient is a history given by the girlfriend. Allergies and Home Medications Allergies Coded Allergies: No Known Drug Allergies (Unverified , 12/05/19) Patient Home Medication List Home Medication List Reviewed: Yes Review of Systems Constitutional: No chills, No diaphoresis, No fever; weakness EENTM: see HPI, blurred vision; No no symptoms reported, No ear discharge, No ear pain, No double vision, No eye pain, No vision loss Respiratory: No cough, No short of breath Cardiovascular: No chest pain, No edema Gastrointestinal: No abdominal pain, No constipation, No diarrhea; nausea, vomiting Genitourinary: No discharge, No dysuria Musculoskeletal: No back pain, No joint pain Skin: No pruritus, No rash All Other Systems Reviewed Negative Unless Noted: Yes Past Citajip-Mpysin-Guwgib Hx Patient Social History Alcohol Use: Rarely Uses Recreational Drug Use: No Smoking Status: Never a Smoker Physical Exam Vital Signs - First Documented 03/24/20 02:23 Temp 36.1 Pulse 87 Resp 14 B/P (MAP) 133/71 (91) O2 Delivery Room Air Capillary Refill : Height, Weight, BMI Height: '" Weight: lbs. oz. kg; BMI Method: General Appearance: mild distress, other (disheveled) HEENT: PERRL/EOMI (4 mm, symmetric, bilaterally reactive.), normal ENT inspection, TMs normal, pharynx normal, other (no Hu sign or raccoon eyes. No hemotympanum. Atraumatic head) Neck: non-tender, full range of motion, supple, normal inspection Respiratory: chest non-tender, lungs clear, normal breath sounds, no respiratory distress, no accessory muscle use Cardiovascular: normal peripheral pulses, regular rate, rhythm, no edema Peripheral Pulses: 2+ Dorsalis Pedis (R), 2+ Left Dors-Pedis (L), 2+ Radial Pulses (R), 2+ Radial Pulses (L) Gastrointestinal: normal bowel sounds, non tender, soft, no organomegaly Neurologic/Psychiatric: normal mood/affect, oriented x 3, other (somnolent, GCS 14. Follows commands, cooperative, non bellicose) Appearance/Memory: no memory impairment, disheveled Behavior/Eye Contact: cooperative, decreased rate of speech (not slurred) Thoughts/Hallucinations: normal thought pattern, no apparent hallucination Skin: normal color, warm/dry Progress/Results/Core Measures Results/Orders Lab Results Laboratory Tests Test 03/24/20 02:28 Range/Units White Blood Count 8.5 4.3-11.0 10^3/uL Red Blood Count 4.91 4.35-5.85 10^6/uL Hemoglobin 13.5 13.3-17.7 G/DL Hematocrit 40 40-54 % Mean Corpuscular Volume 82 80-99 FL Mean Corpuscular Hemoglobin 28 25-34 PG Mean Corpuscular Hemoglobin Concent 34 32-36 G/DL Red Cell Distribution Width 13.1 10.0-14.5 % Platelet Count 285 130-400 10^3/uL Mean Platelet Volume 10.1 7.4-10.4 FL Neutrophils (%) (Auto) 63 42-75 % Lymphocytes (%) (Auto) 26 12-44 % Monocytes (%) (Auto) 11 0-12 % Eosinophils (%) (Auto) 0 0-10 % Basophils (%) (Auto) 1 0-10 % Neutrophils # (Auto) 5.3 1.8-7.8 X 10^3 Lymphocytes # (Auto) 2.2 1.0-4.0 X 10^3 Monocytes # (Auto) 0.9 0.0-1.0 X 10^3 Eosinophils # (Auto) 0.0 0.0-0.3 10^3/uL Basophils # (Auto) 0.0 0.0-0.1 10^3/uL Sodium Level 140 135-145 MMOL/L Potassium Level 3.1 L 3.6-5.0 MMOL/L Chloride Level 106 98-107 MMOL/L Carbon Dioxide Level 22 21-32 MMOL/L Anion Gap 12 5-14 MMOL/L Blood Urea Nitrogen 13 7-18 MG/DL Creatinine 0.89 0.60-1.30 MG/DL Estimat Glomerular Filtration Rate > 60 BUN/Creatinine Ratio 15 Glucose Level 139 H 70-105 MG/DL Calcium Level 8.7 8.5-10.1 MG/DL Corrected Calcium 8.5-10.1 MG/DL Total Bilirubin 0.2 0.1-1.0 MG/DL Aspartate Amino Transf (AST/SGOT) 19 5-34 U/L Alanine Aminotransferase (ALT/SGPT) 19 0-55 U/L Alkaline Phosphatase 70 40-136 U/L Total Protein 7.3 6.4-8.2 GM/DL Albumin 4.7 H 3.2-4.5 GM/DL Salicylates Level < 5.0 L 5.0-20.0 MG/DL Acetaminophen Level < 10 L 10-30 UG/ML Serum Alcohol 160 H <10 MG/DL My Orders Orders - DAVID KOENIG Lactated Ringers (Lr 1000 Ml Iv Solution (03/24/20 02:21) Ua Culture If Indicated (03/24/20 02:31) Cbc With Automated Diff (03/24/20 02:31) Comprehensive Metabolic Panel (03/24/20 02:31) Alcohol (03/24/20 02:31) Drug Screen Stat (Urine) (03/24/20 02:31) Acetaminophen (03/24/20 02:31) Salicylate (03/24/20 02:31) Ekg Tracing (03/24/20 02:31) Ed Iv/Invasive Line Start (03/24/20 02:31) Monitor-Rhythm Ecg Trace Only (03/24/20 02:31) Ed Iv/Invasive Line Start (03/24/20 02:31) Lactated Ringers (Lr 1000 Ml Iv Solution (03/24/20 02:31) Pantoprazole Injection (Protonix Injecti (03/24/20 02:45) Ondansetron Injection (Zofran Injectio (03/24/20 02:45) Ondansetron Injection (Zofran Injectio (03/24/20 02:26) Pantoprazole Injection (Protonix Injecti (03/24/20 02:26) Ct Head Wo (03/24/20 02:45) Medications Given in ED Current Medications Medications Dose Ordered Sig/Kenisha Route Start Time Stop Time Status Last Admin Dose Admin Lactated Ringer's 1,000 ml @ ud STK-MED ONCE IV 03/24/20 02:21 03/24/20 02:29 DC 03/24/20 02:32 1,000 MLS/HR Ondansetron HCl 4 mg STK-MED ONCE .ROUTE 03/24/20 02:26 03/24/20 02:34 DC 03/24/20 02:43 8 MG Pantoprazole 40 mg ONCE ONCE IV 03/24/20 02:45 03/24/20 02:46 DC 03/24/20 02:37 40 MG Vital Signs/I&O 03/24/20 02:23 Temp 36.1 Pulse 87 Resp 14 B/P (MAP) 133/71 (91) O2 Delivery Room Air Progress Progress Note : Time: 02:52 Progress Note There are some concerning holes in his story. 4 drinks and he is somnolent, slovenly drunk, vomiting on himself. It's also concerning that his friend who was out partying with him did not want to stick around. His girlfriend reveals that his friend uses drugs but she was insistent that the patient does not even though she was not with him. While his external head appears atraumatic I would be concern for missed injury since his girlfriend who is giving the history was not present at the time he was partying. He denied that he had any trauma, falls and all of his history so far has managed with his girlfriend said. Plan to get a CT of his head to rule out significant trauma. Plan to give him a liter of LR, pantoprazole, ondansetron and obtain a urinalysis with drug screen and toxicology. He does not appear to be suicidal. Patient is maintaining his own airway easily. Initial ECG Impression Date: March 24, 2020 Initial ECG Impression Time: 03:30 Initial ECG Rate: 82 Initial ECG Rhythm: Normal Sinus Initial ECG Intervals: Normal Initial ECG Impression: Normal Initial ECG Comparisson: No Previous ECG Available Comment Normal sinus rhythm without ST changes. Diagnostic Imaging Diagonstic Imaging: CT Plain Films/CT/US/NM/MRI: head Comments No acute intracranial hemorrhage, mass effect, tumor or bleed. No midline shift. No calvarial fracture. Reviewed: Reviewed Night Hawk Study, Reviewed by Me Departure Impression Primary Impression: Acute alcoholic intoxication Qualified Codes: F10.920 - Alcohol use, unspecified with intoxication, uncomplicated Disposition: 01 HOME, SELF-CARE Condition: Stable Departure-Patient Inst. Decision time for Depature: 04:38 Referrals: YOCASTA MARTINEZ MD (PCP/Family) Primary Care Physician Patient Instructions: Effects of Alcohol on Your Health Add. Discharge Instructions: Drink plenty of fluids including water or sports drinks. Tylenol 650 mg every 8 hours as necessary for headache. Get plenty of rest. Look for a healthier past time besides alcohol consumption. Return to the ER for worsening symptoms or other concerns. Otherwise plan to follow up with primary care as necessary. DAVID KOENIG March 24, 2020 02:45
[2020-03-24 02:51] LABS: ALBUMIN 4.7 GM/DL (3.2-4.5); CHLORIDE 106 MMOL/L (98-107); POTASSIUM 3.1 MMOL/L (3.6-5.0); SODIUM 140 MMOL/L (135-145)
[2020-03-24 02:52] LABS: CALCIUM 8.7 MG/DL (8.5-10.1)
[2020-03-24 02:54] LABS: GLUCOSE 139 MG/DL (70-105); TOTAL PROTEIN 7.3 GM/DL (6.4-8.2)
[2020-03-24 02:55] LABS: CARBON DIOXIDE 22 MMOL/L (21-32)
[2020-03-24 02:56] LABS: BILIRUBIN,TOTAL 0.2 MG/DL (0.1-1.0)
[2020-03-24 02:58] LABS: ALKALINE PHOSPHATASE 70 U/L (40-136); CREATININE SERUM 0.89 MG/DL (0.60-1.30); GFR ESTIMATED > 60
[2020-03-24 02:59] LABS: ACETAMINOPHEN < 10 UG/ML (10-30); BUN/CREATININE RATIO 15
[2020-03-24 03:00] LABS: SALICYLATE < 5.0 MG/DL (5.0-20.0)
[2020-03-24 03:01] LABS: ALANINE AMINOTRANSFERASE 19 U/L (0-55)
[2020-03-24 04:50] VITALS: BP 108/62
--- NOTE | 2020-03-24 07:19 | Diagnostic Imaging Report ---
EXAMINATION: CT head without contrast. TECHNIQUE: Multiple contiguous axial images were obtained through the brain without the use of intravenous contrast. All CT scans use one or more of the following dose optimizing techniques: automated exposure control, MA and/or KvP adjustment based on a patient size and exam type, or iterative reconstruction. HISTORY: Altered mental status COMPARISON: None available. FINDINGS: The angela-white matter differentiation is normal. No mass effect or midline shift. The ventricles are normal in size and configuration. Basilar cisterns are patent. There are no intra- or extra-axial fluid collections. There is no intracranial hemorrhage. The orbits are normal. Paranasal sinuses are normal. Mastoid air cells are clear. No soft tissue abnormality is seen. No osseus lesions or fractures are seen. IMPRESSION: 1. No acute intracranial abnormality. Dictated by: Dictated on workstation # [id number]
== END 2020-03-24 04:53 | disposition home or self-care (01) ==
LOC: EDUNIT# 02:23 → ER 02:26
DX: F10.129 Alcohol abuse with intoxication, unspecified (principal); F32.9 Major depressive disorder, single episode, unspecified; Y90.6 Blood alcohol level of 120-199 mg/100 ml
CPT/HCPCS: 36415; 70450; 80053; 80320; 80329; 85025; 93005; 93041; 96361; 96374; 96375

== ENCOUNTER 2021-01-29 18:33 | Emergency (ER) | payer BC ==
[~2021-01-29] VITALS: Ht 170.2 cm; Wt 70.3 kg
[2021-01-29 18:50] VITALS: BP 121/78
--- NOTE | 2021-01-29 19:08 | ED Lower Extremity ---
General Chief Complaint: Lower Extremity Stated Complaint: L BIG TOE PAIN Nursing Triage Note: AMBULATES TO TRIAGE WITH C/O L GREAT TOE INJURY. STATES EARLIER THIS EVENING HE DROPPED WOOD ON TOE X2. HEMATOMA NOTED TO L GREAT TOE NAIL Nursing Sepsis Screen: No Definite Risk Source: patient Exam Limitations: no limitations History of Present Illness Date Seen by Provider: Jan 29, 2021 Time Seen by Provider: 18:55 Initial Comments To ER with reports of left big toe injury. Earlier this evening he dropped a piece of wood on his toe twice. Bruising beneath the left great toenail. Onset: just prior to arrival Severity: moderate Pain/Injury Location: left 1st toe Method of Injury: direct blow Modifying Factors: Worse With Movement Allergies and Home Medications Allergies Coded Allergies: No Known Drug Allergies (Unverified , 12/05/19) Patient Home Medication List Home Medication List Reviewed: Yes Review of Systems Constitutional: see HPI EENTM: see HPI Respiratory: no symptoms reported Cardiovascular: no symptoms reported Genitourinary: no symptoms reported Musculoskeletal: see HPI Skin: no symptoms reported Psychiatric/Neurological: No Symptoms Reported Past Hmwgmhl-Lwyszo-Teouqt Hx Patient Social History Recent Infectious Disease Expo: No Recent Hopitalizations: No Seasonal Allergies Seasonal Allergies: No Past Medical History Surgeries: Yes (TUMOR REMOVED FROM BACK) Respiratory: No Cardiac: No Neurological: No Genitourinary: No Gastrointestinal: No Musculoskeletal: No Endocrine: No HEENT: No Cancer: No Psychosocial: Yes Depression Integumentary: No Blood Disorders: No Adverse Reaction/Blood Tranf: No Physical Exam Vital Signs Vital Signs - First Documented 01/29/21 18:50 Temp 36.7 Pulse 87 Resp 18 B/P (MAP) 121/78 (92) Pulse Ox 99 O2 Delivery Room Air Capillary Refill : Less Than 3 Seconds Height, Weight, BMI Height: '" Weight: lbs. oz. kg; 24.00 BMI Method: General Appearance: WD/WN, no apparent distress Respiratory: no respiratory distress, no accessory muscle use Hips: bilateral hip non-tender, bilateral hip normal inspection, bilateral hip normal range of motion Legs: bilateral leg non-tender, bilateral leg normal inspection, bilateral leg normal range of motion Knees: bilateral knee non-tender, bilateral knee normal inspection, bilateral knee normal range of motion Ankles: bilateral ankle non-tender, bilateral ankle normal inspection, bilateral ankle normal range of motion Feet: left foot other (There is a subungual hematoma to the proximal aspect of the left great toenail. No open wound visible.) Neurologic/Psychiatric: alert, normal mood/affect, oriented x 3 Skin: normal color, warm/dry Progress/Results/Core Measures Results/Orders My Orders Orders - MARIA DEL CARMEN CARUSO APRN Foot, Left, 3 Views (01/29/21 19:05) Hydrocodone/Apap 5/325 Tablet (Lortab 5 (01/29/21 19:15) Medications Given in ED Current Medications Medications Dose Ordered Sig/Kenisha Route Start Time Stop Time Status Last Admin Dose Admin Acetaminophen/ Hydrocodone Bitart 1 ea ONCE ONCE PO 01/29/21 19:15 01/29/21 19:16 DC 01/29/21 19:10 1 EA Vital Signs/I&O 01/29/21 18:50 Temp 36.7 Pulse 87 Resp 18 B/P (MAP) 121/78 (92) Pulse Ox 99 O2 Delivery Room Air Blood Pressure Mean: 92 Departure Communication (Admissions) 1935-did a nail trephination using a blunt 18-gauge needle. Got some blood out but quickly reaccumulated with recurrence of pain. Then decided to do a digital block using 5 mL of 1% lidocaine without epinephrine. Used cautery pen to make a little larger hole in the nail plate. Covered with gauze. Impression Primary Impression: Subungual hematoma Disposition: 01 HOME, SELF-CARE Condition: Stable Departure-Patient Inst. Decision time for Depature: 19:25 Referrals: YOCASTA MARTINEZ MD (PCP/Family) Primary Care Physician Patient Instructions: HEMATOMA Add. Discharge Instructions: 1. Return to ER for any concerns such as redness or swelling of the foot. Follow-up with your doctor next week. All discharge instructions reviewed with patient and/or family. Voiced understanding. MARIA DEL CARMEN CARUSO APRN Jan 29, 2021 19:08
[2021-01-29] MEDS ORDERED: HYDROcodone/APAP 5 MG/325 MG (LORTAB) TAB PO ONE (19:15)
--- NOTE | 2021-01-29 19:47 | Diagnostic Imaging Report ---
FOOT, LEFT, 3 VIEWS INDICATION: Trauma, crush injury of left great toe. COMPARISON: None available. TECHNIQUE: Three non-weightbearing views of foot were obtained. FINDINGS: No fracture or traumatic malalignment. No evidence of metatarsal stress fracture. Normal variant os peroneum. IMPRESSION: 1. No acute fracture or traumatic malalignment. Specific, no fracture in the great toe. Dictated by: Dictated on workstation # [id number]
[2021-01-29] MEDS ORDERED: RX-HYDROCODONE/APAP 5/325 MG #4 TAB PK PO PRN (20:00)
== END 2021-01-29 19:55 | disposition home or self-care (01) ==
LOC: EDUNIT# 18:33 → ER 18:35
DX: S90.212A Contusion of left great toe with damage to nail, initial encounter (principal); W20.8XXA Other cause of strike by thrown, projected or falling object, initial encounter
CPT/HCPCS: 73630; 99283

== ENCOUNTER → 2021-07-16 | Outpatient (CLI) | payer BC ==
--- NOTE | 2021-07-16 14:24 | Diagnostic Imaging Report ---
INDICATION: ENLARGED RIGHT THYROID, FATIGUE TECHNIQUE: Grayscale sonographic images of the thyroid gland. CORRELATION STUDY: None FINDINGS: RIGHT LOBE: 4.8 x 1.8 x 1.3 cm. There is normal echotexture about the right lobe. LEFT LOBE: 3.1 x 0.9 x 1.1 cm. There is normal echotexture about the left lobe. Isthmus appears unremarkable. IMPRESSION: Unremarkable appearing thyroid ultrasound examination. (Normal gland size: 4-5 x 2 x 2 cm) Dictated by: Dictated on workstation # [id number]
== END ==
LOC: RAD 12:00
PROVIDERS: ATTEND Internal Medicine
DX: E04.9 Nontoxic goiter, unspecified (principal)
CPT/HCPCS: 76536

== ENCOUNTER → 2021-11-14 | Outpatient (CLI) | payer BC | LOC: LABNPT 12:47 | PROVIDERS: ATTEND Internal Medicine | DX: J02.9 Acute pharyngitis, unspecified (principal); R50.9 Fever, unspecified; R05.9 Cough, unspecified; R51.9 Headache, unspecified ==

== ENCOUNTER → 2021-11-15 | Outpatient (CLI) | payer BC | LOC: LABNPT 08:46 | PROVIDERS: ATTEND Internal Medicine | DX: J02.9 Acute pharyngitis, unspecified (principal); R50.9 Fever, unspecified; R05.9 Cough, unspecified; R51.9 Headache, unspecified; Z20.822 Contact with and (suspected) exposure to COVID-19 | CPT/HCPCS: 87636 ==

== ENCOUNTER → 2021-12-16 | Outpatient (CLI) | payer BC, OTHER ==
--- NOTE | 2021-12-16 17:22 | Diagnostic Imaging Report ---
PROCEDURE: CT head without contrast. TECHNIQUE: Multiple contiguous axial images were obtained through the brain without the use of intravenous contrast. Auto Exposure Controls were utilized during the CT exam to meet ALARA standards for radiation dose reduction. INDICATION: Syncope and collapse. COMPARISON: 03/24/2020. FINDINGS: There is no CT evidence of an acute intracranial abnormality. There is no evidence of intracranial hemorrhage. There is no mass effect or shift. There is no hydrocephalus. The basilar cisterns are patent. There is no abnormal extra-axial fluid collection. Gonzales-white matter differentiation appears maintained. There is no abnormal hypodensity evident within the basal ganglia or within the posterior fossa. The mastoid air cells are clear. The visualized paranasal sinuses clear. Orbital contents unremarkable. No calvarial abnormality is demonstrated. IMPRESSION: 1. No CT evidence of an acute intracranial abnormality. Dictated by: Dictated on workstation # [id number]
--- NOTE | 2021-12-16 19:35 | Diagnostic Imaging Report ---
INDICATION: Hand pain. EXAMINATION: Left hand 11/15/2021 3 views of the hand. FINDINGS: There is no evidence for an acute fracture or dislocation. The joint spaces are well maintained. There is no significant soft tissue swelling. IMPRESSION: No acute process. Dictated by: Dictated on workstation # [id number]
--- NOTE | 2021-12-16 19:42 | Diagnostic Imaging Report ---
INDICATION: Neck pain and left hand pain. FINDINGS: Alignment of the cervical spine is normal. The vertebral body heights are maintained. Disc spaces appear preserved. The facets are normally aligned. There is no abnormal prevertebral soft tissue thickening. There is no widening of the predental space. The odontoid view is unremarkable. The lung apices are clear. IMPRESSION: 1. Normal height and alignment of the cervical spine. Disc spaces appear preserved. There is no abnormal prevertebral soft tissue thickening. Dictated by: Dictated on workstation # [id number]
== END ==
LOC: RAD 16:30
PROVIDERS: ATTEND Nurse Practitioner Family
DX: M79.642 Pain in left hand (principal); M54.2 Cervicalgia; D49.7 Neoplasm of unspecified behavior of endocrine glands and other parts of nervous system; F32.A Depression, unspecified; R55 Syncope and collapse
CPT/HCPCS: 70450; 72040; 73130

== ENCOUNTER 2021-12-21 08:03 | Emergency (ER) | payer OTHER ==
[~2021-12-21] VITALS: Ht 170.2 cm; Wt 72.5 kg
[2021-12-21 08:07] VITALS: BP 128/87
[2021-12-21] MEDS ORDERED: LIDOCAINE 1% INJ 50 ML (XYLOCAINE) VIAL ONE (08:21)
[2021-12-21] MEDS ORDERED: LIDOCAINE 1% INJ 50 ML (XYLOCAINE) VIAL IJ ONE (08:30)
[2021-12-21] MEDS ORDERED: TETANUS,DIPTH,PERTUSS P/F (BOOSTRIX) 0.5 ML VIAL IM ONE (08:30)
--- NOTE | 2021-12-21 08:40 | ED Upper Extremity ---
General Chief Complaint: Laceration Stated Complaint: R HAND INDEX FINGER LAC Nursing Triage Note: PT AMB TO RM 6 WITH COMPLAINT OF LACERATION TO RIGHT POINTER FINGER. PT STATES CAUGHT FINGER IN BELT THIS MORNING AT WORK. Source: patient Exam Limitations: no limitations History of Present Illness Date Seen by Provider: Dec 21, 2021 Time Seen by Provider: 08:08 Initial Comments Here with report of injury to the right index finger. States he is at work when his finger got caught and felt causing abrasions to the dorsum and laceration to the palmar surface of the right index finger distal to the DIP. Denies other injury but states he almost passed out due to pain. Unsure of tetanus status. Denies other injury or concerns. Onset: just prior to arrival (Approximately 30 to 45 minutes ago) Pain/Injury Location: right 2nd finger Method of Injury: direct blow, incised Modifying Factors: Improves With Immobilization; Worse With Movement Allergies and Home Medications Allergies Coded Allergies: No Known Drug Allergies (Unverified , 12/05/19) Patient Home Medication List Home Medication List Reviewed: Yes Review of Systems Constitutional: No chills, No fever Respiratory: no symptoms reported Cardiovascular: no symptoms reported Skin: see HPI, change in color, lesions Psychiatric/Neurological: Denies Paresthesia, Denies Tingling Past Iomwqmn-Opmkqg-Ukxxip Hx Patient Social History Tobacco Use?: No Use of E-Cig and/or Vaping dev: No Substance use?: No Alcohol Use?: Yes Alcohol Frequency: Once in a while Pt feels they are or have been: No Immunizations Up To Date Influenza Vaccine Up-to-Date: No; Not Current Seasonal Allergies Seasonal Allergies: No Past Medical History Surgeries: Yes (TUMOR REMOVED FROM BACK) Respiratory: No Cardiac: No Neurological: No Genitourinary: No Gastrointestinal: No Musculoskeletal: No Endocrine: No HEENT: No Cancer: No Psychosocial: Yes Depression Integumentary: No Blood Disorders: No Adverse Reaction/Blood Tranf: No Family Medical History Reviewed Nursing Family Hx No Pertinent Family Hx Physical Exam Vital Signs Vital Signs - First Documented 12/21/21 08:07 Temp 36.3 Pulse 73 Resp 16 B/P (MAP) 128/87 (101) Pulse Ox 98 O2 Delivery Room Air Capillary Refill : Less Than 3 Seconds Height, Weight, BMI Height: '" Weight: lbs. oz. kg; 25.00 BMI Method: General Appearance: WD/WN, no apparent distress Cardiovascular: regular rate, rhythm, no murmur Respiratory: lungs clear, normal breath sounds Hand: Right, laceration (Few abrasions on the long axis of the right index finger on the dorsum. Palmar pad has C-shaped flap distal to the DIP with bleeding controlled. Distal circulation and sensation intact.), soft tissue tenderness Neurologic/Psychiatric: no motor/sensory deficits, alert, oriented x 3 Skin: warm/dry, other (Laceration as above) Procedures/Interventions Wound Location: Upper Extremities Other Wound Location Right index finger Wound Length (cm): 3 Wound's Depth, Shape: flap, contused tissue Wound Explored: contaminated Irrigated w/ Saline (ccs): 125 Betadine Prep?: Yes Anesthesia: 1% Lidocaine Volume Anesthetic (ccs): 4 Suture: Ethlion Suture Size: 4-0 Number of Sutures: 5 Layer Closure?: 1 Number Deep Layer Sutures: 0 Sterile Dressing Applied?: Yes Progress Anesthetized via digital block to the right index finger. Good anesthesia achieved. Wound cleaned with copious water and soap. Wound approximated with 5 simple interrupted sutures. Wound is C-shaped and a flap with thin callus overlap. This was left in place. Cover with antibiotic ointment and dressing. Antibiotic ointment also covered abrasions to dorsum of finger as well. Tolerated procedure well with no complications. Progress/Results/Core Measures Results/Orders My Orders Orders - ISHA HILARIO MD Finger(S) (12/21/21 08:21) Lidocaine 1% Inj 50 Ml (Xylocaine 1% Inj (12/21/21 08:30) Dipht,Pertuss(Acell),Tet Adult (Boostrix (12/21/21 08:30) Lidocaine 1% Inj 50 Ml (Xylocaine 1% Inj (12/21/21 08:21) Vital Signs/I&O 12/21/21 08:07 Temp 36.3 Pulse 73 Resp 16 B/P (MAP) 128/87 (101) Pulse Ox 98 O2 Delivery Room Air Blood Pressure Mean: 101 Progress Progress Note : Progress Note Seen and evaluated. Wound cleaned with Chloraseptic and saline. Anesthetized via digital block with 1% lidocaine approximately 4 mL. X-ray ordered. Tetanus ordered. 0915: Wound repaired and covered with tube gauze. Tolerated procedure well with no complications. Discharged home with return precautions. Patient verbalized understanding of instructions and agreement with plan. Diagnostic Imaging Diagonstic Imaging: Xray Plain Films/CT/US/NM/MRI: other Comments [facility] [place], [place] NAME: STEFAN SALVADOR [facility] REC#: [id number] PT STATUS: REG ER : 2000 PHYSICIAN: ISHA HILARIO MD ADMIT DATE: 12/21/21/ER Draft Date of Exam:12/21/21 FINGER(S) INDICATION: Finger pain COMPARISON: None available TECHNIQUE: 3 radiographs of the right hand and 2nd digit are obtained dated 12/21/2021. FINDINGS: No acute fracture or dislocation. No destructive osseous process. Joint spaces are well-maintained. No suspicious radiopaque foreign body. Bandage is noted overlying the 2nd digit. IMPRESSION: No acute osseous abnormality with bandage identified overlying the 2nd digit. Dictated on workstation # [id number] Dict: 12/21/21 0843 Trans: 12/21/21 0846 [facility] [id number] Interpreted by: CLARA GUTIÉRREZ MD Electronically signed by: Reviewed: Reviewed by Me Departure Impression Primary Impression: Laceration of right index finger without damage to nail Qualified Codes: S61.210A - Laceration without foreign body of right index finger without damage to nail, initial encounter Disposition: 01 HOME, SELF-CARE Condition: Improved Departure-Patient Inst. Decision time for Depature: 09:19 Referrals: MIA SALAS MD (PCP/Family) Primary Care Physician Patient Instructions: Laceration Repair With Stitches (DC), Wound Care (DC) Add. Discharge Instructions: All discharge instructions reviewed with patient and/or family. Voiced understanding. Sutures out in 10 days. Keep Tubegauz dressing in place for 2 days and then you may remove. You may then gently clean wound with copious water and gentle soap if needed. Cover with antibiotic ointment and redress. Change dressing once or twice daily as needed for the next several days and use antibiotic over wound. After 5 to 7 days, you may use just dry dressing or ointment as needed. Protect wound from soiling. Return for worse pain, fever, red streaks up the hand, foul-smelling drainage or other concerns as needed. You may take ibuprofen 600 mg every 8 hours as needed for pain. You may take Tylenol/acetaminophen 1000 mg every 6-8 hours as needed for pain. ISHA HILARIO MD Dec 21, 2021 08:40
--- NOTE | 2021-12-21 08:46 | Diagnostic Imaging Report ---
INDICATION: Finger pain COMPARISON: None available TECHNIQUE: 3 radiographs of the right hand and 2nd digit are obtained dated 12/21/2021. FINDINGS: No acute fracture or dislocation. No destructive osseous process. Joint spaces are well-maintained. No suspicious radiopaque foreign body. Bandage is noted overlying the 2nd digit. IMPRESSION: No acute osseous abnormality with bandage identified overlying the 2nd digit. Dictated by: Dictated on workstation # [id number]
== END 2021-12-21 09:35 | disposition home or self-care (01) ==
LOC: EDUNIT# 08:03 → ER 08:05
DX: S61.210A Laceration without foreign body of right index finger without damage to nail, initial encounter (principal); Z23 Encounter for immunization; W23.1XXA Caught, crushed, jammed, or pinched between stationary objects, initial encounter
CPT/HCPCS: 12001; 73140; 90715

== ENCOUNTER 2022-01-01 16:05 | Emergency (ER) | payer OTHER ==
[~2022-01-01] VITALS: Ht 172 cm; Wt 72.0 kg
== END 2022-01-01 16:16 | disposition home or self-care (01) ==
LOC: EDUNIT# 16:05 → ER 16:06
DX: Z48.02 Encounter for removal of sutures (principal)